=== PATIENT | female | born 1965 | race Two or more races ===

== ENCOUNTER → 2020-01-13 13:31 | Outpatient (BNVA) | payer OTHER, SELFPAY | PROVIDERS: PCP Nurse Practitioner Family; Referring Provider Nurse Practitioner Family; Visit Provider Student in an Organized Health Care Education/Training Program | DX: M79.7 Fibromyalgia (principal); S83.241A Other tear of medial meniscus, current injury, right knee, initial encounter; Z79.899 Other long term (current) drug therapy | CPT/HCPCS: 99212 ==

== ENCOUNTER → 2020-01-22 10:29 | Outpatient (BNVA) | payer OTHER, SELFPAY | PROVIDERS: Visit Provider Orthopaedic Surgery | DX: S83.241D Other tear of medial meniscus, current injury, right knee, subsequent encounter (principal) | CPT/HCPCS: 99212 ==

== ENCOUNTER 2020-03-17 09:16 | Day surgery (SDC) | payer OTHER, SELFPAY ==
[2020-03-01 15:02] VITALS: BMI 39.4
--- NOTE | 2020-03-15 15:18 | HO.ANESPROP2 ---
Documented by User: Melissa Caro 03/15/20 15:21 HPI - Anesthesia Eval Consult details Narrative: 54yo F for Knee Arthroscopy PMFSH Past Medical History Medical History Anemia Anxiety Depression Fibromyalgia GERD (gastroesophageal reflux disease) Glaucoma Hyperlipemia IBS (irritable bowel syndrome) Lumbar spondylitis Obesity Osteoarthritis Overactive bladder Plantar fasciitis Renal stones Family History Family History Mother Diabetes Fibromyalgia Arthritis Osteoporosis Daughter Breast cancer Surgical History Surgical History H/O nasal septoplasty Hx of lithotripsy Hx of tubal ligation Social History Social History Are you a primary animal care attendant to a significant other at home: No Alcohol intake: never Smoking Status: Never smoker Second Hand Smoke Exposure: No Use of substances other than those prescribed or required for medical reasons: No Have you been hit, kicked, punched, or otherwise hurt by someone within the past year? If so, by whom?: No Advance Directives: No Advance Directives Information Provided: No Advance Directives on File: No Recently lost weight without trying: No Current occupational status: disabled Current occupation: Right Handed Meds Allergies Allergy/AdvReac Type Severity Reaction Status Date / Time No Known Allergies Allergy Verified 03/01/20 14:35 [No Known Allergies*] Home Medications Medication Instructions Recorded Confirmed Type baclofen 10 mg tablet 10 mg PO BEDTIME 01/13/20 03/01/20 History cholecalciferol (vitamin D3) 25 25 mcg PO DAILY 01/13/20 03/01/20 History mcg (1,000 unit) capsule duloxetine 30 mg capsule,delayed 30 mg PO BID 01/13/20 03/01/20 History release gabapentin 100 mg capsule 100 mg PO BEDTIME 01/13/20 03/01/20 History lidocaine 5 % topical cream 1 applic TOPICAL BID PRN 01/13/20 03/01/20 History simvastatin 10 mg tablet 10 mg PO DAILY 01/13/20 03/01/20 History buspirone 1 tab PO TID 03/01/20 03/01/20 History clonazepam 1 tab PO DAILY PRN 03/01/20 03/01/20 History omeprazole 1 tab PO QAM 03/01/20 03/01/20 History tramadol 1 tab PO Q4H PRN 03/01/20 03/01/20 History zolpidem 1 tab PO BEDTIME PRN 03/01/20 03/01/20 History Exam Exam Date and Time: March 15, 2020 1518 Height,Weight and Vital Signs: Height 4 ft 11 in Weight 88.451 kg Assessment and Plan Assessment Anesthesia Assessment: Chart Reviewed Documented by User: Smitha Liz 03/17/20 10:29 PMFSH Past Medical History Medical History Anemia Anxiety Depression Fibromyalgia GERD (gastroesophageal reflux disease) Glaucoma Hyperlipemia IBS (irritable bowel syndrome) Lumbar spondylitis Obesity Osteoarthritis Overactive bladder Plantar fasciitis Renal stones Family History Family History Mother Diabetes Fibromyalgia Arthritis Osteoporosis Daughter Breast cancer Surgical History Surgical History H/O nasal septoplasty Hx of lithotripsy Hx of tubal ligation Social History Social History Are you a primary animal care attendant to a significant other at home: No Alcohol intake: never Smoking Status: Never smoker Second Hand Smoke Exposure: No Use of substances other than those prescribed or required for medical reasons: No Have you been hit, kicked, punched, or otherwise hurt by someone within the past year? If so, by whom?: No Advance Directives: No Advance Directives Information Provided: No Advance Directives on File: No Recently lost weight without trying: No Current occupational status: disabled Current occupation: Right Handed Meds Allergies Allergy/AdvReac Type Severity Reaction Status Date / Time No Known Allergies Allergy Verified 03/01/20 14:35 [No Known Allergies*] Home Medications Medication Instructions Recorded Confirmed Type baclofen 10 mg tablet 10 mg PO BEDTIME 01/13/20 03/01/20 History cholecalciferol (vitamin D3) 25 25 mcg PO DAILY 01/13/20 03/01/20 History mcg (1,000 unit) capsule duloxetine 30 mg capsule,delayed 30 mg PO BID 01/13/20 03/01/20 History release gabapentin 100 mg capsule 100 mg PO BEDTIME 01/13/20 03/01/20 History lidocaine 5 % topical cream 1 applic TOPICAL BID PRN 01/13/20 03/01/20 History simvastatin 10 mg tablet 10 mg PO DAILY 01/13/20 03/01/20 History buspirone 1 tab PO TID 03/01/20 03/01/20 History clonazepam 1 tab PO DAILY PRN 03/01/20 03/01/20 History omeprazole 1 tab PO QAM 03/01/20 03/01/20 History tramadol 1 tab PO Q4H PRN 03/01/20 03/01/20 History zolpidem 1 tab PO BEDTIME PRN 03/01/20 03/01/20 History Exam Airway Mallampati Class: II TM Dist: >3cm Neck ROM: Full Assessment and Plan Assessment Anesthesia Assessment: Anesthesia Plan Discussed and Chart Reviewed Final Anesthetic Review NPO: Yes ASA Class: II Final Preanesthetic Review: No Changes in Pt Med Stat, Meds/Allgs Chart Reviewed, Consent Obtained/Reviewed and Anes Risks/Benef Reviewed Patient Risk: Low Procedure Risk: Low Assessment/Block/Sedation in SS: Assess/Block/Sedation-SS Anesthetic Plan Anesthetic Plan: GA
--- NOTE | 2020-03-16 14:57 | MHC.SHP ---
Pre-Procedural Eval Section A The patient is an INPATIENT: No Changes since office visit: No Cold of Flu in the past 2 weeks, No New Medical Problems, No Changes in Medication and No Patient answered all questions The History & Physical has been completed within 30 days and I have reviewed it.: Yes Section B Chief Complaint: Medial Meniscus Tear Allergies: Allergies Allergy/AdvReac Type Severity Reaction Status Date / Time No Known Allergies Allergy Verified 03/01/20 14:35 [No Known Allergies*] Plan I have reviewed the history and physical and performed a pertinent physical examination on my patient. No changes have occurred unless specified.
[2020-03-17] VITALS (9 sets, daily range): BP systolic 114–154; BP diastolic 65–88; PULSE 63–82; RESP 14–18; TEMP 36.1–36.6; O2SAT 95–100
[2020-03-17] MEDS: Acetaminophen 325 MG TABLET 650 MG PO (11:45)
[2020-03-17] MEDS: fentaNYL citrate/PF 100 MCG/2 ML VIAL 50 MCG IVPUSH (11:45)
[2020-03-17] MEDS: oxyCODONE HCl Immed Release 5 MG TABLET PO (11:45)
--- NOTE | 2020-03-17 12:27 | HO.POSTANES ---
Post Anesthesia Evaluation Post Anesthesia Evaluation Vital Signs: Vital Signs Temp Pulse Resp BP Pulse Ox 03/17/20 12:05 97.0 F 67 17 136/88 99 03/17/20 11:50 67 17 154/86 H 99 03/17/20 11:45 17 03/17/20 11:35 65 16 151/82 H 100 03/17/20 11:20 65 18 139/80 100 03/17/20 11:15 64 16 137/81 100 03/17/20 11:10 63 16 137/79 100 03/17/20 11:05 98 F 69 14 139/83 100 03/17/20 09:54 97.0 F 82 16 114/65 96 Anesthesia: Monitored and General LMA Mental Status: Awake Pain Control: Satisfactory Nausea/Vomiting: None Hydration: Adequate Anesthesia-Related Issues: No Anes. Related Issues
--- NOTE | 2020-03-19 12:47 | OP_ITS ---
SURGEON: Christina العلي MD PREOPERATIVE DIAGNOSIS: Medial meniscal tear, right knee. POSTOPERATIVE DIAGNOSIS: Osteoarthritis of medial meniscus, right knee. PROCEDURE PERFORMED: Partial medial meniscectomy, right knee and debridement of medial femoral condyle. ESTIMATED BLOOD LOSS: COMPLICATIONS: ANESTHESIA: ASSISTANTS: SPECIMENS: CLINICAL NOTE: This lady has ongoing problem with pain and discomfort involving her knee. She has failed nonoperative management. Therefore, after explaining the risks, benefits, and alternatives and answering all the questions, it was mutually agreed upon to carry out the following procedure. MOTION: Full range of motion. STABILITY: Cruciate and collateral ligaments intact. DESCRIPTION OF PROCEDURE: PREPARATION: GA, standard technique, tourniquet inflated to 300 mmHg for 8 minutes. SURGICAL TIME-OUT: The patient was identified, procedure confirmed, site confirmed. Medical analogy and history reviewed. Preoperative antibiotics were given. Standard DVT prophylaxis in place. All other items were discussed and agreed upon. INCISION: Superolateral, inferolateral, inferomedial stab incisions. SYNOVIUM: Normal. SYNOVIAL FLUID: Clear. MEDIAL COMPARTMENT: There was a tear of the posterior horn of the medial meniscus was resected using a combination of handheld cutters and power shaver to stable meniscus. There was a larger grade 3 injury of the medial femoral condyle, which was debrided of loose articular cartilage. There were areas of grade 2 to 3 injury of the tibial articular surface, which was debrided as well. INTERCONDYLAR NOTCH: ACL visualized, palpated intact. PCL palpated intact. LATERAL COMPARTMENT: The lateral meniscus, tibial and femoral articular surfaces, popliteus tendon were all stable and intact. ANTERIOR COMPARTMENT: Medial and lateral gutters clear. Suprapatellar pouch clear. There was grade 2 softening of the medial facet of the patella. There was grade 2 softening of the femoral sulcus. CLOSURE: 30 mL of 0.75% Marcaine with epinephrine mixed half and half with normal saline was injected in the knee. Steri-Strips and sterile dressing were then applied. RECOMMENDATIONS: 1. Restore motion and strength. 2. Resume activity as tolerated. 3. Discharge today with prescription for Tylenol No. 3, 20 tablets. Christina العلي MD KKI/TRUDYL / [id number]
== END 2020-03-17 12:36 | disposition home or self-care (01) ==
PROVIDERS: PCP Nurse Practitioner Family; Visit Provider Orthopaedic Surgery
PROC: (CPT 29870; principal; 2020-03-17 10:40)
DX: S83.241A Other tear of medial meniscus, current injury, right knee, initial encounter (principal); M17.11 Unilateral primary osteoarthritis, right knee; Z79.899 Other long term (current) drug therapy; X58.XXXA Exposure to other specified factors, initial encounter; Y93.9 Activity, unspecified; Y92.9 Unspecified place or not applicable; Y99.8 Other external cause status
CPT/HCPCS: 29881; J0171; J1100; J1885; J2250; J2405; J3010

== ENCOUNTER → 2020-03-23 10:13 | Outpatient (BNVA) | payer OTHER, SELFPAY | PROVIDERS: PCP Nurse Practitioner Family; Visit Provider Physician Assistant | DX: Z47.89 Encounter for other orthopedic aftercare (principal); S83.241D Other tear of medial meniscus, current injury, right knee, subsequent encounter | CPT/HCPCS: 29881; 99212 ==

== ENCOUNTER → 2020-03-31 14:12 | Outpatient (BNVA) | payer OTHER, SELFPAY | PROVIDERS: PCP Nurse Practitioner Family; Visit Provider Urology | DX: N20.0 Calculus of kidney (principal); N39.41 Urge incontinence; R35.0 Frequency of micturition | CPT/HCPCS: 51798; 81002; 99202 ==

== ENCOUNTER 2020-04-12 14:57 | Outpatient (REF) | payer OTHER, SELFPAY ==
--- NOTE | 2020-04-12 15:01 | US_ITS ---
EXAMINATION: US RETROPERITONEAL LIMITED (RENAL ONLY) CLINICAL INFORMATION: Calculus of kidney. COMPARISON: None TECHNIQUE: Calculus of kidneys. FINDINGS: RIGHT KIDNEY: 11.3 x 4.0 x 3.7 cm (SAG x AP x TRV). The kidney is normal in size, contour, and echogenicity. Renal cortical thickness is normal. There are punctate foci with twinkle artifact at the midpole. LEFT KIDNEY: 10.7 x 4.3 x 4.2 cm (SAG x AP x TRV). The kidney is normal in size, contour, and echogenicity. Renal cortical thickness is normal. There are calcified vessels in the lower pole with an extrarenal pelvis and mild pelvic fullness. US/US renal BI IMPRESSION: No echogenic stones or solid lesion. Likely mild pelvic fullness with an extrarenal left kidney pelvis. Mild punctate foci with Twinkle artifact in the midpole right kidney and echogenic foci in the lower pole left kidney likely vascular calcifications.
== END 2020-04-12 14:58 | disposition home or self-care (01) ==
LOC: HO.US 14:57
PROVIDERS: Visit Provider Urology
DX: N20.0 Calculus of kidney (principal)
CPT/HCPCS: 76775

== ENCOUNTER → 2020-05-03 13:32 | Outpatient (BNVA) | payer OTHER, SELFPAY | PROVIDERS: PCP Nurse Practitioner Family; Visit Provider Urology | CPT/HCPCS: Q3014 ==

== ENCOUNTER 2020-05-13 12:32 | Outpatient (REF) | payer OTHER, SELFPAY ==
--- NOTE | ~2020-05-13 | MM_ITS ---
EXAMINATION: MM SCREENING DIGITAL BREAST TOMOSYNTHESIS, BILATERAL CLINICAL INFORMATION: Screening. Asymptomatic. The lifetime risk of breast cancer based on the Tyrer-Cuzick Model is 11%. COMPARISON: Mammography: 02/21/2018, 01/16/2017, 12/21/2015 TECHNIQUE: Digital breast tomosynthesis is performed in both the craniocaudal and mediolateral oblique views along with computer-aided detection (CAD). Synthesized 2D images are generated from the tomosynthesis. FINDINGS: There are scattered areas of fibroglandular density (ACR BI-RADS breast composition Category b). The left breast has stable nodular asymmetry anterior upper outer quadrant similar to prior studies. Neither breast shows abnormal calcifications. The bilateral axilla and skin contours are unremarkable. Right CC view has small asymmetric density mid outer quadrant. This could represent shifting fibroglandular tissue, current right CC view is performed without nipple in profile. Patient will be recalled for additional imaging. MM/MM tomosynthesis screening BI IMPRESSION: 1. Right: Asymmetric density mid outer quadrant on CC view, possibly shifting fibroglandular tissue. 2. Left: No mammographic evidence of malignancy. ASSESSMENT: BI-RADS 0: Incomplete - Need Additional Imaging Evaluation RECOMMENDATION: 1. Additional views of the right breast (3-D CC nipple in profile; 3-D rolled CC x2). 2. Targeted ultrasound if warranted after review of the additional views. 3. Radiology department staff will contact the patient for additional imaging. This patient's information was entered into a reminder system with a target due date for their next mammogram.
== END 2020-05-13 12:33 | disposition home or self-care (01) ==
LOC: HO.MAMMO 12:32
PROVIDERS: PCP Nurse Practitioner Family; Visit Provider Nurse Practitioner Family
DX: Z12.31 Encounter for screening mammogram for malignant neoplasm of breast (principal)
CPT/HCPCS: 77063; 77067; Q3014

== ENCOUNTER 2020-06-10 12:25 | Outpatient (REF) | payer OTHER, SELFPAY ==
--- NOTE | ~2020-06-10 | US_ITS ---
EXAMINATION: US DIAGNOSTIC ULTRASOUND BREAST, RIGHT CLINICAL INFORMATION: Right breast asymmetry laterally. COMPARISON: Mammography of same day and studies dating back to January 11, 2012. TECHNIQUE: Ultrasound of the breast is performed with real-time argueta scale imaging and color Doppler. FINDINGS: There is no focal suspicious finding. There is no solid mass, architectural abnormality, duct ectasia, or edema in the soft tissue planes. Results are discussed with the patient at time of visit. US/US breast RT limited IMPRESSION: No ultrasound findings to suggest malignancy of the right breast. ASSESSMENT: BI-RADS 1: Negative RECOMMENDATION: Routine annual mammography screening due in 12 months. This patient's information was entered into a reminder system with a target due date for their next mammogram.
--- NOTE | ~2020-06-10 | MM_ITS ---
EXAMINATION: MM DIAGNOSTIC DIGITAL BREAST TOMOSYNTHESIS, RIGHT CLINICAL INFORMATION: Density laterally. COMPARISON: Mammography: 05/13/2020 and studies dating back to 01/11/2012. TECHNIQUE: Digital breast tomosynthesis is performed. 2D images are generated from the tomosynthesis. The following views are obtained: Repeat craniocaudal view as well as rolled craniocaudal views of the right breast. FINDINGS: There are scattered areas of fibroglandular density (ACR BI-RADS breast composition Category b). Supplementary images appear to show density to have a similar appearance to glandular tissue which is similar to previous studies. Targeted right breast ultrasound laterally did not demonstrate any abnormal cystic or solid masses. No region of abnormal distal sound shadowing. No edematous change within the parenchyma is present. Results are provided to the patient at time of visit by the technologist. MM/MM tomosynthesis added views R IMPRESSION: No specific mammographic or ultrasound findings to suggest malignancy. ASSESSMENT: BI-RADS 1: Negative. RECOMMENDATION: Routine annual mammography screening due in 12 months. This patient's information was entered into a reminder system with a target due date for their next mammogram.
== END 2020-06-10 12:26 | disposition home or self-care (01) ==
LOC: HO.MAMMO 12:25
PROVIDERS: Visit Provider Nurse Practitioner Family
DX: N64.89 Other specified disorders of breast (principal)
CPT/HCPCS: 76642; 77061; 77065

== ENCOUNTER → 2020-08-03 14:47 | Outpatient (BNVA) | payer OTHER, SELFPAY | DX: N32.81 Overactive bladder (principal); N39.41 Urge incontinence; N20.0 Calculus of kidney; M79.7 Fibromyalgia; R35.0 Frequency of micturition | CPT/HCPCS: 51798; 99212 ==

== ENCOUNTER 2020-11-08 13:22 | Outpatient (REF) | payer OTHER, SELFPAY ==
[2020-11-08 15:15] LABS: Alanine Aminotransferase 24 U/L (0-31); Alkaline Phosphatase 108 U/L (39-117); Anion Gap 11 (12-20); Aspartate Amino Transferase 16 U/L (5-31); Bilirubin Total 0.4 mg/dL (0.0-1.0); Blood Urea Nitrogen 16 mg/dL (9-16); Calcium 9.8 mg/dL (8.4-10.2); Carbon Dioxide 28 mmol/L (22-29); Chloride 107 mmol/L (96-108); Estimated Glomerular Filt Rate > 60; Glucose Random 123 mg/dL (60-115); Potassium 4.3 mmol/L (3.3-5.1); Sodium 142 mmol/L (135-145); Total Protein 7.1 g/dL (6.5-8.0)
== END 2020-11-08 13:23 | disposition home or self-care (01) ==
LOC: HO.LAB 13:22
PROVIDERS: PCP Nurse Practitioner Family; Visit Provider Nurse Practitioner Family
DX: M79.7 Fibromyalgia (principal); S83.241D Other tear of medial meniscus, current injury, right knee, subsequent encounter
CPT/HCPCS: 36415; 80053; 99212

== ENCOUNTER 2020-12-16 11:38 | Emergency (ER) | payer OTHER, SELFPAY ==
--- NOTE | ~2020-12-16 | CT_ITS ---
EXAMINATION: CT ABDOMEN AND PELVIS WITHOUT CONTRAST CLINICAL INFORMATION: Flank pain. COMPARISON: CT chest 03/15/2017 . TECHNIQUE: Multidetector volumetric imaging was performed from the superior aspect of the liver through the pubic symphysis. Sagittal and coronal reformatted images were obtained on the technologist's workstation. This CT examination was performed using dose optimization techniques as appropriate, variously including the following: *Automated exposure control *Adjustment of mA and/or kV according to patient size (this includes techniques or standardized protocols for targeted exams where dose is matched to indication/reason for exam; i.e. extremities or head) *Use of iterative reconstruction technique DLP: 851 mGy-cm FINDINGS: LUNG BASES: The visualized lung bases are unremarkable. LIVER, GALLBLADDER, AND BILIARY TREE: The liver is enlarged in size, normal shape, and diffusely attenuated. Liver measures 21 seen in concordant length. No focal hepatic lesion or biliary ductal dilatation is present. The gallbladder is unremarkable with no evidence of radiopaque gallstones, gallbladder wall thickening, or obvious pericholecystic inflammatory changes. PANCREAS: Unremarkable. SPLEEN: Unremarkable. ADRENAL GLANDS: Unremarkable. KIDNEYS AND URETERS: The kidneys are normal in size, shape, and attenuation. There is a 5 mm nonobstructive radiopaque calculi upper pole and a tumor nonobstructive radiopaque calculi mid and lower pole right kidney. There is a 2 mm nonobstructive radiopaque calculi mid lower pole calyx left kidney. There is no hydroureteronephrosis seen. BLADDER: Unremarkable. GASTROINTESTINAL TRACT: There is scattered stool and gas seen throughout the colon without distention. The small bowel loops are normal caliber. ABDOMINAL WALL: A small lumbar canal hernia containing fat is noted. LYMPH NODES: Normal. VASCULAR: Unremarkable. PELVIC VISCERA: The uterus is anteverted and slightly enlarged.. There is an exophytic lesion OSSEOUS STRUCTURES: Unremarkable. CT/CT abdomen pelvis wo con IMPRESSION: Diffuse hepatic steatosis with mild hepatomegaly. No focal lesion seen. Bilateral nonobstructive radiopaque renal calculi without hydroureteronephrosis. Mild constipation. Appendix not seen.
[2020-12-16 11:57] VITALS: BMI 36.8
--- NOTE | 2020-12-16 12:01 | ED.BACK ---
HPI - Back Pain/Injury General Chief Complaint: Back Pain/Injury Stated Complaint: back pain Time Seen by Provider: 12/16/20 11:57 History of Present Illness HPI Narrative: Patient is a 55-year-old female presents today with having back pain. The back pain is diffuse is on both sides. It radiates down the right thigh a little bit. It is not associated with any bowel urinary incontinence. There is no focal weakness. Patient has had similar back pain but not as intense in the past. No history of kidney stone. No history of abdominal surgery. No nausea no vomiting. Patient from home. There is no particular trauma. Patient woke up 1 morning started having the pain. Related Data Home Medications Medication Instructions Recorded Confirmed baclofen 10 mg tablet 10 mg PO BEDTIME 01/13/20 11/08/20 cholecalciferol (vitamin D3) 25 25 mcg PO DAILY 01/13/20 11/08/20 mcg (1,000 unit) capsule lidocaine 5 % topical cream 1 applic TOPICAL BID PRN 01/13/20 11/08/20 simvastatin 10 mg tablet 10 mg PO DAILY 01/13/20 11/08/20 buspirone 7.5 mg tablet 1 tab PO TID 03/01/20 11/08/20 clonazepam 0.5 mg tablet 1 tab PO DAILY PRN 03/01/20 11/08/20 omeprazole 20 mg tablet,delayed 1 tab PO QAM 03/01/20 11/08/20 release tramadol 50 mg tablet 1 tab PO Q4H PRN 03/01/20 11/08/20 zolpidem 10 mg tablet 1 tab PO BEDTIME PRN 03/01/20 11/08/20 acetaminophen 500 mg tablet 500 mg PO Q6H PRN 03/31/20 11/08/20 baclofen 20 mg tablet 20 mg PO TID 03/31/20 11/08/20 lidocaine 5 % topical ointment 1 TOPICAL TID 03/31/20 11/08/20 simvastatin 20 mg tablet 20 mg PO BEDTIME 03/31/20 11/08/20 Previous Rx's Medication Instructions Recorded acetaminophen 300 mg-codeine 30 mg 1 tab PO Q4-6H PRN 7 Days #20 tab 03/17/20 tablet oxybutynin chloride 5 mg 5 mg PO DAILY #30 tab 03/31/20 tablet,extended release 24 hr diclofenac sodium 1 % topical gel 2 g TOPICAL BID #100 g 05/10/20 tolterodine 2 mg capsule,extended 2 mg PO DAILY 30 Days #30 cap 06/09/20 release 24 hr duloxetine 30 mg capsule,delayed 30 mg PO BID #60 cap 08/16/20 release (Cymbalta) gabapentin 100 mg capsule 100 mg PO BEDTIME #90 cap 11/21/20 mirabegron 25 mg tablet,extended 25 mg PO DAILY 30 Days #90 tab 11/25/20 release 24 hr (Myrbetriq) tolterodine 4 mg capsule,extended 4 mg PO DAILY 30 Days #90 cap 11/25/20 release 24 hr cyclobenzaprine 10 mg tablet 10 mg PO TID PRN #14 tab 12/16/20 ibuprofen 400 mg tablet 400 mg PO Q6H PRN #20 tab 12/16/20 oxycodone 5 mg tablet 5 mg PO Q8H PRN #7 tab 12/16/20 Allergies Allergy/AdvReac Type Severity Reaction Status Date / Time No Known Allergies Allergy Verified 11/08/20 13:41 [No Known Allergies*] Review of Systems Review of Systems: No bowel Urinary incontinence No focal weakness No chest pain or shortness of breath no diaphoresis All systems reviewed otherwise negative [facility] Past Medical History Attestation statement: The following information was validated with the patient. Medical History Anemia Anxiety Depression Fibromyalgia Frequency of urination GERD (gastroesophageal reflux disease) Glaucoma Hyperlipemia IBS (irritable bowel syndrome) Lumbar spondylitis Obesity Osteoarthritis Overactive bladder Plantar fasciitis Renal stones Renal stones Urge incontinence Surgical History H/O nasal septoplasty History of arthroscopy of right knee (~03/2020) Hx of lithotripsy Hx of tubal ligation Family History Family History Mother Diabetes Fibromyalgia Arthritis Osteoporosis Daughter Breast cancer Social History Social History Are you a primary direct care provider to a significant other at home: No Alcohol intake: never Second Hand Smoke Exposure: No Advance Directives: No Advance Directives Information Provided: Yes Current occupational status: disabled Current occupation: Right Handed Physical Exam Vital Signs: Vital Signs: Last Vital Signs Temp 97.9 F 12/16/20 13:02 Pulse 71 12/16/20 13:02 Resp 16 12/16/20 13:02 BP 156/74 H 12/16/20 13:02 Pulse Ox 97 12/16/20 13:02 Body Mass Index 36.8 Appearance: Alert. Oriented X3. No acute distress. Eyes: Pupils equal, round and reactive to light. ENT: Pharynx normal. Neck: Normal inspection. Neck supple. No lymph nodes noted. No crepitus CVS: Normal heart rate and rhythm. Pulses normal. Normal S1 and S2 Respiratory: No respiratory distress. Breath sounds normal. No Wheezing. No rales Abdomen: Soft and nontender. No rigidity. No distention. good BS x4 Examination of the back there is no CVA tenderness elicited bilaterally. There is no spinal tenderness elicited. There is positive bilateral para spinal muscle tenderness elicited on palpation. Sensation bilateral lower extremity intact. Positive straight leg raise test on the right side Skin: Skin warm and dry. Normal skin color. Normal skin turgor. Extremities: No lower extremity edema. Neurovascular intact to all extremities. No Lacerations. No Rash Neuro: Oriented X 3. No motor deficit. No sensory deficit. Moving all extermities. No slurred speech MDM - Back Pain/Injury MDM Narrative Medical decision making narrative: CT scan of the abdomen pelvis negative for any acute evidence of ureteral stone. No evidence for abscess/perforation/appendicitis. Patient given pain medication for sciatica/musculoskeletal back pain. Symptom improved. No bowel urinary incontinence. No focal weakness. Will discharge patient home. Close follow-up outpatient basis. Differential Diagnosis Differential diagnosis: Likely lumbar radiculopathy and sciatica Medical Records Attestation: I reviewed the patient's medical records. Lab Data Attestation: I reviewed the patient's lab results. Result diagrams: 12/16/20 12:25 12/16/20 12:25 Labs: Lab Results 12/16/20 12/16/20 Range/Units 12:25 12:25 WBC 7.2 (4.8-10.8) X10*3/uL RBC 4.57 (4.20-5.50) X10*6/uL Hgb 13.2 (12.0-16.0) g/dl Hct 40.2 (37-47) % MCV 88.0 (80-98) fL MCH 28.9 (27.0-33.0) pg MCHC 32.8 (31.0-35.0) g/dl RDW 13.4 (11.0-16.0) % Plt Count 248 (160-400) X10*3/uL MPV 8.3 L (9.4-12.3) fL Immature Gran % (Auto) 1.0 H (0.0-0.4) % Neut % (Auto) 63.7 (45-73) % Lymph % (Auto) 28.4 (20-40) % Hawkins % (Auto) 5.7 (2-11) % Eos % (Auto) 1.1 (0-4) % Baso % (Auto) 0.1 (0-2) % Lymph # (Auto) 2.1 (1.2-4.9) X10*3/uL Hawkins # (Auto) 0.4 (0.1-1.2) X10*3/uL Eos # (Auto) 0.1 (0.0-0.4) X10*3/uL Baso # (Auto) 0.0 (0.0-0.2) X10*3/uL Abs Immat Gran (auto) 0.07 H (0.00-0.03) X10*3/uL Absolute Neuts (auto) 4.6 (2.0-8.3) X10*3/uL Absolute Nucleated RBC 0.000 (0.0-0.012) X10*3/uL Nucleated RBC % (auto) 0.0 (0.0-0.2) /100WBC Sodium 141 (135-145) mmol/L Potassium 4.4 (3.3-5.1) mmol/L Chloride 110 H (96-108) mmol/L Carbon Dioxide 24 (22-29) mmol/L Anion Gap 11 L (12-20) BUN 20 H (9-16) mg/dL Creatinine 0.94 (0.5-1.4) mg/dL Estim Creat Clear Calc 76.5 Estimated GFR > 60 Random Glucose 119 H (60-115) mg/dL Calcium 9.5 (8.4-10.2) mg/dL Total Bilirubin 0.4 (0.0-1.0) mg/dL Direct Bilirubin 0.2 (0.0-0.5) mg/dL AST 17 (5-31) U/L ALT 26 (0-31) U/L Alkaline Phosphatase 104 (39-117) U/L Total Protein 6.7 (6.5-8.0) g/dL Albumin 3.8 (3.5-5.0) g/dL Discharge Plan Discharge Clinical Impression: Strain of lumbar region, Sciatica Patient Disposition: Home, Self-Care Instructions: Low Back Strain (ED), Sciatica (ED) Prescriptions: New cyclobenzaprine 10 mg tablet 10 mg PO TID PRN (Reason: pain) Qty: 14 RF: 0 ibuprofen 400 mg tablet 400 mg PO Q6H PRN (Reason: pain) Qty: 20 RF: 0 oxycodone 5 mg tablet 5 mg PO Q8H PRN (Reason: pain) Qty: 7 RF: 0 No Action acetaminophen-codeine 300-30 mg tablet 1 tab PO Q4-6H PRN (Reason: pain) 7 Days Qty: 20 RF: 0 diclofenac sodium 1 % gel 2 g topical BID Qty: 100 RF: 2 tolterodine 2 mg capsule,extended release 24hr 2 mg PO DAILY 30 Days Qty: 30 RF: 6 duloxetine [Cymbalta] 30 mg capsule,delayed release(DR/EC) 30 mg PO BID Qty: 60 RF: 3 gabapentin 100 mg capsule 100 mg PO BEDTIME Qty: 90 RF: 1 tolterodine 4 mg capsule,extended release 24hr 4 mg PO DAILY 30 Days Qty: 90 RF: 2 Myrbetriq 25 mg tablet extended release 24 hr 25 mg PO DAILY 30 Days Qty: 90 RF: 2 clonazepam 0.5 mg tablet 1 tab PO DAILY PRN (Reason: anxiety) RF: 0 tramadol 50 mg tablet 1 tab PO Q4H PRN (Reason: Pain) RF: 0 buspirone 7.5 mg tablet 1 tab PO TID RF: 0 zolpidem 10 mg tablet 1 tab PO BEDTIME PRN (Reason: Sleep) RF: 0 omeprazole 20 mg tablet,delayed release (DR/EC) 1 tab PO QAM RF: 0 simvastatin 20 mg tablet 20 mg PO BEDTIME RF: 0 acetaminophen 500 mg tablet 500 mg PO Q6H PRNRF: 0 baclofen 20 mg tablet 20 mg PO TID RF: 0 lidocaine 5 % ointment 1 topical TID RF: 0 oxybutynin chloride 5 mg tablet extended release 24hr 5 mg PO DAILY Qty: 30 RF: 6 baclofen 10 mg tablet 10 mg PO BEDTIME RF: 0 cholecalciferol (vitamin D3) 25 mcg (1,000 unit) capsule 25 mcg PO DAILY RF: 0 lidocaine 5 % cream 1 applic topical BID PRN (Reason: Pain) RF: 0 simvastatin 10 mg tablet 10 mg PO DAILY RF: 0 Referrals: Radha Cobb [Primary Care Provider] - 2 days
[2020-12-16 12:28] LABS: MANUAL DIFF FLAG NO
[2020-12-16 12:30] LABS: Basophils Percent Auto 0.1 % (0-2); Eosinophils Absolute Auto 0.1 X10*3/uL (0.0-0.4); Eosinophils Percent Auto 1.1 % (0-4); Hematocrit 40.2 % (37-47); Hemoglobin 13.2 g/dl (12.0-16.0); Imm Gran Abs Auto 0.07 X10*3/uL (0.00-0.03); Lymphocytes Absolute Auto 2.1 X10*3/uL (1.2-4.9); Lymphocytes Percent Auto 28.4 % (20-40); Mean Corpuscular HGB Conc 32.8 g/dl (31.0-35.0); Mean Corpuscular Hemoglobin 28.9 pg (27.0-33.0); Mean Platelet Volume 8.3 fL (9.4-12.3); Monocytes Absolute Auto 0.4 X10*3/uL (0.1-1.2); Monocytes Percent Auto 5.7 % (2-11); Neutrophils Absolute Auto 4.6 X10*3/uL (2.0-8.3); Neutrophils Percent Auto 63.7 % (45-73); Platelet Count 248 X10*3/uL (160-400); Red Blood Count 4.57 X10*6/uL (4.20-5.50); Red Cell Distribution Width 13.4 % (11.0-16.0); White Blood Count 7.2 X10*3/uL (4.8-10.8)
[2020-12-16 12:50] LABS: Alanine Aminotransferase 26 U/L (0-31); Albumin Level 3.8 g/dL (3.5-5.0); Alkaline Phosphatase 104 U/L (39-117); Anion Gap 11 (12-20); Aspartate Amino Transferase 17 U/L (5-31); Bilirubin Direct 0.2 mg/dL (0.0-0.5); Bilirubin Total 0.4 mg/dL (0.0-1.0); Blood Urea Nitrogen 20 mg/dL (9-16); Calcium 9.5 mg/dL (8.4-10.2); Carbon Dioxide 24 mmol/L (22-29); Chloride 110 mmol/L (96-108); Creatinine Clr Calc Pharmacy 76.5; Estimated Glomerular Filt Rate > 60; Glucose Random 119 mg/dL (60-115); Potassium 4.4 mmol/L (3.3-5.1); Sodium 141 mmol/L (135-145); Total Protein 6.7 g/dL (6.5-8.0)
[2020-12-16 13:02] VITALS: BP 156/74; PULSE 71; RESP 16; TEMP 36.6; O2SAT 97
[2020-12-16] MEDS: HYDROmorphone HCl 0.5 MG/0.5 ML SYRINGE IVPUSH (14:09)
[2020-12-16] MEDS: Ketorolac Tromethamine 15 MG/ML VIAL 30 MG IVPUSH (14:10)
[2020-12-16] MEDS: LORazepam 2 MG/ML VIAL 0.5 MG IVPUSH (14:10)
== END 2020-12-16 15:36 | disposition home or self-care (01) ==
PROVIDERS: Emergency Provider Emergency Medicine Emergency Medical Services; PCP Nurse Practitioner
DX: S39.012A Strain of muscle, fascia and tendon of lower back, initial encounter (principal); M54.30 Sciatica, unspecified side; X58.XXXA Exposure to other specified factors, initial encounter; Y93.9 Activity, unspecified; Y92.9 Unspecified place or not applicable; Y99.9 Unspecified external cause status
CPT/HCPCS: 36415; 74176; 80048; 80076; 85025; 96374; 96375; 99283; 99284; J1170; J1885; J2060

== ENCOUNTER 2021-01-17 15:52 | Outpatient (RCR) | payer OTHER, SELFPAY ==
--- NOTE | 2021-01-17 16:52 | MHC.PT.EP ---
[facility] [place] Office [place] Office [place] Office [address] Mindi Thacker [address] [phone] F: [phone] F: [phone] F: [phone] F: [phone] Physical Therapy Plan of Care Date of Evaluation: Date of Surgery: N/A Diagnosis: lower back pain Assessment: pt's signs and symptoms consistent w/ hip weakness, tightness of hip and paraspinal musculature, and poor habitual anterior pelvic tilt. pt presents to physical therapy with pain, decreased range of motion, decreased strength, impaired functional mobility, impaired postural awareness, and gait deviations. pt is a good candidate for skilled PT due to age, potential remediation of impairments, typical disease/condition progression and prognosis, comorbidities, and motivation. pt would benefit from tailored strengthening and stretching exercise program, functional training, gait training, postural re-training, neuromuscular re-education, modalities as needed for pain, equipment safety demonstration. Frequency and Duration: The patient will be seen 2x/wk for 4 wks Short Term Goals: pt will be I w/ HEP to promote self-management of condition. pt will demo proper sitting posture w/ lumbar roll to promote neutral spine w/ seated ADLs. 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 Filament Cutter Goals: pt will report a statistically significant improvement in self-reported outcome measure, Antonieta, to promote return to PLOF. pt will report <3/10 low back pain w/ ambulation on even ground for greater than 30 minutes to improve tolerance for grocery shopping. 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 Treatment Plan: Modalities to reduce pain, spasms and effusion. Manual therapy to restore motion and function. Therapeutic exercise to improve strength and flexibility. Neuromuscular re-education for posture and balance. Therapeutic activities to return to functional activities of daily living. Electronically signed by: Karyn Chapa PT, DPT Please sign and return to therapist. Thank you for your referral.
--- NOTE | 2021-02-09 10:37 | MHC.PT.DC ---
[facility] [place] Office [place] Office [place] Office [address] Mindi Thacker 140 [facility] [phone] F: [phone] F: [phone] F: [phone] F: [phone] Physical Therapy Discharge Report Diagnosis: lower back pain Date of Surgery: N/A Date of Evaluation: 01/17/21 Date of Discharge: 02/09/21 Treatments to Date: 1 Cancellations to Date: 1 No Shows to Date: 3 Discharge Status: Visit Non-compliance Discharge Summary: The patient has not attended any scheduled visits since the initial evaluation. Per [facility] policy she is being discharged for visit non-compliance. Electronically signed by: Karyn Chapa PT, DPT Please sign and return to therapist. Thank you for your referral.
== END 2021-02-09 10:19 | disposition home or self-care (01) ==
LOC: HO.PT 15:52
PROVIDERS: Visit Provider Nurse Practitioner Family
DX: M54.50 Low back pain, unspecified (principal)
CPT/HCPCS: 97110; 97162

== ENCOUNTER 2021-06-12 15:48 | Outpatient (REF) | payer OTHER, SELFPAY ==
--- NOTE | ~2021-06-12 | MM_ITS ---
EXAMINATION: MM SCREENING DIGITAL BREAST TOMOSYNTHESIS, BILATERAL CLINICAL INFORMATION: Screening. Asymptomatic. The lifetime risk of breast cancer based on the Tyrer-Cuzick Model is 12%. COMPARISON: Mammography: 06/10/2020, 05/13/2020, 02/21/2018, 01/16/2017; targeted right breast ultrasound 06/10/2020, 12/22/2015. TECHNIQUE: Digital breast tomosynthesis is performed in both the craniocaudal and mediolateral oblique views along with computer-aided detection (CAD). Synthesized 2D images are generated from the tomosynthesis. Additional left MLO view is provided. FINDINGS: There are scattered areas of fibroglandular density (ACR BI-RADS breast composition Category b). Parenchymal pattern is similar to prior exam. There is scattered stable nodularity. A dominant nodule left anterior upper outer breast is similar to prior exams. Small nodule anterior outer right breast on CC view is similar to prior exam and likely related to the small cyst on ultrasound images. There is no architectural abnormality or developing density. No abnormal calcifications. The axilla and skin contours are unremarkable. MM/MM tomosynthesis screening BI IMPRESSION: No significant changes from prior exams. ASSESSMENT: BI-RADS 2: Benign RECOMMENDATION: Routine annual mammography screening. This patient's information was entered into a reminder system with a target due date for their next mammogram.
== END 2021-06-12 15:49 | disposition home or self-care (01) ==
LOC: HO.MAMMO 15:48
PROVIDERS: PCP Nurse Practitioner; Visit Provider Nurse Practitioner
DX: Z12.31 Encounter for screening mammogram for malignant neoplasm of breast (principal)
CPT/HCPCS: 77063; 77067

== ENCOUNTER → 2021-08-30 13:49 | Outpatient (BNVA) | payer OTHER, SELFPAY | PROVIDERS: PCP Nurse Practitioner; Visit Provider Nurse Practitioner Family | DX: M79.7 Fibromyalgia (principal); S83.241D Other tear of medial meniscus, current injury, right knee, subsequent encounter; M25.562 Pain in left knee | CPT/HCPCS: 99212 ==

== ENCOUNTER 2021-09-01 14:25 | Outpatient (REF) | payer OTHER, SELFPAY | END 2021-09-01 14:26 | disposition home or self-care (01) | LOC: HO.HOSX 14:25 | PROVIDERS: Visit Provider Physician Assistant | DX: M17.12 Unilateral primary osteoarthritis, left knee (principal) | CPT/HCPCS: 99202 ==

== ENCOUNTER 2021-09-01 16:11 | Outpatient (REF) | payer OTHER, SELFPAY ==
--- NOTE | ~2021-09-01 | XR_ITS ---
EXAMINATION: XR BILATERAL KNEE AP STANDING. LATERAL AND SUNRISE VIEWS OF THE BILATERAL KNEEs. CLINICAL INFORMATION: Pain in right knee COMPARISON: 09/02/2019 TECHNIQUE: AP bilateral standing view as well as lateral and sunrise views of both knees were obtained. FINDINGS: Left knee: No fracture, dislocation, or joint effusion. Mild medial compartment joint space narrowing. Mild superior patellar osteophytosis. Right knee: No fracture, dislocation, or joint effusion. Moderate medial compartment joint space narrowing. Mild lateral patellofemoral joint space narrowing. XR/XR knee standing BI IMPRESSION: Medial and patellofemoral compartment osteoarthritis bilaterally, progressed on the right since.
--- NOTE | ~2021-09-01 | XR_ITS ---
EXAMINATION: XR BILATERAL KNEE AP STANDING. LATERAL AND SUNRISE VIEWS OF THE BILATERAL KNEEs. CLINICAL INFORMATION: Pain in right knee COMPARISON: 09/02/2019 TECHNIQUE: AP bilateral standing view as well as lateral and sunrise views of both knees were obtained. FINDINGS: Left knee: No fracture, dislocation, or joint effusion. Mild medial compartment joint space narrowing. Mild superior patellar osteophytosis. Right knee: No fracture, dislocation, or joint effusion. Moderate medial compartment joint space narrowing. Mild lateral patellofemoral joint space narrowing. XR/XR knee RT 2V IMPRESSION: Medial and patellofemoral compartment osteoarthritis bilaterally, progressed on the right since.
--- NOTE | ~2021-09-01 | XR_ITS ---
EXAMINATION: XR BILATERAL KNEE AP STANDING. LATERAL AND SUNRISE VIEWS OF THE BILATERAL KNEEs. CLINICAL INFORMATION: Pain in right knee COMPARISON: 09/02/2019 TECHNIQUE: AP bilateral standing view as well as lateral and sunrise views of both knees were obtained. FINDINGS: Left knee: No fracture, dislocation, or joint effusion. Mild medial compartment joint space narrowing. Mild superior patellar osteophytosis. Right knee: No fracture, dislocation, or joint effusion. Moderate medial compartment joint space narrowing. Mild lateral patellofemoral joint space narrowing. XR/XR knee LT 3V IMPRESSION: Medial and patellofemoral compartment osteoarthritis bilaterally, progressed on the right since.
== END 2021-09-01 16:12 | disposition home or self-care (01) ==
LOC: HO.XRAY 16:11
PROVIDERS: PCP Nurse Practitioner; Visit Provider Nurse Practitioner Family
DX: M25.561 Pain in right knee (principal); M25.562 Pain in left knee
CPT/HCPCS: 73560; 73562; 73565

== ENCOUNTER 2021-12-12 12:35 | Outpatient (REF) | payer OTHER, SELFPAY ==
--- NOTE | ~2021-12-12 | XR_ITS ---
EXAMINATION: XR CHEST 2 VIEWS CLINICAL INFORMATION: Acute cough and shortness of breath of one month's duration. COMPARISON: Prior chest radiographs, most recently 04/06/2019. TECHNIQUE: Frontal and lateral views of the chest were obtained. FINDINGS: The heart, great vessels, pulmonary vasculature and mediastinum are normal. The lungs show no focal infiltrate, effusion or pneumothorax. There is no acute osseous abnormality. There is a mild thoracolumbar levoscoliosis. There is multi-level mild lower thoracic spondylosis. XR/XR chest 2V IMPRESSION: No active cardiopulmonary disease.
== END 2021-12-12 12:36 | disposition home or self-care (01) ==
LOC: HO.XRAY 12:35
PROVIDERS: Absent Provider Registered Nurse; PCP Registered Nurse; Visit Provider Internal Medicine
DX: R05.1 Acute cough (principal)
CPT/HCPCS: 71046

== ENCOUNTER → 2022-02-16 09:35 | Outpatient (BNVA) | payer OTHER, SELFPAY | PROVIDERS: PCP Registered Nurse; Visit Provider Physician Assistant | DX: M17.12 Unilateral primary osteoarthritis, left knee (principal) | CPT/HCPCS: 20610; 99212; J1040 ==

== ENCOUNTER → 2022-02-22 09:45 | Outpatient (REF) | payer OTHER, SELFPAY ==
--- NOTE | ~2022-02-22 | NM_ITS ---
EXERCISE MYOCARDIAL PERFUSION STUDY INDICATION: Shortness of breath, assess for coronary disease and ischemia TECHNIQUE: The patient was brought in for an exercise perfusion study on 02/22/2022. Patient performed exercise as per Ramses protocol and was injected 30 mCi of sestamibi once target heart rate was achieved. Images were obtained using the SPECT gamma camera interlaced with the gating device. Images were obtained in supine position. Resting perfusion study was performed on 02/26/2022. Patient was administered 30 mCi of sestamibi intravenously at rest. Images were then obtained in supine position. Images were processed with the software and compared side to side in short axis, horizontal long axis and vertical long axis views. Total DLP 123mGy-cm. FINDINGS: Raw images were reviewed. The stress perfusion study showed no significant perfusion abnormality. Both uncorrected as well as CT attenuation corrected images were reviewed. The gated study shows normal LV systolic function with calculated LVEF of 67%. LV cavity is normal in size. The gated study shows normal wall thickening and contraction of segments. Resting study shows mildly diminished tracer uptake in the anteroseptal wall; seen in both uncorrected as well as CT attenuation corrected images. Possibly artifactual. Gating at rest reveals normal wall motion with ejection fraction at 52%. The findings are consistent with no clear reversible or fixed perfusion defects. NM/NM cortes perf SPECT rest & str IMPRESSION: 1. Myocardial perfusion imaging study shows normal myocardial perfusion. 2. Gated LVEF is 62% during stress and 52% during rest. 3. Transient ischemic dilatation not present. EKG component of the test reported separately.
--- NOTE | 2022-02-22 09:52 | CA_ITS ---
Acquisition Time: 2022-02-22 10:05:41 Total Exercise Time: 00:06:00 Test Indications: R06.2 SOB on exertion Medications: See H Protocol: SRAVANTHI Max HR: 153 BPM 93% of Pred: 164 BPM Max BP: 160/076 mmHG Max Work Load: 7.0 METS Exercise stress test with exercise 6 min of Sravanthi protocol, acheiving > 85% MPHR, 7 METs, with moderate sob and mild mid chest pressure, without arrythmia, with normotensive response to exercise, without EKG changes meeting criteria for ischemia. In recovery her symptoms resolved. Nuclear images pending. Test reviewed with Dr Landrum Referred By: Dk Rowe Overread By: MITCH SUAZO
== END ==
LOC: HO.CARD 09:45
PROVIDERS: PCP Registered Nurse; Visit Provider Physician Assistant Medical
DX: R06.02 Shortness of breath (principal)
CPT/HCPCS: 78452; 93017; A9500

== ENCOUNTER 2022-07-23 13:25 | Outpatient (REF) | payer OTHER, SELFPAY ==
[2022-07-23 16:01] LABS: Alanine Aminotransferase 31 U/L (0-31); Albumin Level 4.1 g/dL (3.5-5.0); Alkaline Phosphatase 111 U/L (39-117); Anion Gap 16 (12-20); Aspartate Amino Transferase 21 U/L (5-31); Bilirubin Total 0.5 mg/dL (0.0-1.0); Blood Urea Nitrogen 16 mg/dL (9-16); Calcium 9.8 mg/dL (8.4-10.2); Carbon Dioxide 24 mmol/L (22-29); Chloride 108 mmol/L (96-108); Estimated Glomerular Filt Rate 58; Glucose Random 82 mg/dL (60-115); Potassium 4.5 mmol/L (3.3-5.1); Sodium 143 mmol/L (135-145); Total Protein 7.2 g/dL (6.5-8.0)
== END 2022-07-23 13:26 | disposition home or self-care (01) ==
LOC: HO.LAB 13:25
PROVIDERS: Visit Provider Nurse Practitioner Family
DX: M79.7 Fibromyalgia (principal)
CPT/HCPCS: 36415; 80053

== ENCOUNTER → 2022-07-24 13:51 | Outpatient (BNVA) | payer OTHER, SELFPAY | PROVIDERS: PCP Registered Nurse; Visit Provider Nurse Practitioner Family | DX: M79.7 Fibromyalgia (principal); M25.562 Pain in left knee | CPT/HCPCS: 99212 ==

== ENCOUNTER 2022-08-20 16:14 | Outpatient (REF) | payer OTHER, SELFPAY | END 2022-08-20 16:15 | disposition home or self-care (01) | LOC: HO.HOSX 16:14 | PROVIDERS: Visit Provider Physician Assistant | DX: Z13.89 Encounter for screening for other disorder (principal) ==

== ENCOUNTER 2022-08-21 14:49 | Outpatient (REF) | payer OTHER, SELFPAY | END 2022-08-21 14:50 | disposition home or self-care (01) | LOC: HO.XRAY 14:49 | PROVIDERS: PCP Registered Nurse; Visit Provider Physician Assistant | DX: M25.561 Pain in right knee (principal); M25.562 Pain in left knee | CPT/HCPCS: 73560; 73565 ==

== ENCOUNTER → 2022-08-29 14:11 | Outpatient (BNVA) | payer OTHER, SELFPAY | PROVIDERS: PCP Registered Nurse; Visit Provider Physician Assistant | DX: M17.12 Unilateral primary osteoarthritis, left knee (principal) | CPT/HCPCS: 20610; 99212; J1040 ==

== ENCOUNTER 2022-09-10 14:06 | Outpatient (REF) | payer OTHER, SELFPAY ==
--- NOTE | ~2022-09-10 | MM_ITS ---
EXAMINATION: MM SCREENING DIGITAL BREAST TOMOSYNTHESIS, BILATERAL CLINICAL INFORMATION: Screening. Asymptomatic. The lifetime risk of breast cancer based on the Tyrer-Cuzick Model is 11.3%. COMPARISON: Mammography: This study is compared with prior exams dating back to 2018. TECHNIQUE: Digital breast tomosynthesis is performed in both the craniocaudal and mediolateral oblique views along with computer-aided detection (CAD). Synthesized 2D images are generated from the tomosynthesis. FINDINGS: There are scattered areas of fibroglandular density (ACR BI-RADS breast composition Category b). There are no significant masses, abnormal calcifications, or other abnormalities. MM/MM tomosynthesis screening BI IMPRESSION: No mammographic evidence of malignancy. ASSESSMENT: BI-RADS BI-RADS 1 - Negative RECOMMENDATION: Routine annual mammography screening. 1 year F/U This examination should not preclude the clinical evaluation of a suspicious palpable abnormality. This patient's information was entered into a reminder system with a target due date for their next mammogram.
== END 2022-09-10 14:07 | disposition home or self-care (01) ==
LOC: HO.MAMMO 14:06
PROVIDERS: PCP Registered Nurse; Visit Provider Nurse Practitioner
DX: Z12.31 Encounter for screening mammogram for malignant neoplasm of breast (principal)
CPT/HCPCS: 77063; 77067

== ENCOUNTER → 2022-09-10 16:15 | Outpatient (BNV) | payer OTHER, SELFPAY | PROVIDERS: PCP Registered Nurse; Visit Provider Radiology Diagnostic Radiology | DX: Z12.31 Encounter for screening mammogram for malignant neoplasm of breast (principal) | CPT/HCPCS: 77063; 77067 ==

== ENCOUNTER 2022-10-25 19:01 | Outpatient (REF) | payer OTHER, SELFPAY ==
[2022-10-30 12:02] LABS: Alphahydroxymidazolam,GCMS Ur NEGATIVE; Alphahydroxytriazolam, GCMS Ur NEGATIVE; Alprazolam, GCMS Urine NEGATIVE; Flurazepam Metabolite,GCMS Ur NEGATIVE; Lorazepam GCMS Urine NEGATIVE; Nordiazepam, GCMS Urine NEGATIVE; Oxazepam, GCMS Urine NEGATIVE; Temazepam, GCMS Urine NEGATIVE
== END 2022-10-25 19:02 | disposition home or self-care (01) ==
LOC: HO.HHCLNP 19:01
PROVIDERS: Visit Provider Registered Nurse
DX: M54.50 Low back pain, unspecified (principal); G89.29 Other chronic pain; F13.20 Sedative, hypnotic or anxiolytic dependence, uncomplicated
CPT/HCPCS: 80346

== ENCOUNTER 2022-12-31 14:57 | Outpatient (REF) | payer OTHER, SELFPAY ==
--- NOTE | ~2022-12-31 | MR_ITS ---
EXAMINATION: MR KNEE WITHOUT CONTRAST, LEFT CLINICAL INFORMATION: Left knee pain. Osteoarthritis. Pain and swelling. COMPARISON: Left knee radiographs dated 08/21/2022. TECHNIQUE: MRI of the knee without contrast was performed using routine sequences on a high-field scanner. FINDINGS: MENISCI: Medial Meniscus: Near-complete oblique inner margin radial tear of the posterior horn with inner margin blunting/fraying of the posterior root. Adjacent soft tissue edema as well as medial extrusion of the meniscal body. Lateral Meniscus: Intact. LIGAMENTS: Cruciate: Intact. Collateral: Intact. EXTENSOR MECHANISM: Intact. ARTICULAR CARTILAGE/BONE: Patellofemoral Compartment: Patellar median ridge articular cartilage thinning and surface irregularity. Tiny marginal osteophytes. Medial Compartment: Weightbearing articular cartilage thinning and signal heterogeneity with areas of [id number]-[id number]-[id number] loss. Small marginal osteophytes. Lateral Compartment: Intact articular cartilage. JOINT FLUID AND BURSAE: Small joint effusion and small Cobb's cyst. MR/MR knee LT wo con IMPRESSION: 1. Near-complete oblique inner margin radial tear of the medial meniscus posterior horn with inner margin blunting/fraying of the posterior root. Medial extrusion of the meniscal body. Adjacent soft tissue edema. 2. Mild patellofemoral and medial compartment osteoarthritis. Small joint effusion and small Cobb's cyst.
== END 2022-12-31 14:58 | disposition home or self-care (01) ==
LOC: HO.MRI 14:57
PROVIDERS: PCP Registered Nurse; Visit Provider Physician Assistant
DX: M17.12 Unilateral primary osteoarthritis, left knee (principal)
CPT/HCPCS: 73721

== ENCOUNTER 2023-01-17 10:43 | Outpatient (AMB) | payer OTHER, SELFPAY ==
--- NOTE | 2023-01-17 10:45 | MHC.OFFVIS ---
Intake Intake Visit Reasons: OV- MRI review Lt Knee pain Intake Note: Leslie is a 57 year old female who presents today for an MRI review of the left knee. She was last seen with Capo on 08/29/22 where the knee was injected and she was referred to pain mgmt to discuss geniculate injections. Patient did not attend her appt with them. Allergies No Known Allergies [No Known Allergies*] Allergy (Verified 07/24/22 14:17) HPI OV- MRI review Lt Knee pain HPI Details Leslie is a 57 year old woman who presents for an MRI review of her left knee. She was last seen, and injected, by DAVON Bacon on 08/29/22, with minimal relief. She was referred to Pain Management to discuss a possible GNB, but she has not made an appointment yet. She complains of pain with daily activity. She has Fibromyalgia and currently takes Tramdol, Gabapentin, Lidocaine patches & topical Diclofenac for pain relief. [facility] Medical History Anemia Anxiety Depression Fibromyalgia Frequency of urination GERD (gastroesophageal reflux disease) Glaucoma Hyperlipemia IBS (irritable bowel syndrome) Lumbar spondylitis Obesity Osteoarthritis Overactive bladder Plantar fasciitis Renal stones Renal stones Urge incontinence Surgical History H/O nasal septoplasty History of arthroscopy of right knee (~03/2020) Hx of lithotripsy Hx of tubal ligation Family History Mother Diabetes Fibromyalgia Arthritis Osteoporosis Daughter Breast cancer Social History Are you a primary customer care agent to a significant other at home: No Alcohol intake: never Second Hand Smoke Exposure: No Current occupational status: disabled Current occupation: Right Handed Review of Systems Const All systems reviewed & are unremarkable except as noted in HPI and below Physical Exam Const General: no acute distress, alert and awake Orientation/consciousness: patient oriented x3 HEENT Head: Yes normocephalic and Yes atraumatic Eyes EOM: EOMs intact bilaterally Resp Effort & Inspection: normal respiratory effort and able to speak in complete sentences Cardio Jugular venous distension: no JVD Skin General skin exam: turgor normal Rashes: no rashes Neuro General: patient oriented x3 Extrem Other: Left Knee: medial joint line ttp with + medial steinmen's Psych Appearance: grossly normal Affect: normal affect Attitude: cooperative Results Reviewed Results Reviewed: I personally reviewed relevant MR images 1. Near-complete oblique inner margin radial tear of the medial meniscus posterior horn with inner margin blunting/fraying of the posterior root. Medial extrusion of the meniscal body. Adjacent soft tissue edema. 2. Mild patellofemoral and medial compartment osteoarthritis. Small joint effusion and small Cobb's cyst. Assessment & Plan Assessment & Plan (1) Tear of medial meniscus of left knee: Code(s): S83.242A - Other tear of medial meniscus, current injury, left knee, initial encounter Plan: This is a 57 year old woman with a near-complete radial tear of the right medial meniscus. She has pain with daily activity, worse with activity. She found relief from her most recent injection on 08/29/22. I recommend knee with partial medial meniscectomy. I discussed the risks benefits and alternatives including but not limited to the risk of pain, infection, stiffness, need for further surgery as well as potential medical complications. She expressed understanding and we will move forward accordingly. (2) Osteoarthritis of left knee: Code(s): M17.12 - Unilateral primary osteoarthritis, left knee (3) Fibromyalgia: Code(s): M79.7 - Fibromyalgia Coding Level of Care Code Est Pt Level 4 (68176) Diagnoses Tear of medial meniscus of left knee S83.242A Osteoarthritis of left knee M17.12 Fibromyalgia M79.7
== END 2023-01-17 11:57 | disposition home or self-care (01) ==
PROVIDERS: PCP Registered Nurse; Visit Provider Orthopaedic Surgery
DX: S83.242A Other tear of medial meniscus, current injury, left knee, initial encounter (principal); M17.12 Unilateral primary osteoarthritis, left knee; M79.7 Fibromyalgia
CPT/HCPCS: 99214

== ENCOUNTER → 2023-01-17 10:43 | Outpatient (BNVA) | payer OTHER, SELFPAY | PROVIDERS: PCP Registered Nurse; Visit Provider Orthopaedic Surgery | DX: M17.12 Unilateral primary osteoarthritis, left knee (principal); M79.7 Fibromyalgia; S83.242A Other tear of medial meniscus, current injury, left knee, initial encounter; X58.XXXA Exposure to other specified factors, initial encounter; Y93.9 Activity, unspecified; Y92.9 Unspecified place or not applicable; Y99.9 Unspecified external cause status | CPT/HCPCS: 99212 ==

== ENCOUNTER 2023-01-22 13:42 | Outpatient (AMB) | payer OTHER, SELFPAY ==
--- NOTE | 2023-01-22 13:46 | A.OFFVIS_ITS ---
Intake Vital Signs 01/22/23 13:47 Height 5 ft 4 in Weight 185 lb 3.013 oz BMI 31.8 BP 122/80 Blood Pressure Location Lt brachial Position Sitting Pulse 65 Intake Visit Reasons: NPV/Palpitations/F. Una/Pre-op ortho surgery 02/13 Intake Note: New patient pre-op clearance dx palpitations for about a second was seeing [facility] Shoe Polisher Required: No Allergies No Known Allergies [No Known Allergies*] Allergy (Verified 07/24/22 14:17) Medication List - Last Reconciled 01/22/23 by Camden Marin MD acetaminophen 500 mg PO Q6H PRN baclofen 20 mg PO TID buspirone 7.5 mg PO TID PRN cholecalciferol (vitamin D3) 25 mcg PO DAILY clonazepam 0.5 mg PO DAILY PRN diclofenac sodium 1% 2 grams topical BID duloxetine 30 mg PO BID gabapentin 100 mg PO BEDTIME latanoprost 0.005% 0 drps ophthalmic (eye) lidocaine 5% 1 appl topical BID PRN lidocaine 5% 1 topical TID mirabegron ER (Myrbetriq) 25 mg PO DAILY 30 days alxsnakc-oqq-ID-lycopen-lutein 0.4 mg-300 mcg- 250 mcg (Adults 50 Plus) 1 tab PO QAM naloxone 4 mg/actuation 0 sprays intranasal rosuvastatin 10 mg PO BEDTIME tolterodine ER 4 mg PO DAILY tramadol 1 tab PO Q4H PRN zolpidem 1 tab PO BEDTIME PRN HPI HPI Comments History of Present Illness Details Thank you for referring Rahat in cardiology consultation today for preoperative cardiovascular risk stratification prior to knee surgery. Patient to undergo arthroscopic surgeon near February. Last February because of lot of stress in chest discomfort she had undergone a myocardial perfusion imaging which was within normal limits. Since then she has not had significant chest discomfort. However about couple months ago again related to stress she had lot of palpitations. Symptoms described as rapid heart rate followed by slowing of the heart rate. She says more recently the symptoms have been controlled. She denies any significant exertional symptoms of chest pain or shortness of breath currently. [facility] Medical History Frequency of urination Urge incontinence Renal stones Anxiety Overactive bladder Hyperlipemia Depression Obesity Glaucoma Osteoarthritis IBS (irritable bowel syndrome) Lumbar spondylitis Renal stones Anemia GERD (gastroesophageal reflux disease) Plantar fasciitis Fibromyalgia Surgical History History of arthroscopy of right knee (~03/2020) H/O nasal septoplasty Hx of lithotripsy Hx of tubal ligation Family History Mother Diabetes Fibromyalgia Arthritis Osteoporosis Daughter Breast cancer Social History Are you a primary career technical education teacher to a significant other at home: No Alcohol intake: never Second Hand Smoke Exposure: No Current occupational status: disabled Current occupation: Right Handed Review of Systems Const Denies chills, Denies daytime sleepiness, Denies fatigue, Denies fever(s), Denies frequent falls, Denies poor appetite, Denies snoring, Denies stops breathing during sleep, Denies weakness, Denies weight gain and Denies weight loss Eyes Denies loss of vision ENT Denies dizziness and Denies hearing loss Card Denies chest pain, Denies claudication, Denies leg edema, Denies lightheadedness, Denies palpitations, Denies dyspnea, Denies dyspnea on exertion and Denies orthopnea Resp Denies cough, Denies excessive phlegm production, Denies dyspnea, Denies dyspnea on exertion, Denies snoring and Denies wheezing GI Denies abdominal pain, Denies hematochezia, Denies change in bowel habits, Shakir es nausea and Denies vomiting Denies urinary frequency and Denies dysuria Musc Denies arthralgias, Denies muscle weakness, Denies numbness and Denies other (frequent falls) Skin/Breast Denies nail changes and Denies rash Neuro Denies Abnormal speech present, Denies dizziness, Denies frequent falls, Denies loss of vision, Denies memory loss, Denies numbness and Denies weakness Psych Denies depression and Denies memory loss Endo Denies fatigue and Denies palpitations Aroldo/Lymph Reports easy bruising and Reports other (anemia) Aller/Immun Denies wheezing Physical Exam Vital Signs: Last Vital Signs Pulse 65 01/22/23 13:47 BP 122/80 01/22/23 13:47 BMI result Body Mass Index 31.8 Const General: cooperative, comfortable, no acute distress, alert and awake Nutritional Appearance: obese Orientation/consciousness: patient oriented x3 HEENT Head: Yes normocephalic and Yes atraumatic Neck Neck: Yes trachea midline, Yes supple and Yes no JVD Resp Effort & Inspection: normal respiratory effort Auscultation: clear to auscultation bilaterally Cardio Jugular venous distension: no JVD Palpation: normal PMI Rate: regular rate Rhythm: regular rhythm Heart sounds: S1 normal heart sound present, S2 normal heart sound present, no click, no gallops, no murmurs and no rubs GI Auscultation: normal bowel sounds Skin General skin exam: no rashes or lesions noted Neuro General: patient oriented x3 and no focal motor deficits Speech: No Abnormal speech present Extrem General: Yes no clubbing, cyanosis or edema Office Procedures EKG Details: EKG shows normal sinus rhythm with left axis deviation with poor R-wave p rogression most likely due to lead placement. Unchanged from before [id number], Complete Assessment & Plan Assessment & Plan (1) Preoperative cardiovascular examination: Code(s): Z01.810 - Encounter for preprocedural cardiovascular examination Plan: Preoperative cardiovascular exam in this middle-aged woman with no significant risk factors with myocardial perfusion imaging within the last year within normal limits. She has no new concerning symptoms at this point time. She has to undergo arthroscopic surgery in near future under general anesthesia. This is considered intermediate risk surgery. She is currently optimized to undergo this surgery with low risk for perioperative cardiovascular morbidity mortality. No further workup indicated at this point in time. (2) Palpitations: Code(s): R00.2 - Palpitations Plan: Patient with symptoms of palpitation under stressful situation. This is not resolved. I do not think there was significant arrhythmias but probably related to underlying stress and anxiety. However she is concerned with the symptoms. Obtain a 7 day Holter monitor to assess for any significant arrhythmias. If absent have advised her to invest in smart phone based EKG sensors to help with diagnose of the sporadic symptoms of palpitations. Avoidance of stimulants was discussed. Stress mitigation strategies were discussed Will follow up in the clinic if need be. Thank you for allowing me to partake in her care Orders: Orders ECG 7 day holter monitor Today R00.2 - Palpitations Medications: Changed From tolterodine ER 4 mg PO DAILY 30 days 90 caps 2RF To tolterodine ER 4 mg PO DAILY Coding Level of Care Code New Pt Level 3 (52824) Diagnoses Preoperative cardiovascular examination Z01.810 Palpitations R00.2 CPT Codes EKG - CPT: 73524-[id number], Complete ([id number])
[2023-01-22 13:47] VITALS: BP 122/80; PULSE 65; BMI 31.8
== END 2023-01-22 14:18 | disposition home or self-care (01) ==
PROVIDERS: PCP Registered Nurse; Visit Provider Internal Medicine Cardiovascular Disease
DX: Z01.810 Encounter for preprocedural cardiovascular examination (principal); R00.2 Palpitations
CPT/HCPCS: 93010; 99203

== ENCOUNTER → 2023-01-22 13:42 | Outpatient (BNVA) | payer OTHER, SELFPAY | PROVIDERS: PCP Registered Nurse; Visit Provider Internal Medicine Cardiovascular Disease | DX: Z01.810 Encounter for preprocedural cardiovascular examination (principal); R00.2 Palpitations | CPT/HCPCS: 93005; 99202 ==

== ENCOUNTER → 2023-02-12 13:29 | Outpatient (REF) | payer OTHER, SELFPAY | LOC: HO.CARD 13:29 | PROVIDERS: Visit Provider Internal Medicine Cardiovascular Disease | DX: Z13.89 Encounter for screening for other disorder (principal) ==

== ENCOUNTER 2023-02-13 11:18 | Day surgery (SDC) | payer OTHER, SELFPAY ==
[2023-01-29 11:30] VITALS: BMI 37.6
--- NOTE | 2023-02-12 08:54 | HO.ANESPROP2 ---
Documented by User: Melissa Caro NP 02/12/23 08:56 HPI - Anesthesia Eval Consult details Narrative: 57yo F for Left Knee Arthroscopy Cardiac cleared Palps with stress/anxiety PMFSH Active Problems Active Problems: All Active Problems (Updated 01/17/23 @ 10:50 by Shai Gonzalez) Tear of medial meniscus of left knee (Acute) Osteoarthritis of left knee (Acute) Chronic low back pain (Acute) Overactive bladder (Acute) Frequency of urination (Acute) Urge incontinence (Acute) Renal stones (Acute) Fibromyalgia (Acute) Tear of medial meniscus of right knee (Acute) Past Medical History Medical History Frequency of urination Urge incontinence Renal stones Anxiety Overactive bladder Hyperlipemia Depression Obesity Glaucoma Osteoarthritis IBS (irritable bowel syndrome) Lumbar spondylitis Renal stones Anemia GERD (gastroesophageal reflux disease) Plantar fasciitis Fibromyalgia Family History Family History Mother Diabetes Fibromyalgia Arthritis Osteoporosis Daughter Breast cancer Surgical History Surgical History History of arthroscopy of right knee (~03/2020) H/O nasal septoplasty Hx of lithotripsy Hx of tubal ligation Social History Social History (Updated 01/29/23 @ 11:25 by Rashmi Salas RN) Household Members: Family Housing: House Are you a primary career placement specialist to a significant other at home: No Do you presently have visiting nurse or other home services: No Alcohol intake: never Comment: uses a cane sometimes Patient Tobacco Use Status: Never used Tobacco Second Hand Smoke Exposure: No Use of substances other than those prescribed or required for medical reasons: No Have you been hit, kicked, punched, or otherwise hurt by someone within the past year? If so, by whom?: No Are you DNR?: No Advance Directives: No Advance Directives Information Provided: Yes Advance Directives on File: No Recently lost weight without trying: No Nutrition Risks: No Nutritional Risk Current occupational status: disabled Current occupation: Right Handed Meds Allergies Allergy/AdvReac Type Severity Reaction Status Date / Time No Known Allergies Allergy Verified 01/29/23 11:25 [No Known Allergies*] Home Medications Medication Instructions Recorded Confirmed Last Taken Type cholecalciferol (vitamin D3) 25 25 mcg PO DAILY 01/13/20 01/29/23 Unknown History mcg (1,000 unit) capsule lidocaine 5 % topical cream 1 applic topical BID PRN Pain 01/13/20 01/29/23 Unknown History tramadol 50 mg tablet 1 tab PO Q4H PRN Pain 03/01/20 01/29/23 Unknown History zolpidem 10 mg tablet 1 tab PO BEDTIME PRN Sleep 03/01/20 01/29/23 Unknown History acetaminophen 500 mg tablet 500 mg PO Q6H PRN Pain 03/31/20 01/29/23 Unknown History baclofen 20 mg tablet 20 mg PO TID PRN Abdominal 03/31/20 01/29/23 Unknown History Discomfort lidocaine 5 % topical ointment 1 topical TID 03/31/20 01/22/23 Unknown History duloxetine 30 mg capsule,delayed 30 mg PO BID PRN Pain 07/24/22 01/29/23 Unknown History release latanoprost 0.005 % eye drops 0 drp ophthalmic (eye) BEDTIME 07/24/22 01/29/23 Unknown History vwcspclv-ois-mqhwt acid 0.4 1 tab PO QAM 07/24/22 01/29/23 Unknown History mg-lycopene 300 mcg-lutein 250 mcg tablet (Adults 50 Plus) naloxone 4 mg/actuation nasal spray 0 spray intranasal 07/24/22 01/22/23 Unknown History rosuvastatin 10 mg tablet 10 mg PO BEDTIME 07/24/22 01/29/23 Unknown History buspirone 7.5 mg tablet 7.5 mg PO TID PRN Anxiety 01/22/23 01/29/23 Unknown History clonazepam 0.5 mg tablet 0.5 mg PO DAILY PRN anxiety 01/22/23 01/29/23 Unknown History tolterodine 4 mg capsule,extended 4 mg PO DAILY 01/22/23 01/22/23 Unknown History release 24 hr Exam Height,Weight and Vital Signs: Height 4 ft 11 in Weight 84.368 kg Pertinent Lab Results Pertinent Lab Results: Laboratory Tests 07/23/22 Unknown Sodium 143 Potassium 4.5 Chloride 108 Carbon Dioxide 24 BUN 16 Creatinine 0.99 Narrative Narrative: EKG 01/2023 normal sinus rhythm with left axis deviation with poor R-wave progression most likely due to lead placement. Unchanged from before NM cortes perf SPECT rest & str 2021 IMPRESSION: 1. Myocardial perfusion imaging study shows normal myocardial perfusion. 2. Gated LVEF is 62% during stress and 52% during rest. 3. Transient ischemic dilatation not present. EKG component of the test reported separately. Assessment and Plan Assessment Anesthesia Assessment: Chart Reviewed Documented by User: Hamzah Garay MD 02/13/23 11:25 PMF Past Medical History Medical History Frequency of urination Urge incontinence Renal stones Anxiety Overactive bladder Hyperlipemia Depression Obesity Glaucoma Osteoarthritis IBS (irritable bowel syndrome) Lumbar spondylitis Renal stones Anemia GERD (gastroesophageal reflux disease) Plantar fasciitis Fibromyalgia Family History Family History Mother Diabetes Fibromyalgia Arthritis Osteoporosis Daughter Breast cancer Family history of problems with anesthesia: No Surgical History Surgical History History of arthroscopy of right knee (~03/2020) H/O nasal septoplasty Hx of lithotripsy Hx of tubal ligation Social History Social History (Updated 01/29/23 @ 11:25 by Rashmi Salas RN) Household Members: Family Housing: House Are you a primary career placement specialist to a significant other at home: No Do you presently have visiting nurse or other home services: No Alcohol intake: never Comment: uses a cane sometimes Patient Tobacco Use Status: Never used Tobacco Second Hand Smoke Exposure: No Use of substances other than those prescribed or required for medical reasons: No Have you been hit, kicked, punched, or otherwise hurt by someone within the past year? If so, by whom?: No Are you DNR?: No Advance Directives: No Advance Directives Information Provided: Yes Advance Directives on File: No Recently lost weight without trying: No Nutrition Risks: No Nutritional Risk Current occupational status: disabled Current occupation: Right Handed Meds Allergies Allergy/AdvReac Type Severity Reaction Status Date / Time No Known Allergies Allergy Verified 01/29/23 11:25 [No Known Allergies*] Home Medications Medication Instructions Recorded Confirmed Last Taken Type cholecalciferol (vitamin D3) 25 25 mcg PO DAILY 01/13/20 01/29/23 Unknown History mcg (1,000 unit) capsule lidocaine 5 % topical cream 1 applic topical BID PRN Pain 01/13/20 01/29/23 Unknown History tramadol 50 mg tablet 1 tab PO Q4H PRN Pain 03/01/20 01/29/23 Unknown History zolpidem 10 mg tablet 1 tab PO BEDTIME PRN Sleep 03/01/20 01/29/23 Unknown History acetaminophen 500 mg tablet 500 mg PO Q6H PRN Pain 03/31/20 01/29/23 Unknown History baclofen 20 mg tablet 20 mg PO TID PRN Abdominal 03/31/20 01/29/23 Unknown History Discomfort lidocaine 5 % topical ointment 1 topical TID 03/31/20 01/22/23 Unknown History duloxetine 30 mg capsule,delayed 30 mg PO BID PRN Pain 07/24/22 01/29/23 Unknown History release latanoprost 0.005 % eye drops 0 drp ophthalmic (eye) BEDTIME 07/24/22 01/29/23 Unknown History jlbohshe-kzd-ivsdy acid 0.4 1 tab PO QAM 07/24/22 01/29/23 Unknown History mg-lycopene 300 mcg-lutein 250 mcg tablet (Adults 50 Plus) naloxone 4 mg/actuation nasal spray 0 spray intranasal 07/24/22 01/22/23 Unknown History rosuvastatin 10 mg tablet 10 mg PO BEDTIME 07/24/22 01/29/23 Unknown History buspirone 7.5 mg tablet 7.5 mg PO TID PRN Anxiety 01/22/23 01/29/23 Unknown History clonazepam 0.5 mg tablet 0.5 mg PO DAILY PRN anxiety 01/22/23 01/29/23 Unknown History tolterodine 4 mg capsule,extended 4 mg PO DAILY 01/22/23 01/22/23 Unknown History release 24 hr Exam Airway Mallampati Class: II TM Dist: >3cm Neck ROM: Limited Heart: rrr Lungs: cta Assessment and Plan Assessment Anesthesia Assessment: Anesthesia Plan Discussed Final Anesthetic Review Family History of Problems with Anesthesia: No NPO: Yes ASA Class: III Final Preanesthetic Review: No Changes in Pt Med Stat, Meds/Allgs Chart Reviewed, Consent Obtained/Reviewed and Anes Risks/Benef Reviewed Patient Risk: Intermediate Procedure Risk: Intermediate Anesthetic Plan Anesthetic Plan: GA and Agree w/ Assess. and Plan Disposition: Standard PACU
[2023-02-13] VITALS (10 sets, daily range): BP systolic 116–153; BP diastolic 62–100; PULSE 65–89; RESP 16–18; TEMP 36.1–36.4; O2SAT 94–99; BMI 38.0
[2023-02-13] MEDS: Lactated Ringers 1,000 ML 100 ML IVCONT (12:00)
--- NOTE | 2023-02-13 15:43 | P.BOP_ITS ---
Brief Operative Note Date of Service: 02/13/23 Pre-op diagnosis: Left knee MMT Post-op diagnosis: other (1)Left knee MMT 2) Left knee chondromalacia) Procedure: Left knee Implants: none Surgeon: Cb Gardner MD Anesthesia: GETA and local Was an Veterinarian Laboratory Animal Care used for this Procedure?: No Estimated blood loss (mL): 5 Tourniquet time (min): 30 Pathology: none sent Condition: stable Disposition: PACU
[2023-02-13] MEDS: oxyCODONE HCl Immed Release 5 MG TABLET PO ×2 (15:50→17:00)
[2023-02-13] MEDS: fentaNYL citrate/PF 100 MCG/2 ML VIAL 25 MCG IVPUSH ×2 (15:51→15:56)
--- NOTE | 2023-02-14 16:33 | P.OP_ITS ---
Operative Note Operative Note Date of Service: 02/13/23 Narrative: Date of Service: 02/13/23 Pre-op diagnosis: Left knee MMT Post-op diagnosis: other (1)Left knee MMT 2) Left knee chondromalacia) Procedure: Left knee with partial medial meniscectomy and chondroplasty Implants: none Surgeon: Cb Gardner MD Anesthesia: GETA and local Was an Bungy Jump Master used for this Procedure?: No Estimated blood loss (mL): 5 Tourniquet time (min): 30 Pathology: none sent Condition: stable Disposition: PACU Procedure in detail: Patient was brought to the operating room placed supine on the arthroscopic table and prepped and draped in standard sterile fashion. A time-out was called to identify proper site proper procedure proper surgeon and IV antibiotics per weight were administered. I began by exsanguinating the limb and insufflating tourniquet to 300 mm Hg. Then made a standard anterolateral stab incision. The knee was insufflated with water and 30 degree arthroscope was placed. There was grade 1 fibrillations of the patella but overall suprapatellar pouch and the gutters were clean. I descended into the medial compartment where I made my medial portal under direct visualization. There was a radial tear of the posterior horn of the medial meniscus. There was an unstable flap. the root was intact. There were G2 changes of the WB portion of the MFC. I used a combination of biter shaver and cautery to remove unstable portions of the meniscus. Approximately 20% meniscal volume was removed. A chondroplasty was perfromed. Once I was satisfied with this the ACL was examined and found to be intact and the lateral compartment also was without the need for intervention. I then removed all instrumentation and closed the portals with skin glue. 25 mL of 2% Marcaine with epinephrine was injected into the joint and the surrounding soft tissues. Patient was then placed in sterile dressing extubated brought recovery room stable condition. There were no known complications.
== END 2023-02-13 17:28 | disposition home or self-care (01) ==
LOC: HO.SSS 11:19
PROVIDERS: Visit Provider Orthopaedic Surgery
PROC: (CPT 29870; principal; 2023-02-13 13:30)
DX: S83.242A Other tear of medial meniscus, current injury, left knee, initial encounter (principal); X58.XXXA Exposure to other specified factors, initial encounter; M17.12 Unilateral primary osteoarthritis, left knee; D64.9 Anemia, unspecified; M79.7 Fibromyalgia; K21.9 Gastro-esophageal reflux disease without esophagitis; E78.5 Hyperlipidemia, unspecified; Z79.899 Other long term (current) drug therapy; Y93.9 Activity, unspecified; Y92.9 Unspecified place or not applicable; Y99.9 Unspecified external cause status
CPT/HCPCS: 29881; J0131; J0171; J0690; J1100; J1885; J2250; J2405; J2704; J2795; J3010

== ENCOUNTER → 2023-02-13 11:18 | Outpatient (BNV) | payer OTHER, SELFPAY | PROVIDERS: Visit Provider Orthopaedic Surgery | DX: S83.232A Complex tear of medial meniscus, current injury, left knee, initial encounter (principal); M22.42 Chondromalacia patellae, left knee | CPT/HCPCS: 29881 ==

== ENCOUNTER 2023-02-19 13:28 | Outpatient (AMB) | payer OTHER, SELFPAY ==
--- NOTE | 2023-02-19 13:42 | MHC.OFFVIS ---
Intake Intake Visit Reasons: PO-Lt Knee 02/13 NE Intake Note: Leslie is a 57 year old female who presents today for a post op appointment s/p left knee 02/13/23 NE. Allergies No Known Allergies [No Known Allergies*] Allergy (Verified 02/19/23 13:45) HPI PO-Lt Knee 02/13 NE HPI Details Leslie is a 57 year old woman who presents S/P left knee with partial medial meniscectomy and chondroplasty, DOS: 02/13/[address] Gardner. She says she is doing well, with some mild pain, but this is tolerable. She reports some increased pain in her right knee, which began following surgery. She feels she is overusing her knee to compensate for her left knee while she recovers. She complains of some constipation & painful bowel movements following her surgery, which she attributes to her narcotic medication. Her last bowel movement was yesterday (02/18/23) [facility] Medical History Frequency of urination Urge incontinence Renal stones Anxiety Overactive bladder Hyperlipemia Depression Obesity Glaucoma Osteoarthritis IBS (irritable bowel syndrome) Lumbar spondylitis Renal stones Anemia GERD (gastroesophageal reflux disease) Plantar fasciitis Fibromyalgia Surgical History History of arthroscopy of right knee (~03/2020) H/O nasal septoplasty Hx of lithotripsy Hx of tubal ligation Family History Mother Diabetes Fibromyalgia Arthritis Osteoporosis Daughter Breast cancer Social History Household Members: Family Housing: House Are you a primary respiratory care faculty to a significant other at home: No Do you presently have visiting nurse or other home services: No Alcohol intake: never Comment: uses a cane sometimes Patient Tobacco Use Status: Never used Tobacco Second Hand Smoke Exposure: No Current occupational status: disabled Current occupation: Right Handed Review of Systems Const All systems reviewed & are unremarkable except as noted in HPI and below Physical Exam Const General: no acute distress, alert and awake Orientation/consciousness: patient oriented x3 HEENT Head: Yes normocephalic and Yes atraumatic Eyes EOM: EOMs intact bilaterally Resp Effort & Inspection: normal respiratory effort and able to speak in complete sentences Cardio Jugular venous distension: no JVD Skin General skin exam: turgor normal Rashes: no rashes Neuro General: patient oriented x3 Extrem Other: Left Knee: Incision sites are clean, dry, and intact. Sutures intact. No surrounding erythema or drainage. No signs of infection. Knee ROM 0-110 degrees. NVI. Psych Appearance: grossly normal Affect: normal affect Attitude: cooperative Assessment & Plan Assessment & Plan (1) Tear of medial meniscus of left knee: Code(s): S83.242A - Other tear of medial meniscus, current injury, left knee, initial encounter (2) Constipation due to pain medication: Code(s): K59.03 - Drug induced constipation Plan Leslie is a 57 year old woman who presents S/P left knee with partial medial meniscectomy and chondroplasty, DOS: 02/13/[address] Gardner. She says she is doing well, with some mild pain, but this is tolerable. She reports some increased pain in her right knee, which began following surgery. She feels she is overusing her knee to compensate for her left knee while she recovers. She complains of some constipation & painful bowel movements following her surgery, which she attributes to her narcotic medication. Her last bowel movement was yesterday (02/18/23) Sutures were removed and steri-strips applied. She is able to return to normal activities, as tolerated. Colace was prescribed for her constipation, to be taken PO BID. She can follow up prn to discuss her right knee pain, or if she has any other concerns. Medications: New docusate sodium (Colace) 100 mg PO BID 60 caps 0RF 30 days Patient Instructions: Scribed for Karis Armstrong PA-C by Shai Gonzalez, regional medical director, on 02/19/23 at 1:55 PM EST. Coding Level of Care Code Global (32603) Diagnoses Tear of medial meniscus of left knee S83.242A Constipation due to pain medication K59.03
== END 2023-02-19 14:06 | disposition home or self-care (01) ==
PROVIDERS: PCP Registered Nurse; Visit Provider Physician Assistant
DX: S83.242A Other tear of medial meniscus, current injury, left knee, initial encounter (principal); K59.03 Drug induced constipation
CPT/HCPCS: 99024

== ENCOUNTER → 2023-02-19 13:28 | Outpatient (BNVA) | payer OTHER, SELFPAY | PROVIDERS: PCP Registered Nurse; Visit Provider Physician Assistant | DX: S83.242D Other tear of medial meniscus, current injury, left knee, subsequent encounter (principal); K59.03 Drug induced constipation | CPT/HCPCS: 99212 ==

== ENCOUNTER 2023-07-03 12:05 | Emergency (ER) | payer OTHER, SELFPAY ==
--- NOTE | ~2023-07-03 | XR_ITS ---
EXAMINATION: XR SHOULDER, LEFT CLINICAL INFORMATION: Pain COMPARISON: None available. TECHNIQUE: 3 views of the left shoulder. FINDINGS: The bones and soft tissues are normal. No fracture. Glenohumeral and acromioclavicular alignment is anatomic with normal joint space. No abnormal soft tissue calcifications. XR/XR shoulder LT min 2V IMPRESSION: Normal left shoulder.
--- NOTE | 2023-07-03 12:20 | ECG_ITS ---
Test Reason : chest pain Blood Pressure : / mmHG Vent. Rate : 071 BPM Atrial Rate : 071 BPM P-R Int : 146 ms QRS Dur : 074 ms QT Int : 364 ms P-R-T Axes : 010 -33 034 degrees QTc Int : 395 ms Normal sinus rhythm Left axis deviation Abnormal ECG No previous ECGs available Referred By: Gena Matta Electronically Signed By:MILLIE AHMADI MD
--- NOTE | 2023-07-03 12:23 | ED.GENADULT ---
HPI - General Adult General Chief complaint: Chest Pain Stated complaint: Shoulder Arm Hand Numbness Related Data Home Medications ?Medication ?Instructions ?Recorded ?Confirmed cholecalciferol (vitamin D3) 25 25 mcg PO DAILY 01/13/20 07/17/23 mcg (1,000 unit) capsule lidocaine 5 % topical cream 1 applic topical BID PRN Pain 01/13/20 07/17/23 tramadol 50 mg tablet 1 tab PO Q4H PRN Pain 03/01/20 07/17/23 zolpidem 10 mg tablet 1 tab PO BEDTIME PRN Sleep 03/01/20 07/17/23 acetaminophen 500 mg tablet 500 mg PO Q6H PRN Pain 03/31/20 07/17/23 baclofen 20 mg tablet 20 mg PO TID PRN Abdominal 03/31/20 07/17/23 Discomfort lidocaine 5 % topical ointment 1 topical TID 03/31/20 07/17/23 duloxetine 30 mg capsule,delayed 30 mg PO BID PRN Pain 07/24/22 07/17/23 release latanoprost 0.005 % eye drops 0 drp ophthalmic (eye) BEDTIME 07/24/22 07/17/23 ozmfekfb-rqv-iwwxt acid 0.4 1 tab PO QAM 07/24/22 07/17/23 mg-lycopene 300 mcg-lutein 250 mcg tablet (Adults 50 Plus) naloxone 4 mg/actuation nasal spray 0 spray intranasal 07/24/22 07/17/23 rosuvastatin 10 mg tablet 10 mg PO BEDTIME 07/24/22 07/17/23 buspirone 7.5 mg tablet 7.5 mg PO TID PRN Anxiety 01/22/23 07/17/23 clonazepam 0.5 mg tablet 0.5 mg PO DAILY PRN anxiety 01/22/23 07/17/23 tolterodine 4 mg capsule,extended 4 mg PO DAILY 01/22/23 07/17/23 release 24 hr Previous Rx's ?Medication ?Instructions ?Recorded mirabegron 25 mg tablet,extended 25 mg PO DAILY 30 days #90 tabs 11/25/20 release 24 hr (Myrbetriq) diclofenac sodium 1 % topical gel 2 g topical BID #100 grams 08/28/22 docusate sodium 100 mg capsule 100 mg PO BID 30 days #60 caps 02/19/23 (Colace) celecoxib 200 mg capsule (Celebrex) 200 mg PO BID 30 days #60 caps 07/17/23 gabapentin 100 mg capsule 100 mg PO BEDTIME #30 caps 09/10/23 Allergies Allergy/AdvReac Type Severity Reaction Status Date / Time No Known Allergies Allergy Verified 08/20/23 15:42 [No Known Allergies*] [facility] Past Medical History Medical History Frequency of urination Urge incontinence Renal stones Anxiety Overactive bladder Hyperlipemia Depression Obesity Glaucoma Osteoarthritis IBS (irritable bowel syndrome) Lumbar spondylitis Renal stones Anemia GERD (gastroesophageal reflux disease) Plantar fasciitis Fibromyalgia Surgical History History of arthroscopy of right knee (~03/2020) H/O nasal septoplasty Hx of lithotripsy Hx of tubal ligation Family History Family History Mother Diabetes Fibromyalgia Arthritis Osteoporosis Daughter Breast cancer Social History Social History Household Members: Family Housing: House Are you a primary care transitions manager to a significant other at home: No Do you presently have visiting nurse or other home services: No Alcohol intake: never Comment: uses a cane sometimes Patient Tobacco Use Status: Never used Tobacco Second Hand Smoke Exposure: No Current occupational status: disabled Current occupation: Right Handed Physical Exam ED Vital Signs: Vital Signs - 24 hr 07/03/23 12:24 Temperature 96.1 F L Pulse Rate 85 Respiratory Rate 20 Blood Pressure 136/86 Pulse Oximetry 98 Oxygen Delivery Method Room Air BMI result Body Mass Index 35.0 Course Course Course Narrative: This is an RME: Additional HPI, ROS, PE not included below will be deferred to primary provider. 58 yo f with pmhx of fibromyalgia presents with left sided shoulder pain since this morning. Reports chest pain. Denies nausea, vomiting, diarrhea, fevers, chills. Denies trauma to shoulder. Plan- labs and imaging Medical Decision Making Lab Data 07/03/23 12:58 07/03/23 12:58 Labs: Lab Results 07/03/23 07/03/23 Range/Units 12:58 19:19 WBC 7.5 (4.8-10.8) X10*3/uL RBC 5.25 (4.20-5.50) X10*6/uL Hgb 15.2 (12.0-16.0) g/dl Hct 45.5 (37.0-47.0) % MCV 86.7 (80.0-98.0) fL MCH 29.0 (27.0-33.0) pg MCHC 33.4 (31.0-35.0) g/dl RDW 13.4 (11.0-16.0) % Plt Count 298 (160-400) X10*3/uL MPV 8.4 L (9.4-12.3) fL Immature Gran % (Auto) 0.5 H (0.0-0.4) % Neut % (Auto) 60.6 (45-73) % Lymph % (Auto) 31.8 (20-40) % [place] % (Auto) 5.1 (2-11) % Eos % (Auto) 1.7 (0-4) % Baso % (Auto) 0.3 (0-2) % Lymph # (Auto) 2.4 (1.2-4.9) X10*3/uL [place] # (Auto) 0.4 (0.1-1.2) X10*3/uL Eos # (Auto) 0.1 (0.0-0.4) X10*3/uL Baso # (Auto) 0.0 (0.0-0.2) X10*3/uL Abs Immat Gran (auto) 0.04 H (0.00-0.03) X10*3/uL Absolute Neuts (auto) 4.5 (2.0-8.3) x10*3/uL Absolute Nucleated RBC 0.000 (0.0-0.012) X10*3/uL Nucleated RBC % (auto) 0.0 (0.0-0.2) /100WBC Sodium 141 (135-145) mmol/L Potassium 4.1 (3.3-5.1) mmol/L Chloride 107 (96-108) mmol/L Carbon Dioxide 26 (22-29) mmol/L Anion Gap 12 (12-20) BUN 18 H (9-16) mg/dL Creatinine 1.05 (0.5-1.4) mg/dL Estim Creat Clear Calc 52.9 Estimated GFR 54 Random Glucose 109 (60-115) mg/dL Calcium 10.1 (8.4-10.2) mg/dL Magnesium 2.1 (1.6-2.6) mg/dL Total Bilirubin 0.5 (0.0-1.0) mg/dL AST 20 (5-31) U/L ALT 26 (0-31) U/L Alkaline Phosphatase 122 H (39-117) U/L Troponin I High Sens < 2.7 < 2.7 (<3.5-17.0) ng/L Total Protein 7.8 (6.5-8.0) g/dL Albumin 4.2 (3.5-5.0) g/dL Discharge Plan Discharge Clinical Impression: Eloped from emergency department Patient Disposition: Left W/O Completing Treatment Prescriptions: No Action Myrbetriq 25 mg tablet extended release 24 hr 25 mg PO DAILY 30 Days Qty: 90 2RF diclofenac sodium 1 % gel 2 g topical BID Qty: 100 2RF Rx Instructions: apply 2g to affected joint twice daily as needed gabapentin 100 mg capsule 100 mg PO BEDTIME Qty: 30 1RF tramadol 50 mg tablet 1 tab PO Q4H PRN (Reason: Pain) zolpidem 10 mg tablet 1 tab PO BEDTIME PRN (Reason: Sleep) clonazepam 0.5 mg tablet 0.5 mg PO DAILY PRN (Reason: anxiety) buspirone 7.5 mg tablet 7.5 mg PO TID PRN (Reason: Anxiety) acetaminophen 500 mg tablet 500 mg PO Q6H PRN (Reason: Pain) baclofen 20 mg tablet 20 mg PO TID PRN (Reason: Abdominal Discomfort) lidocaine 5 % ointment 1 topical TID cholecalciferol (vitamin D3) 25 mcg (1,000 unit) capsule 25 mcg PO DAILY lidocaine 5 % cream 1 applic topical BID PRN (Reason: Pain) tolterodine 4 mg capsule,extended release 24hr 4 mg PO DAILY docusate sodium [Colace] 100 mg capsule 100 mg PO BID 30 Days Qty: 60 0RF celecoxib [Celebrex] 200 mg capsule 200 mg PO BID 30 Days Qty: 60 3RF duloxetine 30 mg capsule,delayed release(DR/EC) 30 mg PO BID PRN (Reason: Pain) latanoprost 0.005 % drops 0 drp ophthalmic (eye) BEDTIME Adults 50 Plus 0.4 mg-300 mcg- 250 mcg tablet 1 tab PO QAM naloxone 4 mg/actuation spray,non-aerosol 0 spray intranasal rosuvastatin 10 mg tablet 10 mg PO BEDTIME Discharge Date/Time: 07/03/23 23:02
[2023-07-03 12:24] VITALS: BP 136/86; PULSE 85; RESP 20; TEMP 35.6; O2SAT 98; BMI 35.0
[2023-07-03 13:04] LABS: MANUAL DIFF FLAG NO
[2023-07-03 13:13] LABS: Basophils Percent Auto 0.3 % (0-2); Eosinophils Absolute Auto 0.1 X10*3/uL (0.0-0.4); Eosinophils Percent Auto 1.7 % (0-4); Hematocrit 45.5 % (37.0-47.0); Hemoglobin 15.2 g/dl (12.0-16.0); Imm Gran Abs Auto 0.04 X10*3/uL (0.00-0.03); Imm Gran Pct Auto 0.5 % (0.0-0.4); Lymphocytes Absolute Auto 2.4 X10*3/uL (1.2-4.9); Lymphocytes Percent Auto 31.8 % (20-40); Mean Corpuscular HGB Conc 33.4 g/dl (31.0-35.0); Mean Corpuscular Volume 86.7 fL (80.0-98.0); Mean Platelet Volume 8.4 fL (9.4-12.3); Monocytes Absolute Auto 0.4 X10*3/uL (0.1-1.2); Monocytes Percent Auto 5.1 % (2-11); Neutrophils Absolute Auto 4.5 x10*3/uL (2.0-8.3); Neutrophils Percent Auto 60.6 % (45-73); Platelet Count 298 X10*3/uL (160-400); Red Blood Count 5.25 X10*6/uL (4.20-5.50); Red Cell Distribution Width 13.4 % (11.0-16.0); White Blood Count 7.5 X10*3/uL (4.8-10.8)
[2023-07-03 13:24] LABS: Alanine Aminotransferase 26 U/L (0-31); Albumin Level 4.2 g/dL (3.5-5.0); Alkaline Phosphatase 122 U/L (39-117); Anion Gap 12 (12-20); Aspartate Amino Transferase 20 U/L (5-31); Bilirubin Total 0.5 mg/dL (0.0-1.0); Blood Urea Nitrogen 18 mg/dL (9-16); Calcium 10.1 mg/dL (8.4-10.2); Carbon Dioxide 26 mmol/L (22-29); Chloride 107 mmol/L (96-108); Creatinine Clr Calc Pharmacy 52.9; Estimated Glomerular Filt Rate 54; Glucose Random 109 mg/dL (60-115); Magnesium 2.1 mg/dL (1.6-2.6); Potassium 4.1 mmol/L (3.3-5.1); Sodium 141 mmol/L (135-145); Total Protein 7.8 g/dL (6.5-8.0)
[2023-07-03 13:38] LABS: Troponin-I High Sensitivity < 2.7 ng/L (<3.5-17.0)
[2023-07-03 19:11] VITALS: BP 151/79; PULSE 65; RESP 16; TEMP 36.7; O2SAT 97
[2023-07-03 19:55] LABS: Troponin-I High Sensitivity < 2.7 ng/L (<3.5-17.0)
--- NOTE | 2023-07-03 22:24 | PC.NURSE ---
Pt upset states I can not wait any longer, I will call my doctor tomorrow, I am going home .
== END 2023-07-03 23:02 | disposition left against medical advice (07) ==
LOC: HO.ED 22:51
PROVIDERS: Physician Assistant; Emergency Provider Emergency Medicine
DX: R20.0 Anesthesia of skin (principal)
CPT/HCPCS: 36415; 73030; 80053; 83735; 84484; 85025; 93005; 99283

== ENCOUNTER → 2023-07-03 12:20 | Outpatient (BNV) | payer OTHER, SELFPAY | PROVIDERS: Emergency Provider Emergency Medicine; Visit Provider Internal Medicine Cardiovascular Disease | DX: R94.31 Abnormal electrocardiogram [ECG] [EKG] (principal) | CPT/HCPCS: 93010 ==

== ENCOUNTER 2023-07-17 14:38 | Outpatient (AMB) | payer OTHER, SELFPAY ==
--- NOTE | 2023-07-17 14:53 | MHC.OFFVIS ---
Vital Signs 07/17/23 14:58 Height 4 ft 11 in Weight 173 lb BMI 34.9 Handedness Right Intake Visit Reasons: pain from neck to left hand Intake Note: Luciana is a 58 year right hand dominant female who presents today for a evaluation of her left hand pain. Patient reports ongoing pain for a week. She states that she woke up one day with throbbing pain, she expresses that she couldn't rest her hand. Patient reports having numbness in her whole hand for about a week. Currently having mild pain and still having numbness in her whole hand. Allergies No Known Allergies [No Known Allergies*] Allergy (Verified 07/17/23 14:58) Medication List - Last Reconciled 07/17/23 by Capo Bacon PA-C acetaminophen 500 mg PO Q6H PRN baclofen 20 mg PO TID PRN buspirone 7.5 mg PO TID PRN cholecalciferol (vitamin D3) 25 mcg PO DAILY clonazepam 0.5 mg PO DAILY PRN diclofenac sodium 1% 2 grams topical BID docusate sodium (Colace) 100 mg PO BID 30 days duloxetine 30 mg PO BID PRN gabapentin 100 mg PO BEDTIME latanoprost 0.005% 0 drps ophthalmic (eye) BEDTIME lidocaine 5% 1 appl topical BID PRN lidocaine 5% 1 topical TID mirabegron ER (Myrbetriq) 25 mg PO DAILY 30 days cdderydf-fee-OE-lycopen-lutein 0.4 mg-300 mcg- 250 mcg (Adults 50 Plus) 1 tab PO QAM naloxone 4 mg/actuation 0 sprays intranasal oxycodone-acetaminophen 5-325 mg (Percocet) 1 tab PO Q6H PRN 7 days rosuvastatin 10 mg PO BEDTIME tolterodine ER 4 mg PO DAILY tramadol 1 tab PO Q4H PRN zolpidem 1 tab PO BEDTIME PRN HPI HPI pain from neck to left hand: Details: 58-year-old female presents to the office today with complaints of left upper extremity pain. She states she woke up 1 morning and developed swelling and tenderness along the left trapezium which extended into the left shoulder region and into the biceps. She states that has somewhat resolved as far as the swelling but she does have some tenderness along the left side of the trapezium and also complains of numbness in her left hand. She is also experiencing some weakness and limitations with activity. She was seen in the emergency department where a workup was done however she left without being seen due to the wait time. [facility] Medical History Frequency of urination Urge incontinence Renal stones Anxiety Overactive bladder Hyperlipemia Depression Obesity Glaucoma Osteoarthritis IBS (irritable bowel syndrome) Lumbar spondylitis Renal stones Anemia GERD (gastroesophageal reflux disease) Plantar fasciitis Fibromyalgia Surgical History History of arthroscopy of right knee (~03/2020) H/O nasal septoplasty Hx of lithotripsy Hx of tubal ligation Family History Mother Diabetes Fibromyalgia Arthritis Osteoporosis Daughter Breast cancer Social History Household Members: Family Housing: House Are you a primary home care companion to a significant other at home: No Do you presently have visiting nurse or other home services: No Alcohol intake: never Comment: uses a cane sometimes Patient Tobacco Use Status: Never used Tobacco Second Hand Smoke Exposure: No Current occupational status: disabled Current occupation: Right Handed Review of Systems Const All systems reviewed & are unremarkable except as noted in HPI and below Physical Exam Vital Signs: BMI result Body Mass Index 34.9 Extrem Other: Hypersensitivity over the left trapezium muscle which extends into the shoulder and deltoid region of the arm. Deltoid sensation intact. She has negative Tinel's over the cubital tunnel. She has positive Tinel's over the carpal tunnel. She does have some decreased sensation over the distribution of the median nerve at the left hand when compared to the contralateral side. Pulses are present. Assessment & Plan Assessment & Plan (1) Cervical pain (neck): Code(s): M54.2 - Cervicalgia Category: Medical (2) Paresthesia and pain of extremity: Code(s): R20.2 - Paresthesia of skin; M79.609 - Pain in unspecified limb Category: Medical Plan We discussed options today which include physical therapy which she is already attending for her neck. I did order an EMG/nerve conduction study of the left upper extremity to further evaluate the etiology of her numbness. Once this is complete I will contact her to discuss the next step in her treatment. She is content with this plan. Orders: Orders NE nerve conduction velocity Today R20.0 - Anesthesia of skin, R20.2 - Paresthesia of skin NE electromyogram (EMG) Today R20.0 - Anesthesia of skin, R20.2 - Paresthesia of skin PT Evaluation and Treatment Today M54.2 - Cervicalgia, M79.609 - Pain in unspecified limb, R20.2 - Paresthesia of skin Medications: New celecoxib (Celebrex) 200 mg PO BID 60 caps 3RF 30 days Coding Level of Care Code Est Pt Level 3 (64847) Diagnoses Cervical pain (neck) M54.2 Paresthesia and pain of extremity R20.2; M79.609
[2023-07-17 14:58] VITALS: BMI 34.9
== END 2023-07-17 15:53 | disposition home or self-care (01) ==
PROVIDERS: Visit Provider Physician Assistant
DX: M54.2 Cervicalgia (principal); R20.2 Paresthesia of skin; M79.609 Pain in unspecified limb
CPT/HCPCS: 99213

== ENCOUNTER → 2023-07-17 14:38 | Outpatient (BNVA) | payer OTHER, SELFPAY | PROVIDERS: Visit Provider Physician Assistant | DX: M54.2 Cervicalgia (principal); M79.609 Pain in unspecified limb; R20.2 Paresthesia of skin | CPT/HCPCS: 99212 ==

== ENCOUNTER 2023-08-02 14:20 | Outpatient (REF) | payer OTHER, SELFPAY ==
--- NOTE | 2023-08-02 14:23 | EMG_ITS ---
Chief complaint: Sudden onset 3 weeks of left shoulder and arm pain. Numbness down middle fingers. Reason for referral: Evaluate for brachial plexopathy versus cervical radiculopathy Referred by: Capo MAYS Procedure done: Left upper extremity NCS/EMG Precautions and/or limitations: None The limb temperature was monitored continuously and remained between 32-36 degrees C during the performance of the NCS. Nerve Conduction Studies Anti Sensory Summary Table ?Stim Site NR Onset (ms) Norm Onset (ms) Peak (ms) Norm Peak (ms) O-P Amp (?V) Norm O-P Amp Site1 Site2 Delta-0 (ms) Dist (cm) Kingsley (m/s) Norm Kingsley (m/s) Left Lat Ante Brach Cutan Anti Sensory (Lat Forearm) Lat Biceps ? 0.3 0.5 9.6 Lat Biceps Lat Forearm 0.3 0.0 Left Med Ante Brach Cutan Anti Sensory (Med Forearm) Elbow ? 0.3 0.5 6.3 Elbow Med Forearm 0.3 0.0 Left Median Anti Sensory (2nd Digit) Wrist ? 2.3 3.0 <3.6 19.9 >10 Wrist 2nd Digit 2.3 14.0 61 Left Radial Anti Sensory (Thumb) Forearm ? 1.8 2.1 <3.1 23.6 Forearm Thumb 1.8 0.0 Left Ulnar Anti Sensory (5th Digit) Wrist ? 2.3 3.0 <3.7 19.9 >15.0 Wrist 5th Digit 2.3 14.0 61 Motor Summary Table ?Stim Site NR Onset (ms) Norm Onset (ms) O-P Amp (mV) Norm O-P Amp iAmp (mV) Amp (1st) (%) Site1 Site2 Delta-0 (ms) Dist (cm) Kingsley (m/s) Norm Kingsley (m/s) Left Median Motor (Abd Poll Brev) Wrist ? 3.1 <3.9 13.3 >4.5 15.9 100.0 Elbow Wrist 3.1 17.5 56 >45 Elbow ? 6.2 10.9 13.5 82.0 Left Ulnar Motor (Abd Dig Minimi) Wrist ? 2.3 <3.0 9.1 >5 10.2 100.0 B Elbow Wrist 2.6 14.5 56 >45 B Elbow ? 4.9 8.9 10.0 97.8 A Elbow B Elbow 1.5 10.0 67 >45 A Elbow ? 6.4 8.7 9.9 95.6 EMG ?Side Muscle Nerve Root Ins Act Fibs Psw Amp Dur Poly Recrt Int Pat Comment Left 1stDorInt Ulnar C8-T1 Incr 1+ 1+ Nml Nml 0 Nml Complete Left FlexCarRad Median C6-7 Nml Nml Nml Nml Nml 0 Nml Complete Left Biceps Musculocut C5-6 Nml Nml Nml Nml Nml 0 Nml Complete Left Triceps Radial C6-7-8 Incr 1+ 1+ Nml Nml 0 Reduced Complete Left Deltoid Axillary C5-6 Nml Nml Nml Nml Nml 0 Nml Complete Paraspinal EMG ?Side Muscle Nerve Root Ins Act Fibs Psw Comment Left Cervical Upper Rami Nml Nml Nml Left Cervical Mid Rami Nml Nml Nml Left Cervical Lower Rami Incr 1+ 1+ FINDINGS: All motor and sensory nerves tested showed normal latencies, amplitudes and conduction velocities. Concentric needle EMG was performed in selected muscles of the left upper extremity and cervical paraspinals. Study revealed signs of electric abnormalities as shown in the table below. Left triceps showed increased insertional activity, PSWs and fibrillations, and reduced recruitment. Left FDI showed increased insertional activity, PSWs and fibrillations. Left lower cervical paraspinals showed increased insertional activity, PSWs and fibrillations. IMPRESSION: 1. This is an abnormal study. 2. There is electrodiagnostic evidence for acute lowest cervical radiculopathy, possibly involving C7/8 nerve root. 3. There is no electrodiagnostic evidence for median neuropathy, ulnar neuropathy, or brachial plexopathy. CLINICAL COMMENT: Advised to be seen on follow up at the Ortho office for further workup.. Thank you for your kind referral. Aissatou Kingsley MD, ARTURO Board Certified, [place] Board [employer] and Rehabilitation (ABPMR) Board Certified, [place] Board [employer] Electrodiagnostic Medicine (ABEM) [facility] [id number] [facility]
== END 2023-08-02 14:21 | disposition home or self-care (01) ==
LOC: HO.NEURO 14:20
PROVIDERS: PCP Registered Nurse; Visit Provider Physician Assistant
DX: R20.0 Anesthesia of skin (principal); R20.2 Paresthesia of skin
CPT/HCPCS: 95886; 95910

== ENCOUNTER → 2023-08-02 14:23 | Outpatient (BNV) | payer OTHER, SELFPAY | PROVIDERS: PCP Registered Nurse; Visit Provider Physical Medicine & Rehabilitation | DX: R20.2 Paresthesia of skin (principal); R20.0 Anesthesia of skin; M54.12 Radiculopathy, cervical region | CPT/HCPCS: 95886; 95910 ==

== ENCOUNTER 2023-08-20 15:39 | Outpatient (AMB) | payer OTHER, SELFPAY ==
--- NOTE | 2023-08-20 15:41 | A.OFFVIS_ITS ---
Intake Visit Reasons: OV-Left hand EMG review Intake Note: Leslie 58 yr old female presents today for her Left hand EMG review. She states the pain isn't as bad but states she will still get some pain with numbness in her left hand. States she is interested in surgical intervention if needed. Allergies No Known Allergies [No Known Allergies*] Allergy (Verified 08/20/23 15:42) HPI HPI OV-Left hand EMG review: Details: Leslie is a 58 year old right hand dominant woman who presents for a NCS of her left arm numbness. She complains of numbness and pain that radiates from her left neck & shoulder, down into her wrist & all fingers of her left hand. She says this pain began ~2 months ago, and has been affecting her ability to sleep. This was particularly bad a couple of weeks ago but has improved since that time. She is complaining of pain in her right shoulder & arm at this time as well. She recently had an EMG nerve conduction study with Dr. Marie. She has a hx of Fibromyalgia [facility] Medical History Frequency of urination Urge incontinence Renal stones Anxiety Overactive bladder Hyperlipemia Depression Obesity Glaucoma Osteoarthritis IBS (irritable bowel syndrome) Lumbar spondylitis Renal stones Anemia GERD (gastroesophageal reflux disease) Plantar fasciitis Fibromyalgia Surgical History History of arthroscopy of right knee (~03/2020) H/O nasal septoplasty Hx of lithotripsy Hx of tubal ligation Family History Mother Diabetes Fibromyalgia Arthritis Osteoporosis Daughter Breast cancer Social History Household Members: Family Housing: House Are you a primary residential care officer to a significant other at home: No Do you presently have visiting nurse or other home services: No Alcohol intake: never Comment: uses a cane sometimes Patient Tobacco Use Status: Never used Tobacco Second Hand Smoke Exposure: No Current occupational status: disabled Current occupation: Right Handed Review of Systems Const All systems reviewed & are unremarkable except as noted in HPI and below Physical Exam Const General: cooperative, healthy appearing and no acute distress Orientation/consciousness: patient oriented x3 HEENT Head: Yes normocephalic and Yes atraumatic Eyes EOM: EOMs intact bilaterally Resp Effort & Inspection: normal respiratory effort and able to speak in complete sentences Cardio Jugular venous distension: no JVD Skin General skin exam: turgor normal Rashes: no rashes Neuro General: patient oriented x3 Extrem Other: Evaluation of Left Upper Extremity: The patient is alert, oriented, and in no acute distress Neuro: Median, Ulnar, Radial nerves motor and sensory intact and sensation is normal to the tips of all digits today in clinic No thenar or intrinsic wasting Good APB muscle belly firing and good finger cross 5/5 and symmetrical strength for: Wrist extension, wrist flexion, biceps, triceps, shoulder external rotation and shoulder internal rotation. She can also raise both arms above her head. Vascular: Cap refill brisk ROM: She can make a fist and extend all her digits No locking or catching Skin: No lacerations or abrasions. General: No Ecchymosis. No Erythema or evidence of infection. Nerve Conduction Study: Left-side only IMPRESSION: 1. This is an abnormal study. 2. There is electrodiagnostic evidence for acute lowest cervical radiculopathy, possibly involving C7/8 nerve root. 3. There is no electrodiagnostic evidence for median neuropathy, ulnar neuropathy, or brachial plexopathy. Aissatou Kingsley MD, ARTURO 08/02/23 Psych Appearance: grossly normal Affect: normal affect Attitude: cooperative Assessment & Plan Assessment & Plan (1) Cervical radiculopathy: Code(s): M54.12 - Radiculopathy, cervical region Category: Medical (2) Paresthesia and pain of extremity: Code(s): R20.2 - Paresthesia of skin; M79.609 - Pain in unspecified limb Category: Medical (3) Cervical pain (neck): Code(s): M54.2 - Cervicalgia Category: Medical (4) Fibromyalgia: Code(s): M79.7 - Fibromyalgia Category: Medical Plan Assessment & Plan: 1. Left arm pain & numbness Extending from the neck, into shoulder, and down in the wrist & fingers She has had some improvement compared with 2 weeks ago. Her NCS was negative for any peripheral nerve compression, however it did show electrodiagnostic evidence for acute lowest cervical radiculopathy, possibly involving C7/8 nerve root. I referred her to Pain Management/non operative spine for assessment 2. Right shoulder and arm pain & numbness Less bothersome than the left side No NCS done on the right side Follow-up with Hand Clinic not indicated unless she has a new complaint. Scribed for Rukhsana Zaman MD by Shai Gonzalez, medical staff services manager, on 08/20/23 at 4:05 PM, EST. Orders: Referrals Pain Management Referral M54.12 - Radiculopathy, cervical region Coding Level of Care Code Est Pt Level 4 (28097) Diagnoses Cervical radiculopathy M54.12 Paresthesia and pain of extremity R20.2; M79.609 Cervical pain (neck) M54.2 Fibromyalgia M79.7
== END 2023-08-20 16:13 | disposition home or self-care (01) ==
PROVIDERS: PCP Registered Nurse; Visit Provider Orthopaedic Surgery
DX: M54.12 Radiculopathy, cervical region (principal); R20.2 Paresthesia of skin; M79.609 Pain in unspecified limb; M54.2 Cervicalgia; M79.7 Fibromyalgia
CPT/HCPCS: 99214

== ENCOUNTER → 2023-08-20 15:39 | Outpatient (BNVA) | payer OTHER, SELFPAY | PROVIDERS: PCP Registered Nurse; Visit Provider Orthopaedic Surgery | DX: R20.2 Paresthesia of skin (principal); M54.12 Radiculopathy, cervical region; M54.2 Cervicalgia; M79.7 Fibromyalgia | CPT/HCPCS: 99212 ==

== ENCOUNTER 2023-09-25 14:33 | Outpatient (AMB) | payer OTHER, SELFPAY ==
--- NOTE | 2023-09-25 14:36 | A.OFFVIS_ITS ---
Vital Signs 09/25/23 14:38 Height 4 ft 11 in Weight 182 lb BMI 36.8 BP 140/79 H Blood Pressure Location Lt brachial Position Sitting Pulse 81 Pulse Source Pulse Oximeter Pulse Oximetry (%) 97 Oxygen Delivery Method Room Air Intake Visit Reasons: Radiculopathy, cervical region Allergies No Known Allergies [No Known Allergies*] Allergy (Verified 09/25/23 14:39) Medication List - Last Reconciled 09/25/23 by Deya Soliz acetaminophen 500 mg PO Q6H PRN baclofen 20 mg PO TID PRN buspirone 7.5 mg PO TID PRN cholecalciferol (vitamin D3) 25 mcg PO DAILY clonazepam 0.5 mg PO DAILY PRN diclofenac sodium 1% 2 grams topical BID docusate sodium (Colace) 100 mg PO BID 30 days duloxetine 30 mg PO BID PRN gabapentin 100 mg PO BEDTIME latanoprost 0.005% 0 drps ophthalmic (eye) BEDTIME lidocaine 5% 1 appl topical BID PRN lidocaine 5% 1 topical TID mirabegron ER (Myrbetriq) 25 mg PO DAILY 30 days lopilkox-ylj-BT-lycopen-lutein 0.4 mg-300 mcg- 250 mcg (Adults 50 Plus) 1 tab PO QAM rosuvastatin 10 mg PO BEDTIME tramadol 1 tab PO Q4H PRN zolpidem 1 tab PO BEDTIME PRN HPI Comments Details: Leslie is a very pleasant 58-year-old female who presents the office today for evaluation management of her chronic neck and left arm pain Recent EMG reviewed, results as per below Patient reports she has been suffering with this pain for approximately 3 months. Awoke with pain, denies injury, trauma, accident. Left lower cervical pain with radiation down the lateral left arm. Endorses some numbness of the left hand, including all fingers but most notable at distal left middle finger Intermittent shooting, electrical pain down the left arm to the hand States at first the pain was very severe to the point she could not move her arm or neck. She has received 2 Toradol injections at her primary care doctor's office. Currently taking tramadol, duloxetine, Tylenol and gabapentin. Pain is improved from initial onset but persists. Pain today is rated as a 5/10, constant In terms of muscle damage condition is described as cramping, hot, burning, tingling, pins and needles Pain is negatively impacting patient's enjoyment of life, general activity, mood, relationships with people, walking Past medical history of constipation, osteoarthritis, chronic low back pain, overactive bladder, renal stones, fibromyalgia and medial meniscus tear of the left knee with surgical repair Denies current use of anticoagulants Denies nicotine, tobacco, alcohol or illicit substance use Denies implantable devices, pacemaker or defibrillator [facility] Medical History Frequency of urination Urge incontinence Renal stones Anxiety Overactive bladder Hyperlipemia Depression Obesity Glaucoma Osteoarthritis IBS (irritable bowel syndrome) Lumbar spondylitis Renal stones Anemia GERD (gastroesophageal reflux disease) Plantar fasciitis Fibromyalgia Surgical History History of arthroscopy of right knee (~03/2020) H/O nasal septoplasty Hx of lithotripsy Hx of tubal ligation Family History Mother Diabetes Fibromyalgia Arthritis Osteoporosis Daughter Breast cancer Social History Household Members: Family Housing: House Are you a primary healthcare network consultant to a significant other at home: No Do you presently have visiting nurse or other home services: No Alcohol intake: never Comment: uses a cane sometimes Patient Tobacco Use Status: Never used Tobacco Second Hand Smoke Exposure: No Current occupational status: disabled Current occupation: Right Handed Review of Systems Const All systems reviewed & are unremarkable except as noted in HPI and below Physical Exam Vital Signs: Last Vital Signs Pulse 81 09/25/23 14:38 BP 140/79 H 09/25/23 14:38 Pulse Ox 97 09/25/23 14:38 Oxygen Delivery Method Room Air 09/25/23 14:38 BMI result Body Mass Index 36.8 General: awake, alert, oriented. Answers questions appropriately. Fully engaged in examination. Skin: warm, dry, intact HEENT: Normocephalic. Hearing intact. Cardiac: External chest normal in appearance. Respiratory: No cough, audible wheezing or stridor. Abdomen: without gross distension. MS: No obvious swelling or deformities. Cervical Spine: Visible inspection without gross abnormality Minimal tenderness over left trapezius Tender to palpation left cervical paraspinal muscles and midline cervical vertebrae mildly decreased cervical ROM in all planes Spurling compression test negative. Elvey's tension test positive on the left Lhermitte's test negative. BUE strength 5/5 DTR symmetrical and intact bilaterally. 2+ radial pulses. Neurological: Oriented to person, place, time and situation. Thought process intact. No gait abnormalities appreciated. Psychiatric: Appropriate mood and affect. Good judgment and insight. Results Reviewed Results Reviewed: 08/02/23 EMG IMPRESSION: 1. This is an abnormal study. 2. There is electrodiagnostic evidence for acute lowest cervical radiculopathy, possibly involving C7/8 nerve root. 3. There is no electrodiagnostic evidence for median neuropathy, ulnar neuropathy, or brachial plexopathy. Assessment & Plan Assessment & Plan (1) Cervical radiculopathy: Code(s): M54.12 - Radiculopathy, cervical region Category: Medical Plan Patient presented to the office today for evaluation management of her chronic neck pain History, physical exam and provocative testing consistent with left cervical radiculopathy MRI without contrast at ordered for further evaluation Continue with tramadol, duloxetine, gabapentin and Tylenol as prescribed Plan for left cervical epidural steroid injection with local anesthetic under fluoroscopy guidance pending review of MRI. All questions concerns answered, patient agrees with the plan. Follow up after MRI, sooner if needed Orders: Orders MR cervical spine wo con Today M54.12 - Radiculopathy, cervical region Coding Level of Care Code New Pt Level 4 (77520) Diagnoses Cervical radiculopathy M54.12
[2023-09-25 14:38] VITALS: BP 140/79; PULSE 81; O2SAT 97; BMI 36.8
== END 2023-09-25 15:08 | disposition home or self-care (01) ==
PROVIDERS: PCP Registered Nurse; Visit Provider Registered Nurse Emergency
DX: M54.12 Radiculopathy, cervical region (principal)
CPT/HCPCS: 99204

== ENCOUNTER → 2023-09-25 14:33 | Outpatient (BNVA) | payer OTHER, SELFPAY | PROVIDERS: PCP Registered Nurse; Visit Provider Registered Nurse Emergency | DX: M54.12 Radiculopathy, cervical region (principal) | CPT/HCPCS: 99202 ==

== ENCOUNTER 2023-09-30 14:42 | Outpatient (REF) | payer OTHER, SELFPAY ==
[2023-10-03 11:13] LABS: HPV mRNA E6/E7 Not Detected (Not Detected)
[2023-10-04 14:03] LABS: Testosterone, Total 32 ng/dL (2-45)
== END 2023-09-30 14:43 | disposition home or self-care (01) ==
LOC: HO.HHCL 14:42
PROVIDERS: Visit Provider Advanced Practice Midwife
DX: L68.0 Hirsutism (principal); R35.0 Frequency of micturition
CPT/HCPCS: 36415; 84403; 87086; 87624; 88175

== ENCOUNTER 2023-10-04 13:02 | Outpatient (REF) | payer OTHER, SELFPAY ==
--- NOTE | ~2023-10-04 | US_ITS ---
EXAM: Pelvic Ultrasound CLINICAL INDICATION: Pelvic pain COMPARISON: CT abdomen pelvis December 16, 2020 TECHNIQUE: The pelvis was evaluated using transabdominal and transvaginal imaging. FINDINGS: The uterus measures 7.2 x 3.5 x 5.9 cm in longitudinal by AP by transverse dimension. The uterus demonstrates an overall heterogeneous echotexture. The endometrial stripe is not thickened and measures 0.3 cm. A trace amount of fluid is present within the endometrial canal. A few fibroids are noted, the largest measuring approximately 3 cm. The cervix measures approximately 1.7 cm in length. Nabothian cysts are noted within the cervix. Trace amount of fluid is noted within the cervical canal. Neither ovary was definitively visualized. Trace amount of free pelvic fluid, nonspecific. US/US pelvic and transvaginal IMPRESSION: 1. Fibroid uterus. 2. Trace amount of fluid is present within the endometrial cervical canals. 3. Neither ovary definitively visualized. 4. Trace amount of free pelvic fluid, nonspecific.
== END 2023-10-04 13:03 | disposition home or self-care (01) ==
LOC: HO.US 13:02
PROVIDERS: PCP Registered Nurse; Visit Provider Advanced Practice Midwife
DX: R10.2 Pelvic and perineal pain (principal)
CPT/HCPCS: 76830; 76856

== ENCOUNTER 2023-10-16 15:29 | Outpatient (AMB) | payer OTHER, SELFPAY ==
--- NOTE | 2023-10-16 15:32 | MHC.OFFVIS ---
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 Pelvic ultrasound done in 10/01 showed the following The uterus measures 7.2 x 3.5 x 5.9 cm in longitudinal by AP by transverse dimension. The uterus demonstrates an overall heterogeneous echotexture. The endometrial stripe is not thickened and measures 0.3 cm. A trace amount of fluid is present within the endometrial canal. A few fibroids are noted, the largest measuring approximately 3 cm. The cervix measures approximately 1.7 cm in length. Nabothian cysts are noted within the cervix. Trace amount of fluid is noted within the cervical canal. Neither ovary was definitively visualized. Trace amount of free pelvic fluid, nonspecific. Last co testing was in 09/26 was negative PFSH Medical History Frequency of urination Urge incontinence Renal stones Anxiety Overactive bladder Hyperlipemia Depression Obesity Glaucoma Osteoarthritis IBS (irritable bowel syndrome) Lumbar spondylitis Renal stones Anemia GERD (gastroesophageal reflux disease) Plantar fasciitis Fibromyalgia Surgical History History of arthroscopy of right knee (~03/2020) H/O nasal septoplasty Hx of lithotripsy Hx of tubal ligation Family History Mother Diabetes Fibromyalgia Arthritis Osteoporosis Daughter Breast cancer Social History Household Members: Family Housing: House Are you a primary floor care technician to a significant other at home: No Do you presently have visiting nurse or other home services: No Alcohol intake: never Comment: uses a cane sometimes Patient Tobacco Use Status: Never used Tobacco Second Hand Smoke Exposure: No Current occupational status: disabled Current occupation: Right Handed Review of Systems Const All systems reviewed & are unremarkable except as noted in HPI and below Physical Exam Vital Signs: BMI result Body Mass Index 36.5 GI Palpation (GI): Soft to palpation, nontender and no guarding General: Yes no CVA tenderness External Female Exam: normal external appearance and normal appearance of the urethra Speculum Exam - Vagina: normal appearance of the vagina, normal palpation, no lesions and no masses Speculum Exam - Cervix: normal appearance of the cervix, normal palpation, no lesions, no masses and nontender Bimanual exam- vagina & uterus: normal bimanual exam, normal palpation, uterine size normal, normal palpation, uterine shape normal, No Cervical tenderness present and non-tender Bimanual Exam- Adnexa, other: normal adnexae Back/Spine/Pelvis Back: no CVA tenderness Assessment & Plan Assessment & Plan (1) Uterine myoma: Code(s): D25.9 - Leiomyoma of uterus, unspecified Category: Medical Plan: Discussed with the patient the findings on pelvic ultrasound & the risk of myosarcoma; discussed with the patient the options of treatment including expectant management versus hysterectomy; the pros and cons, risks benefits of each approach were discussed with the patient including the fact that in cases of myosarcoma, surgical treatment can lead to early diagnosis and positively affects the prognosis; after further discussion, the patient decided to proceed with expectant management. Will repeat pelvic ultrasound periodically. Instructions given to patient to call in case any of the following occurs: pressure symptoms, abnormal uterine bleeding, pelvic pain; and to schedule a six-months pelvic ultrasound and a follow-up appointment . All questions answered, the patient verbalized understanding and agreed with the plan . (2) Fluid in endometrial cavity: Code(s): N85.9 - Noninflammatory disorder of uterus, unspecified Category: Medical Plan: Discussed with the patient the finding of fluid in the endometrial cavity, in spite of no vaginal bleeding the concern is the endometrial fluid visualized on ultrasound in case of cervical stenosis might be bleeding into the endometrial cavity and the blood and/or tissue was are unable to pass through the cervical os. Endometrial sampling in postmenopausal bleeding with endometrial fluid is indicated in case endometrial thickness is above 4 mm, however in cases with thin endometrial stripe, 4 mm and below, without any focal lesions, is a reassuring finding with a high negative predictive value for endometrial pathology including endometrial hyperplasia and/or malignancy or polyps. Instructions given to patient to call in case of vaginal bleeding will proceed with endometrial sampling to rule out endometrial pathology (3) Abdominal pain: Code(s): R10.9 - Unspecified abdominal pain Category: Medical Plan: Discussed with the patient differential diagnosis of abdominal pain, Instructions given the patient to call her PCP for further management regarding her abdominal (4) Frequency of urination: Code(s): R35.0 - Frequency of micturition Category: Medical Plan: Urine dip done in the office was negative The patient was seen in urology in 2020 for overactive bladder, refer the patient back for further management Orders: Orders US pelvic and transvaginal 6 Months D25.9 - Leiomyoma of uterus, unspecified CT NG by PCR Today R10.2 - Pelvic and perineal pain Referrals Urology Referral R35.0 - Frequency of micturition Coding Level of Care Code New Pt Level 3 (08774) Diagnoses Uterine myoma D25.9 Fluid in endometrial cavity N85.9 Abdominal pain R10.9 Frequency of urination R35.0
[2023-10-16 15:33] VITALS: BP 126/84; BMI 36.5
== END 2023-10-16 16:07 | disposition home or self-care (01) ==
PROVIDERS: PCP Registered Nurse; Visit Provider Obstetrics & Gynecology
DX: D25.9 Leiomyoma of uterus, unspecified (principal); N85.9 Noninflammatory disorder of uterus, unspecified; R10.9 Unspecified abdominal pain; R35.0 Frequency of micturition
CPT/HCPCS: 99203

== ENCOUNTER 2023-10-16 15:29 | Outpatient (REF) | payer OTHER, SELFPAY ==
[2023-10-16 18:12] LABS: CT PCR NOT DETECTED (Not Detect.); NG PCR NOT DETECTED (Not Detect.)
== END 2023-10-16 15:30 | disposition home or self-care (01) ==
LOC: HO.LNP 15:29
PROVIDERS: PCP Registered Nurse; Visit Provider Obstetrics & Gynecology
DX: R10.2 Pelvic and perineal pain (principal); D25.9 Leiomyoma of uterus, unspecified; N85.9 Noninflammatory disorder of uterus, unspecified; R35.0 Frequency of micturition
CPT/HCPCS: 87491; 87591; 99202

== ENCOUNTER 2023-10-17 13:44 | Outpatient (REF) | payer OTHER, SELFPAY ==
--- NOTE | ~2023-10-17 | MM_ITS ---
EXAMINATION: MM SCREENING DIGITAL BREAST TOMOSYNTHESIS, BILATERAL CLINICAL INFORMATION: Screening. Asymptomatic. History of breast cancer in daughter age 28. COMPARISON: Mammography: 09/10/2022, 06/12/2021, 06/10/2020, 05/13/2020, and dating back to 2014. TECHNIQUE: Digital breast tomosynthesis is performed in both the craniocaudal and mediolateral oblique views along with computer-aided detection (CAD). Synthesized 2D images are generated from the tomosynthesis. FINDINGS: The breasts are almost entirely fatty (ACR BI-RADS breast composition Category a). There are no suspicious masses, suspicious grouped calcifications, or areas of architectural distortion in either breast. The overall parenchymal pattern is stable from prior exams. There is no skin or axillary abnormality. MM/MM tomosynthesis screening BI IMPRESSION: No mammographic evidence of malignancy. ASSESSMENT: BI-RADS BI-RADS 1 - Negative RECOMMENDATION: Routine annual mammography screening. 1 year F/U This examination should not preclude the clinical evaluation of a suspicious palpable abnormality. This patient's information was entered into a reminder system with a target due date for their next mammogram. Electronically signed by: Kingston Hathaway MD 11/06/2023 09:37 AM EDT
== END 2023-10-17 13:45 | disposition home or self-care (01) ==
LOC: HO.MAMMO 13:44
PROVIDERS: PCP Registered Nurse; Visit Provider Advanced Practice Midwife
DX: Z12.31 Encounter for screening mammogram for malignant neoplasm of breast (principal)
CPT/HCPCS: 77063; 77067

== ENCOUNTER → 2023-10-17 13:47 | Outpatient (BNV) | payer OTHER, SELFPAY | PROVIDERS: PCP Registered Nurse; Visit Provider Radiology Diagnostic Radiology | DX: Z12.31 Encounter for screening mammogram for malignant neoplasm of breast (principal) | CPT/HCPCS: 77063; 77067 ==

== ENCOUNTER 2023-11-26 12:41 | Outpatient (REF) | payer OTHER, SELFPAY ==
--- NOTE | ~2023-11-26 | MR_ITS ---
EXAMINATION: MR CERVICAL SPINE WITHOUT CONTRAST CLINICAL INFORMATION: Radiculopathy, cervical region COMPARISON: None available. TECHNIQUE: MRI of the cervical spine was obtained using routine sequences without contrast. FINDINGS: The imaged posterior fossa is unremarkable. Straightening of the normal cervical lordosis. Mild retrolisthesis at C5-6 and C6-7. No acute bone marrow abnormality. The vertebral body heights are preserved. Multilevel disc desiccation with severe disc height loss at C5-6 and C6-7. The visualized spinal cord is normal in caliber. No abnormal cord signal. C2-3: Bilateral facet arthrosis. No significant spinal canal or neural foraminal narrowing. C3-4: Bilateral facet arthrosis. No significant spinal canal or neural foraminal narrowing. C4-5: Disc osteophyte complex, right uncovertebral hypertrophy, and bilateral facet arthrosis. Mild right neural foraminal narrowing. No significant spinal canal stenosis. C5-6: Disc osteophyte complex, bilateral uncovertebral hypertrophy, and bilateral facet arthrosis. Mild spinal canal stenosis with mass effect on the cord. Severe right and moderate to severe left neural foraminal narrowing. C6-7: Disc osteophyte complex, bilateral uncovertebral hypertrophy, and bilateral facet arthrosis. No significant spinal canal stenosis. Moderate to severe right and mild left neural foraminal narrowing. C7-T1: Disc osteophyte complex and bilateral uncovertebral hypertrophy. No significant spinal canal or neural foraminal narrowing. The paravertebral soft tissues are unremarkable. The imaged lung apices are clear. MR/MR cervical spine wo con IMPRESSION: Multilevel cervical spondylosis as detailed, worst at C5-C6 where there is mild spinal canal stenosis with mass effect on the cord as well as severe right and moderate to severe left neural foraminal narrowing. There is also moderate to severe right neural foraminal narrowing at C6-C7. Electronically signed by: Marylu Zurita MD 12/27/2023 06:26 PM EDT
== END 2023-11-26 12:42 | disposition home or self-care (01) ==
LOC: HO.MRI 12:41
PROVIDERS: PCP Registered Nurse; Visit Provider Registered Nurse Emergency
DX: M54.12 Radiculopathy, cervical region (principal)
CPT/HCPCS: 72141

== ENCOUNTER 2023-12-03 13:46 | Outpatient (AMB) | payer OTHER, SELFPAY ==
--- NOTE | 2023-12-03 13:54 | MHC.OFFVIS ---
Intake Visit Reasons: urinary frequency/OAB Intake Note: New Patient presents for initial visit for urinary frequency and OAB Urology Medications: myrbetriq Blood Thinner: none PVR:13ml's Puzzle Assembler Required: No Accompanied by: Self / Same As Patient Allergies No Known Allergies [No Known Allergies*] Allergy (Verified 12/03/23 14:29) Medication List - Last Reconciled 12/03/23 by LAZARO Davis-SUNDAY acetaminophen 500 mg PO Q6H PRN baclofen 20 mg PO TID PRN buspirone 7.5 mg PO TID PRN cholecalciferol (vitamin D3) 25 mcg PO DAILY clonazepam 0.5 mg PO DAILY PRN diclofenac sodium 1% 2 grams topical BID docusate sodium (Colace) 100 mg PO BID 30 days duloxetine 30 mg PO BID PRN gabapentin 100 mg PO BEDTIME latanoprost 0.005% 0 drps ophthalmic (eye) BEDTIME lidocaine 5% 1 appl topical BID PRN lidocaine 5% 1 topical TID mirabegron ER (Myrbetriq) 25 mg PO DAILY 30 days uxxwzmsk-gyd-RY-lycopen-lutein 0.4 mg-300 mcg- 250 mcg (Adults 50 Plus) 1 tab PO QAM rosuvastatin 10 mg PO BEDTIME tramadol 1 tab PO Q4H PRN zolpidem 1 tab PO BEDTIME PRN HPI Comments Details: Leslie is a very pleasant 58-year-old female patient of . She has a past medical history of nephrolithiasis, anxiety, overactive bladder, hyperlipidemia, depression, obesity, glaucoma, osteoarthritis, IBS, anemia, GERD, and fibromyalgia. She presents to the office today as a new patient for ongoing lower urinary tract symptoms she has been experiencing. Patient reports having followed up here in 2020 for ongoing urinary urgency, urinary frequency, mixed urinary incontinence, and nocturia she experiences at which time she was trialed on what sounds like oxybutynin however it caused dry mouth and constipation therefore the medication was discontinued and she was to start Myrbetriq however does not recall doing so. She continues to report ongoing lower urinary tract symptoms of mixed urinary incontinence and nocturia. She reports nocturia up to 5 times per night. We discussed at length potential causes for lower urinary tract symptoms patient is experiencing. In office urinalysis results reviewed with the patient today. PVR 13 mL. She denies hematuria, dysuria, foul smelling urine, changes to urinary stream, flank pain, fever, and or chills. She otherwise offers no other issues or concerns at this time. [facility] Medical History Frequency of urination Urge incontinence Renal stones Anxiety Overactive bladder Hyperlipemia Depression Obesity Glaucoma Osteoarthritis IBS (irritable bowel syndrome) Lumbar spondylitis Renal stones Anemia GERD (gastroesophageal reflux disease) Plantar fasciitis Fibromyalgia Surgical History History of arthroscopy of right knee (~03/2020) H/O nasal septoplasty Hx of lithotripsy Hx of tubal ligation Family History Mother Diabetes Fibromyalgia Arthritis Osteoporosis Daughter Breast cancer Social History Household Members: Family Housing: House Are you a primary career consultant to a significant other at home: No Do you presently have visiting nurse or other home services: No Alcohol intake: never Comment: uses a cane sometimes Patient Tobacco Use Status: Never used Tobacco Second Hand Smoke Exposure: No Current occupational status: disabled Current occupation: Right Handed Review of Systems Const Reports no additional complaints Eyes Reports as per HPI ENT Reports no additional complaints Card Reports as per HPI Resp Reports as per HPI GI Reports as per HPI Reports as per [facility] Musc Reports as per [facility] Neuro Reports as per [facility] Psych Reports as per HPI Endo Reports no additional complaints Aroldo/Lymph Reports no additional complaints Aller/Immun Reports no additional complaints Physical Exam Const General: cooperative, healthy appearing, comfortable, no acute distress, well developed, alert and awake Nutritional Appearance: overweight Orientation/consciousness: patient oriented x3 Limitations: no limitations HEENT Head: Yes normal to inspection, Yes normocephalic and Yes atraumatic Ears: hearing grossly normal bilaterally Eyes General: appearance normal, both eyes and all related structures Neck Neck: Yes normal visual inspection and Yes trachea midline Chest Chest palpation & inspection: normal inspection of the chest Resp Effort & Inspection: normal respiratory effort and able to speak in complete sentences Cardio Rate: regular rate GI Inspection: Yes normal to inspection General: Yes no CVA tenderness Back/Spine/Pelvis Back: no CVA tenderness Skin General skin exam: no rashes or lesions noted Neuro General: patient oriented x3 Extrem General: Yes normal to inspection Psych Appearance: grossly normal and well kempt Mental Status: mental status grossly normal Speech and movement: Normal speech and movement present and Clear speech present Affect: normal affect Attitude: cooperative Thought process: Normal thought process present Thought content: Normal thought content present Insight: Fair insight present (Psych) Judgement: Fair judgement present (Psych) Office Procedures Post Void Residual Post Residual Void Post Void Residual (PVR): 13 [id number] Void Residual by ultrasound Results AMB Urinalysis, Automated UA Leukoctes 0 Antonella/uL Last Edit by [email or web address] on 12/03/23 14:15 UA Nitrite Last Edit by [email or web address] on 12/03/23 14:15 UA Urobilinogen 0.2 mg/dL Last Edit by [email or web address] on 12/03/23 14:15 UA Protein 15 mg/dL Last Edit by [email or web address] on 12/03/23 14:15 UA pH 6.0 Last Edit by [email or web address] on 12/03/23 14:15 UA Blood 0 Yomi/uL Last Edit by [email or web address] on 12/03/23 14:15 UA Specific [place] 1.025 Last Edit by [email or web address] on 12/03/23 14:15 UA Ketone Last Edit by [email or web address] on 12/03/23 14:15 UA Bilirubin 0 mg/dL Last Edit by [email or web address] on 12/03/23 14:15 UA Glucose 0 mg/dL Last Edit by [email or web address] on 12/03/23 14:15 Results Reviewed Results Reviewed: Laboratory Last Values Urine pH (Auto) 6.0 12/03/23 13:59 Specific [place] (Auto) 1.025 12/03/23 13:59 Urine Protein (Auto) 15 mg/dL 12/03/23 13:59 Glucose (UA)(Auto) 0 mg/dL 12/03/23 13:59 Urine Blood (Auto) 0 Yomi/uL 12/03/23 13:59 Urine Bilirubin (Auto) 0 mg/dL 12/03/23 13:59 Urine Urobilinogen (Auto) 0.2 mg/dL 12/03/23 13:59 Leukocyte Esterase (Auto) 0 Antonella/uL 12/03/23 13:59 Assessment & Plan Assessment & Plan (1) Frequency of urination: Code(s): R35.0 - Frequency of micturition Category: Medical (2) Overactive bladder: Code(s): N32.81 - Overactive bladder Category: Medical (3) Nocturia: Code(s): R35.1 - Nocturia Category: Medical (4) Mixed stress and urge urinary incontinence: Code(s): N39.46 - Mixed incontinence Category: Medical Plan In office urinalysis results reviewed with the patient today; as noted above. PVR 13 mL. Discussed obtaining retroperitoneal ultrasound for further assessment evaluation. Discussed at length potential causes of lower urinary tract symptoms patient is experiencing. Discussed bladder triggers/irritants. Discussed limiting fluids 2-3 hours prior to bed to decrease episodes of nocturia. Start Myrbetriq as discussed and prescribed. Discussed possible near future in office cystoscopy and or urodynamics for further assessment evaluation. Follow-up in 1-3 months with imaging to be completed prior; or sooner with any issues, concerns, and or questions. Orders: Orders AMB Urinalysis Automated Today Z13.9 - Encounter for screening, unspecified AMB Post Void Residual by ultrasound Today N32.81 - Overactive bladder US retroperitoneal comp Today N32.81 - Overactive bladder, R35.0 - Frequency of micturition Medications: Refilled mirabegron ER (Myrbetriq) 25 mg PO DAILY 30 tabs 3RF 30 days Patient Instructions: The patient had an opportunity to ask questions regarding the treatment plan. All questions were answered. Physical exam, labs, and imaging were discussed and reviewed in detail. As well as risks, benefits, and discussion of treatment choices. No major barriers to understanding were identified. The patient expressed understanding and agreement with the above treatment plan. The patient was made aware they should contact our office by phone for worsening of their current condition, the appearance of new symptoms, or with any questions or concerns. Compliance is encouraged with any medications and follow up testing that is ordered. It is a privilege to be allowed the opportunity to participate in? your urological care.? Again, if you have any questions or concerns If you have any questions or concerns please do not hesitate to contact me. The office is [phone]. This note is constructed using voice recognition software. While every effort has been made to ensure accuracy outpatient dietitian errors may have been included. Yours sincerely, LAZARO Davis-SUNDAY Coding Level of Care Code New Pt Level 4 (47196) Diagnoses Frequency of urination R35.0 Overactive bladder N32.81 Nocturia R35.1 Mixed stress and urge urinary incontinence N39.46 CPT Codes Post Residual Void - PVR CPT Code: 13072-Oszv Void Residual by ultrasound ([id number])
== END 2023-12-03 14:25 | disposition home or self-care (01) ==
PROVIDERS: PCP Registered Nurse; Visit Provider Nurse Practitioner Family
DX: R35.0 Frequency of micturition (principal); N32.81 Overactive bladder; R35.1 Nocturia; N39.46 Mixed incontinence; Z13.9 Encounter for screening, unspecified
CPT/HCPCS: 99204

== ENCOUNTER → 2023-12-03 13:46 | Outpatient (BNVA) | payer OTHER, SELFPAY | PROVIDERS: PCP Registered Nurse; Visit Provider Nurse Practitioner Family | DX: R35.0 Frequency of micturition (principal); R35.1 Nocturia; N32.81 Overactive bladder; N39.46 Mixed incontinence | CPT/HCPCS: 51798; 81003; 99202 ==

== ENCOUNTER 2024-01-02 11:15 | Outpatient (AMB) | payer OTHER, SELFPAY ==
--- NOTE | 2024-01-02 11:15 | MHC.OFFVIS ---
Intake Visit Reasons: Discuss MRI results Allergies No Known Allergies [No Known Allergies*] Allergy (Verified 12/03/23 14:29) HPI Comments Details: Telephone visit completed today for follow-up, review recent MRI MRI reviewed, results as per below Patient continues with neck pain with radiation down the left arm. Today she is also concerned about lower back pain and would like to schedule an appointment to further discuss this Prior: Leslie is a very pleasant 58-year-old female who presents the office today for evaluation management of her chronic neck and left arm pain Recent EMG reviewed, results as per below Patient reports she has been suffering with this pain for approximately 3 months. Awoke with pain, denies injury, trauma, accident. Left lower cervical pain with radiation down the lateral left arm. Endorses some numbness of the left hand, including all fingers but most notable at distal left middle finger Intermittent shooting, electrical pain down the left arm to the hand States at first the pain was very severe to the point she could not move her arm or neck. She has received 2 Toradol injections at her primary care doctor's office. Currently taking tramadol, duloxetine, Tylenol and gabapentin. Pain is improved from initial onset but persists. Pain today is rated as a 5/10, constant In terms of muscle damage condition is described as cramping, hot, burning, tingling, pins and needles Pain is negatively impacting patient's enjoyment of life, general activity, mood, relationships with people, walking Past medical history of constipation, osteoarthritis, chronic low back pain, overactive bladder, renal stones, fibromyalgia and medial meniscus tear of the left knee with surgical repair Denies current use of anticoagulants Denies nicotine, tobacco, alcohol or illicit substance use Denies implantable devices, pacemaker or defibrillator [facility] Medical History Frequency of urination Urge incontinence Renal stones Anxiety Overactive bladder Hyperlipemia Depression Obesity Glaucoma Osteoarthritis IBS (irritable bowel syndrome) Lumbar spondylitis Renal stones Anemia GERD (gastroesophageal reflux disease) Plantar fasciitis Fibromyalgia Surgical History History of arthroscopy of right knee (~03/2020) H/O nasal septoplasty Hx of lithotripsy Hx of tubal ligation Family History Mother Diabetes Fibromyalgia Arthritis Osteoporosis Daughter Breast cancer Social History Household Members: Family Housing: House Are you a primary career services assistant to a significant other at home: No Do you presently have visiting nurse or other home services: No Alcohol intake: never Comment: uses a cane sometimes Patient Tobacco Use Status: Never used Tobacco Second Hand Smoke Exposure: No Current occupational status: disabled Current occupation: Right Handed Review of Systems Const All systems reviewed & are unremarkable except as noted in HPI and below Physical Exam Vital signs and physical exam deferred, telephone visit only Telehealth Telehealth Telehealth Platform: Telephone Location of provider rendering services: practice address Location of patient: address on file Patient Identification confirmed using: Name, : Yes Telehealth method: voice only Patient verbally consented to treatment: Yes Patient verbally consented to billing insurance company: Yes Patient informed of any privacy concerns related to visit: Yes Minutes spent on Phone/Video with Pt.: 12 Results Reviewed Results Reviewed: 11/26/2023 MR/MR cervical spine wo con The imaged posterior fossa is unremarkable. Straightening of the normal cervical lordosis. Mild retrolisthesis at C5-6 and C6-7. No acute bone marrow abnormality. The vertebral body heights are preserved. Multilevel disc desiccation with severe disc height loss at C5-6 and C6-7. The visualized spinal cord is normal in caliber. No abnormal cord signal. C2-3: Bilateral facet arthrosis. No significant spinal canal or neural foraminal narrowing. C3-4: Bilateral facet arthrosis. No significant spinal canal or neural foraminal narrowing. C4-5: Disc osteophyte complex, right uncovertebral hypertrophy, and bilateral facet arthrosis. Mild right neural foraminal narrowing. No significant spinal canal stenosis. C5-6: Disc osteophyte complex, bilateral uncovertebral hypertrophy, and bilateral facet arthrosis. Mild spinal canal stenosis with mass effect on the cord. Severe right and moderate to severe left neural foraminal narrowing. C6-7: Disc osteophyte complex, bilateral uncovertebral hypertrophy, and bilateral facet arthrosis. No significant spinal canal stenosis. Moderate to severe right and mild left neural foraminal narrowing. C7-T1: Disc osteophyte complex and bilateral uncovertebral hypertrophy. No significant spinal canal or neural foraminal narrowing. The paravertebral soft tissues are unremarkable. The imaged lung apices are clear. IMPRESSION: Multilevel cervical spondylosis as detailed, worst at C5-C6 where there is mild spinal canal stenosis with mass effect on the cord as well as severe right and moderate to severe left neural foraminal narrowing. There is also moderate to severe right neural foraminal narrowing at C6-C7. 08/02/23 EMG IMPRESSION: 1. This is an abnormal study. 2. There is electrodiagnostic evidence for acute lowest cervical radiculopathy, possibly involving C7/8 nerve root. 3. There is no electrodiagnostic evidence for median neuropathy, ulnar neuropathy, or brachial plexopathy. Assessment & Plan Assessment & Plan (1) Cervical radiculopathy: Code(s): M54.12 - Radiculopathy, cervical region Category: Medical Plan Telephone visit today for follow up, reviewed recent MRI MRI was reviewed, results as per above Discussed options for treatment including left parasagittal EL, patient is not ready to proceed with injections at this time. Continue with medications as prescribed by PCP All questions and concerns were answered, patient agrees with the plan. Appointment has been scheduled for her to follow-up for evaluation of her lower back pain Coding Level of Care Code Tele Est Pt Level 3 (04998) Complex EM visit Add On G2211 Diagnoses Cervical radiculopathy M54.12
== END 2024-01-02 11:16 | disposition home or self-care (01) ==
LOC: HO.PMC 11:15
PROVIDERS: PCP Registered Nurse; Visit Provider Registered Nurse Emergency
DX: M54.12 Radiculopathy, cervical region (principal)
CPT/HCPCS: 99213; G2211

== ENCOUNTER → 2024-01-02 11:15 | Outpatient (BNVA) | payer OTHER, SELFPAY | PROVIDERS: PCP Registered Nurse; Visit Provider Registered Nurse Emergency ==

== ENCOUNTER 2024-02-18 15:52 | Outpatient (AMB) | payer OTHER, SELFPAY ==
--- NOTE | 2024-02-18 15:55 | A.OFFVIS_ITS ---
Vital Signs 02/18/24 15:59 Height 4 ft 11 in Weight 191 lb 12.835 oz BMI 38.7 BP 130/70 Blood Pressure Location Lt brachial Position Sitting Pulse 79 Pulse Source Pulse Oximeter Pulse Oximetry (%) 97 Oxygen Delivery Method Room Air Intake Visit Reasons: OA/CM Intake Note: Patient presents for OA. Allergies No Known Allergies [No Known Allergies*] Allergy (Verified 02/18/24 15:58) Medication List - Last Reconciled 02/18/24 by Jareth Leos MD acetaminophen 500 mg PO Q6H PRN baclofen 20 mg PO TID PRN buspirone 7.5 mg PO TID PRN cholecalciferol (vitamin D3) 25 mcg PO DAILY diclofenac sodium 1% 2 grams topical BID docusate sodium (Colace) 100 mg PO BID 30 days duloxetine 30 mg PO BID PRN gabapentin 300 mg PO BEDTIME latanoprost 0.005% 0 drps ophthalmic (eye) BEDTIME lidocaine 5% 1 appl topical BID PRN lidocaine 5% 1 topical TID mirabegron ER (Myrbetriq) 25 mg PO DAILY 30 days ahwwxdpb-jhh-RS-lycopen-lutein 0.4 mg-300 mcg- 250 mcg (Adults 50 Plus) 1 tab PO QAM rosuvastatin 10 mg PO BEDTIME zolpidem 1 tab PO BEDTIME PRN HPI Comments Details: This is a 58-year-old female with fibromyalgia and osteoarthritis who presents for follow-up. She was last seen in clinic more than a year ago. She states that 6 months ago she had abrupt onset of bilateral neck pain that radiated to hurts her arm and chest associated with tingling and numbness of her fingers. She had a nerve conduction test that was consistent with cervical radiculopathy, she was eventually evaluated by pain management and had a cervical spine MRI, an epidural injection was recommended and patient did not want to proceed.. She states that she takes gabapentin 100 mg nightly PFSH Medical History Frequency of urination Urge incontinence Renal stones Anxiety Overactive bladder Hyperlipemia Depression Obesity Glaucoma Osteoarthritis IBS (irritable bowel syndrome) Lumbar spondylitis Renal stones Anemia GERD (gastroesophageal reflux disease) Plantar fasciitis Fibromyalgia Surgical History History of arthroscopy of right knee (~03/2020) H/O nasal septoplasty Hx of lithotripsy Hx of tubal ligation Family History Mother Diabetes Fibromyalgia Arthritis Osteoporosis Daughter Breast cancer Social History Household Members: Family Housing: House Are you a primary skin care specialist to a significant other at home: No Do you presently have visiting nurse or other home services: No Alcohol intake: never Comment: uses a cane sometimes Patient Tobacco Use Status: Never used Tobacco Second Hand Smoke Exposure: No Current occupational status: disabled Current occupation: Right Handed Review of Systems ENT Reports neck pain Musc Reports neck pain, Reports numbness, Reports radiating pain into limb and Reports tingling Neuro Reports numbness and Reports tingling Physical Exam Vital Signs: Last Vital Signs Pulse 79 02/18/24 15:59 BP 130/70 02/18/24 15:59 Pulse Ox 97 02/18/24 15:59 Oxygen Delivery Method Room Air 02/18/24 15:59 BMI result Body Mass Index 38.7 Const General: cooperative, healthy appearing and comfortable Nutritional Appearance: obese morbidly obese Orientation/consciousness: patient oriented x3 Limitations: no limitations HEENT Head: Yes normocephalic and Yes atraumatic Resp Effort & Inspection: normal respiratory effort and able to speak in complete sentences Auscultation: clear to auscultation bilaterally Cardio Rate: regular rate Rhythm: regular rhythm Neuro General: patient oriented x3 Extrem Other: Multiple fibromyalgia tender points Assessment & Plan Assessment & Plan (1) Cervical radiculopathy: Code(s): M54.12 - Radiculopathy, cervical region Category: Medical Plan: I think patient should return to pain management and consider an epidural injection, if no relief, consider spine surgeon evaluation (2) Fibromyalgia: Code(s): M79.7 - Fibromyalgia Category: Medical Plan: I provided patient with a booklet on the management of fibromyalgia. I think 100 mg nightly dose is not effective, increase to 300 mg nightly. Discussed with patient that there is no need for routine follow-up with Rheumatology. She can request gabapentin refill from her PCP. If patient is to continue getting gabapentin refills from Rheumatology. Follow- up in 6 months Plan I spent 20 minutes reviewing patient's chart, evaluating patient, counseling patient and documenting in the chart Medications: Changed From gabapentin 100 mg PO BEDTIME 30 caps 1RF To gabapentin 300 mg PO BEDTIME 30 caps 1RF Coding Level of Care Code Est Pt Level 3 (12150) Diagnoses Cervical radiculopathy M54.12 Fibromyalgia M79.7
[2024-02-18 15:59] VITALS: BP 130/70; PULSE 79; O2SAT 97; BMI 38.7
== END 2024-02-18 16:18 | disposition home or self-care (01) ==
PROVIDERS: PCP Registered Nurse; Visit Provider Student in an Organized Health Care Education/Training Program
DX: M54.12 Radiculopathy, cervical region (principal); M79.7 Fibromyalgia
CPT/HCPCS: 99213

== ENCOUNTER → 2024-02-18 15:52 | Outpatient (BNVA) | payer OTHER, SELFPAY | PROVIDERS: PCP Registered Nurse; Visit Provider Student in an Organized Health Care Education/Training Program | DX: M54.12 Radiculopathy, cervical region (principal); M79.7 Fibromyalgia | CPT/HCPCS: 99212 ==

== ENCOUNTER 2024-07-31 13:41 | Outpatient (REF) | payer OTHER, SELFPAY ==
--- OUTSIDE RECORDS SUMMARY | 2024-07-31 13:48 | XMS_ITS | Clinical Summary ---
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 Doctor: SEE NOTE [facility] Comment:CMG, CT(ASCP)CT scre ening location: [place] [id number] Review Donkey Doctor: [facility] Pathologist [facility] PAP Infection [facility] See Note SEE [facility] Comment:EXPLANATORY NOTE:The Pap is a screening test for cervical cancer. It isnot a diagnostic test and is subject to false negativeand false positive results. It is most reliable when asatisfactory sample, regularly obtained, is submittedwith relevant clinical findings and history, and whenthe Pap result is evaluated along with historic andcurrent clinical information. 09/30/2023 2:12 PM EDT 09/30/2023 7:32 PM EDT [facility] - 10/04/2023 12:37 PM EDT SEE SCANNED RESULTS IN EMR [facility] LAB PATHOLOGY ORDERABLES Final Result Performing Organization Address City/[facility]/ZIP Co de Phone Number [facility] [address] [place] [phone] * (ABNORMAL) Hemoglobin A1c (05/30/2022 1:57 PM EDT) Hemoglobin A1c 6.0(H) <5.7 % of total Hgb [employer] [email or web address] Comment: For someone without known diabetes, a hemoglobin A1c value between 5.7% and 6.4% is consistent with prediabetes and should be confirmed with a follow-up test. For someone with known diabetes, a value <7% indicates that their diabetes is well controlled. A1c targets should be individualized based on duration of diabetes, age, comorbid conditions, and other considerations. This assay result is consistent with an increased risk of diabetes. Currently, no consensus exists regarding use of hemoglobin A1c for diagnosis of diabetes for children. Blood Venous blood specimen / Unknown 05/30/2022 1:57 PM EDT 05/30/2022 1:57 PM EDT Deird[facility] - 05/31/2022 6:13 AM EDT FASTING:NO FASTING: NO [facility] LAB BLOOD ORDERABLES Final Re sult [facility] [address] [place] [address] [employer] [email or web address] [address] [place] [address] * (ABNORMAL) Lipid Panel, Standard (05/07/2022 1:40 PM EST) Cholesterol, Total 207(H) <200 mg/dL [employer] [place] [employer] HDL Cholesterol 39(L) > OR = 50 mg/dL [employer] [place] [email or web address] Triglycerides 179(H) <150 mg/dL [employer] [place] [email or web address] LDL Cholesterol 137(H) mg/dL (calc) [employer] [place] [email or web address] Comment: Reference range: <100 Desirable range <100 mg/dL for primary prevention; ?? <70 mg/dL for patients with CHD or diabetic patients with > or = 2 CHD risk factors. LDL-C is now calculated using the Zaheer calculation, which is a validated novel method providing better accuracy than the Friedewald equation in the estimation of LDL-C. Yoseph DAVIS et al. YULIET. 2013;310(19): 4842-2950 (http://education.[employer]/faq/JHI672) Chol/HDLC Ratio 5.3(H) <5.0 (calc) [employer] [place] [email or web address] Non-HDL Cholesterol 168(H) <130 mg/dL (calc) [employer] [place] [email or web address] Comment: For patients with diabetes plus 1 major ASCVD risk factor, treating to a non-HDL-C goal of <100 mg/dL (LDL-C of <70 mg/dL) is considered a therapeutic option. 05/07/2022 1:40 PM EST 05/07/2022 1:40 PM EST Narrative [facility] - 05/09/2022 4:26 AM EST FASTING:NO FASTING: NO [facility] RN ASSESSMENT LAB BLOOD ORDERABLES Final Re sult [facility] [address] [facility], [place] [address] [employer] [place] [email or web address] [address] [facility], ([address]) [place] [address] * HEPATITIS C AB W/REFL TO HCV RNA, QN, PCR (05/02/2021 11:35 AM EST) HEPATITIS C ANTIBODY NON-REACT ARAVIND NON-REACT ARAVIND [facility] INDEX 0.02 <1.00 [facility] Comment: ?? HCV antibody was non-reactive. There is no laboratory ?? evidence of HCV infection. ?? In most cases, no further action is required. However, if recent HCV exposure is suspected, a test for HCV RNA (test code 72302) is suggested. ?? For additional information please refer to http://education.[employer]/faq/CHA43r5 (This link is being provided for informational/ educational purposes only.) ?? 05/02/2021 11:3 5 AM EST us Radha Cobb NP HISTORICAL/NON ORDERABLE LABS F inal Result [facility] [address] [place] [address], from Last 3 Months or Most Recently Relevant to Health Maintenance Insurance [facility] [address] [id number] [facility] Care Teams Competitive Intelligence Analyst Relationship Specialty Start Date End Date Mary Lou Doan FNP [address] [place] [phone] PCP - General Family Medicine 11/03/21
[2024-07-31 13:56] LABS: MANUAL DIFF FLAG NO
[2024-07-31 16:08] LABS: Basophils Percent Auto 0.4 % (0-2); Eosinophils Absolute Auto 0.1 X10*3/uL (0.0-0.4); Eosinophils Percent Auto 1.6 % (0-4); Hematocrit 43.1 % (37.0-47.0); Hemoglobin 14.3 g/dl (12.0-16.0); Imm Gran Abs Auto 0.03 X10*3/uL (0.00-0.03); Imm Gran Pct Auto 0.4 % (0.0-0.4); Lymphocytes Absolute Auto 2.5 X10*3/uL (1.2-4.9); Lymphocytes Percent Auto 32.2 % (20-40); Mean Corpuscular HGB Conc 33.2 g/dl (31.0-35.0); Mean Corpuscular Hemoglobin 29.1 pg (27.0-33.0); Mean Corpuscular Volume 87.8 fL (80.0-98.0); Monocytes Absolute Auto 0.5 X10*3/uL (0.1-1.2); Neutrophils Absolute Auto 4.6 x10*3/uL (2.0-8.3); Neutrophils Percent Auto 59.4 % (45-73); Platelet Count 304 X10*3/uL (160-400); Red Blood Count 4.91 X10*6/uL (4.20-5.50); Red Cell Distribution Width 13.6 % (11.0-16.0); White Blood Count 7.7 X10*3/uL (4.8-10.8)
[2024-07-31 16:26] LABS: Estimated Average Glucose 128 mg/dL; Hemoglobin A1c % 6.1 % (<6.0); Total Hemoglobin (HGBA1C) 3696.2594 umol/L
[2024-07-31 16:46] LABS: Alanine Aminotransferase 40 U/L (0-31); Albumin Level 4.3 g/dL (3.5-5.0); Alkaline Phosphatase 112 U/L (39-117); Anion Gap 13 (12-20); Aspartate Amino Transferase 26 U/L (5-31); Bilirubin Total 0.5 mg/dL (0.0-1.0); Blood Urea Nitrogen 18 mg/dL (9-16); C Reactive Protein 0.92 mg/dL (< or = 0.50); Carbon Dioxide 27 mmol/L (22-29); Chloride 108 mmol/L (96-108); Cholesterol 242 mg/dL (<200); Estimated Glomerular Filt Rate 59; Glucose Random 78 mg/dL (60-115); HDL Cholesterol 40 mg/dL (>40); LDL Cholesterol Calculated 167 mg/dL (<100); Potassium 4.3 mmol/L (3.3-5.1); Sodium 144 mmol/L (135-145); Total Protein 7.8 g/dL (6.5-8.0); Triglycerides 176 mg/dL (<150)
[2024-07-31 16:48] LABS: Erythrocyte Sedimentation Rate 17 MM/HR (0-20)
[2024-08-03 08:16] LABS: HBS Num1 721.45 mIU/mL (0-7.99); HBc Num1 0.04 S/CO (0.00-0.79); HBsAGNum1 0.28 S/CO (0.00-0.99); HIV AB/AG Nonreactive (Nonreactive); HIV Num 1 0.06 S/CO (0.00-0.99); Hepatitis A Antibody IgM 0.26 Index (0-0.79); Hepatitis B Core Antibody Nonreactive (Nonreactive); Hepatitis B Surface Antigen Negative (Negative); ~HepC Num1 0.05 S/CO (0.00-0.79); ~Hepatitis A Antibody IgM Nonreactive (Nonreactive); ~Hepatitis B Surface Antibody REACTIVE (Nonreactive); ~Hepatitis C Antibody Nonreactive (Nonreactive)
== END 2024-07-31 13:42 | disposition home or self-care (01) ==
LOC: HO.LAB 13:41
PROVIDERS: Absent Provider Student in an Organized Health Care Education/Training Program; PCP Registered Nurse; Visit Provider Registered Nurse
DX: Z00.00 Encounter for general adult medical examination without abnormal findings (principal); M79.7 Fibromyalgia; E66.812 Obesity, class 2; E66.01 Morbid (severe) obesity due to excess calories; Z68.38 Body mass index [BMI] 38.0-38.9, adult; Z13.1 Encounter for screening for diabetes mellitus
CPT/HCPCS: 36415; 80053; 80061; 83036; 85025; 85652; 86140; 86704; 86706; 86709; 86803; 87340; 87389

== ENCOUNTER 2024-08-12 13:30 | Outpatient (AMB) | payer OTHER, SELFPAY ==
--- NOTE | 2024-08-12 13:33 | MHC.OFFVIS ---
Vital Signs 08/12/24 13:36 Height 4 ft 11 in Weight 185 lb BMI 37.4 BP 154/75 H Blood Pressure Location Lt brachial Position Sitting Respiration 16 Pulse 74 Pulse Source Pulse Oximeter Pulse Oximetry (%) 97 Oxygen Delivery Method Room Air Intake Visit Reasons: Back Pain Development Intern Required: No Development Intern Services: Development Intern Offered & Declined Accompanied by: Self / Same As Patient Allergies No Known Allergies [No Known Allergies*] Allergy (Verified 08/12/24 13:38) HPI Comments Details: The patient is a 59-year-old female presenting with chronic low back pain that radiates to the right lower extremity. The pain, which has intensified recently, has been a persistent issue. Initially, she experienced neck pain, but the focus is currently on her lower back and leg. The pain travels down the leg, reaching the foot, and has been present for several weeks. It restricts her mobility, making walking, standing, and certain activities challenging. The pain is aggravated by bending and worsens while lying down or sitting for extended periods, while massages provide some temporary relief. The patient has previously employed medication changes to assess their effects on her symptoms without substantial improvement. A history of neck problems due to herniated cervical disc is noted alongside previous consultations for a pinched nerve and spondylosis. - Onset: Chronic, intensified over recent weeks - Quality: Pressure-like and lumped sensation - Location: Primarily the lower back, radiating down the right leg to the foot - Exacerbating factors: Bending, prolonged sitting, and lying down - Relieving factors: Massage and medication to a limited extent - Interference: Limits ability to walk, stand, and perform daily activities - Affect: Pain significantly impacts daily living and mobility - Analgesia: Previous medications include tramadol and current use of baclofen with little relief - Adverse Effects: Previous cessation of cholesterol medication due to concerns about its effect on leg pain - Activities of Daily Living: Difficulty with standing, walking, dressing, and prolonged sitting due to pain intensity - Aberrant Drug Related Behaviors: No indication of aberrant behaviors discussed [facility] Medical History Frequency of urination Urge incontinence Renal stones Anxiety Overactive bladder Hyperlipemia Depression Obesity Glaucoma Osteoarthritis IBS (irritable bowel syndrome) Lumbar spondylitis Renal stones Anemia GERD (gastroesophageal reflux disease) Plantar fasciitis Fibromyalgia Surgical History History of arthroscopy of right knee (~03/2020) H/O nasal septoplasty Hx of lithotripsy Hx of tubal ligation Family History Mother Diabetes Fibromyalgia Arthritis Osteoporosis Daughter Breast cancer Social History Household Members: Family Housing: House Are you a primary nonfarm animal caretaker to a significant other at home: No Do you presently have visiting nurse or other home services: No Alcohol intake: never Comment: uses a cane sometimes Patient Tobacco Use Status: Never used Tobacco Second Hand Smoke Exposure: No Current occupational status: disabled Current occupation: Right Handed Review of Systems Const Details: - Musculoskeletal: Reports low back pain and right leg pain - Neurological: Denies any current new neurological symptoms such as numbness or localized weakness - General: Denies other systemic symptoms impacting general health Physical Exam Vital Signs: Last Vital Signs Pulse 74 08/12/24 13:36 Resp 16 08/12/24 13:36 BP 154/75 H 08/12/24 13:36 Pulse Ox 97 08/12/24 13:36 Oxygen Delivery Method Room Air 08/12/24 13:36 BMI result Body Mass Index 37.4 General: awake, alert, oriented. Answers questions appropriately. Fully engaged in examination. Skin: warm, dry, intact HEENT: Normocephalic. Hearing intact. Cardiac: External chest normal in appearance. Respiratory: No cough, audible wheezing or stridor. Abdomen: without gross distension. MS: No obvious swelling or deformities. Tenderness over midline lumbar vertebrae and lumbar paraspinal muscles SLR negative bilaterally Nontender over bilateral PSIS Facet loading positive BLE strength 5/5 Neurological: Oriented to person, place, time and situation. Thought process intact. No gait abnormalities appreciated. Psychiatric: Appropriate mood and affect. Good judgment and insight. Assessment & Plan Assessment & Plan (1) Lumbar spondylosis: Code(s): M47.816 - Spondylosis without myelopathy or radiculopathy, lumbar region Category: Medical (2) Chronic pain syndrome: Code(s): G89.4 - Chronic pain syndrome Category: Medical Plan Ordering x-rays of the lower back and initiating physical therapy focusing on core strength are primary steps in managing this patient's chronic low back pain. Muscle relaxants may be used to address associated muscle spasms, continue with baclofen as prescribed. A back brace is not recommended due to the potential for muscular weakening. If no improvement with conservative therapy will consider interventional management versus MRI. A release for previous medical records will be initiated to gather more information on prior imaging and interventions. I discussed with the patient the current management plan, emphasizing the importance of core strengthening exercises within physical therapy to help alleviate back pain. The necessity of obtaining x-rays was explained to better understand any structural changes in the lumbar spine. Risks and benefits of using a muscle relaxant such as baclofen were reviewed as was the rationale against the use of long-term back bracing. A commitment was made to acquire any previous outside imaging studies to further guide treatment and reassess if necessary based on physical therapy progress. The importance of follow-up was emphasized to track symptom improvement and adjust treatment plans accordingly. Patient was informed and verbally consented to the use of an ambient scribe for clinic note documentation during this visit. Orders: Orders XR lumbar spine 4V min Today M47.816 - Spondylosis without myelopathy or radiculopathy, lumbar region PT Evaluation and Treatment Today M47.816 - Spondylosis without myelopathy or radiculopathy, lumbar region Patient Instructions: - Attend all scheduled physical therapy sessions to improve core strength. - Use prescribed medications as directed. - Avoid the use of a back brace long-term to prevent muscle weakening. - Return for follow-up after completing therapy or if symptoms worsen. - Report any significant changes in symptoms or adverse effects from medications promptly. - Take care in activities such as bending that exacerbate pain. Coding Level of Care Code Est Pt Level 3 (76141) Complex EM visit Add On G2211 Diagnoses Lumbar spondylosis M47.816 Chronic pain syndrome G89.4
[2024-08-12 13:36] VITALS: BP 154/75; PULSE 74; RESP 16; O2SAT 97; BMI 37.4
--- OUTSIDE RECORDS SUMMARY | 2024-08-12 13:44 | XMS_ITS | Clinical Summary ---
Author Organization [employer] Address [address] [place] [address] Care Team Providers Care Blister Pack Operator Name Role Phone Mary Lou Doan [employer]YWALL MET[employer] STUD WORKER Primary Care Provider [phone] Allergies No known active allergies Medications * This document contains information received from the source organization and may not represent a complete record from that organization. fluticasone (Flonase) 50 MCG/ACT nasal spray 2 sprays. 017 Active loratadine (Claritin) 10 MG tablet [...] of hypertension Use as directed 1 kit 023 Active albuterol 108 (90 Base) MCG/ACT inhalerIndication s:Shortness of breath INHALE 2 PUFFS BY MOUTH EVERY 4 TO 6 HOURS IF NEEDED 8.5 g 023 Active buPROPion XL (Wellbutrin XL) 150 MG 24 hr tabletIndications :Depressive disorder TAKE 1 TABLET(150 MG) BY MOUTH IN THE MORNING. DO NOT CRUSH, CHEW, OR SPLIT 30 tablet 11 Active lidocaine (Xylocaine) 5 % ointment APPLY TOPICALLY EVERY 8 HOURS 50 g 2 Active baclofen (Lioresal) 20 MG tabletIndications :Cervical radiculopathy TAKE 1 TABLET(20 MG) BY MOUTH EVERY 8 HOURS NEEDED FOR MUSCLE SPASMS 90 tablet Active cholecalciferol (Vitamin D-3) 50 MCG (1999) tablet TAKE 1 TABLET BY MOUTH EVERY DAY 90 tablet 1 Active gabapentin (Neurontin) 300 MG capsule Take 300 mg by mouth at bedtime. Active DULoxetine (Cymbalta) [address] capsuleIndication s:Fibromyalgia Take 2 capsules (60 mg) by mouth 2 times daily. Do not crush or chew. 60 capsule Active fluticasone (Flonase) 50 MCG/ACT nasal sprayIndications: Seasonal allergies Administer 1-2 sprays into each nostril Once per day. Shake gently. Before first use, prime pump. After use, clean tip and replace cap. 16 g 2025 Active Ketotifen Fumarate ( Ketotifen Fumarate) 0.035 % solutionIndicatio ns:Seasonal allergies Administer 1 drop into affected eye(s) 2 times daily. 5 mL 1 Active Multiple Vitamin (multivitamin) tabletIndications :Healthcare maintenance Take 1 tablet by mouth Once per day. 90 tablet 025 2025 Active Diclofenac Sodium 1 % gel APPLY 1 INCH TOPICALLY TO THE AFFECTED AREA IN THE MORNING AND AT BEDTIME NEEDED 100 g Active zolpidem (Ambien) 10 MG tabletIndications :Insomnia, unspecified type Take 1 tablet (10 mg) by mouth if needed at bedtime for sleep. TAKE 1 TABLET(10 MG) BY MOUTH AT BEDTIME 30 tablet 3 Active rosuvastatin (Crestor) 10 MG tabletIndications :Hyperlipidemia, unspecified hyperlipidemia type TAKE 1 TABLET BY MOUTH EVERY DAY 30 tablet 11 05/28/2 025 Active acetaminophen (Tylenol) 500 MG tabletIndications :Right leg pain Take 2 tablets (1,000 mg) by mouth every 6 (six) hours if needed for moderate pain. 240 tablet 025 2024 Active polyethylene glycol, PEG, 3350 (Glycolax) 17 GM/SCOOP powder take (17G) by oral route every day mixed with 8 oz. water, juice, soda, coffee or tea 021 2024 Discontinued(M ed list cleanup (will not trigger notification to Pharmacy)) Melatonin 5 MG tablet dispersible Take 1 tablet by mouth. 017 2024 Discontinued(M ed list cleanup (will not trigger notification to Pharmacy)) rosuvastatin (Crestor) 10 MG tabletIndications :Hyperlipidemia, unspecified hyperlipidemia type TAKE 1 TABLET BY MOUTH EVERY DAY 30 tablet 11 024 2024 Discontinued(R eorder (will not trigger notification to Pharmacy)) zolpidem (Ambien) 10 MG tabletIndications :Insomnia, unspecified type TAKE 1 TABLET(10 MG) BY MOUTH AT BEDTIME 30 tablet 3 024 2024 Discontinued(R eorder (will not trigger notification to Pharmacy)) Hospital, Clinic, or Other Facility Administered Medication Ordered Dose Route Frequency Start Date End Date Status ketorolac (Toradol) injection 15 mgIndications:Right leg pain 15 mg IM Once 08/10/2024 08/10/2024 Ended Active Problems Problem Noted Date Diagnosed Date [...] on exertion Followed by Dr. Santa at [facility], negative stress test and echo Glaucoma 06/06/2022 [...] hx of glaucoma. Dr. Navarro follows Dental: [facility] dental HIV: Neg 2016 Hepatitis: Neg 04/2021 [...] Managed with tramadol 50mg PRN, compliant with [employer] program Lung nodule 11/09/2021 Overview (06/06/2022): ?? [...] ?? Buproprion 150mg XR ?? Therapist at [facility] Assessment & Plan (12/06/2022 1:59 [...] pt with additional resources for [facility] at [facility], as well as how to reach out to [facility] BH team. Pt was agreeable to intervention and referral to op and psych services at [facility]. Assessment & Plan (10/24/2022 9:33 AM [...] of SI or self harm. Pt has [facility] crisis contact information Assessment & Plan (10/05/2022 3:19 PM EDT): ?? In office BE during OV with Dr. Mukherjee. Pt referred to [facility] and provided with [facility] contact information for emergency care. ?? STOP buspar ?? START buproprion 150mg XR. Reviewed administration, risks, side effects ?? Continue duloxetine 60mg ?? Contact HC if sx worsen or experiencing thoughts of SI or self harm. 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 Date Type Department Care Team Description 08/12/2024 Telephone [facility] MEDIC[facility] [address] [place] [address] Mary Lou Doan FNP Med Refill 08/11/2024 Refill [facility] [address] [place] [address] Franki, Mary Lou, [employer]YWALL [employer] STUD WORKER Cervical radiculopathy 08/10/2024 5:00 PM EDT Office Visit [facility] [address] [place] [address] Gina Maurer NP Right leg pain (Primary Dx); Chronic right-sided low back pain with right-sided sciatica; Elevated blood pressure reading in office without diagnosis of hypertension 08/10/2024 Telephone [facility] [address] [place] [address] Mary Lou Doan, LAZARO Medication Question 08/10/2024 Telephone [facility] [address] [place] [address] Mary Lou Doan FNP Med Refill 08/10/2024 Orders Only [facility] [address] [place] [address] Mary Lou Doan FNP Hyperlipidemia, unspecified hyperlipidemia type (Primary Dx) 08/08/2024 Refill [facility] [address] [place] [address] Mary Lou Doan FNP Cervical radiculopathy 08/06/2024 Refill [facility] [address] [place] [address] Mary Lou Doan, LAZARO Cervical radiculopathy 08/05/2024 Telephone [facility] [address] [place] [address] Mary Lou Doan FNP Results 08/05/2024 Telephone [facility] [address] [place] [address] Mary Lou Doan FNP Durable Medical Equipment 08/05/2024 Refill [facility] [address] [place] [address] Mary Lou Doan FNP Hyperlipidemia, unspecified hyperlipidemia type 07/31/2024 Orders Only GENERIC EXTERNAL DATA DEPARTMENT Provider, Generic External Data 07/14/2024 Refill [facility] [address] [place] [address] Mary Lou Doan FNP Insomnia, unspecified type 07/14/2024 Refill [facility] [address] [place] [address] Mary Lou Doan FNP 07/10/2024 Refill [facility] [address] [facility] [place] [address] Mary Lou Doan FNP 07/08/2024 Telephone [facility] [address] [facility] [place] [address] Kingsleypeter HannahPEDRO 07/06/2024 1:45 PM EDT Office Visit [facility] [address] Mary Lou Doan FNP Chronic bilateral low back pain without sciatica (Primary Dx); Other chronic pain; Fibromyalgia; Dietary counseling; Exercise counseling; Class 2 severe obesity due to excess calories with serious comorbidity and body mass index (BMI) of 38.0 to 38.9 in adult ([facility]); Healthcare maintenance; Depressive disorder; Screening for colon cancer; Seasonal allergies; Encounter for immunization 07/06/2024 Travel 07/02/2024 Telephone [facility] [place] [address] Mary Lou Doan FNP Chart prep 07/01/2024 Travel 06/30/2024 Refill [facility] [place] [address] Mary Lou Doan FNP 06/25/2024 Telephone [facility] [place] [address] Mary Lou Doan FNP Medication Question 06/24/2024 Patient Outreach [address] [address] Mary Lou Doan FNP Pre-visit Planning ([facility] screening completed on 03/20/24 ) 06/05/2024 Patient Outreach [facility] [place] [address] Mary Lou Doan FNP Pre-visit Planning (Pre visit planning LVM ) 06/02/2024 Refill [facility] [place] [address] Mary Lou Doan FNP Fibromyalgia from Last 3 Months Immunizations [...] Sign Reading Time Taken Comments Blood Pressure 145/90 08/10/2024 6:47 PM EDT Pulse 78 08/10/2024 5:20 PM EDT Temperature 37.1 ??C (98.8 ??F) 08/10/2024 5:20 PM ED T Respiratory Rate 20 08/10/2024 5:20 PM EDT Oxygen Saturation 98% 08/10/2024 5:20 PM EDT Inhaled Oxygen Concentration - - Weight 85.5 kg (188 lb 6.4 oz) 08/10/2024 5:20 P M EDT Height 149.9 cm (4' 11 ) 08/10/2024 5:20 PM EDT Body Mass Index 38.05 08/10/2024 5:20 PM EDT Plan of Treatment Upcoming Encounters Date Type Department Care Team (Late st Contact Info) Description 09/07/2024 1:00 PM EDT Office Visit [address] [address] 10/06/2024 1:00 PM EDT Procedure Visit [address] [address] Carlos Leonard, MIGUEL ANGEL [address] [place] [address] 10/07/2024 11:15 AM EDT Telemedicine [address] [address] Health Maintenance Due Date Last Done Comments CT Colonography 1965 Colonoscopy 1965 Colorectal Cancer Screening 1965 Dental Oral Exam 1965 Dental Prophylaxis 1965 Dental X-Ray: Bitewings 1965 Dental X-Ray: Full Mouth 1965 FIT DNA/Cologuard 1965 FIT 1965 FOBT 1965 Sigmoidoscopy 1965 Alcohol/Substance Use Screening 1977 Hepatitis B Vaccines (1 of 3 - 19+ 3-dose series) 1984 COVID-19 Vaccine ( season) 2023 08/01/2023, 01/11/2022, 08/01/2021, Additional history exists Mammogram 10/16/2024 10/17/2023, 04/0 06/2021, 06/10/2020, Additional history exists Depression Monitoring 01/05/2025 07/06/2024, 025 SDOH Screening 03/20/2025 03/20/2024 Disability Screening 07/01/2025 07/01/2024 Diabetes: Hemoglobin A1C 07/31/2025 025, 05/30/2022, 05/02/2021, Additional history exists Tobacco Screening 08/10/2025 08/10/2024 Cervical Cancer Screening 09/29/2028 HPV/Cotest 09/29/2028 09/30/2023, 09/09, 10/01/2018 Pap Smear 09/29/2028 09/30/2023, 10/01/2018 Lipid Panel 07/31/2029 07/31/2024, 04/12, 05/02/2021, Additional history exists DTaP/Tdap/Td Vaccines (3 - Td or Tdap) 07/06/2034 07/06/2024, 12/20/2011, 08/18/2002 RSV Patients and Patients Aged 60 years or older (1 - 1-dose 75+ series) 2040 Zoster Vaccines Completed 05/06/2021, 01/27/2021 Influenza Vaccine Completed 01/04/2024, , 12/22/2021, Additional history exists Pneumococcal Vaccine: 50+ Years Completed 07/06/2024 HIV Screening Completed 07/31/2024 Hepatitis C Screening Completed 07/31/2024, 022 HIB Vaccines Aged Out No longer eligi [...] Procedure Name Priority Date/Time Associated Diagnosis Comments SED RATE BY MODIFIED JAZZYERGREN Routine 07/31/2024 1:55 PM EDT C-REACTIVE PROTEIN Routine 07/31/2024 1: 55 PM EDT CBC WITH AUTO DIFFERENTIAL Routine 07/31/2024 1:55 PM EDT HEPATITIS PANEL, GENERAL Routine 07/31/2024 1:55 PM EDT Healthcare maintenance LIPID PANEL, STANDARD Routine 07/31/2024 1:55 PM EDT Class 2 severe obesity due to excess calories with serious comorbidity and body mass index (BMI) of 38.0 to 38.9 in adult (CMS/HCC) HIV 1/2 ANTIGEN/ANTIBODY, FOURTH GENERATION W/RFL Routine 07/31/2024 1:55 PM EDT Healthcare maintenance COMPREHENSIVE METABOLIC PANEL Routine 07/31/2024 1:55 PM EDT Class 2 severe obesity due to excess calories with serious comorbidity and body mass index (BMI) of 38.0 to 38.9 in adult (CMS/HCC) HEMOGLOBIN A1C Routine 07/31/2024 1:55 PM EDT Class 2 severe obesity due to excess calories with serious comorbidity and body mass index (BMI) of 38.0 to 38.9 in adult (CMS/HCC) BI MAMMOGRAM SCREENING TOMOSYNTHESIS BILATERAL Urgent 10/17/2023 1:50 PM EDT Breast cancer screening by mammogram THINPREP IMAGING PAP AND HPV MRNA E6/E7 Routine 09/30/2023 2:12 PM EDT from Last 3 Months or Most Recently Relevant to Health Maintenance Results * Hepatitis A,B,C Profile (07/31/2024 1:55 PM EDT) Pathologist [facility] Hepatitis A IgM Nonreactive Nonreactive [facility] Comment:IgM antibodies to NUNEZ V not detected; does not exclude earlyacute or recovered HAV infection. ~Hepatitis B Surface Antibody REACTIVE Nonreactive [facility] Comment:REACTIVE: > 11.99 mI U/mL Hepatitis B Core Antibody Nonreactive Nonreactive [facility] Hepatitis C Antibody Nonreactive Nonreactive [facility] Comment:Antibodies to HCV no t detected; does not exclude early acuteHCV infection. Hepatitis B Surface Ag Negative Negative [facility] Blood Venous blood specimen / Unknown 07/31/2024 1:55 PM EDT 07/31/2024 1:55 PM EDT [facility] LAB BLOOD ORDERABLES Final Re sult [facility] [address] [place] [address] [phone] * (ABNORMAL) CBC auto differential (07/31/2024 1:55 PM EDT) [facility] White Blood Count 7.7 4.8 - 10.8 X10*3/uL [facility] Red Blood Count 4.91 4.20 - 5.50 X10*6/uL [facility] Hemoglobin 14.3 12.0 - 16.0 g/dl [facility] Hematocrit 43.1 37.0 - 47.0 % [facility] Mean Corpuscular Volume 87.8 80.0 - 98.0 fL [facility] Mean Corpuscular Hemoglobin 29.1 27.0 - 33.0 pg [facility] Mean Corpuscular HGB Conc 33.2 31.0 - 35.0 g/dl [facility] Red Cell Distribution Width 13.6 11.0 - 16.0 % [facility] Platelet Count 304 160 - 400 X10*3/uL [facility] Mean Platelet Volume 9.0(L) 9.4 - 12.3 fL [facility] Neutrophils Percent Auto 59.4 45 - 73 % [facility] Imm Gran Pct Auto 0.4 0.0 - 0.4 % [facility] Lymphocytes Percent Auto 32.2 20 - 40 % [facility] Monocytes Percent Auto 6.0 2 - 11 % [facility] Eosinophils Percent Auto 1.6 0 - 4 % [facility] Basophils Percent Auto 0.4 0 - 2 % [facility] NRBC Pct Auto 0.0 0.0 - 0.2 /100WBC [facility] Neutrophils Absolute Auto 4.6 2.0 - 8.3 x10*3/uL [facility] Imm Gran Abs Auto 0.03 0.00 - 0.03 X10*3/uL [facility] Lymphocytes Absolute Auto 2.5 1.2 - 4.9 X10*3/uL [facility] Monocytes Absolute Auto 0.5 0.1 - 1.2 X10*3/uL [facility] Eosinophils Absolute Auto 0.1 0.0 - 0.4 X10*3/uL [facility] Basophils Absolute Auto 0.0 0.0 - 0.2 X10*3/uL [facility] NRBC Abs Auto 0.000 0.0 - 0.012 X10*3/uL [facility] 07/31/2024 1:55 PM EDT 07/31/2024 1:55 PM EDT Generic External Data Provider LAB BLOOD ORDERAB LES Final Result Performing Organization Address City/[facility]/ZIP Co de Phone Number [facility] [address] [place] [phone] * HIV-1/2 Antigen and Antibodies, Fourth Generation, with Reflexes (07/31/2024 1:55 PM EDT) HIV AB/AG Nonreactive Nonreactive [facility] Comment:HIV-1 p24 Ag and/or HIV-1/HIV-2 Ab not detected.A test result that is nonreactive does not exclude thepossibility of exposure to or infection with HIV-1 and/orHIV-2. Nonreactive results in this assay for individualswith prior exposure to HIV-1 and/or HIV-2 may be due toantigen and antibody levels that are below the limit ofdetection of this assay.The [employer] HIV Ag/Ab Combo assay result andsupplemental assay results should be interpreted inconjunction with the patient's clinical presentation,history and other laboratory results. If the results areinconsistent with clinical evidence, additional testing issuggested to confirm the result. Blood Venous blood specimen / Unknown 07/31/2024 1:55 PM EDT 07/31/2024 1:55 PM EDT [facility] [employer] LAB BLOOD ORDERABLES Final Re sult Performing Organization Address City/[facility]/ZIP Co de Phone Number [facility] [address] [place] [address] [phone] * Sed Rate by Modified Xochitl (07/31/2024 1:55 PM EDT) Erythrocyte Sedimentation Rate 17 0 - 20 MM/HR [facility] Comment:Patients with polycy themia and many hemoglobin abnormalitiesmay have depressed sed rates whereas patients with anemiamay have elevated sed rates. 07/31/2024 1:55 PM EDT 07/31/2024 1:55 PM EDT Generic External Data Provider LAB BLOOD ORDERAB LES Final Result Performing Organization Address City/[facility]/ZIP Co de Phone Number [facility] [address] [place] [phone] * (ABNORMAL) C-reactive Protein (07/31/2024 1:55 PM EDT) C Reactive Protein 0.92(H) < or = 0.50 mg/dL [facility] 07/31/2024 1:55 PM EDT 07/31/2024 1:55 PM EDT [employer] External Data Provider LAB BLOOD ORDERAB LES Final Result Performing Organization Address [facility] Co de Phone Number [facility] [address] [place] [phone] * (ABNORMAL) Hemoglobin A1c (07/31/2024 1:55 PM EDT) Hemoglobin A1c 6.1(H) <6.0 % [facility] Comment:Hemoglobin A1C Refer ence Range Adults: 4.8 - 6.0 % Non diabetic: < 6.0 % Goal: < 7.0 %Additional Action Suggested: > 8.0 %Note: Hemoglobin A1c results are invalid for patients with abnormal amounts of HbF. Blood transfusions may impact the HbA1c concentration in the patient sample. Estimated Average Glucose 128 mg/dL [facility] Comment:eAG = Estimated ave rage glucose which is %A1C expressed asaverage glucose, using the formula of the G9N-CmuyqnaBljzogk Glucose study (ADAG), Diabetes Care, Vol.31,#8,Oct. 2007 Blood Venous blood specimen / Unknown 07/31/2024 1:55 PM EDT 07/31/2024 1:55 PM EDT [facility] [employer] LAB BLOOD ORDERABLES Final Re sult Performing Organization Address [facility]/ZIP Co de Phone Number [facility] [address] [place] [phone] * (ABNORMAL) Lipid Panel, Standard (07/31/2024 1:55 PM EDT) Triglycerides 176(H) <150 mg/dL [facility] Comment:Desirable Triglyceri de: less than 150 mg/dLBorderline High Triglyceride 150-199 mg/dLHigh Triglyceride: 200-499 mg/dLVery High Triglyceride: greater than or equal to 5OO mg/dL Cholesterol 242(H) <200 mg/dL [facility] Comment:Desirable Cholestero l: less than 200 mg/dLBorderline High Cholesterol: 200-239 mg/dLHigh Cholesterol: greater than 239 mg/dL LDL Cholesterol Calculated 167(H) <100 mg/dL [facility] Comment:Desirable LDL: less than 100 mg/dLNear Optimal/Above Optimal LDL: 110- 129 mg/dLBorderline High LDL: 130-159 mg/dLHigh LDL: 160-189 mg/dLVery High LDL: greater than or equal to 190 mg/dL HDL Cholesterol 40(L) >40 mg/dL [facility] Comment:Desirable HDL: great er than 40 mg/dL Note: This HDL assay may give artificially low results in patients with liver disease. Blood Venous blood specimen / Unknown 07/31/2024 1:55 PM EDT 07/31/2024 1:55 PM EDT [facility] [employer] LAB BLOOD ORDERABLES Final Re sult [facility] [address] [place] [phone] * (ABNORMAL) Comprehensive Metabolic Panel (07/31/2024 1:55 PM EDT) Sodium 144 135 - 145 mmol/L [facility] Potassium 4.3 3.3 - 5.1 mmol/L [facility] Chloride 108 96 - 108 mmol/L [facility] Carbon Dioxide 27 22 - 29 mmol/L [facility] Anion Gap 13 12 - 20 [facility] Urea Nitrogen (BUN) 18(H) 9 - 16 mg/dL [facility] Creatinine, Serum 0.97 0.5 - 1.4 mg/dL [facility] Estimated Glomerular Filt Rate 59 [facility] Comment:Chronic Kidney Disea se: Estimated GFR < 60 mL/min/1.86c9Hsqwyk Kidney Disease: Estimated GFR < 15 mL/min/1.73m2 Glucose 78 60 - 115 mg/dL [facility] Calcium 10.0 8.4 - 10.2 mg/dL [facility] Bilirubin, Total 0.5 0.0 - 1.0 mg/dL [facility] Aspartate Amino Transferase 26 5 - 31 U/L [facility] Alanine Aminotransferase 40(H) 0 - 31 U/L [facility] Total Protein 7.8 6.5 - 8.0 g/dL [facility] Albumin Level 4.3 3.5 - 5.0 g/dL [facility] Alkaline Phosphatase 112 39 - 117 U/L [facility] Blood Venous blood specimen / Unknown 07/31/2024 1:55 PM EDT 07/31/2024 1:55 PM EDT [facility] [employer] LAB BLOOD ORDERABLES Final Re sult [facility] [address] [place] [phone] [phone] * BI Mammogram Screening Tomosynthesis Bilateral (10/17/2023 1:50 PM EDT) Anatomical Region Laterality Modality Breast Bilateral Mammography 10/17/2023 1:50 PM EDT Narrative 11/06/2023 9:40 AM EDT ? [facility] ? [address] ?[place] [address] ? Mammography Report ? Signed ? Patient: Erazo,Leslie ?MR#: [id number] ?? 89 ? : 1965 ?Acct:[id number] ? Age/Sex: 58 / F ?ADM Date: 10/16/24 ? Loc: HO.MAMMO ? Attending Dr: Carlos Leonard CNM ? Ordering Physician: CARLOS LEONARD CNM ?Results: 1 ?? Negative ? Date of Service: 10/17/23 ?Follow Up: 1 Year From Orig ?? inal Mammogram ? Procedure(s): MM tomosynthesis screening BI ?? Accession Number(s): [id number] ? cc: CARLOS LEONARDM; Mary Lou Doan [employer] WORKER ? EXAMINATION: ?? MM SCREENING DIGITAL BREAST [...] DD/ 1350 ? TD/TT: 10/17/23 1405 ? Director Of Software Development: ? Procedure Note Donmemo, Image - 11/06/2023 [facility] [address] [place] [address] Mammography Report Signed Patient: Preston Erazo#: [id number] 89 : 1965Acct:[id number] Age/Sex: 58 / FADM Date: 10/17/23 Loc: HO.MAMMO Attending Dr: Carlos Leonard CNM Ordering Physician: CARLOS LEONARDesults: 1 Negative Date of Service: 10/17/23Follow Up: 1 Year From Orig inal Mammogram Procedure(s): MM tomosynthesis screening BI Accession Number(s): [id number] cc: CARLOS LEONARD CNM; [facility] DRYWALL [employer] STUD WORKER EXAMINATION: MM SCREENING DIGITAL BREAST TOMOSYNTHESIS, BILATERAL [...] 11/06/23 0937 DD/ 1350 TD/TT: 10/17/23 1405 Director Of Software Development: Carlos CASTRO IM BI PROCEDURES Edited Result - Final * [facility] Pap and HPV mRNA E6/E7 (09/30/2023 2:12 PM EDT) HPV nRNA E6/E7 Not Detected Not Detected [facility] Comment:Methodology: Transcr iption-Mediated AmplificationThis assay detects E6/E7 viral messenger RNA (mRNA) from 14high-risk HPV types (16,18,31,33,35,39,45,51,52,56,58,59,66,68).Cervical sources are required for HPV testing.If a vaginal source from a patient who has had atotal hysterectomy with removal of cervix wassubmitted, please contact the testing laboratoryfor alternative testing options.For additional information, please refer [email or web address](This link if provided for information/educational purposes only.)THIS TEST WAS PERFORMED AT:[facility] [place] [phone] LORA MD SOURCE: SEE NOTE [facility] Comment:None given Report Status: HOLDEN [facility] Clinical Information: SEE NOTE [facility] Comment:None given LMP: SEE NOTE [facility] Comment:NONE GIVEN Prev. PAP: SEE NOTE [facility] Comment:NONE GIVEN Prev. BX: SEE NOTE [facility] Comment:NONE GIVEN Statement Of Adequacy: SEE NOTE [facility] Comment:Satisfactory for terry luation.Endocervical/transformation zone componentpresent. General Categorization: [facility] Interpretation/Result: SEE NOTE [facility] Comment:Cytology Results: Ne gative for intraepitheliallesion or malignancy. Cytology Comment SEE NOTE [facility] Comment:This Pap test has be en evaluated with computerassisted technology. Gearcase Assembler: SEE NOTE [facility] Comment:CMG, CT(ASCP)CT scre ening location: [place] [address] Review Gearcase Assembler: [facility] Pathologist [facility] PAP Infection [facility] See Note SEE NOTE [facility] Comment:EXPLANATORY NOTE:The Pap is a screening test for cervical cancer. It isnot a diagnostic test and is subject to false negativeand false positive results. It is most reliable when asatisfactory sample, regularly obtained, is submittedwith relevant clinical findings and history, and whenthe Pap result is evaluated along with historic andcurrent clinical information. 09/30/2023 2:12 PM EDT 09/30/2023 7:32 PM EDT Narrative [facility] - 10/04/2023 12:37 PM EDT SEE SCANNED RESULTS IN EMR us Carlos Leonard CNM LAB PATHOLOGY ORDERABLES Final Result [facility] [address] [place] [address] [phone] from Last 3 Months or Most Recently Relevant to Health Maintenance Insurance [facility] < [address] [facility] Care Teams Blister Pack Operator Relationship Specialty Start Date End Date Mary Lou Doan FNP [address] [place] [address] PCP - General Family Medicine 11/03/21
== END 2024-08-12 14:07 | disposition home or self-care (01) ==
LOC: HO.PMC 13:33
PROVIDERS: PCP Registered Nurse; Visit Provider Registered Nurse Emergency
DX: M47.816 Spondylosis without myelopathy or radiculopathy, lumbar region (principal); G89.4 Chronic pain syndrome
CPT/HCPCS: 99213; G2211

== ENCOUNTER → 2024-08-12 13:30 | Outpatient (BNVA) | payer OTHER, SELFPAY | PROVIDERS: PCP Registered Nurse; Visit Provider Registered Nurse Emergency | DX: M47.816 Spondylosis without myelopathy or radiculopathy, lumbar region (principal); G89.4 Chronic pain syndrome | CPT/HCPCS: 99212 ==

== ENCOUNTER 2024-08-20 15:22 | Outpatient (REF) | payer OTHER, SELFPAY ==
--- NOTE | ~2024-08-20 | US_ITS ---
EXAMINATION: US PELVIS CLINICAL INFORMATION: Follow-up uterine leiomyoma COMPARISON: 10/04/2023 TECHNIQUE: Ultrasound of the pelvis is performed using both transabdominal and transvaginal transducers along with Doppler. Transvaginal imaging is performed due to inadequate visualization transabdominally. FINDINGS: Uterus: The uterus is anteflexed and measures 6.8 x 4.2 x 5.4 cm. The endometrial stripe thickness is 7 mm. There is trace fluid in the endometrial canal. Uterus has a coarse echotexture. In the right upper anterior body of the myometrium, hypoechoic area measures 1.1 x 0.9 x 1.4 cm previously 0.5 x 0.5 x 0.5 cm. Lobulated heterogeneous mass at the fundal region of the uterus measures 2.1 x 1.7 x 2.2 cm previously not documented. Adnexa: Both ovaries are visualized. There is normal color flow to the adnexa. There is no ovarian torsion. There is no pelvic ascites or fluid collection. Right ovary measures 1.5 x 0.8 x 1.1 cm. Left ovary measures not seen US/US pelvic and transvaginal IMPRESSION: Subserosal fundal uterine leiomyoma not shown previously and small intramural leiomyoma in the anterior right uterus body is increased since previously Electronically signed by: Kenan Mueller MD 08/20/2024 06:28 PM EDT
--- NOTE | ~2024-08-20 | US_ITS ---
EXAMINATION: US KIDNEY BILATERAL HISTORY: R35.0 - Frequency of micturition TECHNIQUE: Real-time grayscale ultrasound imaging of the kidneys was performed and images were reviewed. COMPARISON: Comparison is made with the prior examination dated 04/12/2020. FINDINGS: Right kidney: The right kidney measures 10.1 x 3.8 x 3.7 cm. Renal parenchymal echotexture and thickness are normal. There are no masses. There is a nonobstructing calculus in the interpolar region measuring 4 x 3 x 4 mm. There is no hydronephrosis. Left Kidney: The left kidney measures 10.3 x 3.9 x 4.1 cm. Renal parenchymal echotexture and thickness are normal. There are no masses. No definite stone is seen. There is mild hydronephrosis. US/US renal BI IMPRESSION: 1. 4 mm nonobstructing right renal calculus. 2. Mild left hydronephrosis. No definite left renal calculi are identified. Electronically signed by: Maycol Rosario MD 08/21/2024 07:03 AM EDT
--- OUTSIDE RECORDS SUMMARY | 2024-08-20 17:56 | XMS_ITS | Clinical Summary ---
Author Organization [employer] Address [address] [facility] [address] [place] [address] Care Team Providers Care Java Systems Analyst Name Role Phone Mary Lou Doan FIELD RING ASSEMBLER Primary Care Provider [phone] Allergies No known active allergies Medications * [...] EVERY 8 HOURS 50 g 2 Active cholecalciferol (Vitamin D-3) 50 MCG (2000 [...] mouth Once per day. 90 tablet 3 2025 Active Diclofenac Sodium 1 % gel [...] TABLET BY MOUTH EVERY DAY 30 tablet Active acetaminophen (Tylenol) 500 MG tabletIndications :Right leg pain Take 2 tablets (1,000 mg) by mouth every 6 (six) hours if needed for moderate pain. 240 tablet 025 2024 Active baclofen (Lioresal) 20 MG tabletIndications :Cervical radiculopathy TAKE 1 TABLET(20 MG) BY MOUTH EVERY 8 HOURS NEEDED FOR MUSCLE SPASMS 90 tablet 025 Active polyethylene glycol, PEG, 3350 (Glycolax) 17 [...] eorder (will not trigger notification to Pharmacy)) baclofen (Lioresal) 20 MG tabletIndications :Cervical radiculopathy TAKE 1 TABLET(20 MG) BY MOUTH EVERY 8 HOURS NEEDED FOR MUSCLE SPASMS 90 tablet 025 2024 Discontinued(R eorder (will not trigger [...] hx of glaucoma. Dr. Navarro follows Dental: [facility] dental HIV: Neg 2016 Hepatitis: Neg [...] Managed with tramadol 50mg PRN, compliant with COUNTER TENDER program Lung nodule 11/09/2021 Overview (06/06/2022): ?? [...] ?? Buproprion 150mg XR ?? Therapist at [facility] Assessment & Plan (12/06/2022 1:59 PM EDT): [...] pt with additional resources for [facility] at [facility], as well as how to reach out to [facility] BH team. Pt was agreeable to intervention and referral to op and psych services at [facility]. Assessment & Plan (10/24/2022 9:33 AM [...] of SI or self harm. Pt has [facility] crisis contact information Assessment & Plan (10/05/2022 3:19 PM EDT): ?? In office BE during OV with Dr. Mukherjee. Pt referred to [facility] and provided with [facility] contact information for emergency care. ?? STOP buspar ?? START buproprion 150mg XR. Reviewed administration, risks, side effects ?? Continue duloxetine 60mg ?? Contact HC if sx worsen or experiencing thoughts of SI or self harm. 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 Resolved [...] Type Department Care Team Description 08/12/2024 Telephone [facility] [address] [place] [address] Mary Lou Doan FNP Med Refill 08/11/2024 Refill [facility] [address] [place] [address] [place], Mary Lou, FIELD RING ASSEMBLER Cervical radiculopathy 08/10/2024 5:00 PM EDT Office Visit [facility] [address] [place] [address] Gina Maurer NP Right leg pain (Primary Dx); Chronic right-sided low back pain with right-sided sciatica; Elevated blood pressure reading in office without diagnosis of hypertension 08/10/2024 Telephone [facility] [address] [place] [address] Mary Lou Doan, LAZARO Medication Question 08/10/2024 Telephone [facility] [address] [place] [address] Mary Lou Doan FNP Med Refill 08/10/2024 Orders Only [facility] [address] [place] [address] Mary Lou Doan FNP Hyperlipidemia, unspecified hyperlipidemia type (Primary Dx) 08/08/2024 Refill [facility] [address] [place] [address] Mary Lou Doan FNP Cervical radiculopathy 08/06/2024 Refill [facility] [address] [place] [address] Mary Lou Doan FNP Cervical radiculopathy 08/05/2024 Telephone [facility] [address] [place] [address] Mary Lou Doan FNP Results 08/05/2024 Telephone [facility] [address] [place] [address] Mary Lou Doan FNP Durable Medical Equipment 08/05/2024 Refill [facility] [address] [place] [address] Mary Lou Doan FNP Hyperlipidemia, unspecified hyperlipidemia type 07/31/2024 Orders Only GENERIC EXTERNAL DATA DEPARTMENT Provider, Generic External Data 07/14/2024 Refill [facility] [address] [place] [address] Mary Lou Doan FNP Insomnia, unspecified type 07/14/2024 Refill [facility] [address] [place] [address] Mary Lou Doan FNP 07/10/2024 Refill [facility] [place] [address] Mary Lou Doan FNP 07/08/2024 Telephone [facility] [place] [address] [place] 07/06/2024 1:45 PM EDT Office Visit [facility] [place] [address] Mary Lou Doan FNP Chronic bilateral low back pain without sciatica (Primary Dx); Other chronic pain; Fibromyalgia; Dietary counseling; Exercise counseling; Class 2 severe obesity due to excess calories with serious comorbidity and body mass index (BMI) of 38.0 to 38.9 in adult ([facility]); Healthcare maintenance; Depressive disorder; Screening for colon cancer; Seasonal allergies; Encounter for immunization 07/06/2024 Travel 07/02/2024 Telephone [facility] [place] [address] Mary Lou Doan FNP Chart prep 07/01/2024 Travel 06/30/2024 Refill [facility] [place] [place] [address] Mary Lou Doan FNP 06/25/[address] [address] Mary Lou Doan FNP Medication Question 06/24/2024 Patient Outreach [address] [address] Mary Lou Doan FNP Pre-visit Planning ([facility] screening completed on 03/20/24 ) 06/05/2024 Patient Outreach [address] [place] [address] Mary Lou Doan FNP Pre-visit Planning (Pre visit planning LVM ) 06/02/2024 Refill [facility] [place] [place] [address] Mary Lou Doan FNP Fibromyalgia from Last [...] Description 09/07/2024 1:00 PM EDT Office Visit [facility] [address] [place] [address] [address] 10/06/2024 1:00 PM EDT Procedure Visit [facility] [address] [place] [address] Carlos Leonard CNM [address] [place] [address] 10/07/2024 11:15 AM EDT Telemedicine [address] Health Maintenance Due Date Last Done Comments [...] Associated Diagnosis Comments SED RATE BY MODIFIED WESTERGREN Routine 07/31/2024 1:55 PM EDT C-REACTIVE PROTEIN [...] Hepatitis A,B,C Profile (07/31/2024 1:55 PM EDT) Hepatitis A IgM Nonreactive Nonreactive [facility] Comment:IgM antibodies to NUNEZ V not detected; does not exclude earlyacute or recovered HAV infection. ~Hepatitis B Surface Antibody REACTIVE Nonreactive [facility] Comment:REACTIVE: > 11.99 mI U/mL Hepatitis B Core Antibody Nonreactive Nonreactive [facility] Hepatitis C Antibody Nonreactive Nonreactive [facility] Comment:Antibodies to HCV no t detected; does not exclude early acuteHCV infection. Hepatitis B Surface Ag Negative Negative [facility] Blood Venous blood specimen / Unknown 07/31/2024 1:55 PM EDT 07/31/2024 1:55 PM EDT [facility] Final Re sult [facility] [address] [place] [address] [phone] * (ABNORMAL) CBC auto differential (07/31/2024 1:55 PM EDT) White Blood Count 7.7 4.8 - 10.8 X10*3/uL [facility] Red Blood Count 4.91 4.20 - 5.50 X10*6/uL [facility] Hemoglobin 14.3 12.0 - 16.0 g/dl [facility] Hematocrit 43.1 37.0 - 47.0 % [facility] Mean Corpuscular Volume 87.8 80.0 - 98.0 fL [facility] Mean Corpuscular Hemoglobin 29.1 27.0 - 33.0 pg [facility] Mean Corpuscular HGB Conc 33.2 31.0 - 35.0 g/dl [facility] Red Cell Distribution Width 13.6 11.0 - 16.0 % [facility] Platelet Count 304 160 - 400 X10*3/uL [facility] Mean Platelet Volume 9.0(L) 9.4 - 12.3 fL [facility] Neutrophils Percent Auto 59.4 45 - 73 % [facility] Imm Gran Pct Auto 0.4 0.0 - 0.4 % [facility] Lymphocytes Percent Auto 32.2 20 - 40 % [facility] Monocytes Percent Auto 6.0 2 - 11 % [facility] Eosinophils Percent Auto 1.6 0 - 4 % [facility] Basophils Percent Auto 0.4 0 - 2 % [facility] NRBC Pct Auto 0.0 0.0 - 0.2 /100WBC [facility] Neutrophils Absolute Auto 4.6 2.0 - 8.3 x10*3/uL [facility] Imm Gran Abs Auto 0.03 0.00 - 0.03 X10*3/uL [facility] Lymphocytes Absolute Auto 2.5 1.2 - 4.9 X10*3/uL [facility] Monocytes Absolute Auto 0.5 0.1 - 1.2 X10*3/uL [facility] Eosinophils Absolute Auto 0.1 0.0 - 0.4 X10*3/uL [facility] Basophils Absolute Auto 0.0 0.0 - 0.2 X10*3/uL [facility] NRBC Abs Auto 0.000 0.0 - 0.012 X10*3/uL [facility] 07/31/2024 1:55 PM EDT 07/31/2024 1:55 PM EDT Generic External Data Provider LAB BLOOD ORDERAB LES Final Result Performing Organization Address [facility]/ZIP Co de Phone Number [facility] [address] [place] [phone] * HIV-1/2 Antigen and Antibodies, Fourth Generation, with Reflexes (07/31/2024 1:55 PM EDT) HIV AB/AG Nonreactive Nonreactive [facility] Comment:HIV-1 p24 Ag and/or HIV-1/HIV-2 Ab not detected.A test result that is nonreactive does not exclude thepossibility of exposure to or infection with HIV-1 and/orHIV-2. Nonreactive results in this assay for individualswith prior exposure to HIV-1 and/or HIV-2 may be due toantigen and antibody levels that are below the limit ofdetection of this assay.The [employer]ure HIV Ag/Ab Combo assay result andsupplemental assay results should be interpreted inconjunction with the patient's clinical presentation,history and other laboratory results. If the results areinconsistent with clinical evidence, additional testing issuggested to confirm the result. Blood Venous blood specimen / Unknown 07/31/2024 1:55 PM EDT 07/31/2024 1:55 PM EDT [facility] FIELD RING ASSEMBLER LAB BLOOD ORDERABLES Final Re sult Performing Organization Address [facility]/ZIP Co de Phone Number [facility] [address] [place] [address] [phone] * Sed Rate by Modified Xochitl (07/31/2024 1:55 PM EDT) Erythrocyte Sedimentation Rate 17 0 - 20 MM/HR [facility] Comment:Patients with polycy themia and many hemoglobin abnormalitiesmay have depressed sed rates whereas patients with anemiamay have elevated sed rates. 07/31/2024 1:55 PM EDT 07/31/2024 1:55 PM EDT Generic External Data Provider LAB BLOOD ORDERAB LES Final Result Performing Organization Address City/[facility]/ZIP Co de Phone Number [facility] [address] [place] [phone] * (ABNORMAL) C-reactive Protein (07/31/2024 1:55 PM EDT) C Reactive Protein 0.92(H) < or = 0.50 mg/dL [facility] 07/31/2024 1:55 PM EDT 07/31/2024 1:55 PM EDT Generic External Data Provider LAB BLOOD ORDERAB LES Final Result Performing Organization Address [facility] Co de Phone Number [facility] [address] [place] [phone] * (ABNORMAL) Hemoglobin A1c (07/31/2024 1:55 PM EDT) Hemoglobin A1c 6.1(H) <6.0 % [facility] Comment:Hemoglobin A1C Refer ence Range Adults: 4.8 - 6.0 % Non diabetic: < 6.0 % Goal: < 7.0 %Additional Action Suggested: > 8.0 %Note: Hemoglobin A1c results are invalid for patients with abnormal amounts of HbF. Blood transfusions may impact the HbA1c concentration in the patient sample. Estimated Average Glucose 128 mg/dL [facility] Comment:eAG = Estimated ave rage glucose which is %A1C expressed asaverage glucose, using the formula of the [id number] Glucose study (ADAG), Diabetes Care, Vol.31,#8,2007 Blood Venous blood specimen / Unknown 07/31/2024 1:55 PM EDT 07/31/2024 1:55 PM EDT [facility] FIELD RING ASSEMBLER LAB BLOOD ORDERABLES Final Re sult Performing Organization Address City/[facility]/ZIP Co de Phone Number [facility] [address] [place] [address] [phone] * (ABNORMAL) Lipid Panel, Standard (07/31/2024 1:55 PM EDT) Triglycerides 176(H) <150 mg/dL [facility] Comment:Desirable Triglyceri de: less than 150 mg/dLBorderline High Triglyceride 150-199 mg/dLHigh Triglyceride: 200-499 mg/dLVery High Triglyceride: greater than or equal to 5OO mg/dL Cholesterol 242(H) <200 mg/dL [facility] Comment:Desirable Cholestero l: less than 200 mg/dLBorderline High Cholesterol: 200-239 mg/dLHigh Cholesterol: greater than 239 mg/dL LDL Cholesterol Calculated 167(H) <100 mg/dL [facility] Comment:Desirable LDL: less than 100 mg/dLNear Optimal/Above Optimal LDL: 110- 129 mg/dLBorderline High LDL: 130-159 mg/dLHigh LDL: 160-189 mg/dLVery High LDL: greater than or equal to 190 mg/dL HDL Cholesterol 40(L) >40 mg/dL [facility] Comment:Desirable HDL: great er than 40 mg/dL Note: This HDL assay may give artificially low results in patients with liver disease. Blood Venous blood specimen / Unknown 07/31/2024 1:55 PM EDT 07/31/2024 1:55 PM EDT [facility] FIELD RING ASSEMBLER LAB BLOOD ORDERABLES Final Re sult [facility] [address] [place] [phone] * (ABNORMAL) Comprehensive Metabolic Panel (07/31/2024 1:55 PM EDT) Sodium 144 135 - 145 mmol/L [facility] Potassium 4.3 3.3 - 5.1 mmol/L [facility] Chloride 108 96 - 108 mmol/L [facility] Carbon Dioxide 27 22 - 29 mmol/L [facility] Anion Gap 13 12 - 20 [facility] Urea Nitrogen (BUN) 18(H) 9 - 16 mg/dL [facility] Creatinine, Serum 0.97 0.5 - 1.4 mg/dL [facility] Estimated Glomerular Filt Rate 59 [facility] Comment:Chronic Kidney Disea se: Estimated GFR < 60 mL/min/1.25p2Lunyhv Kidney Disease: Estimated GFR < 15 mL/min/1.73m2 Glucose 78 60 - 115 mg/dL [facility] Calcium 10.0 8.4 - 10.2 mg/dL [facility] Bilirubin, Total 0.5 0.0 - 1.0 mg/dL [facility] Aspartate Amino Transferase 26 5 - 31 U/L [facility] Alanine Aminotransferase 40(H) 0 - 31 U/L [facility] Total Protein 7.8 6.5 - 8.0 g/dL [facility] Albumin Level 4.3 3.5 - 5.0 g/dL [facility] Alkaline Phosphatase 112 39 - 117 U/L [facility] Blood Venous blood specimen / Unknown 07/31/2024 1:55 PM EDT 07/31/2024 1:55 PM EDT [facility] FIELD RING ASSEMBLER LAB BLOOD ORDERABLES Final Re sult Performing Organization Address [facility]/State/[facility] Co de Phone Number [facility] [address] [place] [address] [phone] * BI Mammogram Screening Tomosynthesis Bilateral (10/17/2023 1:50 PM EDT) Anatomical Region Laterality Modality Breast Bilateral Mammography 10/17/2023 1:50 PM EDT Narrative 11/06/2023 9:40 AM EDT ? [facility] ? [address] ?[place] [address] ? Mammography Report ? Signed ? Patient: Erazo,Leslie ?MR#: [id number] ?? 92 ? : 1965 ?Acct:[id number] ? Age/Sex: 58 / F ?ADM Date: 10/16/24 ? Loc: HO.MAMMO ? Attending Dr: Carlos Leonard CNM ? Ordering Physician: CARLOS LEONARD CNM ?Results: 1 ?? Negative ? Date of Service: 10/17/23 ?Follow Up: 1 Year From Orig ?? inal Mammogram ? Procedure(s): MM tomosynthesis screening BI ?? Accession Number(s): [id number] ? cc: CARLOS LEONARD CNLaquita; Mary Lou Doan FIELD RING ASSEMBLER ? EXAMINATION: ?? MM SCREENING DIGITAL BREAST [...] DD/ 1350 ? TD/TT: 10/17/23 1405 ? House Superintendent: ? Procedure Note Donotfortunatointerpreter, Image - 11/06/2023 [facility] [address] [place] [address] Mammography Report Signed Patient: [place] ErazoMR#: [id number] 92 : 1965Acct:[id number] Age/Sex: 58 / FADM Date: 10/17/23 Loc: HO.MAMMO Attending Dr: Carlos Leonard CNM Ordering Physician: CARLOS LEONARDesults: 1 Negative Date of Service: 10/17/23Follow Up: 1 Year From Orig inal Mammogram Procedure(s): MM tomosynthesis screening BI Accession Number(s): [id number] cc: CARLOS LEONARD CNM; [facility] FIELD RING ASSEMBLER EXAMINATION: MM SCREENING DIGITAL BREAST TOMOSYNTHESIS, BILATERAL [...] 11/06/23 0937 DD/ 1350 TD/TT: 10/17/23 1405 House Superintendent: Carlos Leonard CNM IM BI PROCEDURES Edited Result - Final * [facility] Pap and HPV mRNA E6/E7 (09/30/2023 2:12 PM EDT) HPV nRNA E6/E7 Not Detected Not Detected [facility] Comment:Methodology: Transcr iption-Mediated AmplificationThis assay detects E6/E7 viral messenger RNA (mRNA) from 14high-risk HPV types (16,18,31,33,35,39,45,51,52,56,58,59,66,68).Cervical sources are required for HPV testing.If a vaginal source from a patient who has had atotal hysterectomy with removal of cervix wassubmitted, please contact the testing laboratoryfor alternative testing options.For additional information, please refer [email or web address].[employer]/faq/BJF717w2(This link if provided for information/educational purposes only.)THIS TEST WAS PERFORMED AT:[facility] [place] [phone] LORA MD SOURCE: SEE NOTE [facility] Comment:None given Report Status: [facility] Clinical Information: SEE NOTE [facility] Comment:None given LMP: SEE NOTE [facility] Comment:NONE GIVEN Prev. PAP: SEE NOTE [facility] Comment:NONE GIVEN Prev. BX: SEE NOTE [facility] Comment:NONE GIVEN Statement Of Adequacy: SEE NOTE [facility] Comment:Satisfactory for terry luation.Endocervical/transformation zone componentpresent. General Categorization: [facility] Interpretation/Result: SEE NOTE [facility] Comment:Cytology Results: Ne gative for intraepitheliallesion or malignancy. Cytology Comment SEE NOTE [facility] Comment:This Pap test has be en evaluated with computerassisted technology. Glove Parts Inspector: SEE NOTE [facility] Comment:CMG, CT(ASCP)CT scre ening location: [place] [address] Review Glove Parts Inspector: [facility] Pathologist [facility] PAP Infection [facility] See Note SEE NOTE [facility] Comment:EXPLANATORY NOTE:The Pap is a screening test for cervical cancer. It isnot a diagnostic test and is subject to false negativeand false positive results. It is most reliable when asatisfactory sample, regularly obtained, is submittedwith relevant clinical findings and history, and whenthe Pap result is evaluated along with historic andcurrent clinical information. 09/30/2023 2:12 PM EDT 09/30/2023 7:32 PM EDT Narrative [facility] - 10/04/2023 12:37 PM EDT SEE SCANNED RESULTS IN EMR Carlos Leonard CNM LAB PATHOLOGY ORDERABLES Final Result [facility] [address] [place] [address] [phone] from Last 3 Months or Most Recently Relevant to Health Maintenance Insurance [facility] < 65 [facility] Care Teams Java Systems Analyst Relationship Specialty Start Date End Date Mary Lou Doan FNP [address] [place] [phone] PCP - General Family Medicine 11/03/21
== END 2024-08-20 15:23 | disposition home or self-care (01) ==
LOC: HO.US 15:22
PROVIDERS: Absent Provider Obstetrics & Gynecology; PCP Registered Nurse; Visit Provider Nurse Practitioner Family
DX: D25.9 Leiomyoma of uterus, unspecified (principal); R35.0 Frequency of micturition; N32.89 Other specified disorders of bladder
CPT/HCPCS: 76775; 76830; 76856

== ENCOUNTER → 2024-08-20 15:26 | Outpatient (BNV) | payer OTHER, SELFPAY | PROVIDERS: Absent Provider Obstetrics & Gynecology; PCP Registered Nurse; Visit Provider Radiology Diagnostic Radiology | DX: N20.0 Calculus of kidney (principal) | CPT/HCPCS: 76775 ==

== ENCOUNTER 2024-08-25 14:55 | Outpatient (AMB) | payer OTHER, SELFPAY ==
[2024-08-25 14:57] VITALS: BP 132/82; PULSE 74; O2SAT 99; BMI 37.4
--- NOTE | 2024-08-25 14:57 | A.OFFVIS_ITS ---
Vital Signs 08/25/24 14:57 Height 4 ft 11 in Weight 185 lb BMI 37.4 BP 132/82 Blood Pressure Location Lt brachial Position Sitting Pulse 74 Pulse Source Pulse Oximeter Pulse Oximetry (%) 99 Oxygen Delivery Method Room Air Intake Visit Reasons: FMS/OA Intake Note: Patient presents for follow up on fibromyalgia today. Patient complains of right leg pain, feels it in the hip, and travels down, she feels bumps in her leg that are felt in different places of the leg. Accompanied by: Spouse Allergies No Known Allergies [No Known Allergies*] Allergy (Verified 08/25/24 15:03) Medication List - Last Reconciled 08/25/24 by Tania Lamas MD acetaminophen 500 mg PO Q6H PRN baclofen 20 mg PO TID PRN cholecalciferol (vitamin D3) 25 mcg PO DAILY diclofenac sodium 1% 2 grams topical BID duloxetine 30 mg PO BID PRN latanoprost 0.005% 0 drps ophthalmic (eye) BEDTIME yrgxyhjh-trk-PJ-lycopen-lutein 0.4 mg-300 mcg- 250 mcg (Adults 50 Plus) 1 tab PO QAM rosuvastatin 10 mg PO BEDTIME zolpidem 1 tab PO BEDTIME PRN HPI Comments Details: Patient is a 59-year-old female with depression, hyperlipidemia, overactive bladder, polyarticular osteoarthritis and fibromyalgia here today for follow up Interval History: Patient last seen 02/18/[address] Leos at that time she was following up for her fibromyalgia and osteoarthritis. She was complaining of bilateral neck pain that radiated to her arm and chest with numbness and tingling in her fingers. She had a nerve conduction test consistent with cervical radiculopathy and was sent to pain management. Her gabapentin dose was increased from 100 to 300 mg Today, Patient complaining of new pain involving her lower back on the right side radiating down her right leg She followed up with Pain management 08/12/2024. They ordered XR L spine and PT Requesting gabapentin Rheumatologic History: Fibromyalgia OA Current Rheumatology Medication(s): Gabapentin 300mg nightly PFSH Medical History Frequency of urination Urge incontinence Renal stones Anxiety Overactive bladder Hyperlipemia Depression Obesity Glaucoma Osteoarthritis IBS (irritable bowel syndrome) Lumbar spondylitis Renal stones Anemia GERD (gastroesophageal reflux disease) Plantar fasciitis Fibromyalgia Surgical History History of arthroscopy of right knee (~03/2020) H/O nasal septoplasty Hx of lithotripsy Hx of tubal ligation Family History Mother Diabetes Fibromyalgia Arthritis Osteoporosis Daughter Breast cancer Social History Household Members: Family Housing: House Are you a primary child caregiver to a significant other at home: No Do you presently have visiting nurse or other home services: No Alcohol intake: never Comment: uses a cane sometimes Patient Tobacco Use Status: Never used Tobacco Second Hand Smoke Exposure: No Current occupational status: disabled Current occupation: Right Handed Review of Systems Const Details: Review of Systems Constitutional: Denies fever, chills, weight loss ENT: Denies vision changes, eye pain or eye redness, dental caries, dry mouth GI: Denies nausea, vomiting, diarrhea, abdominal pain, change in BM Pulm: Denies SOB, FLOREZ, hemoptysis, wheezing Cards: Denies chest pain, palpitations Skin: Denies Raynaud's, rash, nail changes, photosensitivity, 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 Well appearing and in no apparent painful distress HEENT Conjunctiva and sclera clear. No lymphadenopathy. CHEST/RESPIRATORY SYSTEM Normal respiratory effort and able to speak in complete sentences. Clear to auscultation bilaterally. No crackles, rales, rhonchi, wheezes heard. CARDIAC SYSTEM Regular rate and rhythm. S1 and S2 heard no murmurs. Radial pulses intact bilaterally MSK Hands * Right Hand: Able to make a fist. No swelling or tenderness to palpation of these joints. Herbeden's nodes. * Left Hand: Able to make a fist. No swelling or tenderness to palpation of these joints. Herbeden's nodes. Wrists * Right Wrist: Full ROM. 70 degrees of wrist flexion, 80 degrees of wrist extension. No swelling or TTP * Left Wrist: Full ROM. 70 degrees of wrist flexion, 80 degrees of wrist extension. No swelling or TTP Elbows * Right Elbow: Full ROM. No swelling or TTP. No TTP of the medial and lateral epicondyles * Left Elbow: Full ROM. No swelling or TTP. No TTP of the medial and lateral epicondyles Shoulders * Right shoulder: Full ROM. No swelling noted. No TTP of the AC joint, subacromial bursa or posterior shoulder * Left shoulder: Full ROM. No swelling noted. No TTP of the AC joint, subacromial bursa or posterior shoulder Knees * Right knee: Full ROM. No swelling noted. No TTP of the knee joint line. TTP pes anserine bursa. Crepitations * Left knee: Full ROM. No swelling noted. No TTP of the knee joint line. TTP pes anserine bursa. Crepitations Ankles * Right ankle: Good ankle dorsiflexion and plantar flexion. No swelling. No TTP of the ankle joint * Left ankle: Good ankle dorsiflexion and plantar flexion. No swelling. No TTP of the ankle joint Feet * Right foot: Negative squeeze test * Left foot: Negative squeeze test Tender points? * Tenderness to palpation of the bilateral trapezius, supraspinatus, anterior costochondral junctions, bilateral suboccipital muscle insertions Positive straight leg raise on the right SKIN No rashes Results Reviewed Results Reviewed: Laboratory Tests 07/31/24 13:55 WBC 7.7 RBC 4.91 Hgb 14.3 Hct 43.1 Plt Count 304 ESR 17 Sodium 144 Potassium 4.3 Chloride 108 Carbon Dioxide 27 BUN 18 H Creatinine 0.97 AST 26 ALT 40 H Alkaline Phosphatase 112 C-Reactive Protein 0.92 H Assessment & Plan Assessment & Plan (1) Fibromyalgia: Code(s): M79.7 - Fibromyalgia Category: Medical Plan: #Fibromyalgia Patient is a 59 y.o. female with OA and fibromyalgia here today for follow up Stable from fibromyalgia standpoint Reorder to gabapentin Plan - Gabapentin 300mg nightly - RTC 6 months (2) Polyarticular osteoarthritis: Code(s): M15.9 - Polyosteoarthritis, unspecified Plan: #Polyarticular OA Patient with polyarticular OA Complaining of symptoms consistent with sciatica Recommending follow up with Pain management Plan - Follow up with pain management - Encouraged stretching and exercise as tolerated Plan I spent 25 minutes reviewing the record and labs, taking a history, examining the patient, discussing the treatment plan, ordering diagnostic work up and documenting in the medical record Medications: New gabapentin 300 mg PO BEDTIME 90 caps 1RF M79.7 - Fibromyalgia Coding Level of Care Code Est Pt Level 3 (79045) Diagnoses Fibromyalgia M79.7 Polyarticular osteoarthritis M15.9
--- OUTSIDE RECORDS SUMMARY | 2024-08-25 17:21 | XMS_ITS | Clinical Summary ---
Author Organization [employer] Address [address] [facility] [address] [place] [address] Care Team Providers Care Receptionist Doctor'S Office Name Role Phone Mary Lou Doan TRANSPORTATION ENGINEER Primary Care Provider [phone] Allergies No known active allergies Medications * [...] on exertion Followed by Dr. Santa at [facility], negative stress test and echo Glaucoma 06/06/2022 [...] hx of glaucoma. Dr. Navarro follows Dental: [facility] dental HIV: Neg 2016 Hepatitis: Neg [...] Managed with tramadol 50mg PRN, compliant with REGISTERED MAIL CLERK program Lung nodule 11/09/2021 Overview (06/06/2022): ?? [...] ?? Buproprion 150mg XR ?? Therapist at [facility] Assessment & Plan (12/06/2022 1:59 [...] pt with additional resources for [facility] at [facility], as well as how to reach out to [facility] BH team. Pt was agreeable to intervention and referral to op and psych services at [facility]. Assessment & Plan (10/24/2022 9:33 AM [...] of SI or self harm. Pt has [facility] crisis contact information Assessment & Plan (10/05/2022 [...] of SI or self harm. 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 Date Type Department Care Team Description 08/20/2024 Orders Only [facility] External Provider, [facility] 08/12/2024 Telephone [facility] [address] [place] [address] Mary Lou Doan FNP Med Refill 08/11/2024 Refill [facility] [address] [place] [address] ClevelandMary Lou delarosa, TRANSPORTATION ENGINEER Cervical radiculopathy 08/10/2024 5:00 PM EDT Office Visit [facility] [address] [place] [address] Gina Maurer, MARY Right leg pain (Primary Dx); Chronic right-sided low back pain with right-sided sciatica; Elevated blood pressure reading in office without diagnosis of hypertension 08/10/2024 Telephone [facility] [address] [place] [address] Mary Lou Doan, TRANSPORTATION ENGINEER Medication Question 08/10/2024 Telephone [facility] [address] [place] [address] Mary Lou Doan FNP Med Refill 08/10/2024 Orders Only [facility] [address] [place] [address] Mary Lou Doan, TRANSPORTATION ENGINEER Hyperlipidemia, unspecified hyperlipidemia type (Primary Dx) 08/08/2024 Refill [facility] [address] [place] [address] Mary Lou Doan, TRANSPORTATION ENGINEER Cervical radiculopathy 08/06/2024 Refill [facility] [address] [place] [address] Mary Lou Doan, TRANSPORTATION ENGINEER Cervical radiculopathy 08/05/2024 Telephone [facility] [address] [place] [address] Mary Lou Doan, TRANSPORTATION ENGINEER Results 08/05/2024 Telephone [facility] [address] [place] [address] Mary Lou Doan, TRANSPORTATION ENGINEER Durable Medical Equipment 08/05/2024 Refill [facility] [address] [place] [address] Mary Lou Doan, TRANSPORTATION ENGINEER Hyperlipidemia, unspecified hyperlipidemia type 07/31/2024 Orders Only GENERIC EXTERNAL DATA DEPARTMENT Provider, Generic External Data 07/14/2024 Refill [facility] [address] [place] [address] Mary Lou Doan, TRANSPORTATION ENGINEER Insomnia, unspecified type 07/14/2024 Refill [facility] [address] [place] [address] Mary Lou Doan [facility] 07/10/2024 Refill [facility] [address] [facility] [place] [address] ClevelandMary Lou FNP 07/08/2024 Telephone [facility] [place] [address] [place], [place] 07/06/2024 1:45 PM EDT Office Visit [facility] [address] [facility] [place] [address] Mary Lou Doan [facility] Chronic bilateral low back pain without sciatica (Primary Dx); Other chronic pain; Fibromyalgia; Dietary counseling; Exercise counseling; Class 2 severe obesity due to excess calories with serious comorbidity and body mass index (BMI) of 38.0 to 38.9 in adult ([facility]); Healthcare maintenance; Depressive disorder; Screening for colon cancer; Seasonal allergies; Encounter for immunization 07/06/2024 Travel 07/02/2024 Telephone [facility] [place] [address] Mary Lou Doan FNP Chart prep 07/01/2024 Travel 06/30/2024 Refill [facility] [place] [address] Mary Lou Doan FNP 06/25/2024 Telephone [facility] [place] [address] Mary Lou Doan FNP Medication Question 06/24/2024 Patient Outreach [address] [address] Mary Lou Doan FNP Pre-visit Planning ([facility] screening completed on 03/20/24 ) 06/05/2024 Patient Outreach [facility] [place] [address] Mary Lou Doan FNP Pre-visit Planning (Pre visit planning [facility] ) 06/02/2024 Refill [facility] [place] [address] Mary Lou Doan FNP Fibromyalgia from Last [...] Description 09/07/2024 1:00 PM EDT Office Visit [address] [address] ClevelandMary Lou [facility] [address] [place] [address] 10/06/2024 1:00 PM EDT Procedure Visit [address] [address] Carlos Leonard CNM [address] [place] [address] 10/07/2024 11:15 AM EDT Telemedicine [address] [address] ClevelandMary Lou [facility] [address] [place] [address] Health Maintenance Due Date Last Done Comments [...] 08/01/2021, Additional history exists Mammogram 10/16/2024 10/17/2023, 040 06/2021, 06/10/2020, Additional history exists Depression Monitoring [...] Procedure Name Priority Date/Time Associated Diagnosis Comments US PELVIS TRANSVAGINAL Routine 4:08 PM EDT US RENAL BI Routine 08/20/2024 3:57 PM EDT SED RATE BY MODIFIED WESTERGREN Routine 07/31/2024 [...] Recently Relevant to Health Maintenance Results * US Pelvis Transvaginal (08/20/2024 4:08 PM EDT) Anatomical Region Laterality Modality Pelvis Ultrasound 08/20/2024 4:08 PM EDT Narrative 08/20/2024 6:31 PM EDT ? [facility] ?[address] ?[place] [address] ? Ultrasound Report ? Signed ? Patient: Erazo,Leslie ?MR#: [id number] ?? 92 ? : 1965 ?Acct:[id number] ? Age/Sex: 59 / F ?ADM Date: 08/20/24 ? Loc: HO.US ? Attending Dr: Carie Winters [facility]- ? Ordering Physician: Marc Yusuf MD ?? Date of Service: 08/20/24 ?? Procedure(s): US pelvic and transvaginal ?? Accession Number(s): [id number] ? cc: Mary Lou Doan; Marc Yusuf MD ? EXAMINATION: ?? US PELVIS ? CLINICAL INFORMATION: ?? Follow-up uterine leiomyoma ? COMPARISON: ?? 10/04/2023 ? TECHNIQUE: ?? Ultrasound of the pelvis is performed using both transabdominal and ?? transvaginal transducers along with Doppler. Transvaginal imaging is ?? performed due to inadequate visualization transabdominally. ? FINDINGS: ?? Uterus: ?? The uterus is anteflexed and measures 6.8 x 4.2 x 5.4 cm. ? The endometrial stripe thickness is 7 mm. ? There is trace fluid in the endometrial canal. ? Uterus has a coarse echotexture. ? In the right upper anterior body of the myometrium, hypoechoic area ?? measures 1.1 x 0.9 x 1.4 cm previously 0.5 x 0.5 x 0.5 cm. ?? Lobulated heterogeneous mass at the fundal region of the uterus ?? measures 2.1 x 1.7 x 2.2 cm previously not documented. ? Adnexa: ?? Both ovaries are visualized. There is normal color flow to the adnexa. ?? There is no ovarian torsion. ??There is no pelvic ascites or fluid ?? collection. ? Right ovary measures 1.5 x 0.8 x 1.1 cm. ? Left ovary measures not seen ? US/US pelvic and transvaginal ?? IMPRESSION: ?? Subserosal fundal uterine leiomyoma not shown previously and small ?? intramural leiomyoma in the anterior right uterus body is increased ?? since previously ? Electronically signed by: ??Kenan Mueller MD ??08/20/2024 06:28 PM EDT ?? RP ? Dictated By: ?Kenan Mueller MD ? Signed By: ?<Electronically signed by Kenan Mueller MD in OV> ?08/20/24 1828 ? DD/ 1608 ? TD/TT: 08/20/24 1624 ? Application Consultant: ? Procedure Note Radha Braun - 08/20/[address] [address] Ultrasound Report Signed Patient: Leslie ErazoMR#: [id number] 92 : 1965Acct:[id number] Age/Sex: 59 / FADM Date: 08/20/24 Loc: HO.US Attending Dr: Carie Winters [facility]- Ordering Physician: Marc Yusuf MD Date of Service: 08/20/24 Procedure(s): US pelvic and transvaginal Accession Number(s): [id number] cc: FrankiMary Lou WILLIS; aMrc Yusuf MD EXAMINATION: US PELVIS CLINICAL INFORMATION: Follow-up uterine leiomyoma COMPARISON: 10/04/2023 TECHNIQUE: Ultrasound of the pelvis is performed using both transabdominal and transvaginal transducers along with Doppler. Transvaginal imaging is performed due to inadequate visualization transabdominally. FINDINGS: Uterus: The uterus is anteflexed and measures 6.8 x 4.2 x 5.4 cm. The endometrial stripe thickness is 7 mm. There is trace fluid in the endometrial canal. Uterus has a coarse echotexture. In the right upper anterior body of the myometrium, hypoechoic area measures 1.1 x 0.9 x 1.4 cm previously 0.5 x 0.5 x 0.5 cm. Lobulated heterogeneous mass at the fundal region of the uterus measures 2.1 x 1.7 x 2.2 cm previously not documented. Adnexa: Both ovaries are visualized. There is normal color flow to the adnexa. There is no ovarian torsion. There is no pelvic ascites or fluid collection. Right ovary measures 1.5 x 0.8 x 1.1 cm. Left ovary measures not seen US/US pelvic and transvaginal IMPRESSION: Subserosal fundal uterine leiomyoma not shown previously and small intramural leiomyoma in the anterior right uterus body is increased since previously Electronically signed by: Kenan Mueller MD 08/20/2024 06:28 PM EDT Dictated By: Kenan Mueller MD Signed By: <Electronically signed by Kenan Mueller MD in OV> 08/20/24 1828 DD/ 1608 TD/TT: 08/20/24 1624 Application Consultant: us [facility] External Provider IMG US PROCEDURES Final Result * US RENAL BI (08/20/2024 3:57 PM EDT) Anatomical Region Laterality Modality Abdomen Ultrasound 08/20/2024 3:57 PM EDT Narrative 08/21/2024 7:05 AM EDT ? [facility] ?[address] ?[place] [address] ? Ultrasound Report ? Signed ? Patient: Erazo,Leslie ?MR#: [id number] ?? 92 ? : 1965 ?Acct:[id number] ? Age/Sex: 59 / F ?ADM Date: 08/20/24 ? Loc: HO.US ? Attending Dr: Carie MONTEIRO ? Ordering Physician: Carie Winters ?? Date of Service: 08/20/24 ?? Procedure(s): US renal BI ?? Accession Number(s): [id number] ? cc: Carie Winters; ClevelandMary Lou ? EXAMINATION: ??US KIDNEY BILATERAL ? HISTORY: R35.0 - Frequency of micturition ? TECHNIQUE: Real-time grayscale ultrasound imaging of the kidneys was ?? performed and images were reviewed. ? COMPARISON: Comparison is made with the prior examination dated ?? 04/12/2020. ? FINDINGS: ? Right kidney: ??The right kidney measures 10.1 x 3.8 x 3.7 cm. ??Renal ?? parenchymal echotexture and thickness are normal. ??There are no masses. ?? There is a nonobstructing calculus in the interpolar region measuring ?? 4 x 3 x 4 mm. There is no hydronephrosis. ? Left Kidney: ??The left kidney measures 10.3 x 3.9 x 4.1 cm. ??Renal ?? parenchymal echotexture and thickness are normal. ??There are no masses. ?? No definite stone is seen. There is mild hydronephrosis. ? US/US renal BI ?? IMPRESSION: ? 1. 4 mm nonobstructing right renal calculus. ? 2. Mild left hydronephrosis. No definite left renal calculi are ?? identified. ? Electronically signed by: ??Maycol Rosario MD ??08/21/2024 07:03 AM EDT ?? RP ? Dictated By: ?Maycol Rosario MD ? Signed By: ?<Electronically signed by Maycol Rosario MD in OV> ?08/21/24 0703 ? DD/ 155 ? TD/TT: 08/20/24 1605 ? Application Consultant: ? Procedure Note Donotfortunatointerpreter, Image - 08/21/2024 [place] [address] Ultrasound Report Signed Patient: Leslie ErazoMR#: [id number] 92 : 1965Acct:[id number] Age/Sex: 59 / FADM Date: 08/20/24 Loc: HO.US Attending Dr: Carie MONTEIRO Ordering Physician: Carie Winters Date of Service: 08/20/24 Procedure(s): US renal BI Accession Number(s): [id number] cc: Carie Winters; [facility] EXAMINATION: US KIDNEY BILATERAL HISTORY: R35.0 - Frequency of micturition TECHNIQUE: Real-time grayscale ultrasound imaging of the kidneys was performed and images were reviewed. COMPARISON: Comparison is made with the prior examination dated 04/12/2020. FINDINGS: Right kidney: The right kidney measures 10.1 x 3.8 x 3.7 cm. Renal parenchymal echotexture and thickness are normal. There are no masses. There is a nonobstructing calculus in the interpolar region measuring 4 x 3 x 4 mm. There is no hydronephrosis. Left Kidney: The left kidney measures 10.3 x 3.9 x 4.1 cm. Renal parenchymal echotexture and thickness are normal. There are no masses. No definite stone is seen. There is mild hydronephrosis. US/US renal BI IMPRESSION: 1. 4 mm nonobstructing right renal calculus. 2. Mild left hydronephrosis. No definite left renal calculi are identified. Electronically signed by: Maycol Rosario MD 08/21/2024 07:03 AM EDT Dictated By: Maycol Rosario MD Signed By: <Electronically signed by Maycol Rosario MD in OV> 08/21/24 0703 DD/ 1557 TD/TT: 08/20/24 1605 Application Consultant: [facility] External Provider IMG US PROCEDURES Final Result * Hepatitis A,B,C Profile (07/31/2024 1:55 PM EDT) Pathologist [facility] Hepatitis A IgM Nonreactive Nonreactive [facility] Comment:IgM antibodies to NUNEZ V not detected; does not exclude earlyacute or recovered HAV infection. ~Hepatitis B Surface Antibody REACTIVE Nonreactive [facility] Comment:REACTIVE: > 11.99 mI U/mL Hepatitis B Core Antibody Nonreactive Nonreactive [facility] Hepatitis C Antibody Nonreactive Nonreactive [facility] Comment:Antibodies to HCV no t detected; does not exclude early acuteHCV infection. Hepatitis B Surface Ag Negative Negative [facility] Blood Venous blood specimen / Unknown 07/31/2024 1:55 PM EDT 07/31/2024 1:55 PM EDT [facility] TRANSPORTATION ENGINEER LAB BLOOD ORDERABLES Final Re sult [facility] [address] [place] [phone] * (ABNORMAL) CBC auto differential (07/31/2024 1:55 PM EDT) White Blood Count 7.7 4.8 - 10.8 X10*3/uL [facility] Red Blood Count 4.91 4.20 - 5.50 X10*6/uL [facility] Hemoglobin 14.3 12.0 - 16.0 g/dl [facility] Hematocrit 43.1 37.0 - 47.0 % [facility] Mean Corpuscular Volume 87.8 80.0 - 98.0 fL [facility] Mean Corpuscular Hemoglobin 29.1 27.0 - 33.0 pg [facility] Mean Corpuscular HGB Conc 33.2 31.0 - 35.0 g/dl [facility] Red Cell Distribution Width 13.6 11.0 - 16.0 % [facility] Platelet Count 304 160 - 400 X10*3/uL [facility] Mean Platelet Volume 9.0(L) 9.4 - 12.3 fL [facility] Neutrophils Percent Auto 59.4 45 - 73 % [facility] Imm Gran Pct Auto 0.4 0.0 - 0.4 % [facility] Lymphocytes Percent Auto 32.2 20 - 40 % [facility] Monocytes Percent Auto 6.0 2 - 11 % [facility] Eosinophils Percent Auto 1.6 0 - 4 % [facility] Basophils Percent Auto 0.4 0 - 2 % [facility] NRBC Pct Auto 0.0 0.0 - 0.2 /100WBC [facility] Neutrophils Absolute Auto 4.6 2.0 - 8.3 x10*3/uL [facility] Imm Gran Abs Auto 0.03 0.00 - 0.03 X10*3/uL [facility] Lymphocytes Absolute Auto 2.5 1.2 - 4.9 X10*3/uL [facility] Monocytes Absolute Auto 0.5 0.1 - 1.2 X10*3/uL [facility] Eosinophils Absolute Auto 0.1 0.0 - 0.4 X10*3/uL [facility] Basophils Absolute Auto 0.0 0.0 - 0.2 X10*3/uL [facility] NRBC Abs Auto 0.000 0.0 - 0.012 X10*3/uL [facility] 07/31/2024 1:55 PM EDT 07/31/2024 1:55 PM EDT us Generic External Data Provider LAB BLOOD ORDERAB LES Final Result [facility] [address] [place] [phone] * HIV-1/2 Antigen and Antibodies, Fourth Generation, with Reflexes (07/31/2024 1:55 PM EDT) [facility] HIV AB/AG Nonreactive Nonreactive [facility] Comment:HIV-1 p24 Ag and/or HIV-1/HIV-2 Ab not detected.A test result that is nonreactive does not exclude thepossibility of exposure to or infection with HIV-1 and/orHIV-2. Nonreactive results in this assay for individualswith prior exposure to HIV-1 and/or HIV-2 may be due toantigen and antibody levels that are below the limit ofdetection of this assay.The Bouf HIV Ag/Ab Combo assay result andsupplemental assay results should be interpreted inconjunction with the patient's clinical presentation,history and other laboratory results. If the results areinconsistent with clinical evidence, additional testing issuggested to confirm the result. Blood Venous blood specimen / Unknown 07/31/2024 1:55 PM EDT 07/31/2024 1:55 PM EDT [facility] LAB BLOOD ORDERABLES Final Re sult Performing Organization Address City/[facility]/ZIP Co de Phone Number [facility] [address] [place] [phone] * Sed Rate by Modified Xochitl (07/31/2024 1:55 PM EDT) [facility] Erythrocyte Sedimentation Rate 17 0 - 20 MM/HR [facility] Comment:Patients with polycy themia and many hemoglobin abnormalitiesmay have depressed sed rates whereas patients with anemiamay have elevated sed rates. 07/31/2024 1:55 PM EDT 07/31/2024 1:55 PM EDT [facility] [place] Data Provider LAB BLOOD ORDERAB LES Final Result Performing Organization Address [facility]/ZIP Co de Phone Number [facility] [address] [place] [phone] * (ABNORMAL) C-reactive Protein (07/31/2024 1:55 PM EDT) C Reactive Protein 0.92(H) < or = 0.50 mg/dL [facility] 07/31/2024 1:55 PM EDT 07/31/2024 1:55 PM EDT Generic External Data Provider LAB BLOOD ORDERAB LES Final Result Performing Organization Address [facility]/ZIP Co de Phone Number [facility] [address] [place] [phone] * (ABNORMAL) Hemoglobin A1c (07/31/2024 1:55 PM EDT) Hemoglobin A1c 6.1(H) <6.0 % [facility] Comment:Hemoglobin A1C Refer ence Range Adults: 4.8 - 6.0 % Non diabetic: < 6.0 % Goal: < 7.0 %Additional Action Suggested: > 8.0 %Note: Hemoglobin A1c results are invalid for patients with abnormal amounts of HbF. Blood transfusions may impact the HbA1c concentration in the patient sample. Estimated Average Glucose 128 mg/dL [facility] Comment:eAG = Estimated ave rage glucose which is %A1C expressed asaverage glucose, using the formula of the [id number] Glucose study (ADAG), Diabetes Care, Vol.31,#8,Oct. 2007 Blood Venous blood specimen / Unknown 07/31/2024 1:55 PM EDT 07/31/2024 1:55 PM EDT [facility] TRANSPORTATION ENGINEER LAB BLOOD ORDERABLES Final Re sult Performing Organization Address City/[facility]/ZIP Co de Phone Number [facility] [address] [place] [phone] * (ABNORMAL) Lipid Panel, Standard (07/31/2024 1:55 PM EDT) Triglycerides 176(H) <150 mg/dL [facility] Comment:Desirable Triglyceri de: less than 150 mg/dLBorderline High Triglyceride 150-199 mg/dLHigh Triglyceride: 200-499 mg/dLVery High Triglyceride: greater than or equal to 5OO mg/dL Cholesterol 242(H) <200 mg/dL [facility] Comment:Desirable Cholestero l: less than 200 mg/dLBorderline High Cholesterol: 200-239 mg/dLHigh Cholesterol: greater than 239 mg/dL LDL Cholesterol Calculated 167(H) <100 mg/dL [facility] Comment:Desirable LDL: less than 100 mg/dLNear Optimal/Above Optimal LDL: 110- 129 mg/dLBorderline High LDL: 130-159 mg/dLHigh LDL: 160-189 mg/dLVery High LDL: greater than or equal to 190 mg/dL HDL Cholesterol 40(L) >40 mg/dL [facility] Comment:Desirable HDL: great er than 40 mg/dL Note: This HDL assay may give artificially low results in patients with liver disease. Blood Venous blood specimen / Unknown 07/31/2024 1:55 PM EDT 07/31/2024 1:55 PM EDT [facility] LAB BLOOD ORDERABLES Final Re sult [facility] [address] [place], [place] [phone] * (ABNORMAL) Comprehensive Metabolic Panel (07/31/2024 1:55 PM EDT) Sodium 144 135 - 145 mmol/L [facility] Potassium 4.3 3.3 - 5.1 mmol/L [facility] Chloride 108 96 - 108 mmol/L [facility] Carbon Dioxide 27 22 - 29 mmol/L [facility] Anion Gap 13 12 - 20 [facility] Urea Nitrogen (BUN) 18(H) 9 - 16 mg/dL [facility] Creatinine, Serum 0.97 0.5 - 1.4 mg/dL [facility] Estimated Glomerular Filt Rate 59 [facility] Comment:Chronic Kidney Disea se: Estimated GFR < 60 mL/min/1.29n1Fvjysf Kidney Disease: Estimated GFR < 15 mL/min/1.73m2 Glucose 78 60 - 115 mg/dL [facility] Calcium 10.0 8.4 - 10.2 mg/dL [facility] Bilirubin, Total 0.5 0.0 - 1.0 mg/dL [facility] Aspartate Amino Transferase 26 5 - 31 U/L [facility] Alanine Aminotransferase 40(H) 0 - 31 U/L [facility] Total Protein 7.8 6.5 - 8.0 g/dL [facility] Albumin Level 4.3 3.5 - 5.0 g/dL [facility] Alkaline Phosphatase 112 39 - 117 U/L [facility] Blood Venous blood specimen / Unknown 07/31/2024 1:55 PM EDT 07/31/2024 1:55 PM EDT [facility] TRANSPORTATION ENGINEER LAB BLOOD ORDERABLES Final Re sult [facility] [address] [place] [phone] * BI Mammogram Screening Tomosynthesis Bilateral (10/17/2023 1:50 PM EDT) Anatomical Region Laterality Modality Breast Bilateral Mammography 10/17/2023 1:50 PM EDT Narrative 11/06/2023 9:40 AM EDT ? [facility] ? [address] ?[place] [address] ? Mammography Report ? Signed ? Patient: Erazo,Leslie ?MR#: [id number] ?? 92 ? : 1965 ?Acct:[id number] ? Age/Sex: 58 / F ?ADM Date: //24 ? Loc: HO.MAMMO ? Attending Dr: Carlos Leonard CNM ? Ordering Physician: CARLOS LEONARD CNM ?Results: 1 ?? Negative ? Date of Service: 10/17/23 ?Follow Up: 1 Year From Orig ?? inal Mammogram ? Procedure(s): MM tomosynthesis screening BI ?? Accession Number(s): [id number] ? cc: CARLOS LEONARD CNM; Mary Lou Doan TRANSPORTATION ENGINEER ? EXAMINATION: ?? MM SCREENING DIGITAL BREAST [...] DD/ 1350 ? TD/TT: 10/17/23 1405 ? Application Consultant: ? Procedure Note Donotuseinterpreter, Image - 11/06/2023 [facility] [address] [place] [address] Mammography Report Signed Patient: Leslie ErazoMR#: [id number] 92 : 1965Acct:[id number] Age/Sex: 58 / FADM Date: 10/17/23 Loc: HO.MAMMO Attending Dr: Carlos Leonard CNM Ordering Physician: CARLOS LEONARDesults: 1 Negative Date of Service: 10/17/23Follow Up: 1 Year From Orig inal Mammogram Procedure(s): MM tomosynthesis screening BI Accession Number(s): [id number] cc: CARLOS LEONARD CNM; [facility] TRANSPORTATION ENGINEER EXAMINATION: MM SCREENING DIGITAL BREAST TOMOSYNTHESIS, BILATERAL [...] Kingston Hathaway MD 11/06/2023 09:37 AM EDT RP Dictated By: Kingston Hathaway MD Signed By: <Electronically signed by Kingston Hathaway MD in OV> 11/06/23 0937 DD/ 1350 TD/TT: 10/17/23 1405 Application Consultant: Carlos Leonard CN IMG BI PROCEDURES Edited Result - Final * ThinPrep Imaging Pap and HPV mRNA E6/E7 (09/30/2023 2:12 PM EDT) HPV nRNA E6/E7 Not Detected Not Detected [facility] Comment:Methodology: Transcr iption-Mediated AmplificationThis assay detects E6/E7 viral messenger RNA (mRNA) from 14high-risk HPV types (16,18,31,33,35,39,45,51,52,56,58,59,66,68).Cervical sources are required for HPV testing.If a vaginal source from a patient who has had atotal hysterectomy with removal of cervix wassubmitted, please contact the testing laboratoryfor alternative testing options.For additional information, please refer [email or web address].[employer]/faq/LMV037c5(This link if provided for information/educational purposes only.)THIS TEST WAS PERFORMED AT:[facility] [place] [id number] LORA MD SOURCE: SEE NOTE [facility] Comment:None given Report Status: TNP [facility] Clinical Information: SEE NOTE [facility] Comment:None given LMP: SEE NOTE [facility] Comment:NONE GIVEN Prev. PAP: SEE NOTE [facility] Comment:NONE GIVEN Prev. BX: SEE NOTE [facility] Comment:NONE GIVEN Statement Of Adequacy: SEE NOTE [facility] Comment:Satisfactory for terry luation.Endocervical/transformation zone componentpresent. General Categorization: [facility] Interpretation/Result: SEE NOTE [facility] Comment:Cytology Results: Ne gative for intraepitheliallesion or malignancy. Cytology Comment SEE NOTE [facility] Comment:This Pap test has be en evaluated with computerassisted technology. [employer]: SEE NOTE [facility] Comment:CMG, CT(ASCP)CT scre ening location: [place] [address] Review [employer]: [facility] Pathologist [facility] PAP Infection [facility] See Note SEE NOTE [facility] Comment:EXPLANATORY NOTE:The Pap is a screening test for cervical cancer. It isnot a diagnostic test and is subject to false negativeand false positive results. It is most reliable when asatisfactory sample, regularly obtained, is submittedwith relevant clinical findings and history, and whenthe Pap result is evaluated along with historic andcurrent clinical information. 09/30/2023 2:12 PM EDT 09/30/2023 7:32 PM EDT Narrative [facility] - 10/04/2023 12:37 PM EDT SEE SCANNED RESULTS IN EMR us Carlos [facility] PATHOLOGY ORDERABLES Final Result [facility] [address] [place] [address] [phone] from Last 3 Months or Most Recently Relevant to Health Maintenance Insurance [facility] ONE CARE < 65 DENTAL - [facility] Care Teams Receptionist Doctor'S Office Relationship Specialty Start Date End Date Mary Lou Doan FNP [address] [place] [id number] PCP - General Family Medicine 11/03/21
== END 2024-08-25 15:36 | disposition home or self-care (01) ==
PROVIDERS: PCP Registered Nurse; Visit Provider Student in an Organized Health Care Education/Training Program
DX: M79.7 Fibromyalgia (principal); M15.9 Polyosteoarthritis, unspecified
CPT/HCPCS: 99213

== ENCOUNTER → 2024-08-25 14:55 | Outpatient (BNVA) | payer OTHER, SELFPAY | PROVIDERS: PCP Registered Nurse; Visit Provider Student in an Organized Health Care Education/Training Program | DX: M79.7 Fibromyalgia (principal); M15.9 Polyosteoarthritis, unspecified; M79.661 Pain in right lower leg | CPT/HCPCS: 99212 ==

== ENCOUNTER 2024-08-27 15:28 | Outpatient (REF) | payer OTHER, SELFPAY ==
--- NOTE | ~2024-08-27 | XR_ITS ---
EXAMINATION: XR LUMBOSACRAL SPINE CLINICAL INFORMATION: M47.816 - Spondylosis without myelopathy or radiculopathy, lumbar region COMPARISON: 06/27/2018. TECHNIQUE: 6 views of the lumbar spine, inclusive of bilateral oblique views, were obtained. FINDINGS: There is no significant scoliosis. There is a normal lordosis. There is no subluxation. There are no fractures or compression deformities. No suspicious bone lesions. There is mild multilevel disc degeneration present most significant L5-S1. Normal facet alignment bilaterally. Early facet degeneration L4-S1. Oblique views demonstrate no evidence of pars defects. Mild degenerative changes in the bilateral SI joints. The sacrum is intact. No soft tissue abnormalities. XR/XR lumbar spine 4V min IMPRESSION: No acute lumbar abnormality. Mild degenerative spondylosis. Electronically signed by: Kingston Hathaway MD 08/27/2024 04:11 PM EDT
--- OUTSIDE RECORDS SUMMARY | 2024-08-27 16:41 | XMS_ITS | Clinical Summary ---
Author Organization [employer] Address [address] [facility] [address] [place] [address] Care Team Providers Care Photography Teacher Name Role Phone Mary Lou Doan SUPERVISOR ASSEMBLY DEPARTMENT Primary Care Provider [phone] Allergies No known active allergies Medications * [...] with regular cardiac rhythm 023 Overview (10/05/2022): Hx of palpitations, SOB on exertion Followed by Dr. Santa at [facility], negative stress test and echo Glaucoma 06/06/2022 Overview (06/06/2022): Followed by opthamology, Dr. Navarro No current medications Fibromyalgia 06/06/2022 Overview (06/06/2022): [...] hx of glaucoma. Dr. Navarro follows Dental: [facility] dental HIV: Neg 2016 Hepatitis: Neg 04/2021 Screening Labs: A1c: 6.2 04/2021, Family history of breast cancer 06/06/2022 Overview (06/06/2022): Daughter from breast cancer age 29 Referred for genetic screening 01/2022 Bilateral chronic knee pain 06/06/2022 Overview (06/06/2022): Long hx of chronic bilateral knee pain. 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 Pt was agreeable to intervention and referral to op and psych services at [facility]. Assessment & Plan (10/24/2022 9:33 AM EDT): Patient declines buproprion increase at this time. Will continue at current dose Continue duloxetine 60mg daily Continue clonazepam 0.5mg once daily (started by prior outside provider) Ambien PRN for sleep. Plan to discuss insomnia at follow up. Contact HC if sx worsen or experiencing thoughts of SI or self harm. Pt has [facility] crisis contact information Assessment & Plan (10/05/2022 3:19 PM EDT): In office BE during OV with Dr. Mukherjee. Pt referred to [facility] and provided with [facility] contact information for emergency care. STOP buspar START buproprion 150mg XR. Reviewed administration, risks, side effects Continue duloxetine 60mg Contact HC if sx worsen or experiencing thoughts of SI or self harm. 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 Date Type Department Care Team Description 08/27/2024 Orders Only [facility] External Provider, [facility] 08/20/2024 Orders Only [facility] External Provider, [facility] 08/12/2024 Telephone [facility] [address] [place] [address] Mary Lou Doan FNP Med Refill 08/11/2024 Refill [facility] [address] [place] [address] Mary Lou Doan FNP Cervical radiculopathy 08/10/2024 5:00 PM EDT Office Visit [facility] [address] [place] [address] Gina Maurer NP Right leg pain (Primary Dx); Chronic right-sided low back pain with right-sided sciatica; Elevated blood pressure reading in office without diagnosis of hypertension 08/10/2024 Telephone [facility] [address] [place] [address] Mary Lou Doan, SUPERVISOR [employer]SEM[employer]Y DEPARTMENT Medication Question 08/10/2024 Telephone [facility] [address] [place] [address] Mary Lou Doan FNP Med Refill 08/10/2024 Orders Only [facility] [address] [place] [address] Mary Lou Doan, LAZARO Hyperlipidemia, unspecified hyperlipidemia type (Primary Dx) 08/08/2024 Refill [facility] [address] [place] [address] Mary Lou Doan, SUPERVISOR ASSEMBLY DEPARTMENT Cervical radiculopathy 08/06/2024 Refill [facility] [address] [place] [address] Mary Lou Doan, SUPERVISOR ASSEMBLY DEPARTMENT Cervical radiculopathy 08/05/2024 Telephone [facility] [address] [place] [address] Mary Lou Doan, SUPERVISOR ASSEMBLY DEPARTMENT Results 08/05/2024 Telephone [facility] [address] [place] [address] Mary Lou Doan, LAZARO Durable Medical Equipment 08/05/2024 Refill [facility] [address] [place] [address] Mary Lou Doan, LAZARO Hyperlipidemia, unspecified hyperlipidemia type 07/31/2024 Orders Only GENERIC EXTERNAL DATA DEPARTMENT Provider, Generic External Data 07/14/2024 Refill [facility] [address] [place] [address] Mary Lou Doan, SUPERVISOR ASSEMBLY DEPARTMENT Insomnia, unspecified type 07/14/2024 Refill [facility] [address] [place] [address] Mary Lou Doan, SUPERVISOR [employer]SEMBLY DEPARTMENT 07/10/2024 Refill [facility] [address] [place] [address] Mary Lou Doan FNP 07/08/2024 Telephone [facility] [place] [address] Hannah Haywood PEDRO 07/06/2024 1:45 PM EDT Office Visit [facility] [place] [address] Mary Lou Doan FNP Chronic bilateral low back pain without sciatica (Primary Dx); Other chronic pain; Fibromyalgia; Dietary counseling; Exercise counseling; Class 2 severe obesity due to excess calories with serious comorbidity and body mass index (BMI) of 38.0 to 38.9 in adult ([facility]); Healthcare maintenance; Depressive disorder; Screening for colon cancer; Seasonal allergies; Encounter for immunization 07/06/2024 Travel 07/02/2024 Telephone [facility] [place] [address] Mary Lou Doan FNP Chart prep 07/01/2024 Travel 06/30/2024 Refill [facility] [place] [place] [address] Mary Lou Doan FNP 06/25/2024 Telephone [facility] [place] [address] Mary Lou Doan FNP Medication Question 06/24/2024 Patient Outreach [facility] [place] [address] Mary Lou Doan FNP Pre-visit Planning ([facility] screening completed on 03/20/24 ) 06/05/2024 Patient Outreach [facility] [place] [address] Mary Lou Doan FNP Pre-visit Planning (Pre visit planning LVM ) 06/02/2024 Refill [facility] [place] [address] Mary Luo Doan FNP Fibromyalgia from Last 3 Months [...] 78 08/10/2024 5:20 PM EDT Temperature 37.1 C (98.8 F) 08/10/2024 5:20 PM EDT Respiratory Rate 20 08/10/2024 5:20 PM EDT [...] Description 09/07/2024 1:00 PM EDT Office Visit [address] [address] 10/06/2024 1:00 PM EDT Procedure Visit [address] [address] Carlos Leonard, CNLaquita [address] [place] [address] 10/07/2024 11:15 AM EDT Telemedicine [facility] [address] [place] [address] [address] Health Maintenance Due Date Last Done Comments [...] Procedure Name Priority Date/Time Associated Diagnosis Comments XR LUMBAR SPINE COMPLETE 4+ VIEWS Routine 08/27/2024 3:40 PM EDT US PELVIS TRANSVAGINAL Routine 4:08 PM EDT [...] (BMI) of 38.0 to 38.9 in adult ([facility]) HEMOGLOBIN A1C Routine 07/31/2024 1:55 PM EDT Class 2 severe obesity due to excess calories with serious comorbidity and body mass index (BMI) of 38.0 to 38.9 in adult ([facility]) BI MAMMOGRAM SCREENING TOMOSYNTHESIS BILATERAL Urgent 10/17/2023 1:50 PM EDT Breast cancer screening by mammogram THINPREP IMAGING PAP AND HPV MRNA E6/E7 Routine 09/30/2023 2:12 PM EDT from Last 3 Months or Most Recently Relevant to Health Maintenance Results * XR Lumbar Spine Complete 4+ Views (08/27/2024 3:40 PM EDT) Anatomical Region Laterality Modality Spine, L-spine Radiographic Josseline ging 08/27/2024 3:40 PM EDT Narrative 08/27/2024 4:15 PM EDT [place] [address] XRay Report Signed Patient: Leslie Erazo MR#: [id number] 92 : 1965 Acct:[id number] Age/Sex: 59 / F ADM Date: 08/27/24 Loc: JAYA Attending Dr: Isabel Chun APRN, CNP Ordering Physician: Isabel Chun APRN, CNP Date of Service: 08/27/24 Procedure(s): XR lumbar spine 4V min Accession Number(s): [id number] cc: Isabel Chun APRN, YESSICA; [facility] EXAMINATION: XR LUMBOSACRAL SPINE CLINICAL INFORMATION: M47.816 - Spondylosis without myelopathy or radiculopathy, lumbar region COMPARISON: 06/27/2018. TECHNIQUE: 6 views of the lumbar spine, inclusive of bilateral oblique views, were obtained. FINDINGS: There is no significant scoliosis. There is a normal lordosis. There is no subluxation. There are no fractures or compression deformities. No suspicious bone lesions. There is mild multilevel disc degeneration present most significant L5-S1. Normal facet alignment bilaterally. Early facet degeneration L4-S1. Oblique views demonstrate no evidence of pars defects. Mild degenerative changes in the bilateral SI joints. The sacrum is intact. No soft tissue abnormalities. XR/XR lumbar spine 4V min IMPRESSION: No acute lumbar abnormality. Mild degenerative spondylosis. Electronically signed by: Kingston Hathaway MD 08/27/2024 04:11 PM EDT RP Dictated By: Kingston Hathaway MD Signed By: <Electronically signed by Kingston Hathaway MD in OV> 08/27/24 1611 DD/ 1540 TD/TT: 08/27/24 1557 Director Financial Services: Procedure Note Donotuseinterpreter, Image - 08/27/[address] [address] XRay Report Signed Patient: Leslie ErazoMR#: [id number] 92 : 1965Acct:[id number] Age/Sex: 59 / FADM Date: 08/27/24 Loc: JAYA Attending Dr: Isabel Chun APRN, CNP Ordering Physician: Isabel Chun APRN, CNP Date of Service: 08/27/24 Procedure(s): XR lumbar spine 4V min Accession Number(s): [id number] cc: Isabel Chun APRN, CNP; [facility] EXAMINATION: XR LUMBOSACRAL SPINE CLINICAL INFORMATION: M47.816 - Spondylosis without myelopathy or radiculopathy, lumbar region COMPARISON: 06/27/2018. TECHNIQUE: 6 views of the lumbar spine, inclusive of bilateral oblique views, were obtained. FINDINGS: There is no significant scoliosis. There is a normal lordosis. There is no subluxation. There are no fractures or compression deformities. No suspicious bone lesions. There is mild multilevel disc degeneration present most significant L5-S1. Normal facet alignment bilaterally. Early facet degeneration L4-S1. Oblique views demonstrate no evidence of pars defects. Mild degenerative changes in the bilateral SI joints. The sacrum is intact. No soft tissue abnormalities. XR/XR lumbar spine 4V min IMPRESSION: No acute lumbar abnormality. Mild degenerative spondylosis. Electronically signed by: Kingston Hathaway MD 08/27/2024 04:11 PM EDT RP Dictated By: Kingston Hathaway MD Signed By: <Electronically signed by Kingston Hathaway MD in OV> 08/27/24 1611 DD/ 1540 TD/TT: 08/27/24 1557 Director Financial Services: [facility] External Provider IMG XR PROCEDURES Final Result * US Pelvis Transvaginal (08/20/2024 4:08 PM EDT) Anatomical Region Laterality Modality Pelvis Ultrasound 08/20/2024 4:08 PM EDT Narrative 08/20/2024 6:31 PM EDT [place] [address] Ultrasound Report Signed Patient: Leslie Erazo MR#: [id number] 92 : 1965 Acct:[id number] Age/Sex: 59 / F ADM Date: 08/20/24 Loc: .US Attending Dr: Carie WILLIS- Ordering Physician: Marc Yusuf MD Date of Service: 08/20/24 Procedure(s): US pelvic and transvaginal Accession Number(s): [id number] cc: Mary Lou Doan; Marc Yusuf MD EXAMINATION: US PELVIS CLINICAL INFORMATION: [...] Kenan Mueller MD 08/20/2024 06:28 PM EDT RP Dictated By: Kenan Mueller MD Signed By: <Electronically signed by Kenan Mueller MD in OV> 08/20/24 1828 DD/ 1608 TD/TT: 08/20/24 1624 Director Financial Services: Procedure Note Donotuseinterpreter, Image - 08/20/2024 [place] [address] Ultrasound Report Signed Patient: Leslie ErazoMR#: [id number] 92 : 1965Acct:[id number] Age/Sex: 59 / FADM Date: 08/20/24 Loc: HO.US Attending Dr: Carie WILLIS- Ordering Physician: Marc Yusuf MD Date of Service: 08/20/24 Procedure(s): US pelvic and transvaginal Accession Number(s): [id number] cc: Mary Lou Doan; Marc Yusuf MD EXAMINATION: US PELVIS CLINICAL INFORMATION: [...] 08/20/24 1828 DD/ 1608 TD/TT: 08/20/24 1624 Director Financial Services: us [facility] External Provider IMG US PROCEDURES Final Result * US RENAL BI (08/20/2024 3:57 PM EDT) Anatomical Region Laterality Modality Abdomen Ultrasound 08/20/2024 3:57 PM EDT Narrative 08/21/2024 7:05 AM EDT [address] [address] Ultrasound Report Signed Patient: Leslie Erazo MR#: [id number] 92 : 1965 Acct:[id number] Age/Sex: 59 / F ADM Date: 08/20/24 Loc: HO.US Attending Dr: Carie MONTEIRO Ordering Physician: Carie Winters Date of Service: 08/20/24 Procedure(s): US renal BI Accession Number(s): [id number] cc: Carie Winters [facility]; [facility] EXAMINATION: US KIDNEY BILATERAL HISTORY: R35.0 - [...] 08/21/24 0703 DD/ 1557 TD/TT: 08/20/24 1605 Director Financial Services: Procedure Note Donotuseinterpreter, Image - 08/21/2024 [place] [address] Ultrasound Report Signed Patient: Leslie ErazoMR#: [id number] 92 : 1965Acct:[id number] Age/Sex: 59 / FADM Date: 08/20/24 Loc: .US Attending Dr: Carie Winters [facility] Ordering Physician: Carie Winters Date of Service: 08/20/24 Procedure(s): US renal BI Accession Number(s): [id number] cc: Carie Winters [facility]-; Mary Lou Doan SUPERVISOR ASSEMBLY DEPARTMENT EXAMINATION: US KIDNEY BILATERAL HISTORY: R35.0 - [...] Maycol Rosario MD 08/21/2024 07:03 AM EDT RP Dictated By: Maycol Rosario MD Signed By: <Electronically signed by Maycol Rosario MD in OV> 08/21/24 0703 DD/ 1557 TD/TT: 08/20/24 1605 Director Financial Services: us [facility] External Provider IMG US PROCEDURES Final Result * Hepatitis A,B,C Profile (07/31/2024 1:55 PM EDT) Hepatitis A IgM Nonreactive Nonreactive [facility] Comment:IgM antibodies to NUNEZ V not detected; does not exclude earlyacute or recovered HAV infection. ~Hepatitis B Surface Antibody REACTIVE Nonreactive [facility] Comment:REACTIVE: > 11.99 mI U/mL Hepatitis B Core Antibody Nonreactive Nonreactive [facility] Hepatitis C Antibody Nonreactive Nonreactive [facility] Comment:Antibodies to HCV no t detected; does not exclude early acuteHCV infection. Hepatitis B Surface Ag Negative Negative [facility] Blood Venous blood specimen / Unknown 07/31/2024 1:55 PM EDT 07/31/2024 1:55 PM EDT [facility] LAB BLOOD ORDERABLES Final Re sult [facility] [address] [place] [address] [phone] * (ABNORMAL) CBC auto differential (07/31/2024 1:55 PM EDT) White Blood Count 7.7 4.8 - 10.8 X10*3/uL [facility] Red Blood Count 4.91 4.20 - 5.50 X10*6/uL [facility] Hemoglobin 14.3 12.0 - 16.0 g/dl [facility] Hematocrit 43.1 37.0 - 47.0 % [facility] Mean Corpuscular Volume 87.8 80.0 - 98.0 fL [facility] Mean Corpuscular Hemoglobin 29.1 27.0 - 33.0 pg [facility] Mean Corpuscular HGB Conc 33.2 31.0 - 35.0 g/dl [facility] Red Cell Distribution Width 13.6 11.0 - 16.0 % [facility] Platelet Count 304 160 - 400 X10*3/uL [facility] Mean Platelet Volume 9.0(L) 9.4 - 12.3 fL [facility] Neutrophils Percent Auto 59.4 45 - 73 % [facility] Imm Gran Pct Auto 0.4 0.0 - 0.4 % [facility] Lymphocytes Percent Auto 32.2 20 - 40 % [facility] Monocytes Percent Auto 6.0 2 - 11 % [facility] Eosinophils Percent Auto 1.6 0 - 4 % [facility] Basophils Percent Auto 0.4 0 - 2 % [facility] NRBC Pct Auto 0.0 0.0 - 0.2 /100WBC [facility] Neutrophils Absolute Auto 4.6 2.0 - 8.3 x10*3/uL [facility] Imm Gran Abs Auto 0.03 0.00 - 0.03 X10*3/uL [facility] Lymphocytes Absolute Auto 2.5 1.2 - 4.9 X10*3/uL [facility] Monocytes Absolute Auto 0.5 0.1 - 1.2 X10*3/uL [facility] Eosinophils Absolute Auto 0.1 0.0 - 0.4 X10*3/uL [facility] Basophils Absolute Auto 0.0 0.0 - 0.2 X10*3/uL [facility] NRBC Abs Auto 0.000 0.0 - 0.012 X10*3/uL [facility] 07/31/2024 1:55 PM EDT 07/31/2024 1:55 PM EDT us Generic External Data Provider LAB BLOOD ORDERAB LES Final Result [facility] [address] [place] [address] [phone] * HIV-1/2 Antigen and Antibodies, Fourth Generation, with Reflexes (07/31/2024 1:55 PM EDT) Pathologist [facility] HIV AB/AG Nonreactive Nonreactive [facility] Comment:HIV-1 p24 Ag and/or HIV-1/HIV-2 Ab not detected.A test result that is nonreactive does not exclude thepossibility of exposure to or infection with HIV-1 and/orHIV-2. Nonreactive results in this assay for individualswith prior exposure to HIV-1 and/or HIV-2 may be due toantigen and antibody levels that are below the limit ofdetection of this assay.The Erly HIV Ag/Ab Combo assay result andsupplemental assay results should be interpreted inconjunction with the patient's clinical presentation,history and other laboratory results. If the results areinconsistent with clinical evidence, additional testing issuggested to confirm the result. Blood Venous blood specimen / Unknown 07/31/2024 1:55 PM EDT 07/31/2024 1:55 PM EDT [facility] SUPERVISOR [employer]SEMBL[employer] DEPARTMENT LAB BLOOD ORDERABLES Final Re sult Performing Organization Address [facility] Co de Phone Number [facility] [address] [place] [address] [phone] * Sed Rate by Modified Neelergren (07/31/2024 1:55 PM EDT) Erythrocyte Sedimentation Rate 17 0 - 20 MM/HR [facility] Comment:Patients with polycy themia and many hemoglobin abnormalitiesmay have depressed sed rates whereas patients with anemiamay have elevated sed rates. 07/31/2024 1:55 PM EDT 07/31/2024 1:55 PM EDT Generic External Data Provider LAB BLOOD ORDERAB LES Final Result Performing Organization Address [facility] Co de Phone Number [facility] [address] [place] [address] [phone] * (ABNORMAL) C-reactive Protein (07/31/2024 1:55 PM EDT) Pathologist [facility] C Reactive Protein 0.92(H) < or = 0.50 mg/dL [facility] 07/31/2024 1:55 PM EDT 07/31/2024 1:55 PM EDT Generic External Data Provider LAB BLOOD ORDERAB LES Final Result Performing Organization Address [facility] Co de Phone Number [facility] [address] [place] [address] [phone] * (ABNORMAL) Hemoglobin A1c (07/31/2024 1:55 PM EDT) Hemoglobin A1c 6.1(H) <6.0 % [facility] Comment:Hemoglobin A1C Refer ence Range Adults: 4.8 - 6.0 % Non diabetic: < 6.0 % Goal: < 7.0 %Additional Action Suggested: > 8.0 %Note: Hemoglobin A1c results are invalid for patients with abnormal amounts of HbF. Blood transfusions may impact the HbA1c concentration in the patient sample. Estimated Average Glucose 128 mg/dL [facility] Comment:eAG = Estimated ave rage glucose which is %A1C expressed asaverage glucose, using the formula of the U0H-ZukenhqKyfuczf Glucose study (ADAG), Diabetes Care, Vol.31,#8,2007 Blood Venous blood specimen / Unknown 07/31/2024 1:55 PM EDT 07/31/2024 1:55 PM EDT [facility] LAB BLOOD ORDERABLES Final Re sult [facility] [address] [place] [address] [phone] * (ABNORMAL) Lipid Panel, Standard (07/31/2024 1:55 PM EDT) Triglycerides 176(H) <150 mg/dL [facility] Comment:Desirable Triglyceri de: less than 150 mg/dLBorderline High Triglyceride 150-199 mg/dLHigh Triglyceride: 200-499 mg/dLVery High Triglyceride: greater than or equal to 5OO mg/dL Cholesterol 242(H) <200 mg/dL [facility] Comment:Desirable Cholestero l: less than 200 mg/dLBorderline High Cholesterol: 200-239 mg/dLHigh Cholesterol: greater than 239 mg/dL LDL Cholesterol Calculated 167(H) <100 mg/dL [facility] Comment:Desirable LDL: less than 100 mg/dLNear Optimal/Above Optimal LDL: 110- 129 mg/dLBorderline High LDL: 130-159 mg/dLHigh LDL: 160-189 mg/dLVery High LDL: greater than or equal to 190 mg/dL HDL Cholesterol 40(L) >40 mg/dL [facility] Comment:Desirable HDL: great er than 40 mg/dL Note: This HDL assay may give artificially low results in patients with liver disease. Blood Venous blood specimen / Unknown 07/31/2024 1:55 PM EDT 07/31/2024 1:55 PM EDT [facility] LAB BLOOD ORDERABLES Final Re sult [facility] [address] [place] [address] [phone] * (ABNORMAL) Comprehensive Metabolic Panel (07/31/2024 1:55 PM EDT) Sodium 144 135 - 145 mmol/L [facility] Potassium 4.3 3.3 - 5.1 mmol/L [facility] Chloride 108 96 - 108 mmol/L [facility] Carbon Dioxide 27 22 - 29 mmol/L [facility] Anion Gap 13 12 - 20 [facility] Urea Nitrogen (BUN) 18(H) 9 - 16 mg/dL [facility] Creatinine, Serum 0.97 0.5 - 1.4 mg/dL [facility] Estimated Glomerular Filt Rate 59 [facility] Comment:Chronic Kidney Disea se: Estimated GFR < 60 mL/min/1.05k7Suhifz Kidney Disease: Estimated GFR < 15 mL/min/1.73m2 Glucose 78 60 - 115 mg/dL [facility] Calcium 10.0 8.4 - 10.2 mg/dL [facility] Bilirubin, Total 0.5 0.0 - 1.0 mg/dL [facility] Aspartate Amino Transferase 26 5 - 31 U/L [facility] Alanine Aminotransferase 40(H) 0 - 31 U/L [facility] Total Protein 7.8 6.5 - 8.0 g/dL [facility] Albumin Level 4.3 3.5 - 5.0 g/dL [facility] Alkaline Phosphatase 112 39 - 117 U/L [facility] Blood Venous blood specimen / Unknown 07/31/2024 1:55 PM EDT 07/31/2024 1:55 PM EDT [facility] LAB BLOOD ORDERABLES Final Re sult [facility] [address] [place] [address] [phone] * BI Mammogram Screening Tomosynthesis Bilateral (10/17/2023 1:50 PM EDT) Anatomical Region Laterality Modality Breast Bilateral Mammography 10/17/2023 1:50 PM EDT Narrative 11/06/2023 9:40 AM EDT [facility] [address] [place] [address] Mammography Report Signed Patient: Leslie Erazo MR#: [id number] 92 : 1965 Acct:[id number] Age/Sex: 58 / F ADM Date: 10/17/23 Loc: HO.MAMMO Attending Dr: Carlos Leonard CNM Ordering Physician: CARLOS LEONARD CNM Results: 1 Negative Date of Service: 10/17/23 Follow Up: 1 Year From [facility] Mammogram Procedure(s): MM tomosynthesis screening BI Accession Number(s): [id number] cc: CARLOS LEONARD CNM; [place] [facility] SUPERVISOR ASSEMBLY DEPARTMENT EXAMINATION: MM SCREENING DIGITAL BREAST TOMOSYNTHESIS, BILATERAL [...] 0937 DD/ 1350 TD/TT: 10/17/23 1405 Director Financial Services: Procedure Note Donotuseinterpreter, Image - 11/06/2023 [facility] [address] [place] [address] Mammography Report Signed Patient: Leslie ErazoMR#: [id number] : 1965Acct:[id number] Age/Sex: 58 / FADM Date: 10/17/23 Loc: HO.MAMMO Attending Dr: Carlos Leonard CNM Ordering Physician: CARLOS LEONARDesults: 1 Negative Date of Service: 10/17/23Follow Up: 1 Year From Orig inal Mammogram Procedure(s): MM tomosynthesis screening BI Accession Number(s): [id number] cc: CARLOS LEONARD CNM; [facility] SUPERVISOR ASSEMBLY DEPARTMENT EXAMINATION: MM SCREENING DIGITAL BREAST TOMOSYNTHESIS, BILATERAL [...] 0937 DD/ 1350 TD/TT: 10/17/23 1405 Director Financial Services: Carlos Leonard [facility] IM BI PROCEDURES Edited Result - Final * ThinPrep Imaging Pap and HPV mRNA E6/E7 (09/30/2023 2:12 PM EDT) HPV nRNA E6/E7 Not Detected Not Detected [facility] Comment:Methodology: Transcr iption-Mediated AmplificationThis assay detects E6/E7 viral messenger RNA (mRNA) from 14high-risk HPV types (16,18,31,33,35,39,45,51,52,56,58,59,66,68).Cervical sources are required for HPV testing.If a vaginal source from a patient who has had atotal hysterectomy with removal of cervix wassubmitted, please contact the testing laboratoryfor alternative testing options.For additional information, please refer [email or web address] [email or web address](This link if provided for information/educational purposes only.)THIS TEST WAS PERFORMED AT:[facility] [place] [id number] LORA MD SOURCE: SEE NOTE [facility] Comment:None given Report Status: TNP [facility] Clinical Information: SEE NOTE [facility] Comment:None given LMP: SEE NOTE [facility] Comment:NONE GIVEN Prev. PAP: SEE NOTE [facility] Comment:NONE GIVEN Prev. BX: SEE NOTE [facility] Comment:NONE GIVEN Statement Of Adequacy: SEE NOTE [facility] Comment:Satisfactory for terry luation.Endocervical/transformation zone componentpresent. General Categorization: [facility] Interpretation/Result: SEE NOTE [facility] Comment:Cytology Results: Ne gative for intraepitheliallesion or malignancy. Cytology Comment SEE NOTE [facility] Comment:This Pap test has be en evaluated with computerassisted technology. Catering Barista: SEE NOTE [facility] Comment:CMG, CT(ASCP)CT scre ening location: [place] [address] Review Catering Barista: [facility] Pathologist [facility] PAP Infection [facility] See Note SEE NOTE [facility] Comment:EXPLANATORY NOTE:The Pap is a screening test for cervical cancer. It isnot a diagnostic test and is subject to false negativeand false positive results. It is most reliable when asatisfactory sample, regularly obtained, is submittedwith relevant clinical findings and history, and whenthe Pap result is evaluated along with historic andcurrent clinical information. 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
== END 2024-08-27 15:29 | disposition home or self-care (01) ==
LOC: HO.XRAY 15:28
PROVIDERS: PCP Registered Nurse; Visit Provider Registered Nurse Emergency
DX: M47.816 Spondylosis without myelopathy or radiculopathy, lumbar region (principal)
CPT/HCPCS: 72110

== ENCOUNTER → 2024-08-27 15:37 | Outpatient (BNV) | payer OTHER, SELFPAY | PROVIDERS: PCP Registered Nurse; Visit Provider Radiology Diagnostic Radiology | DX: M47.816 Spondylosis without myelopathy or radiculopathy, lumbar region (principal) | CPT/HCPCS: 72110 ==

== ENCOUNTER 2024-09-23 15:48 | Outpatient (REF) | payer OTHER, SELFPAY ==
--- NOTE | ~2024-09-23 | US_ITS ---
CLINICAL HISTORY: frequency US kidneys and bladder Comparison: 08/20/2024 Findings: The urinary bladder is unremarkable. Prevoid volume 230 mL. Post void volume 0 mL. Bilateral ureteral jets visualized. Impression: No significant abnormalities. This document has been electronically signed by: Quentin Hall MD on 09/23/2024 19:17:28
--- OUTSIDE RECORDS SUMMARY | 2024-09-23 15:50 | XMS_ITS | Clinical Summary ---
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 TOMOSYNTHESIS, BILATERAL [...] 11/06/23 0937 DD/ 1350 TD/TT: 10/17/23 1405 Decating Machine Operator: Procedure Note Donotuseinterpreter, Image - 11/06/2023 [facility] [address] [place] [address] Mammography Report Signed Patient: Leslie ErazoMR#: [id number] 92 : 1965Acct:[id number] Age/Sex: 58 / FADM Date: 10/17/23 Loc: HO.MAMMO Attending Dr: Carlos Leonard CNM Ordering Physician: CARLOS LEONARDesults: 1 Negative Date of Service: 10/17/23Follow Up: 1 Year From Orig inal Mammogram Procedure(s): MM tomosynthesis screening BI Accession Number(s): [id number] cc: CARLOS LEONARD CNM; [facility] ANIMAL WARDEN EXAMINATION: MM SCREENING DIGITAL BREAST TOMOSYNTHESIS, BILATERAL [...] 11/06/23 0937 DD/ 1350 TD/TT: 10/17/23 1405 Decating Machine Operator: Carlos Gaonacarrillo CN IMG BI PROCEDURES Edited Result - Final * [facility]inPrep Imaging Pap and HPV mRNA E6/E7 (09/30/2023 2:12 PM EDT) HPV nRNA E6/E7 Not Detected Not Detected [facility] Comment:Methodology: Transcr iption-Mediated AmplificationThis assay detects E6/E7 viral messenger RNA (mRNA) from 14high-risk HPV types (16,18,31,33,35,39,45,51,52,56,58,59,66,68).Cervical sources are required for HPV testing.If a vaginal source from a patient who has had atotal hysterectomy with removal of cervix wassubmitted, please contact the testing laboratoryfor alternative testing options.For additional information, please refer [email or web address](This link if provided for information/educational purposes only.)THIS TEST WAS PERFORMED AT:[facility] [place] [phone] LORA MD SOURCE: SEE NOTE [facility] Comment:None given Report Status: TXP [facility] Clinical Information: SEE NOTE [facility] Comment:None given LMP: SEE NOTE [facility] Comment:NONE GIVEN Prev. PAP: SEE NOTE [facility] Comment:NONE GIVEN Prev. BX: SEE NOTE [facility] Comment:NONE GIVEN Statement Of Adequacy: SEE NOTE [facility] Comment:Satisfactory for terry luation.Endocervical/transformation zone componentpresent. General Categorization: [facility] Interpretation/Result: SEE NOTE [facility] Comment:Cytology Results: Ne gative for intraepitheliallesion or malignancy. Cytology Comment SEE NOTE [facility] Comment:This Pap test has be en evaluated with computerassisted technology. Wire Tester: SEE NOTE [facility] Comment:CMG, CT(ASCP)CT scre ening location: [place] [address] Review Wire Tester: [facility] Pathologist [facility] PAP Infection [facility] See Note SEE NOTE [facility] Comment:EXPLANATORY NOTE:The Pap is a screening test for cervical cancer. It isnot a diagnostic test and is subject to false negativeand false positive results. It is most reliable when asatisfactory sample, regularly obtained, is submittedwith relevant clinical findings and history, and whenthe Pap result is evaluated along with historic andcurrent clinical information. 09/30/2023 2:12 PM EDT 09/30/2023 7:32 PM EDT Narrative [facility] - 10/04/2023 12:37 PM EDT SEE SCANNED RESULTS IN EMR Carlos Leonard [facility] PATHOLOGY ORDERABLES Final Result 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
== END 2024-09-23 15:49 | disposition home or self-care (01) ==
LOC: HO.US 15:48
PROVIDERS: PCP Registered Nurse; Visit Provider Nurse Practitioner Family
DX: R35.0 Frequency of micturition (principal); N32.81 Overactive bladder
CPT/HCPCS: 76857

== ENCOUNTER → 2024-09-23 15:55 | Outpatient (BNV) | payer OTHER, SELFPAY | PROVIDERS: PCP Registered Nurse; Visit Provider Radiology Diagnostic Radiology | DX: R35.0 Frequency of micturition (principal) | CPT/HCPCS: 76857 ==

== ENCOUNTER 2024-10-15 12:03 | Outpatient (AMB) | payer OTHER, SELFPAY ==
--- NOTE | 2024-10-15 12:02 | A.OFFVIS_ITS ---
Intake Visit Reasons: US f/u(set) Intake Note: Patient is present for US F/U Urology Medication:NONE Antibiotic Allergy:NONE Blood Thinner:NONE Mortgage Funder Required: No Allergies No Known Allergies (No Known Allergies*) Allergy (Verified 10/15/24 12:37) Medication List - Last Reconciled 10/15/24 by CAYETANO Davis acetaminophen 500 mg PO Q6H PRN baclofen 20 mg PO TID PRN cholecalciferol (vitamin D3) 25 mcg PO DAILY diclofenac sodium 1% 2 grams topical BID duloxetine 30 mg PO BID PRN gabapentin 300 mg PO BEDTIME latanoprost 0.005% 0 drps ophthalmic (eye) BEDTIME byuyhiaq-tpw-SR-lycopen-lutein 0.4 mg-300 mcg- 250 mcg (Adults 50 Plus) 1 tab PO QAM rosuvastatin 10 mg PO BEDTIME zolpidem 1 tab PO BEDTIME PRN HPI Comments Details: Leslie is a very pleasant 59-year-old female patient of . She has a past medical history of nephrolithiasis, anxiety, overactive bladder, hyperlipidemia, depression, obesity, glaucoma, osteoarthritis, IBS, anemia, GERD, and fibromyalgia. She is being followed up on today via telehealth for her ongoing lower urinary tract symptoms. Of note, patient was seen approximately 11 months ago as a new patient for ongoing lower urinary tract symptoms she had been experiencing at which time recommendations were made for retroperitoneal ultrasound for further assessment evaluation. These results were reviewed and communicated with the patient today. 09/02 bilateral kidneys are normal in echotexture and thickness. There are no renal masses noted bilaterally. 4 mm nonobstructing right renal calculus. Mild left hydronephrosis with no definite left renal calculi. The urinary bladder is unremarkable. In discussion with the patient today she reports she has not yet initiated Myrbetriq as planned during last office visit in his requesting recent admission of prescription. She does continue to experience episodes of urinary urgency and frequency as well as stress and urge incontinence. She would like to trial medication at this time. We did discussed further treatment options and risks and benefits of these treatment options. She denies hematuria, dysuria, foul smelling urine, changes to urinary stream, flank pain, fever, and or chills. We did discussed surveillance monitoring of nephrolithiasis. She otherwise offers no other issues or concerns at this time. BUN:03/30 18, 10/29 16, 12/29 20, 07/31 16, 07/02 18, 08/02 18 Creatinine:03/30 1.08, 10/29 0.95, 12/29 0.94, 07/31 0.99, 07/02 1.05, 08/02 0.97 PFSH Medical History Frequency of urination Urge incontinence Renal stones Anxiety Overactive bladder Hyperlipemia Depression Obesity Glaucoma Osteoarthritis IBS (irritable bowel syndrome) Lumbar spondylitis Renal stones Anemia GERD (gastroesophageal reflux disease) Plantar fasciitis Fibromyalgia Surgical History History of arthroscopy of right knee (~03/2020) H/O nasal septoplasty Hx of lithotripsy Hx of tubal ligation Family History Mother Diabetes Fibromyalgia Arthritis Osteoporosis Daughter Breast cancer Social History Household Members: Family Housing: House Are you a primary career services coordinator to a significant other at home: No Do you presently have visiting nurse or other home services: No Alcohol intake: never Comment: uses a cane sometimes Patient Tobacco Use Status: Never used Tobacco Second Hand Smoke Exposure: No Current occupational status: disabled Current occupation: Right Handed Review of Systems Const Reports no additional complaints Eyes Reports as per HPI ENT Reports no additional complaints Card Reports as per HPI Resp Reports as per HPI GI Reports as per HPI Reports as per HPI Musc Reports as per HPI Neuro Reports as per HPI Psych Reports as per HPI Endo Reports no additional complaints Aroldo/Lymph Reports no additional complaints Aller/Immun Reports no additional complaints Physical Exam Const General: cooperative Orientation/consciousness: patient oriented x3 Resp Effort & Inspection: able to speak in complete sentences Neuro General: patient oriented x3 Psych Speech and movement: Clear speech present Attitude: cooperative Thought content: Normal thought content present Insight: Fair insight present (Psych) Judgement: Fair judgement present (Psych) Telehealth Telehealth Telehealth Platform: Telephone Location of provider rendering services: practice address Location of patient: address on file Patient Identification confirmed using: Name, : Yes Telehealth method: voice only Patient verbally consented to treatment: Yes Patient verbally consented to billing insurance company: Yes Patient informed of any privacy concerns related to visit: Yes Minutes spent on Phone/Video with Pt.: 20 Results Reviewed Results Reviewed: Date of Service: 09/23/24 Procedure(s): US bladder Findings: The urinary bladder is unremarkable. Prevoid volume 230 mL. Post void volume 0 mL. Bilateral ureteral jets visualized. Impression: No significant abnormalities. Date of Service: 08/20/24 Procedure(s): US renal BI FINDINGS: Right kidney: The right kidney measures 10.1 x 3.8 x 3.7 cm. Renal parenchymal echotexture and thickness are normal. There are no masses. There is a nonobstructing calculus in the interpolar region measuring 4 x 3 x 4 mm. There is no hydronephrosis. Left Kidney: The left kidney measures 10.3 x 3.9 x 4.1 cm. Renal parenchymal echotexture and thickness are normal. There are no masses. No definite stone is seen. There is mild hydronephrosis. IMPRESSION: 1. 4 mm nonobstructing right renal calculus. 2. Mild left hydronephrosis. No definite left renal calculi are identified. Assessment & Plan Assessment & Plan (1) Mixed stress and urge urinary incontinence: Code(s): N39.46 - Mixed incontinence Category: Medical (2) Nocturia: Code(s): R35.1 - Nocturia Category: Medical (3) Frequency of urination: Code(s): R35.0 - Frequency of micturition Category: Medical (4) Overactive bladder: Code(s): N32.81 - Overactive bladder Category: Medical (5) Renal stones: Code(s): N20.0 - Calculus of kidney Category: Medical Plan Recent retroperitoneal ultrasound results reviewed with the patient today; as noted above. Will resend prescription for Myrbetriq. We did discussed potential causes of lower urinary tract symptoms patient is experiencing as well as further treatment options and risks and benefits of these treatment options. Will continue with surveillance monitoring of nephrolithiasis BUN and creatinine results were reviewed We did discussed potential causes of mild hydro noted on recent renal imaging; we did discussed further workup to include nuclear renal scan versus surveillance monitoring given BUN and creatinine are stable at this time. We discussed importance of hydration in relation to nephrolithiasis as well as overall health and well-being. We discussed adding 1 oz of lemon juice to water daily. Will continue with surveillance monitoring. Follow-up in 1-3 months with [facility]; or sooner with any issues, concerns, and or questions. Medications: New mirabegron ER (Myrbetriq) 25 mg PO DAILY 30 tabs 3RF 30 days N32.81 - Overactive bladder, R35.1 - Nocturia, R39.15 - Urgency of urination Patient Instructions: The patient had an opportunity to ask questions regarding the treatment plan. All questions were answered. Physical exam, labs, and imaging were discussed and reviewed in detail. As well as risks, benefits, and discussion of treatment choices. No major barriers to understanding were identified. The patient expressed understanding and agreement with the above treatment plan. The patient was made aware they should contact our office by phone for worsening of their current condition, the appearance of new symptoms, or with any questions or concerns. Compliance is encouraged with any medications and follow up testing that is ordered. It is a privilege to be allowed the opportunity to participate in? your urological care.? Again, if you have any questions or concerns If you have any questions or concerns please do not hesitate to contact me. The office is [phone]. This note is constructed using voice recognition software. While every effort has been made to ensure accuracy ruby rails developer errors may have been included. Yours sincerely, CAYETANO Davis Coding Level of Care Code Tele Est Pt Level 3 (40564) Diagnoses Mixed stress and urge urinary incontinence N39.46 Nocturia R35.1 Frequency of urination R35.0 Overactive bladder N32.81 Renal stones N20.0
--- OUTSIDE RECORDS SUMMARY | 2024-10-15 12:29 | XMS_ITS | Clinical Summary ---
Author Organization [employer] Address [address] [place] [address] Care Team Providers Care Office Machine Technician Name Role Phone [facility] Primary Care Provider [phone] Allergies No known active allergies Medications * This document contains information received from the source organization and may not represent a complete record from that organization. fluticasone (Flonase) 50 MCG/ACT nasal spray 2 sprays. 7 Active loratadine (Claritin) 10 MG tablet Take 1 tablet by mouth at bed time. 8 Active clotrimazole (Lotrimin) 1 % cream Apply topically at bed time. 2 Active zoster vaccine-recombinan t adjuvanted (Shingrix) 50 MCG/0.5ML vaccine Inject 0.5 mL into the shoulder, thigh, or buttocks. 1 Active dexAMETHasone 0.5 MG/5ML elixirIndications: Recurrent aphthous ulcer Swish and spit 5mL three to four times daily. Keep medication in mouth for five minutes prior to spitting out. Do not rinse afterward and avoid eating or drinking for 30 minutes 200 mL 3 Active Blood Pressure kitIndications:Laurie vated blood pressure reading in office without diagnosis of hypertension Use as directed 1 kit 3 Active albuterol 108 (90 Base) MCG/ACT inhalerIndications :Shortness of breath INHALE 2 PUFFS BY MOUTH EVERY 4 TO 6 HOURS IF NEEDED 8.5 g 3 Active buPROPion XL (Wellbutrin XL) 150 MG 24 hr tabletIndications: Depressive disorder TAKE 1 TABLET(150 MG) BY MOUTH IN THE MORNING. DO NOT CRUSH, CHEW, OR SPLIT 30 tablet 11 4 Active lidocaine (Xylocaine) 5 % ointment APPLY TOPICALLY EVERY 8 HOURS 50 g 2 4 Active cholecalciferol (Vitamin D-3) 50 MCG (2000 UT) tablet TAKE 1 TABLET BY MOUTH EVERY DAY 90 tablet 1 5 Active gabapentin (Neurontin) 300 MG capsule Take 300 mg by mouth at bedtime. 5 Active DULoxetine (Cymbalta) [address] capsuleIndications :Fibromyalgia Take 2 capsules (60 mg) by mouth 2 times daily. Do not crush or chew. 60 capsule 11 5 Active fluticasone (Flonase) 50 MCG/ACT nasal sprayIndications:S easonal allergies Administer 1-2 sprays into each nostril Once per day. Shake gently. Before first use, prime pump. After use, clean tip and replace cap. 16 g 2 5 026 Active Ketotifen Fumarate ( Ketotifen Fumarate) 0.035 % solutionIndication s:Seasonal allergies Administer 1 drop into affected eye(s) 2 times daily. 5 mL 1 5 Active Multiple Vitamin (multivitamin) tabletIndications: Healthcare maintenance Take 1 tablet by mouth Once per day. 90 tablet 3 5 026 Active Diclofenac Sodium 1 % gel APPLY 1 INCH TOPICALLY TO THE AFFECTED AREA IN THE MORNING AND AT BEDTIME NEEDED 100 g 5 Active zolpidem (Ambien) 10 MG tabletIndications: Insomnia, unspecified type Take 1 tablet (10 mg) by mouth if needed at bedtime for sleep. TAKE 1 TABLET(10 MG) BY MOUTH AT BEDTIME 30 tablet 3 5 Active rosuvastatin (Crestor) 10 MG tabletIndications: Hyperlipidemia, unspecified hyperlipidemia type TAKE 1 TABLET BY MOUTH EVERY DAY 30 tablet 11 5 Active baclofen (Lioresal) 20 MG tabletIndications: Cervical radiculopathy TAKE 1 TABLET(20 MG) BY MOUTH EVERY 8 HOURS NEEDED FOR MUSCLE SPASMS 90 tablet 5 Active olmesartan (Benicar) 5 MG tabletIndications: Essential hypertension Take 1 tablet (5 mg) by mouth Once per day. 30 tablet 11 5 026 Active Active Problems Problem Noted Date Diagnosed Date [...] on exertion Followed by Dr. Santa at [facility], negative stress test and echo Glaucoma 06/06/2022 [...] hx of glaucoma. Dr. Navarro follows Dental: [facility] dental HIV: Neg 2016 Hepatitis: Neg 04/2021 Screening Labs: A1c: 6.2 04/2021, Family history of breast cancer 06/06/2022 Overview (06/06/2022): Daughter from breast cancer age 29 Referred for genetic screening 01/2022 Bilateral chronic knee pain 06/06/2022 Overview (06/06/2022): Long hx of chronic bilateral knee pain. S/p right knee arthroplasty and meniscal repair 2020 Managed with tramadol 50mg PRN, compliant with [employer]OR [employer] APPLICATION[employer] program Lung nodule 11/09/2021 Overview (06/06/2022): 3mm [...] 60mg daily Buproprion 150mg XR Therapist at [facility] Assessment & Plan (12/06/2022 1:59 [...] pt with additional resources for [facility] at [facility], as well as how to reach out to [facility] BH team. Pt was agreeable to intervention and referral to op and psych services at [facility]. Assessment & Plan (10/24/2022 9:33 AM EDT): Patient declines buproprion increase at this time. Will continue at current dose Continue duloxetine 60mg daily Continue clonazepam 0.5mg once daily (started by prior outside provider) Ambien PRN for sleep. Plan to discuss insomnia at follow up. Contact HC if sx worsen or experiencing thoughts of SI or self harm. Pt has [facility] crisis contact information Assessment & Plan (10/05/2022 3:19 PM EDT): In office BE during OV with Dr. Mukherjee. Pt referred to [facility] and provided with [facility] contact information for emergency care. STOP buspar START buproprion 150mg XR. Reviewed administration, risks, side effects Continue duloxetine 60mg Contact HC if sx worsen or experiencing thoughts of SI or self harm. 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 Date Type Department Care Team Description 10/13/2024 Telephone [facility] [address] [place] [address] Carlos Leonard CNM 10/07/2024 Telephone [facility] [address] [place] [address] Mary Lou Doan FNP No Show; Appointment Request 10/06/2024 Telephone [facility] [address] [place] [address] Mary Lou Doan FNP Chart Prep 10/05/2024 Telephone [facility] [address] [place] [address] Mary Lou Doan FNP Chart Prep 09/24/2024 Travel 09/21/2024 Travel 09/09/2024 Telephone [facility] [place] [address] Mary Lou Doan FNP Referral 09/08/2024 Telephone [facility] [place] [address] Mary Lou Doan FNP Call Back Request 09/07/2024 1:00 PM EDT Office Visit [facility] [place] [address] Mary Lou Doan FNP Essential hypertension (Primary Dx); Class 2 severe obesity due to excess calories with serious comorbidity and body mass index (BMI) of 38.0 to 38.9 in adult (CMS/HCC); Chronic right-sided low back pain with right-sided sciatica 09/07/2024 Travel 09/06/2024 Travel 09/04/2024 Telephone [facility] [place] [address] Mary Lou Doan FNP Chart Prep 08/27/2024 Orders Only [facility] External Provider, [facility] 08/20/2024 Orders Only [facility] External Provider, [facility] 08/12/2024 Telephone [facility] [address] [facility] [place] [address] Mary Lou Doan FNP Med Refill 08/11/2024 Refill [facility] [address] [facility] [place] [address] Mary Lou Doan FNP Cervical radiculopathy 08/10/2024 5:00 PM EDT Office Visit [facility] [address] [facility] [place] [address] Gina Maurer NP Right leg pain (Primary Dx); Chronic right-sided low back pain with right-sided sciatica; Elevated blood pressure reading in office without diagnosis of hypertension 08/10/2024 Telephone [facility] [address] [place] [address] Mary Lou Doan FNP Medication Question 08/10/2024 Telephone [facility] [address] [place] [address] Mary Lou Doan FNP Med Refill 08/10/2024 Orders Only [facility] [address] [place] [address] Mary Lou Doan FNP Hyperlipidemia, unspecified hyperlipidemia type (Primary Dx) 08/08/2024 Refill [facility] [address] [place] [address] Mary Lou Doan FNP Cervical radiculopathy 08/06/2024 Refill [facility] [address] [place] [address] Mary Lou Doan FNP Cervical radiculopathy 08/05/2024 Telephone [facility] [address] [place] [address] Mary Lou Doan FNP Results 08/05/2024 Telephone [facility] [address] [place] [address] Mary Lou Doan FNP Durable Medical Equipment 08/05/2024 Refill [facility] [address] [place] [address] Franki, Mary Lou, REST ROOM ATTENDANT Hyperlipidemia, unspecified hyperlipidemia type 07/31/2024 Orders Only GENERIC EXTERNAL DATA DEPARTMENT Provider, Generic External Data from Last 3 Months Immunizations Immunization Administration Dates Next Due INFLUENZA VACCINE QUADRIVALE NT RECOMBINANT PRESERVATIVE FREE RIV4 12/22/2021 Influenza Injectable Quadriv alant Preservative Free IIV4 MDCK 03/22/2023,12/09/2019 Influenza injectable quadriv alent IIV4 with preservative 11/28/2018,12/09/2014 Influenza injectable quadriv alent preservative free 12/15/2020,03/17/2018,10/16/2016,2016,04/16/2016 Influenza, IIV3, injectable 01/16/2011 Influenza, Recombinant, inje ctable, preservative free 01/04/2024 Influenza, Split (incl. phong fied surface antigen) [...] Care Team (Late st Contact Info) Description 10/26/2024 11:15 AM EDT Telemedicine [facility] [address] [place] [address] [place] Mary Lou [facility] [address] [place] [address] Health Maintenance Due Date Last Done Comments [...] Name Priority Date/Time Associated Diagnosis Comments US BLADDER Routine 09/23/2024 7:17 PM EDT XR LUMBAR SPINE COMPLETE 4+ VIEWS Routine [...] (BMI) of 38.0 to 38.9 in adult ([facility]/HCC) HEMOGLOBIN A1C Routine 07/31/2024 1:55 PM EDT [...] Relevant to Health Maintenance Results * US BLADDER (09/23/2024 7:17 PM EDT) Anatomical Region Laterality Modality Abdomen Ultrasound 09/23/2024 7:17 PM EDT Narrative 09/23/2024 7:18 PM EDT [place] [address] Ultrasound Report Signed Patient: Leslie Erazo MR#: [id number] 92 : 1965 Acct:[id number] Age/Sex: 59 / F ADM Date: 09/23/24 Loc: HO.US Attending Dr: Carie Winters REST ROOM ATTENDANT- Ordering Physician: Javier Winters Date of Service: 09/23/24 Procedure(s): US bladder Accession Number(s): [id number] cc: Javier Winters ; [facility] CLINICAL HISTORY: frequency US kidneys and bladder Comparison: 08/20/2024 Findings: The urinary bladder is unremarkable. Prevoid volume 230 mL. Post void volume 0 mL. Bilateral ureteral jets visualized. Impression: No significant abnormalities. This document has been electronically signed by: Quentin Hall MD on 09/23/2024 19:17:28 Dictated By: Quentin Hall MD Signed By: <Electronically signed by Quentin Hall MD in OV> 09/23/241917 DD/ 16 TD/TT: 09/23/241916 Ice Maker: Procedure Note Donotfortunatointerpreter, Image - 09/23/[address] [address] Ultrasound Report Signed Patient: Leslie ErazoMR#: [id number] 92 : 1965Acct:[id number] Age/Sex: 59 / FADM Date: 09/23/24 Loc: HO.US Attending Dr: Carie Winters [facility]- Ordering Physician: Javier Winters Date of Service: 09/23/24 Procedure(s): US bladder Accession Number(s): [id number] cc: Javier Winters ; [facility] CLINICAL HISTORY: frequency US kidneys and bladder Comparison: 08/20/2024 Findings: The urinary bladder is unremarkable. Prevoid volume 230 mL. Post void volume 0 mL. Bilateral ureteral jets visualized. Impression: No significant abnormalities. This document has been electronically signed by: Quentin Hall MD on 09/23/2024 19:17:28 Dictated By: Quentin Hall MD Signed By: <Electronically signed by Quentin Hall MD in OV> 09/23/241917 DD/ 16 TD/TT: 09/23/241916 Ice Maker: [facility] External Provider IMG US PROCEDURES Edited Result - Final * XR Lumbar Spine Complete 4+ Views (08/27/2024 3:40 PM EDT) Anatomical Region Laterality Modality Spine, L-spine Radiographic Josseline ging 08/27/2024 3:40 PM EDT Narrative 08/27/2024 4:15 PM EDT [address] [address] XRay Report Signed Patient: Leslie Erazo MR#: [id number] 92 : 1965 Acct:[id number] Age/Sex: 59 / F ADM Date: 08/27/24 Loc: JAYA Attending Dr: Isabel Chun APRN, CNP Ordering Physician: Isabel Chun APRN, CNP Date of Service: 08/27/24 Procedure(s): XR lumbar spine 4V min Accession Number(s): [id number] cc: Isabel Chun APRN, YESSICA; [facility] EXAMINATION: XR LUMBOSACRAL SPINE CLINICAL INFORMATION: [...] 08/27/24 1611 DD/ 1540 TD/TT: 08/27/24 1557 Ice Maker: Procedure Note Donotuseinterpreter, Image - 08/27/[address] [address] XRay Report Signed Patient: Leslie ErazoMR#: [id number] 92 : 1965Acct:[id number] Age/Sex: 59 / FADM Date: 08/27/24 Loc: JAYA Attending Dr: Isabel Chun APRN, CNP Ordering Physician: Isabel Chun APRN, CNP Date of Service: 08/27/24 Procedure(s): XR lumbar spine 4V min Accession Number(s): [id number] cc: Isabel Chun APRN, YESSICA; [facility] EXAMINATION: XR LUMBOSACRAL SPINE CLINICAL INFORMATION: [...] 08/27/24 1611 DD/ 1540 TD/TT: 08/27/24 1557 Ice Maker: [facility] External Provider IMG XR PROCEDURES Final Result * US Pelvis Transvaginal (08/20/2024 4:08 PM EDT) Anatomical Region Laterality Modality Pelvis Ultrasound 08/20/2024 4:08 PM EDT Narrative 08/20/2024 6:31 PM EDT [address] [address] Ultrasound Report Signed Patient: Leslie Erazo MR#: [id number] 92 : 1965 Acct:[id number] Age/Sex: 59 / F ADM Date: 08/20/24 Loc: HO.US Attending Dr: Carie Winters REST ROOM ATTENDANT- Ordering Physician: Marc Yusuf MD Date of Service: 08/20/24 Procedure(s): US pelvic and transvaginal Accession Number(s): [id number] cc: Mary Lou Doan; Marc Yusuf MD [...] 08/20/24 1828 DD/ 1608 TD/TT: 08/20/24 1624 Ice Maker: Procedure Note Donotuseinterpreter, Image - 08/20/2024 [place] [address] Ultrasound Report Signed Patient: Leslie ErazoMR#: [id number] 92 : 1965Acct:[id number] Age/Sex: 59 / FADM Date: 08/20/24 Loc: HO.US Attending Dr: Carie RODRIGUEZP- Ordering Physician: Marc Yusuf MD Date of Service: 08/20/24 Procedure(s): US pelvic and transvaginal Accession Number(s): [id number] cc: [facility]; Marc Yusuf MD EXAMINATION: US PELVIS CLINICAL [...] 08/20/24 1828 DD/ 1608 TD/TT: 08/20/24 1624 Ice Maker: [facility] External Provider IMG US PROCEDURES Final Result * US RENAL BI (08/20/2024 3:57 PM EDT) Anatomical Region Laterality Modality Abdomen Ultrasound 08/20/2024 3:57 PM EDT Narrative 08/21/2024 7:05 AM EDT [address] [address] Ultrasound Report Signed Patient: Leslie Erazo MR#: [id number] 92 : 1965 Acct:[id number] Age/Sex: 59 / F ADM Date: 08/20/24 Loc: HO.US Attending Dr: Carie WILLIS- Ordering Physician: Carie Winters Date of Service: 08/20/24 Procedure(s): US renal BI Accession Number(s): [id number] [facility] EXAMINATION: US KIDNEY BILATERAL HISTORY: R35.0 [...] in OV> 08/21/24 0703 DD/ 1557 TD/TT: 08/20/241604 Ice Maker: Procedure Note Donotuseinterpreter, Image - 08/21/[address] [address] Ultrasound Report Signed Patient: Leslie ErazoMR#: [id number] 92 : 1965Acct:[id number] Age/Sex: 59 / FADM Date: 08/20/24 Loc: HO.US Attending Dr: Carie RODRIGUEZP- Ordering Physician: Carie Winters Date of Service: 08/20/24 Procedure(s): US renal BI Accession Number(s): [id number] cc: Carie Winters; Mary Lou Doan [facility] EXAMINATION: US KIDNEY BILATERAL HISTORY: R35.0 - [...] Rosario MD in OV> 08/21/24 0703 DD/ 56 TD/TT: 08/20/241604 Ice Maker: us [facility] External Provider IMG US PROCEDURES Final Result * Hepatitis A,B,C Profile (07/31/2024 1:55 PM EDT) [facility] Hepatitis A IgM Nonreactive Nonreactive [facility] Comment:IgM antibodies to NUNEZ V not detected; does not exclude earlyacute or recovered HAV infection. ~Hepatitis B Surface Antibody REACTIVE Nonreactive [facility] Comment:REACTIVE: > 11.99 mI U/mL Hepatitis B Core Antibody Nonreactive Nonreactive [facility] Hepatitis C Antibody Nonreactive Nonreactive [facility] Comment:Antibodies to HCV no t detected; does not exclude early acuteHCV infection. Hepatitis B Surface Ag Negative Negative [facility] Blood Venous blood specimen / Unknown 07/31/2024 1:55 PM EDT 07/31/2024 1:55 PM EDT [facility] REST ROOM ATTENDANT LAB BLOOD ORDERABLES Final Re sult [facility] [address] [place] [phone] * (ABNORMAL) CBC auto differential (07/31/2024 1:55 PM EDT) [facility] White Blood Count 7.7 4.8 - 10.8 X10*3/uL [facility] Red Blood Count 4.91 4.20 - 5.50 X10*6/uL [facility] Hemoglobin 14.3 12.0 - 16.0 g/dl [facility] Hematocrit 43.1 37.0 - 47.0 % [facility] Mean Corpuscular Volume 87.8 80.0 - 98.0 fL [facility] Mean Corpuscular Hemoglobin 29.1 27.0 - 33.0 pg [facility] Mean Corpuscular HGB Conc 33.2 31.0 - 35.0 g/dl [facility] Red Cell Distribution Width 13.6 11.0 - 16.0 % [facility] Platelet Count 304 160 - 400 X10*3/uL [facility] Mean Platelet Volume 9.0(L) 9.4 - 12.3 fL [facility] Neutrophils Percent Auto 59.4 45 - 73 % [facility] Imm Gran Pct Auto 0.4 0.0 - 0.4 % [facility] Lymphocytes Percent Auto 32.2 20 - 40 % [facility] Monocytes Percent Auto 6.0 2 - 11 % [facility] Eosinophils Percent Auto 1.6 0 - 4 % [facility] Basophils Percent Auto 0.4 0 - 2 % [facility] NRBC Pct Auto 0.0 0.0 - 0.2 /100WBC [facility] Neutrophils Absolute Auto 4.6 2.0 - 8.3 x10*3/uL [facility] Imm Gran Abs Auto 0.03 0.00 - 0.03 X10*3/uL [facility] Lymphocytes Absolute Auto 2.5 1.2 - 4.9 X10*3/uL [facility] Monocytes Absolute Auto 0.5 0.1 - 1.2 X10*3/uL [facility] Eosinophils Absolute Auto 0.1 0.0 - 0.4 X10*3/uL [facility] Basophils Absolute Auto 0.0 0.0 - 0.2 X10*3/uL [facility] NRBC Abs Auto 0.000 0.0 - 0.012 X10*3/uL [facility] 07/31/2024 1:55 PM EDT 07/31/2024 1:55 PM EDT us Generic External Data Provider LAB BLOOD ORDERAB LES Final Result [facility] [address] [place] [address] [phone] * HIV-1/2 Antigen and Antibodies, Fourth Generation, with Reflexes (07/31/2024 1:55 PM EDT) HIV AB/AG Nonreactive Nonreactive [facility] Comment:HIV-1 p24 Ag and/or HIV-1/HIV-2 Ab not detected.A test result that is nonreactive does not exclude thepossibility of exposure to or infection with HIV-1 and/orHIV-2. Nonreactive results in this assay for individualswith prior exposure to HIV-1 and/or HIV-2 may be due toantigen and antibody levels that are below the limit ofdetection of this assay.The [employer] Alinity HIV Ag/Ab Combo assay result andsupplemental assay results should be interpreted inconjunction with the patient's clinical presentation,history and other laboratory results. If the results areinconsistent with clinical evidence, additional testing issuggested to confirm the result. Blood Venous blood specimen / Unknown 07/31/2024 1:55 PM EDT 07/31/2024 1:55 PM EDT [facility] REST ROOM ATTENDANT LAB BLOOD ORDERABLES Final Re sult Performing Organization Address [facility]/ZIP Co de Phone Number [facility] [address] [place] [phone] * Sed Rate by Modified Westergren (07/31/2024 1:55 PM EDT) Erythrocyte Sedimentation Rate 17 0 - 20 MM/HR [facility] Comment:Patients with polycy themia and many hemoglobin abnormalitiesmay have depressed sed rates whereas patients with anemiamay have elevated sed rates. 07/31/2024 1:55 PM EDT 07/31/2024 1:55 PM EDT [facility] External Data Provider LAB BLOOD ORDERAB LES Final Result Performing Organization Address [facility]/ZIP Co de Phone Number [facility] [address] [place] [address] [phone] * (ABNORMAL) C-reactive Protein (07/31/2024 1:55 PM EDT) Pathologist [facility] C Reactive Protein 0.92(H) < or = 0.50 mg/dL [facility] 07/31/2024 1:55 PM EDT 07/31/2024 1:55 PM EDT Generic External Data Provider LAB BLOOD ORDERAB LES Final Result Performing Organization Address [facility]/ZIP Co de Phone Number [facility] [address] [place] [phone] * (ABNORMAL) Hemoglobin A1c (07/31/2024 1:55 [...] patient sample. Estimated Average Glucose 128 mg/dL [facility] Comment:eAG = Estimated ave rage glucose which is %A1C expressed asaverage glucose, using the formula of the B0G-UinlhjzGzuxftm Glucose study (ADAG), Diabetes Care, Vol.31,#8,Oct. 2007 Blood Venous blood specimen / Unknown 07/31/2024 1:55 PM EDT 07/31/2024 1:55 PM EDT [facility] REST ROOM ATTENDANT LAB BLOOD ORDERABLES Final Re sult Performing Organization Address [facility] Co de Phone Number [facility] [address] [place] [phone] * (ABNORMAL) Lipid Panel, Standard (07/31/2024 1:55 PM EDT) Triglycerides 176(H) <150 mg/dL [facility] Comment:Desirable Triglyceri de: less than 150 mg/dLBorderline High Triglyceride 150-199 mg/dLHigh Triglyceride: 200-499 mg/dLVery High Triglyceride: greater than or equal to 5OO mg/dL Cholesterol 242(H) <200 mg/dL [facility] Comment:Desirable Cholestero l: less than 200 mg/dLBorderline High Cholesterol: 200-239 mg/dLHigh Cholesterol: greater than 239 mg/dL LDL Cholesterol Calculated 167(H) <100 mg/dL [facility] Comment:Desirable LDL: less than 100 mg/dLNear Optimal/Above Optimal LDL: 110- 129 mg/dLBorderline High LDL: 130-159 mg/dLHigh LDL: 160-189 mg/dLVery High LDL: greater than or equal to 190 mg/dL HDL Cholesterol 40(L) >40 mg/dL [facility] Comment:Desirable HDL: great er than 40 mg/dL Note: This HDL assay may give artificially low results in patients with liver disease. Blood Venous blood specimen / Unknown 07/31/2024 1:55 PM EDT 07/31/2024 1:55 PM EDT [facility] REST ROOM ATTENDANT LAB BLOOD ORDERABLES Final Re sult [facility] [address] [place] [phone] * (ABNORMAL) Comprehensive Metabolic Panel (07/31/2024 1:55 PM EDT) Sodium 144 135 - 145 mmol/L [facility] Potassium 4.3 3.3 - 5.1 mmol/L [facility] Chloride 108 96 - 108 mmol/L [facility] Carbon Dioxide 27 22 - 29 mmol/L [facility] Anion Gap 13 12 - 20 [facility] Urea Nitrogen (BUN) 18(H) 9 - 16 mg/dL [facility] Creatinine, Serum 0.97 0.5 - 1.4 mg/dL [facility] Estimated Glomerular Filt Rate 59 [facility] Comment:Chronic Kidney Disea se: Estimated GFR < 60 mL/min/1.19p4Ghtluc Kidney Disease: Estimated GFR < 15 mL/min/1.73m2 Glucose 78 60 - 115 mg/dL [facility] Calcium 10.0 8.4 - 10.2 mg/dL [facility] Bilirubin, Total 0.5 0.0 - 1.0 mg/dL [facility] Aspartate Amino Transferase 26 5 - 31 U/L [facility] Alanine Aminotransferase 40(H) 0 - 31 U/L [facility] Total Protein 7.8 6.5 - 8.0 g/dL [facility] Albumin Level 4.3 3.5 - 5.0 g/dL [facility] Alkaline Phosphatase 112 39 - 117 U/L [facility] Blood Venous blood specimen / Unknown 07/31/2024 1:55 PM EDT 07/31/2024 1:55 PM EDT [facility] REST ROOM ATTENDANT LAB BLOOD ORDERABLES Final Re sult [facility] [address] [place] [phone] * BI Mammogram Screening Tomosynthesis Bilateral (10/17/2023 1:50 PM EDT) Anatomical Region Laterality Modality Breast Bilateral Mammography 10/17/2023 1:5 0 PM EDT Narrative 11/06/2023 9:40 AM EDT [facility] [address] [place] [address] Mammography Report Signed Patient: Leslie Erazo MR#: [id number] 92 : 1965 Acct:[id number] Age/Sex: 58 / F ADM Date: 10/17/23 Loc: HO.MAMMO Attending Dr: Carlos Leonard CNM Ordering Physician: CARLOS LEONARD CNM Results: 1 Negative Date of Service: 10/17/23 Follow Up: 1 Year From Orig ina Mammogram Procedure(s): MM tomosynthesis screening BI Accession Number(s): [id number] cc: CARLOS LEONARD CNM; [facility] REST ROOM ATTENDANT EXAMINATION: MM SCREENING DIGITAL BREAST TOMOSYNTHESIS, BILATERAL [...] 11/06/23 0937 DD/ 1350 TD/TT: 10/17/23 1405 Ice Maker: Procedure Note Donotuseinterpreter, Image - 11/06/2023 [facility] [address] [place], [place] [address] Mammography Report Signed Patient: Leslie ErazoMR#: [id number] 92 : 1965Acct:[id number] Age/Sex: 58 / FADM Date: 10/17/23 Loc: HO.MAMMO Attending Dr: Carlos Leonard CNM Ordering Physician: CARLOS LEONARDesults: 1 Negative Date of Service: 10/17/23Follow Up: 1 Year From Orig inal Mammogram Procedure(s): MM tomosynthesis screening BI Accession Number(s): [id number] cc: CARLOS LEONARD CNM; [facility] REST ROOM ATTENDANT EXAMINATION: MM SCREENING DIGITAL BREAST TOMOSYNTHESIS, BILATERAL [...] 11/06/23 0937 DD/ 1350 TD/TT: 10/17/23 1405 Ice Maker: Carlos Leonard [facility] IM BI PROCEDURES Edited Result - Final * ThinPrep Imaging Pap and HPV mRNA E6/E7 (09/30/2023 2:12 PM EDT) HPV nRNA E6/E7 Not Detected Not Detected [facility] Comment:Methodology: Transcr iption-Mediated AmplificationThis assay detects E6/E7 viral messenger RNA (mRNA) from 14high-risk HPV types (16,18,31,33,35,39,45,51,52,56,58,59,66,68).Cervical sources are required for HPV testing.If a vaginal source from a patient who has had atotal hysterectomy with removal of cervix wassubmitted, please contact the testing laboratoryfor alternative testing options.For additional information, please refer [email or web address](This link if provided for information/educational purposes only.)THIS TEST WAS PERFORMED AT:[email or web address] [address] [id number] LORA MD SOURCE: SEE NOTE [facility] Comment:None given Report Status: [facility] Clinical Information: SEE NOTE [facility] Comment:None given LMP: SEE NOTE [facility] Comment:NONE GIVEN Prev. PAP: SEE NOTE [facility] Comment:NONE GIVEN Prev. BX: SEE NOTE [facility] Comment:NONE GIVEN Statement Of Adequacy: SEE NOTE [facility] Comment:Satisfactory for terry luation.Endocervical/transformation zone componentpresent. General Categorization: [facility] Interpretation/Result: SEE [facility] Comment:Cytology Results: Ne gative for intraepitheliallesion or malignancy. Cytology Comment SEE NOTE [facility] Comment:This Pap test has be en evaluated with computerassisted technology. Wilton Weaver: SEE NOTE [facility] Comment:[facility], CT(ASCP)CT scre ening location: [address] [address] Review Wilton Weaver: [facility] Pathologist [facility] PAP Infection [facility] See Note SEE NOTE [facility] Comment:EXPLANATORY NOTE:The Pap is a screening test for cervical cancer. It isnot a diagnostic test and is subject to false negativeand false positive results. It is most reliable when asatisfactory sample, regularly obtained, is submittedwith relevant clinical findings and history, and whenthe Pap result is evaluated along with historic andcurrent clinical information. 09/30/2023 2:12 PM EDT 09/30/2023 7:32 PM EDT Narrative [facility] - 10/04/2023 12:37 PM EDT SEE SCANNED RESULTS IN EMR us Carlos CASTROM LAB PATHOLOGY ORDERABLES Final Result [facility] [address] [place] [address] [phone] from Last 3 Months or Most Recently Relevant to Health Maintenance Insurance [facility] < 65 [facility] Care Teams Office Machine Technician Relationship Specialty Start Date End Date Mary Lou Doan FNP [address] [place] [address] PCP - General Family Medicine 11/03/21
== END 2024-10-15 12:51 | disposition home or self-care (01) ==
LOC: HO.HUSH 12:03
PROVIDERS: PCP Registered Nurse; Visit Provider Nurse Practitioner Family
DX: R35.1 Nocturia (principal); R35.0 Frequency of micturition; N32.81 Overactive bladder; N20.0 Calculus of kidney
CPT/HCPCS: 99213

== ENCOUNTER 2024-11-06 15:47 | Outpatient (REF) | payer OTHER, SELFPAY ==
--- NOTE | ~2024-11-06 | MM_ITS ---
EXAMINATION: MM SCREENING DIGITAL BREAST TOMOSYNTHESIS, BILATERAL CLINICAL INFORMATION: Screening. Asymptomatic. COMPARISON: Mammography: Comparison is made with available priors TECHNIQUE: Digital breast mammography with tomosynthesis is performed in both the craniocaudal and mediolateral oblique views along with computer-aided detection (CAD). FINDINGS: There are scattered areas of fibroglandular density (ACR BI-RADS breast composition Category b). Bilateral circumscribed oval masses which wax and wane consistent with benign fibrocystic changes. There are no significant masses, abnormal calcifications, or other abnormalities. MM/MM tomosynthesis screening BI IMPRESSION: No mammographic evidence of malignancy. ASSESSMENT: BI-RADS BI-RADS 2 - Benign Findings RECOMMENDATION: Routine annual mammography screening. 1 year F/U This examination should not preclude the clinical evaluation of a suspicious palpable abnormality. This patient's information was entered into a reminder system with a target due date for their next mammogram. Electronically signed by: Lizy Laboy DO 11/10/2024 11:48 AM EDT
--- OUTSIDE RECORDS SUMMARY | 2024-11-06 15:50 | XMS_ITS | Encounter Summary ---
Author Organization [employer] Address [address] 7t [place] [address] Care Team Providers Care Electrical Designer Name Role Phone Franki [facility] Primary Care Provider [phone] Encounter Details Date Type Department Care Team (Late st Contact Info) Description 02/12/2022 Abstract [facility] ADULT D[facility]AL [address] [place] [address] Dental, Provider, DDS Social History Tobacco Use Types Packs/Day Years Used Date Smoking Tobacco: Never Passive Smoke Exposure: Never Smokeless Tobacco: Never Alcohol Use Standard Drinks/Week Comments Never 0 (1 standard drink = 0.6 oz pur e alcohol) Comments Unknown Sex and Gender Information Value Date Recorded Sex Assigned at Female 01/08/2022 10:14 AM EDT Legal Sex Female 10:14 AM EDT Gender Identity Female 05/02/2022 8:15 AM EST Sexual Orientation Straight 09/29/2023 5: 16 PM EDT COVID-19 Exposure Response Date Recorded In the last 10 days, have yo u been in contact with someone who was confirmed or suspected to have Coronavirus/COVID-19? No / Unsure 02/12/2022 1:08 PM EST documented as of this encounter Plan of Treatment Not on file documented as of this encounter Procedures Procedure Name Priority Date/Time Associated Diagnosis Comments 19,30 PARTIAL DENTURE - RESIN Routine 02/12/2022 12:00 AM EST 5,7,14 PARTIAL DENTURE - RESIN Routine 02/12/2022 12:00 AM EST 31 O AMALGAM FILLING Routine 02/12/2022 12:00 AM EST 18 O AMALGAM FILLING Routine 02/12/2022 12:00 AM EST 15 O AMALGAM FILLING Routine 02/12/2022 12:00 AM EST 13 O AMALGAM FILLING Routine 02/12/2022 12:00 AM EST 4 MOD AMALGAM FILLING Routine 02/12/2022 12:00 AM EST 3 O AMALGAM FILLING Routine 02/12/2022 1 2:00 AM EST 19 EXTRACTION Routine 02/12/2022 12:00 AM EST 17 EXTRACTION Routine 02/12/2022 12:00 AM EST 16 EXTRACTION Routine 02/12/2022 12:00 AM EST 7 EXTRACTION Routine 02/12/2022 12:00 AM EST 5 EXTRACTION Routine 02/12/2022 12:00 AM EST 14 EXTRACTION Routine 02/12/2022 12:00 AM EST 1 EXTRACTION Routine 02/12/2022 12:00 AM EST 32 EXTRACTION Routine 02/12/2022 12:00 AM EST documented in this encounter Visit Diagnoses Not on filedocumented in this encounter Care Teams Electrical Designer Relationship Specialty Start Date End Date Mary Lou Doan FNP [address] [place] [address] PCP - General Family Medicine 11/03/21 documented as of this encounter
--- OUTSIDE RECORDS SUMMARY | 2024-11-06 15:50 | XMS_ITS | Encounter Summary ---
Author Organization [employer] Address [address] 7[address] [place] [address] Care Team Providers Care Email Production Specialist Name Role Phone Mary Lou Doan [facility] Primary Care Provider [phone] Encounter Details Date Type Department Care Team ([facility] st Contact Info) Description 06/06/2022 Orders Only [facility] MEDICINE [address] [place], [place] [phone] Mary Lou Doan FNP [address] [place], [place] [phone] Social History Tobacco Use Types Packs/Day Years Used Date Smoking Tobacco: Never Passive Smoke Exposure: Never Smokeless Tobacco: Never Alcohol Use Standard Drinks/Week Comments Never 0 (1 standard drink = 0.6 oz pur e alcohol) Comments No Sex and Gender Information Value [...] suspected to have Coronavirus/COVID-19? No / Unsure 05/24/2022 2:15 PM EDT documented as of this encounter Plan of Treatment Not on file documented as of this encounter Visit Diagnoses Not on filedocumented in this encounter Care Teams Email Production Specialist Relationship Specialty Start Date End Date Mary Lou Doan FNP [address] [place] [address] PCP - General Family Medicine 11/03/21 documented as of this encounter
--- OUTSIDE RECORDS SUMMARY | 2024-11-06 15:50 | XMS_ITS | Encounter Summary ---
Author Organization [employer] Address [address] [facility] 7t [place] [address] Care Team Providers Care Processing Technician Name Role Phone Mary Lou Doan WASHER [employer] Primary Care Provider [phone] Reason for Visit * Reason Comments Med Refill Encounter Details Date Type Department Care Team ([facility] st Contact Info) Description 11/14/2022 Refill [facility] MEDICINE [address] [place] [address] Name, MD [place] [address] [place] [address] Social History Tobacco Use Types Packs/Day Years Used Date Smoking Tobacco: Never Passive Smoke Exposure: Never Smokeless Tobacco: Never Alcohol Use Standard Drinks/Week Comments Never 0 (1 standard drink = 0.6 oz pur e alcohol) Depression Answer Date Recorded Patient Health Questionnaire-9 Score 16 10/05/2022 Depression Answer Date Recorded Patient Health Questionnaire-2 Score 4 10/05/2022 Comments No Sex and Gender Information Value Date Recorded Sex Assigned at Female 01/08/2022 10:14 AM EDT Legal Sex Female 10:14 AM EDT Gender Identity Female 05/02/2022 8:15 AM EST Sexual Orientation Straight 09/29/2023 5: 16 PM EDT documented as of this encounter Plan of Treatment Not on file documented as of this encounter Visit Diagnoses Not on filedocumented in this encounter Additional Health Concerns Assessment Noted Time PHQ-9 Depression Total Score: 16 10/05/ 023 2:01 PM EDT documented as of this encounter Care Teams Processing Technician Relationship Specialty Start Date End Date Mary Lou Doan FNP [address] [place] [address] PCP - General Family Medicine 11/03/21 documented as of this encounter
--- OUTSIDE RECORDS SUMMARY | 2024-11-06 15:50 | XMS_ITS | Encounter Summary ---
Author Organization [employer] Address [address] 7[address] [place] [address] Care Team Providers Care Plate Painter Name Role Phone [facility] Primary Care Provider [phone] Reason for Visit * Reason Onset Date Comments Nurse Triage 04/25/2023 Encounter Details Date Type Department Care Team ([facility] st Contact Info) Description 04/25/[address] [facility] MED[facility]INE [address] [place], [place] [phone] [facility] [address] [place] [address] Nurse Triage Social History Tobacco Use Types Packs/Day Years Used Date Smoking Tobacco: Never Passive Smoke Exposure: Never Smokeless Tobacco: Never Alcohol Use Standard Drinks/Week Comments Never 0 (1 standard drink = 0.6 oz pur e alcohol) Depression Answer Date Recorded Patient Health Questionnaire-9 Score 16 10/05/2022 Housing Stability Answer Date Recorded What is your housing situation today? I have scout navarro 12/31/[address] you li ve. Do you have problems with any of the following? None of the above 12/31/2022 Food Insecurity Answer Date Recorded Within the past 12 months, y ou worried that your food would run out before you got money to buy more: Never True 12/31/2022 Within the past 12 months,th e food you bought just didn't last and you didn't have enough money to get more: Never True Transportation Answer Date Recorded In the past 12 months, has l ack of transportation kept you from medical appts, meetings, work or from getting things needed for daily living? No 12/31/2022 Utilities Answer Date Recorded In the past 12 months, has t he electric, gas, oil or water company threatened to shut off services in your home? No 12/31/2022 Depression Answer Date Recorded Patient Health Questionnaire-2 Score 4 10/05/2022 Comments No Sex and Gender Information Value Date Recorded Sex Assigned at Female 01/08/2022 10:14 AM EDT Legal Sex Female 10:14 AM EDT Gender Identity Female 05/02/2022 8:15 AM EST Sexual Orientation Straight 09/29/2023 5: 16 PM EDT documented as of this encounter Miscellaneous Notes * Telephone Encounter - Tsering Perdomo RN - 04/26/2023 9:20 AM EST RN called pt x1, for status check on below,no answer LVM for return call Incoming call from pt, reports having worsening depression, difficulty with sleep. Per pt no changes to appetite. Denies any concerns of safety at home. Denies any SI/HI. Patient is looking for respite care. Call to [facility], spoke with Margie who advised to have pt call [facility] [place] at [phone]. Pt advised to call back if any issues contacting them. Pt agrees to all now. Sent to team for status check PRN. Protocol Used: Depression (Adult) Protocol-Based Disposition: See in Office or Video Visit within 3 Days Video visit offer not recorded Positive Triage Question: * Depression is worsening (e.g.,sleeping poorly, less able to do activities of daily living) * All higher-acuity triage questions were negative Care Advice Discussed: * Reasons To Call Back - Sadness or depression symptoms persist over 2 weeks - You feel like harming yourself - You become worse * Telephone Encounter - Sangeetha Barba RN - 04/25/2023 12:36 PM EST Incoming call from pt, reports having worsening depression, difficulty with sleep. Per pt no changes to appetite. Denies any concerns of safety at home. Denies any SI/HI. Patient is looking for respite care. Call to [facility], spoke with Margie who advised to have pt call [facility] at [phone]. Pt advised to call back if any issues contacting them. Pt agrees to all now. Sent to team for status check PRN. Protocol Used: Depression (Adult) Protocol-Based Disposition: See in Office or Video Visit within 3 Days Video visit offer not recorded Positive Triage Question: * Depression is worsening (e.g.,sleeping poorly, less able to do activities of daily living) * All higher-acuity triage questions were negative Care Advice Discussed: * Reasons To Call Back - Sadness or depression symptoms persist over 2 weeks - You feel like harming yourself - You become worse * Telephone Encounter - Ching Bee - 04/25/2023 12:24 PM EST Symptom: Depression Outcome: Transfer to a nurse or provider NOW! Reason: Acting confused The caller accepted this outcome documented in this encounter Plan of Treatment Not on file documented as of this encounter Visit Diagnoses Not on filedocumented in this encounter Additional Health Concerns Assessment Noted Time PHQ-9 Depression Total Score: 16 10/05/ 023 2:01 PM EDT documented as of this encounter Care Teams Plate Painter Relationship Specialty Start Date End Date Mary Lou Doan FNP [address] [place] [address] PCP - General Family Medicine 11/03/21 documented as of this encounter
--- OUTSIDE RECORDS SUMMARY | 2024-11-06 15:50 | XMS_ITS | Encounter Summary ---
Author Organization [employer] Address [address] 7t [place] [address] Care Team Providers Care Lunchroom Food Service Supervisor Name Role Phone [facility] Primary Care Provider [phone] Reason for Visit * Reason Comments Med Refill Encounter Details Date Type Department Care Team ([facility] st Contact Info) Description 04/04/2023 Refill [facility] CHC MED & PEDS [address] [place], [place] [phone] Jenifer Laboy MD [address] [place] [address] Anxiety Social History Tobacco Use Types Packs/Day Years [...] documented as of this encounter Visit Diagnoses Diagnosis Anxiety Anxiety state, unspecified documented in this encounter Additional Health Concerns Assessment Noted Time PHQ-9 Depression Total Score: 16 023 2:01 PM EDT documented as of this encounter Care Teams Lunchroom Food Service Supervisor Relationship Specialty Start Date End Date Mary Lou Doan FNP [address] [place] [address] PCP - General Family Medicine 11/03/21 documented as of this encounter
--- OUTSIDE RECORDS SUMMARY | 2024-11-06 15:50 | XMS_ITS | Encounter Summary ---
Author Organization [employer] Address [address] 7t [place] [address] Care Team Providers Care Furnace Repair Mechanic Name Role Phone Franki [facility] Primary Care Provider Reason for Visit * Reason Onset Date Comments Appointment 08/28/2022 Encounter Details Date Type Department Care Team ([facility] st Contact Info) Description 08/28/2022 Telephone [facility] ADULT DENTAL [address] [place], [place] [phone] FlaviaCoryRosalie [address] [place], [place] [phone] Appointment Social History Tobacco Use Types Packs/Day Years [...] encounter Miscellaneous Notes * Telephone Encounter - Padmini Park - 08/28/2022 1:43 PM EDT Patient called in stating that her cleaning appt was cancelled due to provider being in a meeting. Appt requested in March and scheduled in Apr but had to be cancelled according to patient due to provider being in a meeting. Is checking in on status of her visit. Would like to be scheduled. No room on PAR side. documented in this encounter Plan of Treatment Not on file documented as of this encounter Visit Diagnoses Not on filedocumented in this encounter Care Teams Furnace Repair Mechanic Relationship Specialty Start Date End Date Mary Lou Doan FNP [address] [place] [address] PCP - General Family Medicine 11/03/21 documented as of this encounter
--- OUTSIDE RECORDS SUMMARY | 2024-11-06 15:50 | XMS_ITS | Encounter Summary ---
Author Organization [employer] Address [address] [facility] 7t [place] [address] Care Team Providers Care Hot Mill Worker Name Role Phone Mary Lou Doan FOUNDRY SUPERVISOR Primary Care Provider [phone] Encounter Details Date Type Department Care Team (Late st Contact Info) Description 03/16/2022 Abstract [facility] ADULT DENTAL [address] [place], [place] [phone] Be Medina DDS [address] [place] [address] Social History Tobacco Use Types Packs/Day Years [...] on filedocumented in this encounter Care Teams Hot Mill Worker Relationship Specialty Start Date End Date Mary Lou Doan FNP [address] [place] [address] PCP - General Family Medicine 11/03/21 documented as of this encounter
--- OUTSIDE RECORDS SUMMARY | 2024-11-06 15:50 | XMS_ITS | Encounter Summary ---
Author Organization [employer] Address [address] 7[address] [place] [address] Care Team Providers Care Surveyor Instrument Assistant Name Role Phone [facility] Primary Care Provider [phone] Reason for Visit * Reason Comments Med Refill Encounter Details Date Type Department Care Team ([facility] st Contact Info) Description 08/08/2024 Refill [facility] MEDICINE [address] [place], [place] [phone] [facility] [address] [place], [place] [phone] Cervical radiculopathy Social History Tobacco Use Types Packs/Day Years [...] as of this encounter Visit Diagnoses Diagnosis Cervical radiculopathy Brachial neuritis or radiculitis nos documented in this encounter Additional Health Concerns Assessment Noted Time PHQ-9 Depression Total Score: 17 025 3:38 PM EDT documented as of this encounter Care Teams Surveyor Instrument Assistant Relationship Specialty Start Date End Date Mary Lou Doan FNP [address] [place] [address] PCP - General Family Medicine 11/03/21 documented as of this encounter
--- OUTSIDE RECORDS SUMMARY | 2024-11-06 15:50 | XMS_ITS | Encounter Summary ---
Author Organization [employer] Address [address] 7t [place] [address] Care Team Providers Care Biscuit Packer Name Role Phone [facility] Primary Care Provider [phone] Reason for Visit * Reason Onset Date Comments Med Refill 01/19/2023 Encounter Details Date Type Department Care Team ([facility] st Contact Info) Description 01/19/2023 Refill [facility] CHC MED & PEDS [address] [place], [place] [phone] [facility] [address] [place] [address] Shortness of breath Social History Tobacco Use Types Packs/Day Years [...] as of this encounter Visit Diagnoses Diagnosis Shortness of breath documented in this encounter Additional Health Concerns Assessment Noted Time PHQ-9 Depression Total Score: 16 023 2:01 PM EDT documented as of this encounter Care Teams Biscuit Packer Relationship Specialty Start Date End Date Mary Lou Doan FNP [address] [place] [address] PCP - General Family Medicine 11/03/21 documented as of this encounter
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
--- OUTSIDE RECORDS SUMMARY | 2024-11-06 15:50 | XMS_ITS | Encounter Summary ---
Author Organization [employer] Address [address] [place] [address] Care Team Providers Care Fuel Truck Driver Name Role Phone [facility] Primary Care Provider [phone] Reason for Visit * Reason Onset Date Comments Med Refill 11/01/2023 Encounter Details Date Type Department Care Team ([facility] st Contact Info) Description 11/01/2023 Refill [facility] MEDICINE [address] [place] [address] Jenifer Laboy MD [address] [place], [place] [phone] Social History Tobacco Use Types Packs/Day Years [...] documented as of this encounter Care Teams Fuel Truck Driver Relationship Specialty Start Date End Date Mary Lou Doan FNP [address] [place] [address] PCP - General Family Medicine 11/03/21 documented as of this encounter
--- OUTSIDE RECORDS SUMMARY | 2024-11-06 15:50 | XMS_ITS | Encounter Summary ---
Author Organization [employer] Address [facility] [address] [place] [address] Care Team Providers Care Rn Oncology Clinical Name Role Phone [facility] Primary Care Provider [phone] Reason for Visit * Reason Onset Date Comments Med Refill Received Percocet from Surgeon 03/18/2023 Encounter Details Date Type Department Care Team (Late st Contact Info) Description 03/18/2023 Refill [facility] [address] [place], [place] [id number] [facility] [address] [facility] [place] [address] Chronic pain of left knee (Primary Dx); Violation of narcotic use agreement Social History Tobacco Use Types Packs/Day Years [...] encounter Miscellaneous Notes * Telephone Encounter - Jenifer Laboy MD - 03/18/2023 4:26 PM EST [facility] nurse note reviewed, patient was apparently taking both tramadol and oxycodone at the same timeafter her knee surgery and she's out of tramadol or any other controlled substance for pain now. AP/I will give rx for tramadol x 1w only until PCP returns. -Please address and stress the importance of compliance with narcotic contract, including avoiding the use of new controlled substances without notifying PCP/[facility] nurse. Contract may or not be terminated if not compliant with it. Please fu with PCP. -Please remind patient to be compliant with [facility] appts, pill count and urine tox, FU with PCP -FU next week for refill if needed, otherwise to fu with PCP, please remind patient that she shouldcall at least 2d prior to refill due or more if it falls on weekend or holiday, to allow enough time for med check. * Telephone Encounter - Pretty Golden - 03/18/2023 4:26 PM EST Tc from pt calling in regards to encounter with [facility] nurse. Pt would like to speak with nurse/PCP. Pt seems upset and stating she is stressed. Please contact pt at [phone] (director of community life needed) * Telephone Encounter - Khadijah Root RN - 03/18/2023 3:30 PM EST 02/13/23 Pt had left knee partial medial menisectomy and chondroplasty by Dr. Gardner. 02/13/23 Pt received Tramaol 50mg #150 for 25 days from PCP. 02/13/23 Pt received Percocet 5mg #42 for 7 days from A [address], [facility]. 03/12/23 Pt Received Percocet 5mg #28 for 7 days from A [address], [facility]. TC to pt, pt inquiring about Tramadol refill request. Pt stated that she did not take her Tramadol while taking her Percocet. Explained to pt that while she was taking her Percocet she should not have been taking her Tramadol and therefore should have some Tramadol left. Further into conversation she stated she was taking her Tramadol at same time as her Percocet. Pt upset about this ticket writer inquiring about her Tramadol refill. Pt and her were both talking stating that it shouldn't be anissue if she takes her Tramadol with her Percocet at the same time. Attempted to review the [facility] Agreement with them. Explained to them that I will forward their request to a covering provider, but itmay be denied. Also explained that I would call her back if Tramadol refill request is denied. Encouraged patient to speak with her PCP regarding the above as well. documented in this encounter Plan of Treatment Not on file documented as of this encounter Visit Diagnoses Diagnosis Chronic pain of left knee- Primary Violation of narcotic use agreement documented in this encounter Additional Health Concerns Assessment Noted Time PHQ-9 Depression Total Score: 16 023 2:01 PM EDT documented as of this encounter Care Teams Rn Oncology Clinical Relationship Specialty Start Date End Date Mary Lou Doan FNP [address] [place] [id number] PCP - General Family Medicine 11/03/21 documented as of this encounter
--- OUTSIDE RECORDS SUMMARY | 2024-11-06 15:50 | XMS_ITS | Encounter Summary ---
Author Organization [employer] Address [address] [facility] [address] [place] [address] Care Team Providers Care Software Engineer Advisor Name Role Phone [facility] Primary Care Provider [phone] Reason for Visit * Reason Onset Date Comments Med Refill 07/14/2024 Encounter Details Date Type Department Care Team ([facility] st Contact Info) Description 07/14/2024 Refill [facility] [address] [place], [place] [phone] [facility] [address] [place] [address] Social History Tobacco Use Types Packs/Day Years [...] documented as of this encounter Care Teams Software Engineer Advisor Relationship Specialty Start Date End Date Mary Lou Doan FNP [address] [place] [id number] PCP - General Family Medicine 11/03/21 documented as of this encounter
--- OUTSIDE RECORDS SUMMARY | 2024-11-06 15:50 | XMS_ITS | Clinical Summary ---
Author Organization [employer] Address [address] [place] [address] Care Team Providers Care Resident Athletic Trainer Name Role Phone Franki [facility] Primary Care Provider [phone] Allergies No known active allergies Medications * This document contains information received from the source organization and may not represent a complete record from that organization. loratadine (Claritin) 10 MG tablet Take 1 tablet by mouth at bed time. 08/22/19 18 Active clotrimazole (Lotrimin) 1 % cream Apply topically at bed time. 10/05/19 22 Active zoster vaccine-recombina nt adjuvanted (Shingrix) 50 MCG/0.5ML vaccine Inject 0.5 mL into the shoulder, thigh, or buttocks. 01/25/20 21 Active dexAMETHasone 0.5 MG/5ML elixirIndications :Recurrent aphthous ulcer Swish and spit 5mL three to four times daily. Keep medication in mouth for five minutes prior to spitting out. Do not rinse afterward and avoid eating or drinking for 30 minutes 200 mL 06/07/19 23 Active Blood Pressure kitIndications:El evated blood pressure reading in office without diagnosis of hypertension Use as directed 1 kit 10/06/19 23 Active albuterol 108 (90 Base) MCG/ACT inhalerIndication [...] 24 Active cholecalciferol (Vitamin D-3) 50 MCG (1999 UT) tablet TAKE 1 TABLET BY MOUTH EVERY DAY 90 tablet 1 07/02/19 25 Active gabapentin (Neurontin) 300 MG capsule Take 300 mg by mouth at bedtime. 06/27/19 25 Active DULoxetine (Cymbalta) [address] capsuleIndication s:Fibromyalgia Take 2 capsules (60 mg) by mouth 2 times daily. Do not crush or chew. 60 capsule 11 07/07/19 25 Active Ketotifen Fumarate ( Ketotifen Fumarate) 0.035 % solutionIndicatio ns:Seasonal allergies Administer 1 drop into affected eye(s) 2 times daily. 5 mL 1 07/07/19 25 Active Multiple Vitamin (multivitamin) tabletIndications :Healthcare maintenance Take 1 tablet by mouth Once per day. 90 tablet 3 07/09/19 25 2025 Active Diclofenac Sodium 1 % gel APPLY 1 INCH TOPICALLY TO THE AFFECTED AREA IN THE MORNING AND AT BEDTIME NEEDED 100 g 07/14/19 25 Active zolpidem (Ambien) 10 MG tabletIndications :Insomnia, unspecified type Take 1 tablet (10 mg) by mouth if needed at bedtime for sleep. TAKE 1 TABLET(10 MG) BY MOUTH AT BEDTIME 30 tablet 3 07/16/19 25 Active rosuvastatin (Crestor) 10 MG tabletIndications :Hyperlipidemia, unspecified hyperlipidemia type TAKE 1 TABLET BY MOUTH EVERY DAY 30 tablet 11 08/06/19 25 Active baclofen (Lioresal) 20 MG tabletIndications :Cervical radiculopathy TAKE 1 TABLET(20 MG) BY MOUTH EVERY 8 HOURS NEEDED FOR MUSCLE SPASMS 90 tablet 08/13/19 25 Active olmesartan (Benicar) 5 MG tabletIndications :Essential hypertension Take 1 tablet (5 mg) by mouth Once per day. 30 tablet 11 09/08/19 25 2025 Active fluticasone (Flonase) 50 MCG/ACT nasal sprayIndications: Seasonal allergies ADMINISTER 1-2 SPRAYS IN EACH NOSTRIL EVERY DAY 48 g 10/31/19 25 Active fluticasone (Flonase) 50 MCG/ACT nasal spray 2 sprays. 06/29/19 17 2024 Discontinued fluticasone (Flonase) 50 MCG/ACT nasal sprayIndications: Seasonal allergies Administer 1-2 sprays into each nostril Once per day. Shake gently. Before first use, prime pump. After use, clean tip and replace cap. 16 g 2 07/07/19 25 2024 Discontinued Active Problems Problem Noted Date Diagnosed Date [...] on exertion Followed by Dr. Santa at [facility], negative stress test and echo [...] hx of glaucoma. Dr. Navarro follows Dental: [facility] dental HIV: Neg 2016 Hepatitis: Neg 04/2021 Screening Labs: A1c: 6.2 04/2021, Family history of breast cancer 06/06/2022 Overview (06/06/2022): Daughter from breast cancer age 29 Referred for genetic screening 01/2022 Bilateral chronic knee pain 06/06/2022 Overview (06/06/2022): Long hx of chronic bilateral knee pain. S/p right knee arthroplasty and meniscal repair 2020 Managed with tramadol 50mg PRN, compliant with [employer] program Lung nodule 11/09/2021 Overview (06/06/2022): 3mm [...] 60mg daily Buproprion 150mg XR Therapist at [facility] Assessment & Plan (12/06/2022 1:59 [...] pt with additional resources for [facility] at [facility]NOTE 3], as well as how to reach out to [facility] BH team. Pt was agreeable to intervention and referral to op and psych services at [facility]. Assessment & Plan (10/24/2022 9:33 AM EDT): Patient declines buproprion increase at this time. Will continue at current dose Continue duloxetine 60mg daily Continue clonazepam 0.5mg once daily (started by prior outside provider) Ambien PRN for sleep. Plan to discuss insomnia at follow up. Contact HC if sx worsen or experiencing thoughts of SI or self harm. Pt has [facility] crisis contact information Assessment & Plan (10/05/2022 3:19 PM EDT): In office BE during OV with Dr. Mukherjee. Pt referred to [facility] and provided with [facility] contact information for emergency care. STOP buspar START buproprion 150mg XR. Reviewed administration, risks, side effects Continue duloxetine 60mg Contact HC if sx worsen or experiencing thoughts of SI or self harm. Pt has [facility] crisis contact information Resolved Problems Problem Noted [...] organization. Date Type Department Care Team Description 10/29/2024 Refill [facility] [place] [address] Mary Lou Doan FNP Seasonal allergies 10/23/2024 Telephone [facility] [place] [address] Mary Lou Doan FNP Chart Prep 10/13/2024 Telephone [facility] [place] [address] Carlos Leonard CNM 10/07/2024 Telephone [facility] [place] [address] Mary Lou Doan FNP No Show; Appointment Request 10/06/2024 Telephone [facility] [address] Mary Lou Doan FNP Chart Prep 10/05/2024 Telephone [facility] [place] [address] Mary Lou Doan FNP Chart Prep 09/24/2024 Travel 09/21/2024 Travel 09/09/2024 Telephone [facility] [place] [address] Mary Lou Doan FNP Referral 09/08/2024 Telephone [facility] [place] [address] Mary Lou Doan FNP Call Back Request 09/07/2024 1:00 PM EDT Office Visit [facility] [place] [address] Mary Lou Doan FNP Essential hypertension (Primary Dx); Class 2 severe obesity due to excess calories with serious comorbidity and body mass index (BMI) of 38.0 to 38.9 in adult ([facility]); Chronic right-sided low back pain with right-sided sciatica 09/07/2024 Travel 09/06/2024 Travel 09/04/2024 Telephone [facility] [address] [facility] [place] [address] Mary Lou Doan FNP Chart Prep 08/27/2024 Orders Only [facility] External Provider, [facility] 08/20/2024 Orders Only [facility] External Provider, [facility] 08/12/2024 Telephone [facility] [address] [facility] [place] [address] Mary Lou Doan FNP Med Refill 08/11/2024 Refill [facility] [address] [facility] [place] [address] Mary Lou Doan FNP Cervical radiculopathy 08/10/2024 5:00 PM EDT Office Visit [facility] [address] [facility] [place] [address] Gina Maurer NP Right leg pain (Primary Dx); Chronic right-sided low back pain with right-sided sciatica; Elevated blood pressure reading in office without diagnosis of hypertension 08/10/2024 Telephone [facility] [address] [facility] [place] [address] Mary Lou Doan FNP Medication Question 08/10/2024 Telephone [facility] [address] [place] [address] Mary Lou Doan FNP Med Refill 08/10/2024 Orders Only [facility] [address] [place] [address] Mary Lou Doan FNP Hyperlipidemia, unspecified hyperlipidemia type (Primary Dx) 08/08/2024 Refill [facility] [address] [facility] [place] [address] Mary Lou Doan FNP Cervical radiculopathy 08/06/2024 Refill [facility] [address] [place] [address] Mary Lou Doan, SHOP TEACHER Cervical radiculopathy from Last 3 Months Immunizations Immunization Administration [...] your housing situation today? I have scout melanie 03/20/[address] you li [...] 09/07/2024 12:59 PM EDT Plan of Treatment Health Maintenance Due Date Last Done Comments [...] RENAL BI Routine 08/20/2024 3:57 PM EDT HEPATITIS PANEL, GENERAL Routine 07/31/2024 1:55 PM EDT Healthcare maintenance HIV 1/2 ANTIGEN/ANTIBODY, FOURTH GENERATION W/RFL Routine 07/31/2024 1:55 PM EDT Healthcare maintenance HEMOGLOBIN A1C Routine 07/31/2024 1:55 PM EDT Class 2 severe obesity due to excess calories with serious comorbidity and body mass index (BMI) of 38.0 to 38.9 in adult (CMS/HCC) LIPID PANEL, STANDARD Routine 07/31/2024 1:55 PM [...] PM EDT Narrative 09/23/2024 7:18 PM EDT [address] [address] Ultrasound Report Signed Patient: Leslie Erazo MR#: [id number] 92 : 1965 Acct:[id number] Age/Sex: 59 / F ADM Date: 09/23/24 Loc: HO.US Attending Dr: Carie WILLIS- Ordering Physician: Javier Winters Date of Service: 09/23/24 Procedure(s): US bladder Accession Number(s): [id number] cc: Javier Winters ; [facility] CLINICAL HISTORY: frequency US kidneys and [...] in OV> 09/23/241917 DD/ 16 TD/TT: 09/23/241916 Medical Clerk: Procedure Note Donotuseinterpreter, Image - 09/23/[address] [address] Ultrasound Report Signed Patient: Leslie ErazoMR#: [id number] 92 : 1965Acct:[id number] Age/Sex: 59 / FADM Date: 09/23/24 Loc: HO.US Attending Dr: Carie WILLIS- Ordering Physician: Javier Winters Date of Service: 09/23/24 Procedure(s): US bladder Accession Number(s): [id number] cc: Javier Winters ; [facility] CLINICAL HISTORY: frequency US kidneys and [...] in OV> 09/23/241917 DD/ 16 TD/TT: 09/23/241916 Medical Clerk: us [facility] External Provider IMG US PROCEDURES Edited Result - Final * XR Lumbar Spine Complete 4+ Views (08/27/2024 3:40 PM EDT) Anatomical Region Laterality Modality Spine, L-spine Radiographic Josseline ging 08/27/2024 3:40 PM EDT Narrative 08/27/2024 4:15 PM EDT [place] [address] XRay Report Signed Patient: Leslie Erazo MR#: [id number] 92 : 1965 Acct:[id number] Age/Sex: 59 / F ADM Date: 08/27/24 Loc: JAYA Attending Dr: Isabel Chun APRN, CNP Ordering Physician: Isabel Chun APRN, CNP Date of Service: 08/27/24 Procedure(s): XR lumbar spine 4V min Accession Number(s): [id number] cc: Isabel Chun APRN, CNP; [facility] SHOP TEACHER EXAMINATION: XR LUMBOSACRAL SPINE CLINICAL INFORMATION: M47.816 [...] 08/27/24 1611 DD/ 1540 TD/TT: 08/27/24 1557 Medical Clerk: Procedure Note Donotuseinterpreter, Image - 08/27/2024 [place] [address] XRay Report Signed Patient: Leslie ErazoMR#: [id number] 92 : 1965Acct:[id number] Age/Sex: 59 / FADM Date: 08/27/24 Loc: JAYA Attending Dr: Isabel Chun APRN, CNP Ordering Physician: Isabel Chun APRN, CNP Date of Service: 08/27/24 Procedure(s): XR lumbar spine 4V min Accession Number(s): [id number] cc: Isabel Chun APRN, CNP; [facility] EXAMINATION: XR LUMBOSACRAL SPINE CLINICAL INFORMATION: [...] 08/27/24 1611 DD/ 1540 TD/TT: 08/27/24 1557 Medical Clerk: us [facility] External Provider IMG XR PROCEDURES Final Result * US Pelvis Transvaginal (08/20/2024 4:08 PM EDT) Anatomical Region Laterality Modality Pelvis Ultrasound 08/20/2024 4:08 PM EDT Narrative 08/20/2024 6:31 PM EDT [address] [address] Ultrasound Report Signed Patient: Leslie Erazo MR#: [id number] 92 : 1965 Acct:[id number] Age/Sex: 59 / F ADM Date: 08/20/24 Loc: HO.US Attending Dr: Carie WILLIS- Ordering Physician: Marc Yusuf MD Date of Service: 08/20/24 Procedure(s): US pelvic and transvaginal Accession Number(s): [id number] cc: Mary Lou Doan; Marc Yusuf MD [...] 08/20/24 1828 DD/ 1608 TD/TT: 08/20/24 1624 Medical Clerk: Procedure Note Donotuseinterpreter, Image - 08/20/2024 [place] [address] Ultrasound Report Signed Patient: Leslie ErazoMR#: [id number] 92 : 1965Acct:[id number] Age/Sex: 59 / FADM Date: 08/20/24 Loc: .US Attending Dr: Carie WILLIS- Ordering Physician: Marc Yusuf MD Date of Service: 08/20/24 Procedure(s): US pelvic and transvaginal Accession Number(s): [id number] cc: Mary Lou Doan; Marc Yusuf MD [...] 08/20/24 1828 DD/ 1608 TD/TT: 08/20/24 1624 Medical Clerk: us [facility] External Provider IMG US PROCEDURES Final Result * US RENAL BI (08/20/2024 3:57 PM EDT) Anatomical Region Laterality Modality Abdomen Ultrasound 08/20/2024 3:57 PM EDT Narrative 08/21/2024 7:05 AM EDT [place] [address] Ultrasound Report Signed Patient: Leslie Erazo MR#: [id number] 92 : 1965 Acct:[id number] Age/Sex: 59 / F ADM Date: 08/20/24 Loc: HO.US Attending Dr: Carie MONTEIRO Ordering Physician: Carie Winters Date of Service: 08/20/24 Procedure(s): US renal BI Accession Number(s): [id number] cc: Carie Winters; [facility] EXAMINATION: US KIDNEY BILATERAL HISTORY: R35.0 [...] 08/21/24 0703 DD/ 1557 TD/TT: 08/20/24 1605 Medical Clerk: Procedure Note Donotuseinterpreter, Image - 08/21/2024 [place] [address] Ultrasound Report Signed Patient: Leslie ErazoMR#: [id number] 92 : 1965Acct:[id number] Age/Sex: 59 / FADM Date: 08/20/24 Loc: HO.US Attending Dr: Carie MONTEIRO Ordering Physician: Carie Winters Date of Service: 08/20/24 Procedure(s): US renal BI Accession Number(s): [id number] cc: Carie Winters; [facility] EXAMINATION: US KIDNEY BILATERAL HISTORY: R35.0 - [...] 08/21/24 0703 DD/ 1557 TD/TT: 08/20/24 1605 Medical Clerk: [facility] External Provider IMG US PROCEDURES Final Result * Hepatitis A,B,C Profile (07/31/2024 1:55 PM EDT) Hepatitis A IgM Nonreactive Nonreactive [facility] Comment:IgM antibodies to NUNEZ V not detected; does not exclude earlyacute or recovered HAV infection. ~Hepatitis B Surface Antibody REACTIVE Nonreactive [facility] Comment:REACTIVE: > 11.99 mI U/mL Hepatitis B Core Antibody Nonreactive Nonreactive [facility] Hepatitis C Antibody Nonreactive Nonreactive [facility] Comment:Antibodies to HCV no t detected; does not exclude early acuteHCV infection. Hepatitis B Surface Ag Negative Negative [facility] Blood Venous blood specimen / Unknown 07/31/2024 1:55 PM EDT 07/31/2024 1:55 PM EDT [facility] [employer] LAB BLOOD ORDERABLES Final Re sult [facility] [address] [place] [address] [phone] * HIV-1/2 Antigen and Antibodies, Fourth Generation, with Reflexes (07/31/2024 1:55 PM EDT) HIV AB/AG Nonreactive Nonreactive [facility] Comment:HIV-1 p24 Ag and/or HIV-1/HIV-2 Ab not detected.A test result that is nonreactive does not exclude thepossibility of exposure to or infection with HIV-1 and/orHIV-2. Nonreactive results in this assay for individualswith prior exposure to HIV-1 and/or HIV-2 may be due toantigen and antibody levels that are below the limit ofdetection of this assay.The i2O Water HIV Ag/Ab Combo assay result andsupplemental assay results should be interpreted inconjunction with the patient's clinical presentation,history and other laboratory results. If the results areinconsistent with clinical evidence, additional testing issuggested to confirm the result. Blood Venous blood specimen / Unknown 07/31/2024 1:55 PM EDT 07/31/2024 1:55 PM EDT [facility] LAB BLOOD ORDERABLES Final Re sult [facility] [address] [place] [address] [phone] * (ABNORMAL) Hemoglobin A1c (07/31/2024 1:55 PM EDT) Hemoglobin A1c 6.1(H) <6.0 % [facility] Comment:Hemoglobin A1C Refer ence Range Adults: 4.8 - 6.0 % Non diabetic: < 6.0 % Goal: < 7.0 %Additional Action Suggested: > 8.0 %Note: Hemoglobin A1c results are invalid for patients with abnormal amounts of HbF. Blood transfusions may impact the HbA1c concentration in the patient sample. Estimated Average Glucose 128 mg/dL [facility] Comment:eAG = Estimated ave rage glucose which is %A1C expressed asaverage glucose, using the formula of the Y9K-TzpwonhHzadlgb Glucose study (ADAG), Diabetes Care, Vol.31,#8,Oct. 2007 Blood Venous blood specimen / Unknown 07/31/2024 1:55 PM EDT 07/31/2024 1:55 PM EDT [facility] LAB BLOOD ORDERABLES Final Re sult Performing Organization Address [facility] Co de Phone Number [facility] [address] [place] [address] [phone] * (ABNORMAL) Lipid Panel, Standard (07/31/2024 1:55 PM EDT) Triglycerides 176(H) <150 mg/dL [facility] Comment:Desirable Triglyceri de: less than 150 mg/dLBorderline High Triglyceride 150-199 mg/dLHigh Triglyceride: 200-499 mg/dLVery High Triglyceride: greater than or equal to 5OO mg/dL Cholesterol 242(H) <200 mg/dL [facility] Comment:Desirable Cholestero l: less than 200 mg/dLBorderline High Cholesterol: 200-239 mg/dLHigh Cholesterol: greater than 239 mg/dL LDL Cholesterol Calculated 167(H) <100 mg/dL [facility] Comment:Desirable LDL: less than 100 mg/dLNear Optimal/Above Optimal LDL: 110- 129 mg/dLBorderline High LDL: 130-159 mg/dLHigh LDL: 160-189 mg/dLVery High LDL: greater than or equal to 190 mg/dL HDL Cholesterol 40(L) >40 mg/dL [facility] Comment:Desirable HDL: great er than 40 mg/dL Note: This HDL assay may give artificially low results in patients with liver disease. Blood Venous blood specimen / Unknown 07/31/2024 1:55 PM EDT 07/31/2024 1:55 PM EDT [facility] LAB BLOOD ORDERABLES Final Re sult Performing Organization Address [facility]/ZIP Co de Phone Number [facility] [address] [place] [address] [phone] * BI Mammogram Screening Tomosynthesis Bilateral (10/17/2023 1:50 PM EDT) Anatomical Region Laterality Modality Breast Bilateral Mammography 10/17/2023 1:50 PM EDT Narrative 11/06/2023 9:40 AM EDT [address] [place] [address] Mammography Report Signed Patient: Leslie Erazo MR#: [id number] 92 : 1965 Acct:[id number] Age/Sex: 58 / F ADM Date: 10/17/23 Loc: HO.MAMMO Attending Dr: Carlos Leonard CNM Ordering Physician: CARLOS LEONARD CNM Results: 1 Negative Date of Service: 10/17/23 Follow Up: 1 Year From [facility] Mammogram Procedure(s): MM tomosynthesis screening BI Accession Number(s): [id number] cc: CARLOS LEONARD CNM; [facility] SHOP TE[employer]ER EXAMINATION: MM SCREENING DIGITAL BREAST TOMOSYNTHESIS, BILATERAL [...] 11/06/23 0937 DD/ 1350 TD/TT: 10/17/23 1405 Medical Clerk: Procedure Note Donotuseinterpreter, Image - 11/06/2023 [facility] [address] [place] [address] Mammography Report Signed Patient: Leslie ErazoMR#: [id number] 92 : 1965Acct:[id number] Age/Sex: 58 / FADM Date: 10/17/23 Loc: HO.MAMMO Attending Dr: Carlos Leonard CNM Ordering Physician: CARLOS LEONARDesults: 1 Negative Date of Service: 10/17/23Follow Up: 1 Year From Orig inal Mammogram Procedure(s): MM tomosynthesis screening BI Accession Number(s): [id number] cc: CARLOS LEONARD CNM; [facility] SHOP TE[employer]ER EXAMINATION: MM SCREENING DIGITAL BREAST TOMOSYNTHESIS, BILATERAL [...] 11/06/23 0937 DD/ 1350 TD/TT: 10/17/23 1405 Medical Clerk: Carlos Gaonacrarillo CN IMG BI PROCEDURES Edited Result - Final * [facility] Pap and HPV mRNA E6/E7 (09/30/2023 2:12 PM EDT) HPV nRNA E6/E7 Not Detected Not Detected [facility] Comment:Methodology: Transcr iption-Mediated AmplificationThis assay detects E6/E7 viral messenger RNA (mRNA) from 14high-risk HPV types (16,18,31,33,35,39,45,51,52,56,58,59,66,68).Cervical sources are required for HPV testing.If a vaginal source from a patient who has had atotal hysterectomy with removal of cervix wassubmitted, please contact the testing laboratoryfor alternative testing options.For additional information, please refer tohttp://education.Appscio/faq/AGL993c8(This link if provided for information/educational purposes only.)THIS TEST WAS PERFORMED AT:[facility] [place] [phone] LORA MD SOURCE: SEE NOTE [facility] Comment:None given Report Status: TNP [facility] Clinical Information: SEE NOTE [facility] Comment:None given LMP: SEE NOTE [facility] Comment:NONE GIVEN Prev. PAP: SEE NOTE [facility] Comment:NONE GIVEN Prev. BX: SEE NOTE [facility] Comment:NONE GIVEN Statement Of Adequacy: SEE NOTE [facility] Comment:Satisfactory for terry luation.Endocervical/transformation zone componentpresent. General Categorization: TNP [facility] Interpretation/Result: SEE NOTE [facility] Comment:Cytology Results: Ne gative for intraepitheliallesion or malignancy. Cytology Comment SEE NOTE [facility] Comment:This Pap test has be en evaluated with computerassisted technology. Traffic Incident Management Manager: SEE NOTE [facility] Comment:CMG, CT(ASCP)CT scre ening location: [place] [address] Review Traffic Incident Management Manager: [facility] Pathologist [facility] PAP Infection [facility] See Note SEE NOTE [facility] Comment:EXPLANATORY NOTE:The Pap is a screening test for cervical cancer. It isnot a diagnostic test and is subject to false negativeand false positive results. It is most reliable when asatisfactory sample, regularly obtained, is submittedwith relevant clinical findings and history, and whenthe Pap result is evaluated along with historic andcurrent clinical information. 09/30/2023 2:12 PM EDT 09/30/2023 7:32 PM EDT Narrative [facility] - 10/04/2023 12:37 PM EDT SEE SCANNED RESULTS IN EMR Carlos CASTRO LAB PATHOLOGY ORDERABLES Final Result [facility] [address] [place] [address] [phone] from Last 3 Months or Most Recently Relevant to Health Maintenance Insurance [facility] ONE CARE < 65 DENTAL [facility] Care Teams Resident Athletic Trainer Relationship Specialty Start Date End Date Mary Lou Doan FNP [address] [place] [id number] PCP - General Family Medicine 11/03/21
--- OUTSIDE RECORDS SUMMARY | 2024-11-06 15:50 | XMS_ITS | Encounter Summary ---
Author Organization [employer] Address [address] [facility] 7t [place] [address] Care Team Providers Care Conference Director Name Role Phone [facility] Primary Care Provider Reason for Visit * Reason Onset Date Comments Nurse Triage 10/09/2022 Encounter Details Date Type Department Care Team ([facility] st Contact Info) Description 10/09/2022 Telephone [facility] MED[facility]INE 230 [place], [place] [phone] [facility] 230 [place], [place] [phone] Nurse Triage Social History Tobacco Use Types [...] encounter Miscellaneous Notes * Telephone Encounter - Sangeetha Barba RN - 10/09/2022 3:54 PM EDT Call to Leslie Erazo, reports having upper back pain x 1 week. Pt has used tramadol and muscle relaxer. Per pt pain is constant. Pt denies any urinary sx. Is also having lower back pain. Denies N/Vor fever. Pt advised of disposition, upon seeing chart review pt seen at [facility] yesterday. Per pt mentioned to provider. Pt advised don't see anything on note regarding pain. Pt will need to come in to be assessed before any diagnostics images are ordered. Pt states will try to come in before upcomingtele visit with PCP. Pt also requesting Rx for heating pad. Pt advised will send to PCP for review regarding request. Reviewed home care advise and reasons to call back. Protocol Used: Back Pain (Adult) Protocol-Based Disposition: See in Office or Video Visit Today Video visit offer not recorded Positive Triage Question: * Severe back pain (e.g., excruciating, unable to do any normal activities) and not improved after pain medicine and Care Advice * All higher-acuity triage questions were negative Care Advice Discussed: * Reassurance and Education - Back Pain * Cold or Heat * Sleep * Activity * Pain Medicines * Reasons To Call Back - Fever occurs - Numbness or weakness occurs, or bowel/bladder problems - Pain becomes worse - You become worse * Telephone Encounter - Pretty Golden - 10/09/2022 3:49 PM EDT Symptom: Back Pain - Not From Injury Outcome: Schedule an appointment to be seen within 3 days Reason: requesting heating pad for back pain The caller accepted this outcome Please contact pt at [phone] documented in this encounter Plan of Treatment Not on file documented as of this encounter Visit Diagnoses Not on filedocumented in this encounter Additional Health Concerns Assessment Noted Time PHQ-9 Depression Total Score: 16 10/05/ 023 2:01 PM EDT documented as of this encounter Care Teams Conference Director Relationship Specialty Start Date End Date Mary Lou Doan FNP [address] [place] [address] PCP - General Family Medicine 11/03/21 documented as of this encounter
--- OUTSIDE RECORDS SUMMARY | 2024-11-06 15:50 | XMS_ITS | Encounter Summary ---
Author Organization [employer] Address [address] [address] [facility] [address] 7t [place] [address] Care Team Providers Care Fur Finisher Seamstress Name Role Phone [facility] Primary Care Provider [phone] Reason for Visit * Reason Onset Date Comments Med Refill 08/06/2024 Encounter Details Date Type Department Care Team ([facility] st Contact Info) Description 08/06/2024 Refill [facility] MEDICINE 230 [place], [place] [phone] [facility] 230 [place], [place] [phone] Cervical radiculopathy Social History Tobacco Use Types [...] documented as of this encounter Care Teams Fur Finisher Seamstress Relationship Specialty Start Date End Date Mary Lou Doan FNP [address] [place] [id number] PCP - General Family Medicine 11/03/21 documented as of this encounter
--- OUTSIDE RECORDS SUMMARY | 2024-11-06 15:50 | XMS_ITS | Encounter Summary ---
Author Organization [employer] Address [address] 7[address] [place] [address] Care Team Providers Care Order Tracer Name Role Phone [facility] Primary Care Provider [phone] Reason for Visit * Reason Onset Date Comments Call Back Request 05/14/2023 Encounter Details Date Type Department Care Team ([facility] st Contact Info) Description 05/14/2023 Telephone [facility] MEDICINE 230 [place], [place] [phone] [facility] 230 [place], [place] [phone] Call Back Request Social History Tobacco Use Types Packs/Day Years [...] encounter Miscellaneous Notes * Telephone Encounter - Ching Moreira Mu - 05/14/2023 3:18 PM EST Tc from pt requesting to speak with Web Site Project Manager in regards to [employer]ents Management. Pt states that that she feels that her privacy is being invade by the level of questions. Please contact pt @ [phone] documented in this encounter Plan of Treatment Not on file documented as of this encounter Visit Diagnoses Not on filedocumented in this encounter Additional Health Concerns Assessment Noted Time PHQ-9 Depression Total Score: 16 023 2:01 PM EDT documented as of this encounter Care Teams Order Tracer Relationship Specialty Start Date End Date Mary Lou Doan FNP [address] [place] [id number] PCP - General Family Medicine 11/03/21 documented as of this encounter
--- OUTSIDE RECORDS SUMMARY | 2024-11-06 15:50 | XMS_ITS | Encounter Summary ---
Author Organization [employer] Address [address] [facility] [address] 7[address] [place] [address] Care Team Providers Care Plastics And Composites Inspector Name Role Phone [facility] Primary Care Provider [phone] Reason for Visit * Reason Onset Date Comments Results 08/05/2024 Encounter Details Date Type Department Care Team ([facility] Contact Info) Description 08/05/[address] [facility] MEDICINE 230 [place], [place] [phone] [place] [facility] 230 [place] [address] Results Social History Tobacco Use Types Packs/Day Years [...] encounter Miscellaneous Notes * Telephone Encounter - Kristin Gibson RN - 08/06/2024 10:21 AM EDT TC placed to patient [phone] regarding below message. RN informed patient of her lab results from 07/31/24. RN informed patient that her Cholesterol is elevated. RN inquired about if the patient is taking her statin. Patient informed staff she will start taking it. RN educated patient the medication should be taken at night. RN also informed patient that she has prediabetes and her PCP will discuss medication options at her next PCP visit. RN educated patient the importance of a healthy diet ans RN offered if the patient is interested in a referral to a Management Assistant. Pt agreed. Patient also informed RN that she has been having moderate to severe RLE pain with swelling and lower back pain. Denies any recent injury to the sites. RN advised patient to go to the Walk In Center at [facility] or the ED for further evaluation. Pt agreed. RN informed patient a message will be sent to her PCP for review. Pt verbalized understanding to to F/U PRN. * Telephone Encounter - Kristin Gibson RN - 08/05/2024 3:41 PM EDT Tc placed to patient [phone] regarding below message. Patient informed RN that she is looking for her Lab results from 07/31/24. RN informed patient that a message will be sent to her PCP to review her labs and the office will CB with any abnormal results. Patient also reported she needs medications because she lost them. Diclofenac Sodium and Baclofen. RN informed patient the medications will be pended to her PCP for approval. Patient also reported she received pads and wipes x 1 and haven't received any after that. RN informed patient RN will review her chart and send to the appropriatepeople who handle DME's. Pt verbalized understanding. PT to F/U PRN. * Telephone Encounter - Isaiah Falcon - 08/05/2024 11:38 AM EDT TC from pt requesting call back regarding Results. Type of results: Labs Date when done: 07/31/24 Facility: [facility] Pt also wanted to verify if she can receive another script for muscle relaxer because she lost the previous one. Please contact pt at [phone]. documented in this encounter Plan of Treatment Not on file documented as of this encounter Visit Diagnoses Diagnosis Cervical radiculopathy Brachial neuritis or radiculitis nos documented in this encounter Additional Health Concerns Assessment Noted Time PHQ-9 Depression Total Score: 17 025 3:38 PM EDT documented as of this encounter Care Teams Plastics And Composites Inspector Relationship Specialty Start Date End Date Mary Lou Doan FNP [address] [place] [phone] PCP - General Family Medicine 11/03/21 documented as of this encounter
--- OUTSIDE RECORDS SUMMARY | 2024-11-06 15:50 | XMS_ITS | Encounter Summary ---
Author Organization [employer] Address [address] [facility] 7t [place] [address] Care Team Providers Care Hat Forming Machine Operator Name Role Phone [facility] Primary Care Provider [phone] Reason for Visit * Reason Onset Date Comments Med Refill 10/28/2023 Encounter Details Date Type Department Care Team ([facility] st Contact Info) Description 10/28/2023 Refill [facility] MEDICINE 230 [place], [place] [phone] [facility] 230 [place] [address] Hyperlipidemia, unspecified hyperlipidemia type Social History Tobacco Use Types Packs/Day Years [...] as of this encounter Visit Diagnoses Diagnosis Hyperlipidemia, unspecified hyperlipidemia type documented in this encounter Additional Health Concerns Assessment Noted Time PHQ-9 Depression Total Score: 16 023 2:01 PM EDT documented as of this encounter Care Teams Hat Forming Machine Operator Relationship Specialty Start Date End Date Mary Lou Doan FNP [address] [place] [id number] PCP - General Family Medicine 11/03/21 documented as of this encounter
--- OUTSIDE RECORDS SUMMARY | 2024-11-06 15:50 | XMS_ITS | Encounter Summary ---
Author Organization [employer] Address [address] [facility] [address] 7t [place] [address] Care Team Providers Care Regional Psychiatric Director Name Role Phone [facility] Primary Care Provider [phone] Reason for Visit * Reason Comments Med Refill Encounter Details Date Type Department Care Team ([facility] Contact Info) Description 01/11/2024 Telephone [facility] MEDICINE 230 [place], [place] [phone] [place] [facility] 230 [place], [place] [phone] Med Refill Social History Tobacco Use Types Packs/Day Years [...] documented as of this encounter Care Teams Regional Psychiatric Director Relationship Specialty Start Date End Date Mary Lou Doan FNP [address] [place] [address] PCP - General Family Medicine 11/03/21 documented as of this encounter
--- OUTSIDE RECORDS SUMMARY | 2024-11-06 15:50 | XMS_ITS | Encounter Summary ---
Author Organization [employer] Address [address] [address] [facility] [address] 7t [place] [address] Care Team Providers Care Set Up Operator Name Role Phone [facility] Primary Care Provider [phone] Reason for Visit * Reason Onset Date Comments Med Refill 08/10/2024 Encounter Details Date Type Department Care Team ([facility] st Contact Info) Description 08/10/2024 Telephone [facility] MEDICINE 230 [place], [place] [phone] [facility] 230 [place], [place] [phone] Med Refill Social History Tobacco Use Types [...] encounter Miscellaneous Notes * Telephone Encounter - Veena Winn RN - 08/10/2024 11:28 AM EDT Triage call Pt reports right leg pain calf area. Pt reports some swelling and inability to ambulate. Pt is ambulating with a limp. Pt reports this pain is new and low back pain is present as well. Ptis requesting several medication refills , reports lost flexeril prescription and needs a new one. Pt is advised to come to [facility] today open till 8pm . Pt agrees with disposition. Insurance is verifiedas active prior to booking. Protocol Used: Leg Pain (Adult) Protocol-Based Disposition: See in Office or Video Visit Today or Tomorrow Video visit not offered Positive Triage Question: * Patient wants to be seen * All higher-acuity triage questions were negative Care Advice Discussed: * Reassurance and Education - Leg Pain * Pain Medicines * Pain Medicines - Extra Notes and Warnings * Reasons To Call Back - Moderate pain (such as limping) lasts more than 3 days - Mild pain lasts more than 7 days - Signs of infection occur (such as spreading redness, warmth, fever) - You become worse * Telephone Encounter - Leyla Humphrey - 08/10/2024 11:01 AM EDT Symptom: Leg Pain - Not From Injury Outcome: Schedule an urgent appointment (within 1 hour) or talk to a nurse or provider soon Reason: Severe pain now The caller accepted this outcome. documented in this encounter Plan of Treatment Not on file documented as of this encounter Visit Diagnoses Not on filedocumented in this encounter Additional Health Concerns Assessment Noted Time PHQ-9 Depression Total Score: 17 025 3:38 PM EDT documented as of this encounter Care Teams Set Up Operator Relationship Specialty Start Date End Date Mary Lou Doan FNP [address] [place] [address] PCP - General Family Medicine 11/03/21 documented as of this encounter
== END 2024-11-06 15:48 | disposition home or self-care (01) ==
LOC: HO.MAMMO 15:47
PROVIDERS: Visit Provider Registered Nurse
DX: Z12.31 Encounter for screening mammogram for malignant neoplasm of breast (principal)
CPT/HCPCS: 77063; 77067

== ENCOUNTER → 2024-11-06 16:00 | Outpatient (BNV) | payer OTHER, SELFPAY | PROVIDERS: Visit Provider Internal Medicine | DX: Z12.31 Encounter for screening mammogram for malignant neoplasm of breast (principal) | CPT/HCPCS: 77063; 77067 ==

== ENCOUNTER 2025-01-08 11:34 | Outpatient (AMB) | payer OTHER, SELFPAY ==
--- NOTE | 2025-01-08 11:36 | MHC.OFFVIS ---
Vital Signs 01/08/25 11:42 Height 4 ft 11 in Weight 186 lb BMI 37.6 BP 132/78 Intake Visit Reasons: ultrasound results Counter Intelligence Technician Required: Yes Counter Intelligence Technician Language: Topstitcher Zigzag Services: Counter Intelligence Technician Present (in person) Counter Intelligence Technician Name: Liz ESPINOZA Information Interpreted: non-clinical & clinical Supervisor Forming Department: Supervisor Forming Department Present (Liz ESPINOZA) Accompanied by: Self / Same As Patient Allergies No Known Allergies (No Known Allergies*) Allergy (Verified 01/08/25 11:51) Post menopausal: Yes HPI Comments Details: Presenting for ultrasound follow-up with no complaints. No pelvic pressure or bleeding or any other concerns. 09/02 pelvic ultrasound done showed the following: Uterus: The uterus is anteflexed and measures 6.8 x 4.2 x 5.4 cm. The endometrial stripe thickness is 7 mm. There is trace fluid in the endometrial canal. Uterus has a coarse echotexture. In the right upper anterior body of the myometrium, hypoechoic area measures 1.1 x 0.9 x 1.4 cm previously 0.5 x 0.5 x 0.5 cm. Lobulated heterogeneous mass at the fundal region of the uterus measures 2.1 x 1.7 x 2.2 cm previously not documented. Adnexa: Both ovaries are visualized. There is normal color flow to the adnexa. There is no ovarian torsion. There is no pelvic ascites or fluid collection. Right ovary measures 1.5 x 0.8 x 1.1 cm. Left ovary measures not seen PFSH Medical History Frequency of urination Urge incontinence Renal stones Anxiety Overactive bladder Hyperlipemia Depression Obesity Glaucoma Osteoarthritis IBS (irritable bowel syndrome) Lumbar spondylitis Renal stones Anemia GERD (gastroesophageal reflux disease) Plantar fasciitis Fibromyalgia Surgical History History of arthroscopy of right knee (~03/2020) H/O nasal septoplasty Hx of lithotripsy Hx of tubal ligation Family History Mother Diabetes Fibromyalgia Arthritis Osteoporosis Daughter Breast cancer Social History Household Members: Family Housing: House Are you a primary healthcare translator to a significant other at home: No Do you presently have visiting nurse or other home services: No Alcohol intake: never Comment: uses a cane sometimes Patient Tobacco Use Status: Never used Tobacco Second Hand Smoke Exposure: No Current occupational status: disabled Current occupation: Right Handed Physical Exam Vital Signs: Last Vital Signs BP 132/78 01/08/25 11:42 BMI result Body Mass Index 37.6 Office Procedures Endometrial Biopsy Details: The patient was counseled regarding the indication and benefits of endometrial sampling to rule out endometrial pathology including not limited to endometrial hyperplasia or endometrial cancer and others; The alternatives (Either do nothing vs. hysteroscopy D&C) & the risks were discussed with the patient including but not limited: pain, uterine perforation, bleeding, infection, possible injury to bladder, bowel, ureter, possible need for blood transfusion with all its possible risks. The patient verbalized understanding all questions answered and signed consent. The patient was placed into the dorsal lithotomy position; a speculum was inserted in the vagina. Using aseptic technique for the procedure, the cervix was cleansed with Betadine. The anterior lip of the cervix was grasped with a single tooth tenaculum. The uterus was sounded to 7 cm with a 4 mm Pipelle was used. Tissues samples were obtained and placed in formalin, in a patient labeled container and sent to the pathology department. At the end of the procedure, there was minimal bleeding noted The patient tolerated the procedure well and was discharged in good condition with the following instructions: Nothing in the vagina until the bleeding stops. No sex until the bleeding stops, to call if any of the following occurs: fever (>100.4), flu-like symptoms, abdominal pain, heavy bleeding, four smelling vaginal discharge. The patient was instructed to schedule a Follow up appointment in 2 weeks to discuss pathology results of the biopsy and treatment options. This note was generated with a voice recognition program. Some errors may have been overlooked during the review of this note. Sometimes these errors may affect the content or meaning of a given sentence. 90424-[id number] Biopsy Assessment & Plan Assessment & Plan (1) Thickened endometrium: Code(s): R93.89 - Abnormal findings on diagnostic imaging of other specified body structures Category: Medical Plan: Discussed with the patient endometrial thickness above 4 mm in menopause , the differential diagnosis of a thickened endometrium includes but not limited to endometrial polyp, hyperplasia or carcinoma. Explained to the patient that endometrial each thickness is less predictive of endometrial neoplasia in asymptomatic patients, i.e. those without postmenopausal uterine bleeding. The sensitivity and specificity for detecting endometrial carcinoma at an endometrial thickness of >= 5mm was 83 and 72 percent, respectively; this is lower than in patients with bleeding. Studies have shown that postmenopausal patients without uterine bleeding who had an endometrial thickness >11 mm had an endometrial carcinoma risk of 6.7 percent; this risk is similar to postmenopausal patients with bleeding and an endometrial thickness >5 mm. Recommended endometrial sampling to rule endometrial pathology via either office endometrial biopsy or diagnostic hysteroscopy/D&C with possible polypectomy/myomectomy. All pros and cons, risks and benefits of each approach were discussed with the patient, the patient decided to proceed with endometrial biopsy. EMB done, see procedure note, instructions given the patient to schedule an EMB appointment within 2 weeks. All questions answered, the patient verbalized (2) Uterine myoma: Code(s): D25.9 - Leiomyoma of uterus, unspecified Category: Medical Plan: Discussed with the patient the findings on pelvic ultrasound & the risk of myosarcoma; in addition reviewed with the patient that malignancy and pre malignancy cannot be ruled out without hysterectomy for pathological evaluation ; furthermore, explained to the patient the limitation of pelvic ultrasound and endometrial biopsy in the setting. Discussed with the patient the options of treatment including expectant management versus hysterectomy; the pros and cons, risks benefits of each approach were discussed with the patient including the fact that in cases of myosarcoma, surgical treatment can lead to early diagnosis and positively affects the prognosis; after further discussion, the patient decided to proceed with expectant management. Since pelvic ultrasound was done in 09/02, Will repeat pelvic ultrasound within 2 weeks. Instructions given to patient to schedule a pelvic ultrasound (order placed) and a follow-up appointment within 2 weeks . All questions answered, the patient verbalized understanding and agreed with the plan . Orders: Orders US pelvic and transvaginal 2 Weeks D25.9 - Leiomyoma of uterus, unspecified AMB Endometrial Biopsy Today R93.89 - Abnormal findings on diagnostic imaging of other specified body structures Coding Level of Care Code Est Pt Level 3 (00570) Procedure Only Diagnoses Thickened endometrium R93.89 Uterine myoma D25.9 CPT Codes Endometrial Biopsy - CPT: 67577-[id number] Biopsy ([id number])
[2025-01-08 11:42] VITALS: BP 132/78; BMI 37.6
--- OUTSIDE RECORDS SUMMARY | 2025-01-08 13:11 | XMS_ITS | Encounter Summary ---
Author Organization [employer] Address [address] [facility] [address] [facility] [address] 7[address] [place] [address] Care Team Providers Care Medical Customer Service Representative Name Role Phone [facility] Primary Care Provider [phone] Reason for Visit * Reason Onset Date Comments Appointment 08/28/2022 Encounter Details Date Type Department Care Team ([facility] st Contact Info) Description 08/28/2022 Telephone [facility] 230 [place], [place] [phone] [facility] 230 [place], [place] [phone] Appointment Social History Tobacco Use Types Packs/Day [...] on filedocumented in this encounter Care Teams Medical Customer Service Representative Relationship Specialty Start Date End Date Mary Lou Doan FNP [address] [place] [address] PCP - General Family Medicine 11/03/21 documented as of this encounter
--- OUTSIDE RECORDS SUMMARY | 2025-01-08 13:11 | XMS_ITS | Clinical Summary ---
Author Organization [employer] Address [address] [place] [address] Care Team Providers Care Upper Lining Cementer Name Role Phone Franki [facility] Primary Care Provider [phone] Allergies No known active allergies Medications * [...] 8 HOURS 50 g 2 024 Active gabapentin (Neurontin) 300 MG capsule Take 300 mg by mouth at bedtime. Active DULoxetine (Cymbalta) [address] capsuleIndication s:Fibromyalgia Take 2 capsules (60 mg) by mouth 2 times daily. Do not crush or chew. 60 capsule 11 Active Multiple Vitamin (multivitamin) tabletIndications :Healthcare maintenance Take 1 tablet by mouth Once per day. 90 tablet 3 025 2025 Active zolpidem (Ambien) 10 MG tabletIndications :Insomnia, unspecified type Take 1 tablet (10 mg) by mouth if needed at bedtime for sleep. TAKE 1 TABLET(10 MG) BY MOUTH AT BEDTIME 30 tablet 3 Active rosuvastatin (Crestor) 10 MG tabletIndications :Hyperlipidemia, unspecified hyperlipidemia type TAKE 1 TABLET BY MOUTH EVERY DAY 30 tablet 11 Active baclofen (Lioresal) 20 MG tabletIndications :Cervical radiculopathy TAKE 1 TABLET(20 MG) BY MOUTH EVERY 8 HOURS NEEDED FOR MUSCLE SPASMS 90 tablet 025 Active olmesartan (Benicar) 5 MG tabletIndications :Essential hypertension Take 1 tablet (5 mg) by mouth Once per day. 30 tablet 11 025 2025 Active fluticasone (Flonase) 50 MCG/ACT nasal sprayIndications: Seasonal allergies ADMINISTER 1-2 SPRAYS IN EACH NOSTRIL EVERY DAY 48 g 025 Active Ketotifen Fumarate 0.035 % solutionIndicatio ns:Seasonal allergies INSTILL 1 DROP IN AFFECTED EYE(S) TWICE DAILY 5 mL 1 025 Active cholecalciferol (Vitamin D-3) 50 MCG (1999) tablet TAKE 1 TABLET BY MOUTH EVERY DAY 90 tablet 1 025 Active Diclofenac Sodium 1 % gel APPLY 1 INCH TOPICALLY TO THE AFFECTED AREA IN THE MORNING AND AT BEDTIME NEEDED 100 g 025 Active cholecalciferol (Vitamin D-3) 50 MCG (1999) tablet TAKE 1 TABLET BY MOUTH EVERY DAY 90 tablet 1 025 2024 Discontinued Ketotifen Fumarate ( Ketotifen Fumarate) 0.035 % solutionIndicatio ns:Seasonal allergies Administer 1 drop into affected eye(s) 2 times daily. 5 mL 1 025 2024 Discontinued Diclofenac Sodium 1 % gel APPLY 1 INCH TOPICALLY TO THE AFFECTED AREA IN THE MORNING AND AT BEDTIME NEEDED 100 g 025 2024 Discontinued(R eorder (will not trigger [...] Followed by Dr. Santa at [facility], negative stress test and echo [...] hx of glaucoma. Dr. Navarro follows Dental: [facility] dental HIV: Neg 2016 Hepatitis: Neg 04/2021 Screening Labs: A1c: 6.2 04/2021, Family history of breast cancer 06/06/2022 Overview (06/06/2022): Daughter from breast cancer age 29 Referred for genetic screening 01/2022 Bilateral chronic knee pain 06/06/2022 Overview (06/06/2022): Long hx of chronic bilateral knee pain. S/p right knee arthroplasty and meniscal repair 2020 Managed with tramadol 50mg PRN, compliant with [employer] program Lung nodule 11/09/2021 Overview (06/06/2022): 3mm [...] 60mg daily Buproprion 150mg XR Therapist at [facility] Assessment & Plan (12/06/2022 1:59 [...] pt with additional resources for [facility] at [facility], as well as how to reach out to [facility] team. Pt was agreeable to intervention and referral to op and psych services at [facility]. Assessment & Plan (10/24/2022 9:33 AM EDT): Patient declines buproprion increase at this time. Will continue at current dose Continue duloxetine 60mg daily Continue clonazepam 0.5mg once daily (started by prior outside provider) Ambien PRN for sleep. Plan to discuss insomnia at follow up. Contact HC if sx worsen or experiencing thoughts of SI or self harm. Pt has [facility] crisis contact information Assessment & Plan (10/05/2022 3:19 PM EDT): In office BE during OV with Dr. Mukherjee. Pt referred to [facility] and provided with [facility] contact information for emergency care. STOP buspar START buproprion 150mg XR. Reviewed administration, risks, side effects Continue duloxetine 60mg Contact HC if sx worsen or experiencing thoughts of SI or self harm. Pt has [facility] crisis contact information Resolved Problems [...] organization. Date Type Department Care Team Description 01/06/2025 Refill [facility] [address] [place] [address] [facility] 12/31/2024 Refill [facility] [address] [place] [address] [facility] 12/15/2024 Refill [facility] [address] [place] [address] [facility] Seasonal allergies 11/06/2024 Orders Only [facility] [address] [place] [address] [facility] 10/29/2024 Refill [facility] [address] [place] [address] [facility] Seasonal allergies 10/23/2024 Telephone [facility] [address] [place] [address] [facility] Chart Prep 10/13/2024 Telephone [facility] [address] [place] [address] Edith Berger CNM from Last 3 Months Immunizations Immunization Administration [...] 3-dose series) 1984 COVID-19 Vaccine ( season) 2024 08/01/2023, 01/11/2022, 08/01/2021, Additional history exists Influenza Vaccine (#1) 2024 4, 03/22/2023, 12/22/2021, Additional history exists Depression Monitoring 03/09/2025 09/07/2024, 025 SDOH Screening 03/20/2025 03/20/2024 Disability Screening 07/01/2025 07/01/2024 Diabetes: Hemoglobin A1C 07/31/2025 025, 05/30/2022, 05/02/2021, Additional history exists Tobacco Screening 09/13/2025 09/13/2024 Mammogram 11/06/2025 11/06/2024, 08/0 10/2023, 06/12/2021, Additional history exists Cervical Cancer Screening 09/29/2028 HPV/Cotest 09/29/2028 09/30/2023, [...] Diagnosis Comments BI MAMMOGRAM SCREENING TOMOSYNTHESIS BILATERAL Routine 11/06/2024 3:50 PM EDT HEPATITIS PANEL, GENERAL Routine 07/31/2024 [...] of 38.0 to 38.9 in adult (CMS/HCC) THINPREP IMAGING PAP AND HPV MRNA E6/E7 Routine 09/30/2023 2:12 PM EDT from Last 3 Months or Most Recently Relevant to Health Maintenance Results * BI Mammogram Screening Tomosynthesis Bilateral (11/06/2024 3:50 PM EDT) Anatomical Region Laterality Modality Breast Bilateral Mammography 11/06/2024 3:50 PM EDT Narrative 11/10/2024 11:51 AM EDT [facility] [address] [place] [address] [place] [address] Mammography Report Signed Patient: Leslie Erazo MR#: [id number] 92 : 1965 Acct:[id number] Age/Sex: 59 / F ADM Date: 11/06/24 Loc: MAMMO Attending Dr: Mary Lou Doan SANDER HAND Ordering Physician: Mary Lou Doan SANDER HAND Results: 2Beni gn Findings Date of Service: 11/06/24 Follow Up: 1 Year From Orig inal Mammogram Procedure(s): MM tomosynthesis screening BI Accession Number(s): [id number] cc: Mary Lou Doan SANDER HAND EXAMINATION: MM SCREENING DIGITAL BREAST TOMOSYNTHESIS, BILATERAL CLINICAL INFORMATION: Screening. Asymptomatic. COMPARISON: Mammography: Comparison is made with available priors TECHNIQUE: Digital breast mammography with tomosynthesis is performed in both the craniocaudal and mediolateral oblique views along with computer-aided detection (CAD). FINDINGS: There are scattered areas of fibroglandular density (ACR BI-RADS breast composition Category b). Bilateral circumscribed oval masses which wax and wane consistent with benign fibrocystic changes. There are no significant masses, abnormal calcifications, or other abnormalities. MM/MM tomosynthesis screening BI IMPRESSION: No mammographic evidence of malignancy. ASSESSMENT: BI-RADS BI-RADS 2 - Benign Findings RECOMMENDATION: Routine annual mammography screening. 1 year F/U This examination should not preclude the clinical evaluation of a suspicious palpable abnormality. This patient's information was entered into a reminder system with a target due date for their next mammogram. Electronically signed by: Lizy Laboy DO 11/10/2024 11:48 AM EDT Dictated By: Lizy Laboy DO Signed By: <Electronically signed by Lizy Laboy DO in OV> 11/10/24 1148 DD/ 1550 TD/TT: 11/06/24 1604 Sound Installation Worker: Procedure Note Donotuseinterpreter, Image - 11/10/2024 [facility] [address] [place], [place] [address] Mammography Report Signed Patient: Leslie ErazoMR#: [id number] 92 : 1965Acct:[id number] Age/Sex: 59 / FADM Date: 11/06/24 Loc: [facility] Attending Dr: Mary Lou Doan SANDER HAND Ordering Physician: Mary Lou Doan FNPResults: 2Beni gn Findings Date of Service: 11/06/24Follow Up: 1 Year From Orig inal Mammogram Procedure(s): MM tomosynthesis screening BI Accession Number(s): [id number] cc: [facility] SANDER HAND EXAMINATION: MM SCREENING DIGITAL BREAST TOMOSYNTHESIS, BILATERAL CLINICAL INFORMATION: Screening. Asymptomatic. COMPARISON: Mammography: Comparison is made with available priors TECHNIQUE: Digital breast mammography with tomosynthesis is performed in both the craniocaudal and mediolateral oblique views along with computer-aided detection (CAD). FINDINGS: There are scattered areas of fibroglandular density (ACR BI-RADS breast composition Category b). Bilateral circumscribed oval masses which wax and wane consistent with benign fibrocystic changes. There are no significant masses, abnormal calcifications, or other abnormalities. MM/MM tomosynthesis screening BI IMPRESSION: No mammographic evidence of malignancy. ASSESSMENT: BI-RADS BI-RADS 2 - Benign Findings RECOMMENDATION: Routine annual mammography screening. 1 year F/U This examination should not preclude the clinical evaluation of a suspicious palpable abnormality. This patient's information was entered into a reminder system with a target due date for their next mammogram. Electronically signed by: Lizy Laboy DO 11/10/2024 11:48 AM EDT Dictated By: Lizy Laboy DO Signed By: <Electronically signed by Lizy Laboy DO in OV> 11/10/24 1148 DD/ 1550 TD/TT: 11/06/24 1604 Sound Installation Worker: [facility] SANDER HAND IMG BI PROCEDURES Final Resul t * Hepatitis A,B,C Profile (07/31/2024 1:55 PM EDT) Hepatitis A IgM Nonreactive Nonreactive [facility] Comment:IgM antibodies to NUNEZ V not detected; does not exclude earlyacute or recovered HAV infection. ~Hepatitis B Surface Antibody REACTIVE Nonreactive [facility] Comment:REACTIVE: > 11.99 mI U/mL Hepatitis B Core Antibody Nonreactive Nonreactive [facility] Hepatitis C Antibody Nonreactive Nonreactive [facility] Comment:Antibodies to HCV no t detected; does not exclude early acuteHCV infection. Hepatitis B Surface Ag Negative Negative [facility] Blood Venous blood specimen / Unknown 07/31/2024 1:55 PM EDT 07/31/2024 1:55 PM EDT [facility] LAB BLOOD ORDERABLES Final Re sult Performing Organization Address [facility] Co de Phone Number [facility] [address] [place] [address] [phone] * HIV-1/2 Antigen and Antibodies, Fourth Generation, with Reflexes (07/31/2024 1:55 PM EDT) HIV AB/AG Nonreactive Nonreactive [facility] Comment:HIV-1 p24 Ag and/or HIV-1/HIV-2 Ab not detected.A test result that is nonreactive does not exclude thepossibility of exposure to or infection with HIV-1 and/orHIV-2. Nonreactive results in this assay for individualswith prior exposure to HIV-1 and/or HIV-2 may be due toantigen and antibody levels that are below the limit ofdetection of this assay.The [employer] HIV Ag/Ab Combo assay result andsupplemental assay results should be interpreted inconjunction with the patient's clinical presentation,history and other laboratory results. If the results areinconsistent with clinical evidence, additional testing issuggested to confirm the result. Blood Venous blood specimen / Unknown 07/31/2024 1:55 PM EDT 07/31/2024 1:55 PM EDT [facility] LAB BLOOD ORDERABLES Final Re sult Performing Organization Address [facility] Co de Phone Number [facility] [address] [place] [address] [phone] * (ABNORMAL) Hemoglobin A1c (07/31/2024 1:55 PM EDT) Hemoglobin A1c 6.1(H) <6.0 % [facility] Comment:Hemoglobin A1C Refer ence Range Adults: 4.8 - 6.0 % Non diabetic: < 6.0 % Goal: < 7.0 %Additional Action Suggested: > 8.0 %Note: Hemoglobin A1c results are invalid for patients with abnormal amounts of HbF. Blood transfusions may impact the HbA1c concentration in the patient sample. Estimated Average Glucose 128 mg/dL [facility] Comment:eAG = Estimated ave rage glucose which is %A1C expressed asaverage glucose, using the formula of the V6G-[id number] Glucose study (ADAG), Diabetes Care, Vol.31,#8,Oct. 2007 Blood Venous blood specimen / Unknown 07/31/2024 1:55 PM EDT 07/31/2024 1:55 PM EDT [facility] SANDER HAND LAB BLOOD ORDERABLES Final Re sult [facility] [address] [place] [phone] * (ABNORMAL) Lipid Panel, Standard (07/31/2024 1:55 PM EDT) Triglycerides 176(H) <150 mg/dL [facility] Comment:Desirable Triglyceri de: less than 150 mg/dLBorderline High Triglyceride 150-199 mg/dLHigh Triglyceride: 200-499 mg/dLVery High Triglyceride: greater than or equal to 5OO mg/dL Cholesterol 242(H) <200 mg/dL [facility] Comment:Desirable Cholestero l: less than 200 mg/dLBorderline High Cholesterol: 200-239 mg/dLHigh Cholesterol: greater than 239 mg/dL LDL Cholesterol Calculated 167(H) <100 mg/dL [facility] Comment:Desirable LDL: less than 100 [...] 1:55 PM EDT 07/31/2024 1:55 PM EDT [facility] S[facility] HAND LAB BLOOD ORDERABLES Final Re sult [facility] [address] [place] [address] [phone] * ThinPrep Imaging Pap and HPV mRNA [...] alternative testing options.For additional information, please refer tohttp://education.e-contratos/faq/OIU099m0(This link if provided for information/educational purposes only.)THIS TEST WAS PERFORMED AT:[facility] [place] [phone] LORA MD SOURCE: SEE NOTE [facility] Comment:None given Report Status: TNP [facility] Clinical Information: SEE NOTE [facility] Comment:None given LMP: SEE NOTE [facility] Comment:NONE GIVEN Prev. PAP: SEE NOTE [facility] Comment:NONE GIVEN Prev. BX: SEE NOTE [facility] Comment:NONE GIVEN Statement Of Adequacy: SEE NOTE [facility] Comment:Satisfactory for terry luation.Endocervical/transformation zone componentpresent. General Categorization: [facility] Interpretation/Result: SEE NOTE [facility] Comment:Cytology Results: Ne gative for intraepitheliallesion or malignancy. Cytology Comment SEE NOTE [facility] Comment:This Pap test has be en evaluated with computerassisted technology. Bobtailer: SEE NOTE [facility] Comment:CMG, CT(ASCP)CT scre ening location: [place] [address] Review Bobtailer: [facility] Pathologist [facility] PAP Infection [facility] See Note SEE NOTE [facility] Comment:EXPLANATORY NOTE:The Pap is a screening test for cervical cancer. It isnot a diagnostic test and is subject to false negativeand false positive results. It is most reliable when asatisfactory sample, regularly obtained, is submittedwith relevant clinical findings and history, and whenthe Pap result is evaluated along with historic andcurrent clinical information. 09/30/2023 2:12 PM EDT 09/30/2023 7:32 PM EDT Narrative [facility] - 10/04/2023 12:37 PM EDT SEE SCANNED RESULTS IN EMR Edith CASTRO LAB PATHOLOGY ORDERABLES Final Result [facility] [address] [place] [address] [phone] from Last 3 Months or Most Recently Relevant to Health Maintenance Insurance [facility] < 65 DAVON FERRELL [id number] D[facility] - [facility] Care Teams Upper Lining Cementer Relationship Specialty Start Date End Date Mary Lou Doan FNP [address] [place] [phone] PCP - General Family Medicine 11/03/21
--- OUTSIDE RECORDS SUMMARY | 2025-01-08 13:11 | XMS_ITS | Encounter Summary ---
Author Organization [employer] Address [address] [place] [address] Care Team Providers Care Feather Cutting Machine Feeder Name Role Phone [facility] Primary Care Provider [phone] Reason for Visit * Reason Comments Med Refill Encounter Details Date Type Department Care Team ([facility] Contact Info) Description 01/11/[address] [facility] [address] [place], [place] [phone] [facility] [address] [place], [place] [phone] Med Refill Social History Tobacco Use Types [...] documented as of this encounter Care Teams Feather Cutting Machine Feeder Relationship Specialty Start Date End Date Mary Lou Doan FNP [address] [place] [address] PCP - General Family Medicine 11/03/21 documented as of this encounter
--- OUTSIDE RECORDS SUMMARY | 2025-01-08 13:12 | XMS_ITS | Encounter Summary ---
Author Organization [email or web address] Address [address] [facility] [address] [place] [address] Care Team Providers Care Career Development Facilitator Name Role Phone [facility] Primary Care Provider [phone] Reason for Visit * Reason Onset Date Comments Med Refill 01/06/2025 Encounter Details Date Type Department Care Team ([facility] st Contact Info) Description 01/06/2025 Refill [facility] [address] [place], [place] [phone] [facility] [address] [place] [address] Social History Tobacco Use Types Packs/Day Years [...] Assessment Noted Time PHQ-9 Depression Total Score: 13 025 1:44 PM EDT documented as of this encounter Care Teams Career Development Facilitator Relationship Specialty Start Date End Date Mary Lou Doan FNP [address] [place] [phone] PCP - General Family Medicine 11/03/21 documented as of this encounter
--- OUTSIDE RECORDS SUMMARY | 2025-01-08 13:12 | XMS_ITS | Encounter Summary ---
Author Organization [employer] Address [address] [facility] [address] [facility] [address] [place] [address] Care Team Providers Care City Carrier Name Role Phone [facility] Primary Care Provider [phone] Reason for Visit * Reason Onset Date Comments Results 08/05/2024 Encounter Details Date Type Department Care Team ([facility] Contact Info) Description 08/05/2024 Telephone [facility] [address] [place], [place] [phone] [facility] [address] [place] [address] Results Social History Tobacco Use Types Packs/Day [...] Miscellaneous Notes * Telephone Encounter - Kristin Gbison RN - 08/06/2024 10:21 AM EDT TC placed to patient [phone] regarding below message. RN informed patient of [...] is interested in a referral to a Remote Sensing Surveyor. Pt agreed. Patient also informed RN that she has been having moderate to severe RLE pain with swelling and lower back pain. Denies any recent injury to the sites. RN advised patient to go to the Walk In Center at [facility] or the ED for further evaluation. Pt agreed. RN informed patient a message will be sent to her PCP for review. Pt verbalized understanding to to F/U PRN. * Telephone Encounter - Kristin Gibson RN - 08/05/2024 3:41 PM EDT Tc placed to patient [phone] regarding below message. Patient informed RN that [...] results: Labs Date when done: 07/31/24 [address]: [facility] Pt also wanted to verify if she can receive another script for muscle relaxer because she lost the previous one. Please contact pt at [phone]. documented in this encounter Plan of Treatment Not on file documented as of this encounter Visit Diagnoses Diagnosis Cervical radiculopathy Brachial neuritis or radiculitis nos documented in this encounter Additional Health Concerns Assessment Noted Time PHQ-9 Depression Total Score: 17 025 3:38 PM EDT documented as of this encounter Care Teams City Carrier Relationship Specialty Start Date End Date Mary Lou Doan FNP [address] [place] [phone] PCP - General Family Medicine 11/03/21 documented as of this encounter
--- OUTSIDE RECORDS SUMMARY | 2025-01-08 13:12 | XMS_ITS | Encounter Summary ---
Author Organization [employer] Address [address] [facility] [address] [facility] [address] [place] [address] Care Team Providers Care Plumber'S Assistant Name Role Phone [facility] Primary Care Provider [phone] Reason for Visit * Reason Comments Med Refill Encounter Details Date Type Department Care Team ([facility] st Contact Info) Description 04/04/2023 Refill [facility] [address] [place], [place] [phone] Jenifer Laboy MD [address] [place] [address] Anxiety Social History Tobacco Use Types Packs/Day [...] documented as of this encounter Care Teams Plumber'S Assistant Relationship Specialty Start Date End Date Mary Lou Doan FNP [address] [place] [phone] PCP - General Family Medicine 11/03/21 documented as of this encounter
--- OUTSIDE RECORDS SUMMARY | 2025-01-08 13:12 | XMS_ITS | Encounter Summary ---
Author Organization [employer] Address [address] [facility] [address] [place] [address] Care Team Providers Care Bull Ladle Tender Name Role Phone [facility] Primary Care Provider [phone] Reason for Visit * Reason Onset Date Comments Med Refill 07/14/2024 Encounter Details Date Type Department Care Team ([facility] st Contact Info) Description 07/14/2024 Refill [facility] [address] [place], [place] [phone] [facility] [address] [place] [address] Social History Tobacco Use Types Packs/Day Years [...] documented as of this encounter Care Teams Bull Ladle Tender Relationship Specialty Start Date End Date Mary Lou Doan FNP [address] [place] [phone] PCP - General Family Medicine 11/03/21 documented as of this encounter
--- OUTSIDE RECORDS SUMMARY | 2025-01-08 13:12 | XMS_ITS | Encounter Summary ---
Author Organization [employer] Address [address] [facility] [address] [place] [address] Care Team Providers Care Vocational Examiner Name Role Phone [facility] Primary Care Provider [phone] Reason for Visit * Reason Onset Date Comments Med Refill 10/28/2023 Encounter Details Date Type Department Care Team ([facility] st Contact Info) Description 10/28/2023 Refill [facility] MED[facility]INE [address] [place], [place] [phone] [facility] [address] [place] [address] Hyperlipidemia, unspecified hyperlipidemia type Social History Tobacco [...] documented as of this encounter Care Teams Vocational Examiner Relationship Specialty Start Date End Date Mary Lou Doan FNP [address] [place] [phone] PCP - General Family Medicine 11/03/21 documented as of this encounter
--- OUTSIDE RECORDS SUMMARY | 2025-01-08 13:12 | XMS_ITS | Encounter Summary ---
Author Organization [employer] Address [address] [facility] [address] 7t [place] [address] Care Team Providers Care Health Evaluator Name Role Phone [facility] Primary Care Provider [phone] Reason for Visit * Reason Onset Date Comments Med Refill 01/19/2023 Encounter Details Date Type Department Care Team ([facility] st Contact Info) Description 01/19/2023 Refill [facility] CH[facility] MED & PEDS [address] [place], [place] [phone] [facility] [address] [place] [address] Shortness of breath Social History Tobacco Use [...] 8:15 AM EST Sexual Orientation Straight 09/29/2023 5 :16 PM EDT documented as of this encounter Plan of Treatment Not on file documented as of this encounter Visit Diagnoses Diagnosis Shortness of breath documented in this encounter Additional Health Concerns Assessment Noted Time PHQ-9 Depression Total Score: 16 023 2:01 PM EDT documented as of this encounter Care Teams Health Evaluator Relationship Specialty Start Date End Date Mary Lou Doan FNP [address] [place] [address] PCP - General Family Medicine 11/03/21 documented as of this encounter
--- OUTSIDE RECORDS SUMMARY | 2025-01-08 13:12 | XMS_ITS | Encounter Summary ---
Author Organization [employer] Address [address] [facility] [address] [facility] [address] 7t [place] [address] Care Team Providers Care Property Valuer Name Role Phone [facility] Primary Care Provider [phone] Reason for Visit * Reason Onset Date Comments Call Back Request 05/14/2023 Encounter Details Date Type Department Care Team ([facility] st Contact Info) Description 05/14/2023 Telephone [facility] MEDICINE 230 [place], [place] [phone] [facility] 230 [place], [place] [phone] Call Back Request Social History Tobacco Use [...] Tc from pt requesting to speak with [employer] in regards to COLLECTION ADVISOR Complaiments Management. Pt states that that she feels that her privacy is being invade by the level of questions. Please contact pt @ [phone] documented in this encounter Plan of Treatment Not on file documented as of this encounter Visit Diagnoses Not on filedocumented in this encounter Additional Health Concerns Assessment Noted Time PHQ-9 Depression Total Score: 16 023 2:01 PM EDT documented as of this encounter Care Teams Property Valuer Relationship Specialty Start Date End Date Mary Lou Doan FNP [address] [place] [id number] PCP - General Family Medicine 11/03/21 documented as of this encounter
--- OUTSIDE RECORDS SUMMARY | 2025-01-08 13:12 | XMS_ITS | Encounter Summary ---
Author Organization [employer] Address [address] 7t [place] [address] Care Team Providers Care Mud Car Worker Name Role Phone [facility] Primary Care Provider Reason for Visit * Reason Onset Date Comments Med Refill 08/06/2024 Encounter Details Date Type Department Care Team ([facility] st Contact Info) Description 08/06/2024 Refill [facility] MEDICINE 230 [place], [place] [phone] [facility] 230 [place], [place] [phone] Cervical radiculopathy Social History Tobacco Use Types [...] documented as of this encounter Care Teams Mud Car Worker Relationship Specialty Start Date End Date Mary Lou Doan FNP [address] [place] [address] PCP - General Family Medicine 11/03/21 documented as of this encounter
--- OUTSIDE RECORDS SUMMARY | 2025-01-08 13:12 | XMS_ITS | Encounter Summary ---
Author Organization [employer] Address [address] [facility] 7t [place] [address] Care Team Providers Care Dental Prosthetist Name Role Phone [place] [facility] Primary Care Provider [phone] Reason for Visit * Reason Onset Date Comments Nurse Triage 10/09/2022 Encounter Details Date Type Department Care Team ([facility] st Contact Info) Description 10/09/2022 Telephone [facility] MEDICINE 230 [place], [place] [phone] [facility] 230 [place], [place] [phone] Nurse Triage Social History Tobacco Use Types [...] upon seeing chart review pt seen at [facility] yesterday. Per pt mentioned to provider. Pt [...] accepted this outcome Please contact pt at [phone] documented in this encounter Plan of Treatment Not on file documented as of this encounter Visit Diagnoses Not on filedocumented in this encounter Additional Health Concerns Assessment Noted Time PHQ-9 Depression Total Score: 16 10/05/ 023 2:01 PM EDT documented as of this encounter Care Teams Dental Prosthetist Relationship Specialty Start Date End Date Mary Lou Doan FNP [address] [place] [address] PCP - General Family Medicine 11/03/21 documented as of this encounter
--- OUTSIDE RECORDS SUMMARY | 2025-01-08 13:12 | XMS_ITS | Encounter Summary ---
Author Organization [employer] Address [address] 7t [place] [address] Care Team Providers Care Aircraft Avionics Technician Name Role Phone [place] [facility] Primary Care Provider [phone] Reason for Visit * Reason Onset Date Comments Med Refill 11/01/2023 Encounter Details Date Type Department Care Team ([facility] st Contact Info) Description 11/01/2023 Refill [facility] MEDICINE 230 [place] [address] Jenifer Laboy MD 230 [place], [place] [phone] Social History Tobacco Use Types Packs/Day Years [...] documented as of this encounter Care Teams Aircraft Avionics Technician Relationship Specialty Start Date End Date Mary Lou Doan FNP [address] [place] [address] PCP - General Family Medicine 11/03/21 documented as of this encounter
--- OUTSIDE RECORDS SUMMARY | 2025-01-08 13:12 | XMS_ITS | Encounter Summary ---
Author Organization [employer] Address [address] [facility] 7t [place] [address] Care Team Providers Care Packer Insulation Name Role Phone Mary Lou Doan BRIQUETTE MACHINE OPERATOR Primary Care Provider [phone] Reason for Visit * Reason Comments Med Refill Encounter Details Date Type Department Care Team ([facility] st Contact Info) Description 11/14/2022 Refill [facility] MEDICINE 230 [place] [address] Name, MD [place] 230 [place] [address] Social History Tobacco Use Types Packs/Day Years [...] documented as of this encounter Care Teams Packer Insulation Relationship Specialty Start Date End Date Mary Lou Doan FNP 230 [place] [address] PCP - General Family Medicine 11/03/21 documented as of this encounter
--- OUTSIDE RECORDS SUMMARY | 2025-01-08 13:12 | XMS_ITS | Encounter Summary ---
Author Organization [employer] Address [address] [facility] [address] 7t [place] [address] Care Team Providers Care Double Cutter Name Role Phone [facility] Primary Care Provider [phone] Reason for Visit * Reason Comments Med Refill Encounter Details Date Type Department Care Team ([facility] st Contact Info) Description 08/08/2024 Refill [facility] MEDICINE 230 [place], [place] [phone] [place] [facility] 230 [place], [place] [phone] Cervical radiculopathy Social History Tobacco Use Types [...] documented as of this encounter Care Teams Double Cutter Relationship Specialty Start Date End Date Mary Lou Doan FNP [address] [place] [address] PCP - General Family Medicine 11/03/21 documented as of this encounter
--- OUTSIDE RECORDS SUMMARY | 2025-01-08 13:12 | XMS_ITS | Encounter Summary ---
Author Organization [employer] Address [address] [facility] [facility] [address] 7t [place] [address] Care Team Providers Care Retail Sales Professional Name Role Phone [facility] Primary Care Provider [phone] Reason for Visit * Reason Onset Date Comments Med Refill 08/10/2024 Encounter Details Date Type Department Care Team ([facility] st Contact Info) Description 08/10/2024 Telephone [facility] MEDICINE 230 [place], [place] [phone] [facility] 230 [place], [place] [phone] Med Refill Social History Tobacco Use Types [...] one. Pt is advised to come to [facility] today open till 8pm . Pt [...] documented as of this encounter Care Teams Retail Sales Professional Relationship Specialty Start Date End Date Mary Lou Doan FNP [address] [place] [address] PCP - General Family Medicine 11/03/21 documented as of this encounter
--- OUTSIDE RECORDS SUMMARY | 2025-01-08 13:12 | XMS_ITS | Encounter Summary ---
Author Organization [employer] Address [address] [facility] 7t [place] [address] Care Team Providers Care Junior Architect Name Role Phone [facility] Primary Care Provider [phone] Reason for Visit * Reason Onset Date Comments Cancled appts 05/13/2023 Encounter Details Date Type Department Care Team ([facility] st Contact Info) Description 05/13/2023 Telephone [facility] MEDICINE 230 [place], [place] [phone] [facility] 230 [place] [address] Cancled appts Social History Tobacco Use Types [...] documented as of this encounter Care Teams Junior Architect Relationship Specialty Start Date End Date Mary Lou Doan FNP [address] [place] [address] PCP - General Family Medicine 11/03/21 documented as of this encounter
--- OUTSIDE RECORDS SUMMARY | 2025-01-08 13:12 | XMS_ITS | Encounter Summary ---
Author Organization [employer] Address [address] [facility] [address] 7t [place] [address] Care Team Providers Care Monitor Worker Name Role Phone [facility] Primary Care Provider [phone] Encounter Details Date Type Department Care Team (Late st Contact Info) Description 02/12/2022 Abstract [facility] ADULT DENTAL 230 [place] [address] Dental, Provider, DDS Social History Tobacco Use [...] on filedocumented in this encounter Care Teams Monitor Worker Relationship Specialty Start Date End Date Mary Lou Doan FNP [address] [place] [address] PCP - General Family Medicine 11/03/21 documented as of this encounter
--- OUTSIDE RECORDS SUMMARY | 2025-01-08 13:12 | XMS_ITS | Encounter Summary ---
Author Organization [employer] Address [address] [facility] 7t [place] [address] Care Team Providers Care Plane Tender Name Role Phone Mary Lou Doan FRONT TENDER Primary Care Provider [phone] Encounter Details Date Type Department Care Team (Late st Contact Info) Description 03/16/2022 Abstract [facility] ADULT DENTAL 230 [place], [place] [phone] Be Medina DDS 230 [place], [place] [phone] Social History Tobacco Use Types Packs/Day Years [...] on filedocumented in this encounter Care Teams Plane Tender Relationship Specialty Start Date End Date Mary Lou Doan FNP 230 [place] [address] PCP - General Family Medicine 11/03/21 documented as of this encounter
--- OUTSIDE RECORDS SUMMARY | 2025-01-08 13:12 | XMS_ITS | Encounter Summary ---
Author Organization [employer] Address [address] [facility] [address] 7t [place] [address] Care Team Providers Care Clothing Examiner Name Role Phone Mary Lou Doan [facility] Primary Care Provider [phone] Encounter Details Date Type Department Care Team ([facility] st Contact Info) Description 06/06/2022 Orders Only [facility] MEDICINE 230 [place], [place] [phone] Mary Lou Doan FNP 230 [place], [place] [phone] Social History Tobacco Use Types Packs/Day Years [...] on filedocumented in this encounter Care Teams Clothing Examiner Relationship Specialty Start Date End Date Mary Lou Doan FNP 230 [place] [address] PCP - General Family Medicine 11/03/21 documented as of this encounter
--- OUTSIDE RECORDS SUMMARY | 2025-01-08 13:12 | XMS_ITS | Encounter Summary ---
Author Organization [employer] Address [address] 7t [place] [address] Care Team Providers Care Welding Teacher Name Role Phone [facility] Primary Care Provider [phone] Reason for Visit * Reason Onset Date Comments Med Refill Received Percocet from Surgeon 03/18/2023 Encounter Details Date Type Department Care Team (Late st Contact Info) Description 03/18/2023 Refill [facility] CHC MED & PEDS [address] [place], [place] [phone] [facility] [place] [address] Chronic pain of left knee (Primary Dx); [...] Laboy MD - 03/18/2023 4:26 PM EST FORESTRY PROFESSOR nurse note reviewed, patient was apparently taking [...] use of new controlled substances without notifying PCP/FORESTRY PROFESSOR nurse. Contract may or not be terminated if not compliant with it. Please fu with PCP. -Please remind patient to be compliant with FORESTRY PROFESSOR appts, pill count and urine tox, FU [...] pt calling in regards to encounter with FORESTRY PROFESSOR nurse. Pt would like to speak with nurse/PCP. Pt seems upset and stating she is stressed. Please contact pt at [phone] (analytical scientist needed) * Telephone Encounter - Khadijah Root RN - 03/18/2023 3:30 PM EST 02/13/23 Pt had left knee partial medial menisectomy and chondroplasty by Dr. Gardner. 02/13/23 Pt received Tramaol 50mg #150 for 25 days from PCP. 02/13/23 Pt received Percocet 5mg #42 for 7 days from A [address], [facility]. 03/12/23 Pt Received Percocet 5mg #28 for 7 days from A [address], [facility]. TC to pt, pt inquiring about [...] as her Percocet. Pt upset about this fiction and nonfiction writer prose inquiring about her Tramadol refill. Pt and her were both talking stating that it shouldn't be anissue if she takes her Tramadol with her Percocet at the same time. Attempted to review the FORESTRY PROFESSOR Agreement with them. Explained to them that [...] documented as of this encounter Care Teams Welding Teacher Relationship Specialty Start Date End Date Mary Lou Doan FNP [address] [place] [address] PCP - General Family Medicine 11/03/21 documented as of this encounter
--- OUTSIDE RECORDS SUMMARY | 2025-01-08 13:12 | XMS_ITS | Encounter Summary ---
Author Organization [employer] Address [address] [facility] [address] 7t [place] [address] Care Team Providers Care Nuclear Medicine Technologist Name Role Phone [facility] Primary Care Provider [phone] Reason for Visit * Reason Onset Date Comments Nurse Triage 04/25/2023 Encounter Details Date Type Department Care Team ([facility] st Contact Info) Description 04/25/[address] [facility] MEDICINE 230 [place], [place] [phone] [facility] 230 [place] [address] Nurse Triage Social History Tobacco Use Types [...] is looking for respite care. Call to [facility], spoke with Margie who advised to have pt call [facility] [place] at [phone]. Pt advised to call back if any [...] is looking for respite care. Call to [facility], spoke with Margie who advised to have pt call [facility] at [phone]. Pt advised to call back if any [...] documented as of this encounter Care Teams Nuclear Medicine Technologist Relationship Specialty Start Date End Date Mary Lou Doan FNP [address] [place] [address] PCP - General Family Medicine 11/03/21 documented as of this encounter
== END 2025-01-08 12:27 | disposition home or self-care (01) ==
LOC: HO.HWS 11:35
PROVIDERS: Visit Provider Obstetrics & Gynecology
DX: R93.89 Abnormal findings on diagnostic imaging of other specified body structures (principal); D25.9 Leiomyoma of uterus, unspecified
CPT/HCPCS: 58100; 99213

== ENCOUNTER 2025-01-08 11:34 | Outpatient (REF) | payer OTHER, SELFPAY | END 2025-01-08 11:35 | disposition home or self-care (01) | LOC: HO.LNP 11:34 | PROVIDERS: Visit Provider Obstetrics & Gynecology | DX: D25.9 Leiomyoma of uterus, unspecified (principal); R93.89 Abnormal findings on diagnostic imaging of other specified body structures | CPT/HCPCS: 58100; 88305; 99212 ==

== ENCOUNTER 2025-01-14 11:52 | Outpatient (AMB) | payer OTHER, SELFPAY ==
--- NOTE | 2025-01-14 11:56 | A.OFFVIS_ITS ---
Vital Signs 01/14/25 11:58 Height 4 ft 11 in Weight 186 lb BMI 37.6 BP 122/84 Intake Visit Reasons: EMB results/pre op hyst Allergies No Known Allergies (No Known Allergies*) Allergy (Verified 01/08/25 11:51) Post menopausal: No Patient : No Do you need a note to return to daycare/school/sports/work: Yes (for surgery on saturday) HPI Comments Details: The patient is presenting after endometrial biopsy. The patient has no complaints, no vaginal bleeding, no feverishness chills or abdominal pain. The endometrial biopsy pathology report showed the following: Endometrium, biopsy: - Fragments of endometrial polyp. - Background superficial strips of inactive endometrium. - No atypia identified [facility] Medical History Frequency of urination Urge incontinence Renal stones Anxiety Overactive bladder Hyperlipemia Depression Obesity Glaucoma Osteoarthritis IBS (irritable bowel syndrome) Lumbar spondylitis Renal stones Anemia GERD (gastroesophageal reflux disease) Plantar fasciitis Fibromyalgia Surgical History History of arthroscopy of right knee (~03/2020) H/O nasal septoplasty Hx of lithotripsy Hx of tubal ligation Family History Mother Diabetes Fibromyalgia Arthritis Osteoporosis Daughter Breast cancer Social History Household Members: Family Housing: House Are you a primary plant health care technician to a significant other at home: No Do you presently have visiting nurse or other home services: No Alcohol intake: never Comment: uses a cane sometimes Patient Tobacco Use Status: Never used Tobacco Second Hand Smoke Exposure: No Patient : No Current occupational status: disabled Current occupation: Right Handed Female Reproductive History Menstrual Date of last menstrual period: 01/07/20 Total pregnancies: 2 Full term: 2 Review of Systems Card Reports as per HPI and Reports no additional complaints Resp Reports as per HPI and Reports no additional complaints GI Reports as per HPI and Reports no additional complaints Reports as per HPI Physical Exam Vital Signs: Last Vital Signs BP 122/84 01/14/25 11:58 BMI result Body Mass Index 37.6 Const General: cooperative, healthy appearing and comfortable Resp Effort & Inspection: normal respiratory effort Auscultation: clear to auscultation bilaterally Percussion: percussion normal Cardio Palpation: normal PMI Rate: regular rate Rhythm: regular rhythm Heart sounds: no murmurs and no rubs Peripheral pulses: Peripheral pulses 2+ throughout GI Inspection: Yes normal to inspection Palpation (GI): Soft to palpation, nontender, no guarding, not rigid and No hepatosplenomegaly present Percussion: Yes normal to percussion Auscultation: normal bowel sounds Rectal Exam - Female: deferred Assessment & Plan Assessment & Plan (1) Endometrial polyp: Comment: By EMB pathology Code(s): N84.0 - Polyp of corpus uteri Category: Medical Plan: Discussed with the patient the results of the EMB pathology show endometrial polyp, recommended hysteroscopy D&C possible polypectomy/myomectomy. Discussed with the patient the procedure , all benefits and risks including but not limited to inability to complete the procedure , insufficient endometrial tissue for a complete evaluation of the endometrial cavity , bleeding, infection, possible need for blood transfusion with all its risk ( HIV,syphilis, Hepatitis, anaphylaxis shock, others..), injury to bladder, rectum, possible need for laparoscopy/laparotomy or hysterectomy. The patient verbalized understanding and signed the consent. Instructions given the patient to stay NPO after midnight the day prior to the procedure and to take only the specific medication (s) discussed the morning of the surgical procedure and to schedule a 2 week postoperative appointment Coding Level of Care Code Est Pt Level 3 (22409) Diagnoses Endometrial polyp N84.0
[2025-01-14 11:58] VITALS: BP 122/84; BMI 37.6
--- OUTSIDE RECORDS SUMMARY | 2025-01-14 14:50 | XMS_ITS | Encounter Summary ---
Author Organization [employer] [facility] Address [address] [facility] 7t [place] [address] Care Team Providers Care Market Research Assistant Name Role Phone Mary Lou Doan [facility] Primary Care Provider [phone] Encounter Details Date Type Department Care Team (Late st Contact Info) Description 06/06/2022 Orders Only [facility] MEDICINE 230 [place], [place] [phone] [facility] 230 [place], [place] [phone] Social History Tobacco Use Types Packs/Day Years [...] on filedocumented in this encounter Care Teams Market Research Assistant Relationship Specialty Start Date End Date Franki Mary Lou [facility] 230 [place] [address] PCP - General Family Medicine 11/03/21 documented as of this encounter
--- OUTSIDE RECORDS SUMMARY | 2025-01-14 14:50 | XMS_ITS | Clinical Summary ---
Author Organization [employer] Address [address] [place] [address] Care Team Providers Care Tea Tree Farm Worker Name Role Phone Franki [facility] Primary Care Provider [phone] Allergies No known active allergies Medications * [...] BY MOUTH AT BEDTIME 30 tablet 3 025 Active rosuvastatin (Crestor) 10 MG tabletIndications :Hyperlipidemia, [...] AFFECTED EYE(S) TWICE DAILY 5 mL 1 Active cholecalciferol (Vitamin D-3) 50 MCG (1999 UT) tablet TAKE 1 TABLET BY MOUTH EVERY DAY 90 tablet 1 Active Diclofenac Sodium 1 % gel APPLY 1 INCH TOPICALLY TO THE AFFECTED AREA IN THE MORNING AND AT BEDTIME NEEDED 100 g 025 Active cholecalciferol (Vitamin D-3) 50 MCG (1999 [...] on exertion Followed by Dr. Santa at [facility], negative stress test and echo [...] hx of glaucoma. Dr. Navarro follows Dental: [facility] dental HIV: Neg 2016 Hepatitis: Neg 04/2021 Screening Labs: A1c: 6.2 04/2021, Family history of breast cancer 06/06/2022 Overview (06/06/2022): Daughter from breast cancer age 29 Referred for genetic screening 01/2022 Bilateral chronic knee pain 06/06/2022 Overview (06/06/2022): Long hx of chronic bilateral knee pain. S/p right knee arthroplasty and meniscal repair 2020 Managed with tramadol 50mg PRN, compliant with [employer] program Lung nodule 11/09/2021 Overview (06/06/2022): 3mm [...] 60mg daily Buproprion 150mg XR Therapist at [facility] Assessment & Plan (12/06/2022 1:59 [...] with additional resources for [facility] at [facility], as well as how to reach out to [facility] BH team. Pt was agreeable to intervention and referral to op and psych services at [facility]. Assessment & Plan (10/24/2022 9:33 AM EDT): Patient declines buproprion increase at this time. Will continue at current dose Continue duloxetine 60mg daily Continue clonazepam 0.5mg once daily (started by prior outside provider) Ambien PRN for sleep. Plan to discuss insomnia at follow up. Contact HC if sx worsen or experiencing thoughts of SI or self harm. Pt has [facility] crisis contact information Assessment & Plan (10/05/2022 [...] SI or self harm. Pt has [facility] crisis contact information Resolved Problems Problem Noted [...] organization. Date Type Department Care Team Description 01/14/2025 Orders Only [facility] External Provider, [facility] 01/06/2025 Refill [facility] MEDICINE [address] [place] [address] [facility] 12/31/2024 Refill [facility] [address] [place] [address] [facility] 12/15/2024 Refill [facility] MED[facility]INE [address] [place] [address] [facility] Seasonal allergies 11/06/2024 Orders Only [facility] MED[facility] [address] [place] [address] [facility] 10/29/2024 Refill [facility] MEDICINE [address] [place] [address] [facility] Seasonal allergies 10/23/2024 Telephone [facility] MEDICINE [address] [place] [address] [facility] Chart Prep from Last 3 Months Immunizations Immunization Administration [...] - 19+ 3-dose series) 1984 COVID-19 Vaccine (2024- season) 2024 08/01/2023, 01/11/2022, 08/01/2021, Additional history [...] Associated Diagnosis Comments US PELVIS TRANSVAGINAL Routine 5 1:27 PM EST BI MAMMOGRAM SCREENING TOMOSYNTHESIS BILATERAL Routine 11/06/2024 [...] Health Maintenance Results * US Pelvis Transvaginal (01/14/2025 1:27 PM EST) Anatomical Region Laterality Modality Pelvis Ultrasound 01/14/2025 1:27 PM EST Narrative 01/14/2025 1:53 PM EST [facility] Adult Primary Care [facility] [place] [address] Ultrasound Report Signed Patient: Leslie Reed MR#: [id number] : 1965 Acct:[id number] Age/Sex: 59 / F ADM Date: 01/14/25 Loc: HO.HMGCX Attending Dr: Marc Yusuf MD Ordering Physician: Marc Yusuf MD Date of Service: 01/14/25 Procedure(s): US pelvic and transvaginal Accession Number(s): [id number] cc: [facility]; Marc Yusuf MD Reason for Exam: D25.9 - Leiomyoma of uterus, unspecified EXAMINATION: US PELVIS CLINICAL INFORMATION: D25.9. Leiomyoma of uterus. COMPARISON: August 20, 2024. TECHNIQUE: Ultrasound of the pelvis is performed using both transabdominal and transvaginal transducers along with Doppler. Transvaginal imaging is performed due to inadequate visualization transabdominally. FINDINGS: Uterus: The uterus is in anteversion flexion and measures 6 x 3 x 6 cm. No gross abnormality in the cervix. The double wall endometrial thickness is 4 mm. There is a 1.2 cm probable subserosal isoechoic mass, fundus of the uterus. There is a 2.8 cm intramural isoechoic lesion in the posterior fundus of the uterus. There is a 2.1 cm intramural isoechoic lesion in the posterior body of the uterus Adnexa: The left ovary is not identified.. The right ovary is identified with flow on color Doppler interrogation. No gross solid or cystic lesion. Right ovary measures 1 x 1 x 1 cm. Volume: 1 cc. No free fluid in cul-de-sac. US/US pelvic and transvaginal IMPRESSION: Leiomyomata uterine. Right ovary is normal. Left ovary is not identified. Electronically signed by: Denzel Villareal MD 01/14/2025 01:51 PM [facility] Dictated By: Denzel Gutierrez MD Signed By: <Electronically signed by Denzel Ochoa MD in OV> 01/14/25 1351 DD/ 1327 TD/TT: 01/14/25 1345 Cyber Defense Analyst: Procedure Note Donotuseinterpreter, Image - 01/14/2025 [facility] Adult Primary Care [facility] [place] [address] Ultrasound Report Signed Patient: Leslie ReedMR#: [id number] : 1965Acct:[id number] Age/Sex: 59 / FADM Date: 01/14/25 Loc: HO.HMGCX Attending Dr: Marc Yusuf MD Ordering Physician: Marc Yusuf MD Date of Service: 01/14/25 Procedure(s): US pelvic and transvaginal Accession Number(s): [id number] cc: FrankiMary Lou delarosa AFLOAT CRYPTOLOGIC MANAGER; Marc Yusuf MD Reason for Exam: D25.9 - Leiomyoma of uterus, unspecified EXAMINATION: US PELVIS CLINICAL INFORMATION: D25.9. Leiomyoma of uterus. COMPARISON: August 20, 2024. TECHNIQUE: Ultrasound of the pelvis is performed using both transabdominal and transvaginal transducers along with Doppler. Transvaginal imaging is performed due to inadequate visualization transabdominally. FINDINGS: Uterus: The uterus is in anteversion flexion and measures 6 x 3 x 6 cm. No gross abnormality in the cervix. The double wall endometrial thickness is 4 mm. There is a 1.2 cm probable subserosal isoechoic mass, fundus of the uterus. There is a 2.8 cm intramural isoechoic lesion in the posterior fundus of the uterus. There is a 2.1 cm intramural isoechoic lesion in the posterior body of the uterus Adnexa: The left ovary is not identified.. The right ovary is identified with flow on color Doppler interrogation. No gross solid or cystic lesion. Right ovary measures 1 x 1 x 1 cm. Volume: 1 cc. No free fluid in cul-de-sac. US/US pelvic and transvaginal IMPRESSION: Leiomyomata uterine. Right ovary is normal. Left ovary is not identified. Electronically signed by: Denzel Villareal MD 01/14/2025 01:51 PM [facility] Dictated By: Denzel Gutierrez MD Signed By: <Electronically signed by Denzel Ochoa MDin OV> 01/14/25 1351 DD/ 1327 TD/TT: 01/14/25 1345 Cyber Defense Analyst: [facility] External Provider IMG US PROCEDURES Final Result * BI Mammogram Screening Tomosynthesis Bilateral (11/06/2024 3:50 PM EDT) Anatomical Region Laterality Modality Breast Bilateral Mammography 11/06/2024 3:50 PM EDT Narrative 11/10/2024 11:51 AM EDT [facility] [address] [place] [address] Mammography Report Signed Patient: Leslie Erazo MR#: [id number] : 1965 Acct:[id number] Age/Sex: 59 / F ADM Date: 11/06/24 Loc: HO.MAMMO Attending Dr: Mary Lou Doan AFLOAT CRYPTOLOGIC MANAGER Ordering Physician: Mary Lou Doan AFLOAT CRYPTOLOGIC MANAGER Results: 2Beni gn Findings Date of Service: 11/06/24 Follow Up: 1 Year From Orig inal Mammogram Procedure(s): MM tomosynthesis screening BI Accession Number(s): [id number] cc: Mary Lou Doan AFLOAT CRYPTOLOGIC MANAGER EXAMINATION: MM SCREENING DIGITAL BREAST TOMOSYNTHESIS, BILATERAL [...] 11/10/24 1148 DD/ 1550 TD/TT: 11/06/24 1604 Cyber Defense Analyst: Procedure Note Donotuseinterpreter, Image - 11/10/2024 [facility] [address] [place] [address] Mammography Report Signed Patient: Leslie ErazoMR#: [id number] : 1965Acct:[id number] Age/Sex: 59 / FADM Date: 11/06/24 Loc: HO.MAMMO Attending Dr: Mary Lou Doan AFLOAT CRYPTOLOGIC MANAGER Ordering Physician: Mary Lou Doan FNPResults: 2Beni gn Findings Date of Service: 11/06/24Follow Up: 1 Year From Orig inal Mammogram Procedure(s): MM tomosynthesis screening BI Accession Number(s): [id number] cc: Excel,Mary Lou AFLOAT CRYPTOLOGIC MANAGER EXAMINATION: MM SCREENING DIGITAL BREAST TOMOSYNTHESIS, BILATERAL [...] 11/10/24 1148 DD/ 1550 TD/TT: 11/06/24 1604 Cyber Defense Analyst: [facility] AFLOAT CRYPTOLOGIC MANAGER IMG BI PROCEDURES Final Resul t * Hepatitis A,B,C Profile (07/31/2024 1:55 PM EDT) Hepatitis A IgM Nonreactive Nonreactive [facility] Comment:IgM antibodies to NUNEZ V not detected; does not exclude earlyacute or recovered HAV infection. ~Hepatitis B Surface Antibody REACTIVE Nonreactive [facility] Comment:REACTIVE: > 11.99 mI U/mL Hepatitis B Core Antibody Nonreactive Nonreactive [facility] Hepatitis C Antibody Nonreactive Nonreactive [facility] Comment:Antibodies to HCV no t detected; does not exclude early acuteHCV infection. Hepatitis B Surface Ag Negative Negative [facility] Blood Venous blood specimen / Unknown 07/31/2024 1:55 PM EDT 07/31/2024 1:55 PM EDT [facility] LAB BLOOD ORDERABLES Final Re sult Performing Organization Address [facility] Co de Phone Number [facility] [address] [place] [phone] * HIV-1/2 Antigen and Antibodies, Fourth Generation, with Reflexes (07/31/2024 1:55 PM EDT) HIV AB/AG Nonreactive Nonreactive [facility] Comment:HIV-1 p24 Ag and/or HIV-1/HIV-2 Ab not detected.A test result that is nonreactive does not exclude thepossibility of exposure to or infection with HIV-1 and/orHIV-2. Nonreactive results in this assay for individualswith prior exposure to HIV-1 and/or HIV-2 may be due toantigen and antibody levels that are below the limit ofdetection of this assay.The [employer] HIV Ag/Ab Combo assay result andsupplemental assay results should be interpreted inconjunction with the patient's clinical presentation,history and other laboratory results. If the results areinconsistent with clinical evidence, additional testing issuggested to confirm the result. Blood Venous blood specimen / Unknown 07/31/2024 1:55 PM EDT 07/31/2024 1:55 PM EDT [facility] LAB BLOOD ORDERABLES Final Re sult Performing Organization Address City/[facility]/ZIP Co de Phone Number [facility] [address] [place] [phone] * (ABNORMAL) Hemoglobin A1c (07/31/2024 1:55 PM EDT) Hemoglobin A1c 6.1(H) <6.0 % [facility] Comment:Hemoglobin A1C Refer ence Range Adults: 4.8 - 6.0 % Non diabetic: < 6.0 % Goal: < 7.0 %Additional Action Suggested: > 8.0 %Note: Hemoglobin A1c results are invalid for patients with abnormal amounts of HbF. Blood transfusions may impact the HbA1c concentration in the patient sample. Estimated Average Glucose 128 mg/dL [facility] Comment:eAG = Estimated ave rage glucose which is %A1C expressed asaverage glucose, using the formula of the G7Q-SssvogaYqntyvb Glucose study (ADAG), Diabetes Care, Vol.31,#8,Oct. 2007 Blood Venous blood specimen / Unknown 07/31/2024 1:55 PM EDT 07/31/2024 1:55 PM EDT [facility] LAB BLOOD ORDERABLES Final Re sult [facility] [address] [place] [phone] [phone] * (ABNORMAL) Lipid Panel, Standard (07/31/2024 1:55 PM EDT) Triglycerides 176(H) <150 mg/dL [facility] Comment:Desirable Triglyceri de: less than 150 mg/dLBorderline High Triglyceride 150-199 mg/dLHigh Triglyceride: 200-499 mg/dLVery High Triglyceride: greater than or equal to 5OO mg/dL Cholesterol 242(H) <200 mg/dL [facility] Comment:Desirable Cholestero l: less than 200 mg/dLBorderline High Cholesterol: 200-239 mg/dLHigh Cholesterol: greater than 239 mg/dL LDL Cholesterol Calculated 167(H) <100 mg/dL [facility] Comment:Desirable LDL: less than 100 mg/dLNear Optimal/Above Optimal LDL: 110- 129 mg/dLBorderline High LDL: 130-159 mg/dLHigh LDL: 160-189 mg/dLVery High LDL: greater than or equal to 190 mg/dL HDL Cholesterol 40(L) >40 mg/dL [facility] Comment:Desirable HDL: great er than 40 mg/dL Note: This HDL assay may give artificially low results in patients with liver disease. Blood Venous blood specimen / Unknown 07/31/2024 1:55 PM EDT 07/31/2024 1:55 PM EDT [facility] BLOOD ORDERABLES Final Re sult [facility] [address] [place] [phone] [phone] * ThinPrep Imaging Pap and HPV mRNA E6/E7 (09/30/2023 2:12 PM EDT) HPV nRNA E6/E7 Not Detected Not Detected [facility] Comment:Methodology: Transcr iption-Mediated AmplificationThis assay detects E6/E7 viral messenger RNA (mRNA) from 14high-risk HPV types (16,18,31,33,35,39,45,51,52,56,58,59,66,68).Cervical sources are required for HPV testing.If a vaginal source from a patient who has had atotal hysterectomy with removal of cervix wassubmitted, please contact the testing laboratoryfor alternative testing options.For additional information, please refer tohttp://education.[employer]/faq/CKE155s2(This link if provided for information/educational purposes only.)THIS TEST WAS PERFORMED AT:[facility] [place] [phone] LORA MD SOURCE: SEE NOTE [facility] Comment:None given Report Status: TNP [facility] Clinical Information: SEE NOTE [facility] Comment:None given LMP: SEE NOTE [facility] Comment:NONE GIVEN Prev. PAP: SEE NOTE [facility] Comment:NONE GIVEN Prev. BX: SEE NOTE [facility] Comment:NONE GIVEN Statement Of Adequacy: SEE NOTE [facility] Comment:Satisfactory for terry luation.Endocervical/transformation zone componentpresent. General Categorization: [facility] Interpretation/Result: SEE NOTE [facility] Comment:Cytology Results: Ne gative for intraepitheliallesion or malignancy. Cytology Comment SEE NOTE [facility] Comment:This Pap test has be en evaluated with computerassisted technology. Orange Grower: SEE NOTE [facility] Comment:CMG, CT(ASCP)CT scre ening location: [place] [address] Review Orange Grower: [facility] Pathologist [facility] PAP Infection [facility] See Note SEE NOTE [facility] Comment:EXPLANATORY NOTE:The Pap is a screening test for cervical cancer. It isnot a diagnostic test and is subject to false negativeand false positive results. It is most reliable when asatisfactory sample, regularly obtained, is submittedwith relevant clinical findings and history, and whenthe Pap result is evaluated along with historic andcurrent clinical information. 09/30/2023 2:12 PM EDT 09/30/2023 7:32 PM EDT Narrative [facility] - 10/04/2023 12:37 PM EDT SEE SCANNED RESULTS IN EMR us Edith CASTRO LAB PATHOLOGY ORDERABLES Final Result [facility] [address] [place] [phone] [phone] from Last 3 Months or Most Recently Relevant to Health Maintenance Insurance [facility] CARE < 65 DENTAL - [facility] Care Teams Tea Tree Farm Worker Relationship Specialty Start Date End Date Mary Lou Doan FNP [address] [place] [phone] PCP - General Family Medicine 11/03/21
--- OUTSIDE RECORDS SUMMARY | 2025-01-14 14:50 | XMS_ITS | Encounter Summary ---
Author Organization [employer] Address [address] [place] [address] Care Team Providers Care Chief Power Dispatcher Name Role Phone [place] [facility] Primary Care Provider Reason for Visit * Reason Onset Date Comments Appointment 08/28/2022 Encounter Details Date Type Department Care Team ([facility] st Contact Info) Description 08/28/2022 Telephone [facility] ADULT DENTAL [address] [place], [place] [phone] FlaviaCoryRosalie [address] [place] [address] Appointment Social History Tobacco Use Types Packs/Day [...] on filedocumented in this encounter Care Teams Chief Power Dispatcher Relationship Specialty Start Date End Date Mary Lou Doan FNP [address] [place] [phone] PCP - General Family Medicine 11/03/21 documented as of this encounter
--- OUTSIDE RECORDS SUMMARY | 2025-01-14 14:50 | XMS_ITS | Encounter Summary ---
Author Organization [employer] Address [address] [place] [address] Care Team Providers Care Sheet Metal Engineer Name Role Phone [place] [facility] Primary Care Provider [phone] Reason for Visit * Reason Comments Med Refill Encounter Details Date Type Department Care Team ([facility] st Contact Info) Description 01/11/2024 Telephone [facility] MEDICINE [address] [place], [place] [phone] [place] [facility] [address] [place] [address] Med Refill Social History Tobacco Use Types Packs/Day Years Used Date Smoking Tobacco: Never Passive Smoke Exposure: Never Smokeless Tobacco: Never Alcohol Use Standard Drinks/Week Comments Never 0 (1 standard drink = 0.6 oz pur e alcohol) Depression Answer Date Recorded Patient Health Questionnaire-9 Score 16 10/05/2022 Housing Stability Answer Date Recorded What is your housing situation today? I have scoutrebecca navarro 12/31/[address] you [...] documented as of this encounter Care Teams Sheet Metal Engineer Relationship Specialty Start Date End Date Mary Lou Doan FNP [address] [place] [phone] PCP - General Family Medicine 11/03/21 documented as of this encounter
--- OUTSIDE RECORDS SUMMARY | 2025-01-14 14:51 | XMS_ITS | Encounter Summary ---
Author Organization [employer] Address [address] [place] [address] Care Team Providers Care Starbucks Barista Name Role Phone Mary Lou Doan [facility] Primary Care Provider [phone] Reason for Visit * Reason Onset Date Comments Nurse Triage 10/09/2022 Encounter Details Date Type Department Care Team ([facility] st Contact Info) Description 10/09/[address] [facility] MEDICINE [address] [place] [address] [facility] [address] [place] [address] Nurse Triage Social History Tobacco Use Types [...] upon seeing chart review pt seen at [facility] yesterday. Per pt mentioned to provider. Pt [...] accepted this outcome Please contact pt at [phone] documented in this encounter Plan of Treatment Not on file documented as of this encounter Visit Diagnoses Not on filedocumented in this encounter Additional Health Concerns Assessment Noted Time PHQ-9 Depression Total Score: 16 023 2:01 PM EDT documented as of this encounter Care Teams Starbucks Barista Relationship Specialty Start Date End Date Mary Lou Doan FNP [address] [place] [phone] PCP - General Family Medicine 11/03/21 documented as of this encounter
--- OUTSIDE RECORDS SUMMARY | 2025-01-14 14:51 | XMS_ITS | Encounter Summary ---
Author Organization [employer] Address [address] [place] [address] Care Team Providers Care Meat Sales And Storage Manager Name Role Phone Franki [facility] Primary Care Provider [phone] Encounter Details Date Type Department Care Team (Late st Contact Info) Description 02/12/2022 Abstract [facility] ADULT DENTAL [address] [place] [address] Dental, Provider, DDS Social History Tobacco Use [...] on filedocumented in this encounter Care Teams Meat Sales And Storage Manager Relationship Specialty Start Date End Date Mary Lou Doan FNP [address] [place] [phone] PCP - General Family Medicine 11/03/21 documented as of this encounter
--- OUTSIDE RECORDS SUMMARY | 2025-01-14 14:51 | XMS_ITS | Encounter Summary ---
Author Organization [email or web address] Address [address] [place] [address] Care Team Providers Care Sous Chef Kitchen Manager Name Role Phone [place] [facility] Primary Care Provider [phone] Reason for Visit * Reason Onset Date Comments Med Refill 10/28/2023 Encounter Details Date Type Department Care Team ([facility] st Contact Info) Description 10/28/2023 Refill [facility] MEDICINE [address] [place] [address] [facility] [address] [place] [address] Hyperlipidemia, unspecified hyperlipidemia type Social History Tobacco [...] documented as of this encounter Care Teams Sous Chef Kitchen Manager Relationship Specialty Start Date End Date Mary Lou Doan FNP [address] [place] [phone] PCP - General Family Medicine 11/03/21 documented as of this encounter
--- OUTSIDE RECORDS SUMMARY | 2025-01-14 14:51 | XMS_ITS | Encounter Summary ---
Author Organization [employer] Address [address] [place] [address] Care Team Providers Care International Marketing Intern Name Role Phone [facility] Primary Care Provider [phone] Reason for Visit * Reason Comments Med Refill Encounter Details Date Type Department Care Team ([facility] st Contact Info) Description 08/08/2024 Refill [facility] MEDICINE [address] [place], [place] [phone] [place] [facility] [address] [place], [place] [phone] Cervical radiculopathy Social History Tobacco Use Types [...] documented as of this encounter Care Teams International Marketing Intern Relationship Specialty Start Date End Date Mary Lou Doan FNP [address] [place] [address] PCP - General Family Medicine 11/03/21 documented as of this encounter
--- OUTSIDE RECORDS SUMMARY | 2025-01-14 14:51 | XMS_ITS | Encounter Summary ---
Author Organization [facility] Address [address] [facility] [address] [place] [address] Care Team Providers Care Cna Gna Name Role Phone Mary Lou Doan [facility] Primary Care Provider [phone] Encounter Details Date Type Department Care Team (Late st Contact Info) Description 03/16/2022 Abstract [facility] ADULT DENTAL [address] [place], [place] [phone] Be Medina DDS [address] [place], [place] [phone] Social History Tobacco Use Types Packs/Day Years [...] on filedocumented in this encounter Care Teams Cna Gna Relationship Specialty Start Date End Date Mary Lou Doan [facility] [address] [place], [place] [phone] PCP - General Family Medicine 11/03/21 documented as of this encounter
--- OUTSIDE RECORDS SUMMARY | 2025-01-14 14:51 | XMS_ITS | Encounter Summary ---
Author Organization [employer] Address [address] 7t [place] [address] Care Team Providers Care National Van Truck Driver Name Role Phone [place] [facility] Primary Care Provider [phone] Reason for Visit * Reason Onset Date Comments Med Refill 07/14/2024 Encounter Details Date Type Department Care Team ([facility] st Contact Info) Description 07/14/2024 Refill [facility] MED[facility]INE 230 [place] [address] [facility] 230 [place] [address] Social History Tobacco Use Types Packs/Day Years [...] documented as of this encounter Care Teams National Van Truck Driver Relationship Specialty Start Date End Date Mary Lou Doan FNP [address] [place] [address] PCP - General Family Medicine 11/03/21 documented as of this encounter
--- OUTSIDE RECORDS SUMMARY | 2025-01-14 14:51 | XMS_ITS | Encounter Summary ---
Author Organization [employer] Address [address] [facility] [address] [facility] 7t [place] [address] Care Team Providers Care Privacy Officer Name Role Phone [place] Primary Care Provider [phone] Reason for Visit * Reason Onset Date Comments Med Refill 08/10/2024 Encounter Details Date Type Department Care Team ([facility] st Contact Info) Description 08/10/2024 Telephone [facility] MED[facility]INE 230 [place], [place] [phone] [place] [facility] 230 [place] [address] Med Refill Social History Tobacco Use Types [...] one. Pt is advised to come to [facility] today open till 8pm . Pt [...] Noted Time PHQ-9 Depression Total Score: 17 07/06/ 025 3:38 PM EDT documented as of this encounter Care Teams Privacy Officer Relationship Specialty Start Date End Date Mary Lou Doan FNP [address] [place] [address] PCP - General Family Medicine 11/03/21 documented as of this encounter
--- OUTSIDE RECORDS SUMMARY | 2025-01-14 14:51 | XMS_ITS | Encounter Summary ---
Author Organization [employer] Address [address] 7t [place] [address] Care Team Providers Care Silvering Department Supervisor Name Role Phone [place] [facility] Primary Care Provider [phone] Reason for Visit * Reason Onset Date Comments Med Refill 11/01/2023 Encounter Details Date Type Department Care Team ([facility] st Contact Info) Description 11/01/2023 Refill [facility] MED[facility] 230 [place] [address] Jenifer Laboy MD 230 [place] [address] Social History Tobacco Use Types Packs/Day Years [...] documented as of this encounter Care Teams Silvering Department Supervisor Relationship Specialty Start Date End Date Mary Lou Doan FNP [address] [place] [address] PCP - General Family Medicine 11/03/21 documented as of this encounter
--- OUTSIDE RECORDS SUMMARY | 2025-01-14 14:51 | XMS_ITS | Encounter Summary ---
Author Organization [employer] Address [address] 7t [place] [address] Care Team Providers Care Window Shade Cutter And Mounter Name Role Phone [place] [facility] Primary Care Provider [phone] Reason for Visit * Reason Onset Date Comments Med Refill Received Percocet from Surgeon 03/18/2023 Encounter Details Date Type Department Care Team (Late st Contact Info) Description 03/18/2023 Refill [facility] [address] [place], [place] [phone] [facility] [address] [place] [address] Chronic pain of left knee (Primary Dx); [...] Laboy MD - 03/18/2023 4:26 PM EST [facility] nurse note reviewed, patient was apparently taking [...] use of new controlled substances without notifying PCP/[facility] nurse. Contract may or not be terminated if not compliant with it. Please fu with PCP. -Please remind patient to be compliant with [facility] appts, pill count and urine tox, FU [...] pt calling in regards to encounter with [facility] nurse. Pt would like to speak with nurse/PCP. Pt seems upset and stating she is stressed. Please contact pt at [phone] (mail rider needed) * Telephone Encounter - Khadijah Root RN - 03/18/2023 3:30 PM EST 02/13/23 Pt had left knee partial medial menisectomy and chondroplasty by Dr. Gardner. 02/13/23 Pt received Tramaol 50mg #150 for 25 days from PCP. 02/13/23 Pt received Percocet 5mg #42 for 7 days from A [address]. 03/12/23 Pt Received Percocet 5mg #28 for 7 days from A [address], [facility]. TC to pt, [...] as her Percocet. Pt upset about this leader writer inquiring about her Tramadol refill. Pt and her were both talking stating that it shouldn't be anissue if she takes her Tramadol with her Percocet at the same time. Attempted to review the [facility] Agreement with them. Explained to them that [...] documented as of this encounter Care Teams Window Shade Cutter And Mounter Relationship Specialty Start Date End Date Mary Lou Doan FNP [address] [place] [address] PCP - General Family Medicine 11/03/21 documented as of this encounter
--- OUTSIDE RECORDS SUMMARY | 2025-01-14 14:51 | XMS_ITS | Encounter Summary ---
Author Organization [employer] Address [address] [facility] [address] 7t [place] [address] Care Team Providers Care Line Service Supervisor Name Role Phone [place] [facility] Primary Care Provider [phone] Reason for Visit * Reason Onset Date Comments Med Refill 08/06/2024 Encounter Details Date Type Department Care Team ([facility] st Contact Info) Description 08/06/2024 Refill [facility] 230 [place] [address] [facility] 230 [place] [address] Cervical radiculopathy Social History Tobacco Use Types [...] documented as of this encounter Care Teams Line Service Supervisor Relationship Specialty Start Date End Date Mary Lou Doan FNP [address] [place] [address] PCP - General Family Medicine 11/03/21 documented as of this encounter
--- OUTSIDE RECORDS SUMMARY | 2025-01-14 14:51 | XMS_ITS | Encounter Summary ---
Author Organization [employer] Address [address] 7t [place] [address] Care Team Providers Care Farmworker Animal Name Role Phone [place] [facility] Primary Care Provider [phone] Encounter Details Date Type Department Care Team (Late st Contact Info) Description 01/14/2025 Orders Only [facility] External Provider, [facility] Social History Tobacco Use Types Packs/Day Years [...] Associated Diagnosis Comments US PELVIS TRANSVAGINAL Routine 01/14/2025 1:27 PM EST documented in this encounter Results * US Pelvis Transvaginal (01/14/2025 1:27 PM EST) Anatomical Region Laterality Modality Pelvis Ultrasound 01/14/2025 1:27 PM EST Narrative 01/14/2025 1:53 PM EST [facility] Primary Care [facility] [place] [address] Ultrasound Report Signed Patient: Leslie Reed MR#: [id number] : 1965 Acct:[id number] Age/Sex: 59 / F ADM Date: 01/14/25 Loc: HO.HMGCX Attending Dr: Marc Yusuf MD Ordering Physician: Marc Yusuf MD Date of Service: 01/14/25 Procedure(s): US pelvic and transvaginal Accession Number(s): [id number] cc: [facility]; Marc Yusuf MD Reason for Exam: D25.9 [...] by: Denzel Villareal MD 01/14/2025 01:51 PM EST Dictated By: Denzel Gutierrez MD Signed By: <Electronically signed by Denzel Ochoa MD in OV> 01/14/25 1351 DD/ 1327 TD/TT: 01/14/25 1345 Home Decorator: Procedure Note Donotuseinterpreter, Image - 01/14/2025 [facility] [place] [place] [address] Ultrasound Report Signed Patient: Leslie ReedMR#: [id number] : 1965Acct:[id number] Age/Sex: 59 / FADM Date: 01/14/25 Loc: HO.HMGCX Attending Dr: Marc Yusuf MD Ordering Physician: Marc Yusuf MD Date of Service: 01/14/25 Procedure(s): US pelvic and transvaginal Accession Number(s): [id number] cc: Mary Lou Doan [facility]; Marc Yusuf MD Reason for Exam: D25.9 [...] by: Denzel Villareal MD 01/14/2025 01:51 PM EST Dictated By: Denzel Gutierrez MD Signed By: <Electronically signed by Denzel Ochoa MDin OV> 01/14/25 1351 DD/ 1327 TD/TT: 01/14/25 1345 Home Decorator: [facility] External Provider IMG US PROCEDURES Final Result documented in this encounter Visit Diagnoses Not on filedocumented in this encounter Additional Health Concerns Assessment Noted Time PHQ-9 Depression Total Score: 13 025 1:44 PM EDT documented as of this encounter Care Teams Farmworker Animal Relationship Specialty Start Date End Date Mary Lou Doan FNP [address] [place] [address] PCP - General Family Medicine 11/03/21 documented as of this encounter
--- OUTSIDE RECORDS SUMMARY | 2025-01-14 14:51 | XMS_ITS | Encounter Summary ---
Author Organization [employer] Address [address] 7t [place] [address] Care Team Providers Care Motor Tester Name Role Phone [place], [facility] Primary Care Provider [phone] Reason for Visit * Reason Onset Date Comments Results 08/05/2024 Encounter Details Date Type Department Care Team ([facility] Contact Info) Description 08/05/2024 Telephone [facility] MEDICINE 230 [place] [address] [facility] 230 [place] [address] Results Social History Tobacco Use Types Packs/Day [...] 10:21 AM EDT TC placed to patient [phone] regarding below message. RN informed patient of [...] is interested in a referral to a Head End Desizing Machine Operator. Pt agreed. Patient also informed RN that she has been having moderate to severe RLE pain with swelling and lower back pain. Denies any recent injury to the sites. RN advised patient to go to the Walk In Center at [facility] or the ED for further evaluation. Pt agreed. RN informed patient a message will be sent to her PCP for review. Pt verbalized understanding to to F/U PRN. * Telephone Encounter - Kristin Gibson RN - 08/05/2024 3:41 PM EDT Tc placed to patient [phone] regarding below message. Patient informed RN that [...] results: Labs Date when done: 07/31/24 Facility: [facility] Pt also wanted to verify if she can receive another script for muscle relaxer because she lost the previous one. Please contact pt at [phone]. documented in this encounter Plan of Treatment Not on file documented as of this encounter Visit Diagnoses Diagnosis Cervical radiculopathy Brachial neuritis or radiculitis nos documented in this encounter Additional Health Concerns Assessment Noted Time PHQ-9 Depression Total Score: 17 07/06/ 025 3:38 PM EDT documented as of this encounter Care Teams Motor Tester Relationship Specialty Start Date End Date Mary Lou Doan FNP [address] [place] [address] PCP - General Family Medicine 11/03/21 documented as of this encounter
--- OUTSIDE RECORDS SUMMARY | 2025-01-14 14:51 | XMS_ITS | Encounter Summary ---
Author Organization [employer] Address [address] 7t [place] [address] Care Team Providers Care Beef Cattle Specialist Name Role Phone [place] [facility] Primary Care Provider [phone] Reason for Visit * Reason Onset Date Comments Call Back Request 05/14/2023 Encounter Details Date Type Department Care Team ([facility] st Contact Info) Description 05/14/2023 Telephone [facility] MED[facility]INE 230 [place], [place] [phone] [place] [facility] 230 [place] [address] Call Back Request Social History Tobacco Use [...] Miscellaneous Notes * Telephone Encounter - Ching Dobbins - 05/14/2023 3:18 PM EST Tc from pt requesting to speak with Health Aid in regards to CORPORATE [employer] Complaiments Management. Pt states that that she feels that her privacy is being invade by the level of questions. Please contact pt @ [phone] documented in this encounter Plan of Treatment Not on file documented as of this encounter Visit Diagnoses Not on filedocumented in this encounter Additional Health Concerns Assessment Noted Time PHQ-9 Depression Total Score: 16 023 2:01 PM EDT documented as of this encounter Care Teams Beef Cattle Specialist Relationship Specialty Start Date End Date Mary Lou Dona FNP [address] [place] [address] PCP - General Family Medicine 11/03/21 documented as of this encounter
--- OUTSIDE RECORDS SUMMARY | 2025-01-14 14:51 | XMS_ITS | Encounter Summary ---
Author Organization [employer] Address [address] [facility] 7t [place] [address] Care Team Providers Care Employee Benefits Attorney Name Role Phone [place], Mary Lou [facility] Primary Care Provider [phone] Reason for Visit * Reason Comments Med Refill Encounter Details Date Type Department Care Team (Late st Contact Info) Description 11/14/2022 Refill [facility] MEDICINE 230 [place], [place] [phone] Name, MD [place] 230 [place] [address] Social History Tobacco Use Types Packs/Day Years [...] documented as of this encounter Care Teams Employee Benefits Attorney Relationship Specialty Start Date End Date Mary Lou Doan BLUEPRINT READER 230 [place] [address] PCP - General Family Medicine 11/03/21 documented as of this encounter
--- OUTSIDE RECORDS SUMMARY | 2025-01-14 14:51 | XMS_ITS | Encounter Summary ---
Author Organization [employer] Address [address] 7t [place] [address] Care Team Providers Care Loan Originator Name Role Phone [place] [facility] Primary Care Provider [phone] Reason for Visit * Reason Comments Med Refill Encounter Details Date Type Department Care Team ([facility] st Contact Info) Description 04/04/2023 Refill [facility]EDS [address] [place], [place] [phone] Jenifer Laboy MD 230 [place] [address] Anxiety Social History Tobacco Use Types Packs/Day [...] documented as of this encounter Care Teams Loan Originator Relationship Specialty Start Date End Date Mary Lou Doan FNP [address] [place] [address] PCP - General Family Medicine 11/03/21 documented as of this encounter
--- OUTSIDE RECORDS SUMMARY | 2025-01-14 14:51 | XMS_ITS | Encounter Summary ---
Author Organization [employer] Address [address] [place] [address] Care Team Providers Care Container Packer Operator Name Role Phone [place] [facility] Primary Care Provider [phone] Reason for Visit * Reason Onset Date Comments Cancled appts 05/13/2023 Encounter Details Date Type Department Care Team ([facility] st Contact Info) Description 05/13/2023 Telephone [facility] MEDICINE 230 [place] [address] [facility] 230 [place] [address] Cancled appts Social History Tobacco Use Types [...] documented as of this encounter Care Teams Container Packer Operator Relationship Specialty Start Date End Date Mary Lou Doan FNP [address] [place] [address] PCP - General Family Medicine 11/03/21 documented as of this encounter
--- OUTSIDE RECORDS SUMMARY | 2025-01-14 14:51 | XMS_ITS | Encounter Summary ---
Author Organization [employer] Address [address] 7t [place] [address] Care Team Providers Care First Grade Teacher Name Role Phone [place], [facility] Primary Care Provider [phone] Reason for Visit * Reason Onset Date Comments Med Refill 01/19/2023 Encounter Details Date Type Department Care Team (Late st Contact Info) Description 01/19/2023 Refill [facility] MED & PEDS [address] [place], [place] [phone] [facility] [address] [place] [address] Shortness of breath Social History Tobacco Use [...] documented as of this encounter Care Teams First Grade Teacher Relationship Specialty Start Date End Date Mary Lou Doan FNP [address] [place] [address] PCP - General Family Medicine 11/03/21 documented as of this encounter
--- OUTSIDE RECORDS SUMMARY | 2025-01-14 14:51 | XMS_ITS | Encounter Summary ---
Author Organization [employer] [facility] Address [address] [facility] [address] 7t [place] [address] Care Team Providers Care Tassel Making Machine Operator Name Role Phone [place], [facility] Primary Care Provider [phone] Reason for Visit * Reason Onset Date Comments Nurse Triage 04/25/2023 Encounter Details Date Type Department Care Team ([facility] st Contact Info) Description 04/25/2023 Telephone [facility] MEDICINE 230 [place] [address] [place] [facility] 230 [place] [address] Nurse Triage Social History Tobacco Use Types [...] t he electric, gas, oil or water [employer] threatened to shut off services in your [...] is looking for respite care. Call to [facility], spoke with Margie who advised to have pt call [facility] at [phone]. Pt advised to call back if any [...] is looking for respite care. Call to [facility], spoke with Margie who advised to have pt call [facility] at [phone]. Pt advised to call back if any [...] documented as of this encounter Care Teams Tassel Making Machine Operator Relationship Specialty Start Date End Date Mary Lou Doan FNP [address] [place] [address] PCP - General Family Medicine 11/03/21 documented as of this encounter
== END 2025-01-14 13:13 | disposition home or self-care (01) ==
LOC: HO.HWS 11:52
PROVIDERS: PCP Registered Nurse; Visit Provider Obstetrics & Gynecology
DX: N84.0 Polyp of corpus uteri (principal)
CPT/HCPCS: 99213

== ENCOUNTER 2025-01-14 13:14 | Outpatient (REF) | payer OTHER, SELFPAY ==
--- NOTE | ~2025-01-14 | US_ITS ---
EXAMINATION: US PELVIS CLINICAL INFORMATION: D25.9. Leiomyoma of uterus. COMPARISON: August 20, 2024. TECHNIQUE: Ultrasound of the pelvis is performed using both transabdominal and transvaginal transducers along with Doppler. Transvaginal imaging is performed due to inadequate visualization transabdominally. FINDINGS: Uterus: The uterus is in anteversion flexion and measures 6 x 3 x 6 cm. No gross abnormality in the cervix. The double wall endometrial thickness is 4 mm. There is a 1.2 cm probable subserosal isoechoic mass, fundus of the uterus. There is a 2.8 cm intramural isoechoic lesion in the posterior fundus of the uterus. There is a 2.1 cm intramural isoechoic lesion in the posterior body of the uterus Adnexa: The left ovary is not identified.. The right ovary is identified with flow on color Doppler interrogation. No gross solid or cystic lesion. Right ovary measures 1 x 1 x 1 cm. Volume: 1 cc. No free fluid in cul-de-sac. US/US pelvic and transvaginal IMPRESSION: Leiomyomata uterine. Right ovary is normal. Left ovary is not identified. Electronically signed by: Denzel Villareal MD 01/14/2025 01:51 PM EST
== END 2025-01-14 13:15 | disposition home or self-care (01) ==
LOC: HO.HMGCX 13:14
PROVIDERS: PCP Registered Nurse; Visit Provider Obstetrics & Gynecology
DX: N84.0 Polyp of corpus uteri (principal); Z98.51 Tubal ligation status
CPT/HCPCS: 76830; 76856; 99212

== ENCOUNTER → 2025-01-14 13:24 | Outpatient (BNV) | payer OTHER, SELFPAY | PROVIDERS: PCP Registered Nurse; Visit Provider Radiology Diagnostic Radiology | DX: D25.9 Leiomyoma of uterus, unspecified (principal) | CPT/HCPCS: 76830; 76856 ==

== ENCOUNTER 2025-01-29 11:33 | Day surgery (SDC) | payer OTHER, SELFPAY ==
--- OUTSIDE RECORDS SUMMARY | 2025-01-15 14:24 | XMS_ITS | Encounter Summary ---
Author Organization [employer] Address [address] 7t [place] [address] Care Team Providers Care Dobie Man Name Role Phone [place] [facility] Primary Care Provider [phone] Encounter Details Date Type Department Care Team (Late st Contact Info) Description 01/14/2025 Orders Only [facility] External Provider, [facility] Social History Tobacco Use Types Packs/Day Years [...] PM EST Narrative 01/14/2025 1:53 PM EST [facility] Primary Care [facility] [place] [address] Ultrasound Report Signed Patient: Leslie Reed MR#: [id number] : 1965 Acct:[id number] Age/Sex: 59 / F ADM Date: 01/14/25 Loc: HO.HMGCX Attending Dr: Marc Yusuf MD Ordering Physician: aMrc Yusuf MD Date of Service: 01/14/25 Procedure(s): US pelvic and transvaginal Accession Number(s): [id number] cc: [facility]; Marc Yusuf MD Reason for Exam: D25.9 [...] 01/14/25 1351 DD/ 1327 TD/TT: 01/14/25 1345 Liquefied Natural Gas Plant Operator: Procedure Note Donotuseinterpreter, Image - 01/14/2025 [facility] Adult Primary Care [facility] [place] [address] Ultrasound Report Signed Patient: Leslie ReedMR#: [id number] : 1965Acct:[id number] Age/Sex: 59 / FADM Date: 01/14/25 Loc: HO.HMGCX Attending Dr: Marc Yusuf MD Ordering Physician: Marc Yusuf MD Date of Service: 01/14/25 Procedure(s): US pelvic and transvaginal Accession Number(s): [id number] cc: Mary Lou Doan [facility]; Marc Yusuf MD Reason for Exam: D25.9 [...] 01/14/25 1351 DD/ 1327 TD/TT: 01/14/25 1345 Liquefied Natural Gas Plant Operator: [facility] External Provider IMG US PROCEDURES Final Result documented in this encounter Visit Diagnoses Not on filedocumented in this encounter Additional Health Concerns Assessment Noted Time PHQ-9 Depression Total Score: 13 025 1:44 PM EDT documented as of this encounter Care Teams Dobie Man Relationship Specialty Start Date End Date Mary Lou Doan FNP [address] [place] [address] PCP - General Family Medicine 11/03/21 documented as of this encounter
--- OUTSIDE RECORDS SUMMARY | 2025-01-15 14:24 | XMS_ITS | Encounter Summary ---
Author Organization [employer] Address [address] 7t [place] [address] Care Team Providers Care Assembler Semiconductor Name Role Phone [facility] Primary Care Provider [phone] Reason for Visit * Reason Onset Date Comments Med Refill 11/01/2023 Encounter Details Date Type Department Care Team ([facility] st Contact Info) Description 11/01/2023 Refill [facility] MEDICINE 230 [place] [address] Jenifer Laboy MD 230 [place] [address] Social History Tobacco Use Types Packs/Day Years [...] documented as of this encounter Care Teams Assembler Semiconductor Relationship Specialty Start Date End Date Mary Lou Doan FNP [address] [place] [address] PCP - General Family Medicine 11/03/21 documented as of this encounter
--- OUTSIDE RECORDS SUMMARY | 2025-01-15 14:24 | XMS_ITS | Encounter Summary ---
Author Organization [employer] Address [address] [place] [address] Care Team Providers Care Vest Baster Name Role Phone [place] [facility] Primary Care Provider [phone] Reason for Visit * Reason Onset Date Comments Med Refill 08/06/2024 Encounter Details Date Type Department Care Team ([facility] st Contact Info) Description 08/06/2024 Refill [facility] MEDICINE 230 [place] [address] [facility] 230 [place] [address] Cervical radiculopathy Social History Tobacco Use Types [...] documented as of this encounter Care Teams Vest Baster Relationship Specialty Start Date End Date Mary Lou Doan FNP [address] [place] [address] PCP - General Family Medicine 11/03/21 documented as of this encounter
--- OUTSIDE RECORDS SUMMARY | 2025-01-15 14:24 | XMS_ITS | Encounter Summary ---
Author Organization [employer] Address [address] [facility] [address] 7t [place] [address] Care Team Providers Care Traveling Storekeeper Name Role Phone [place] [facility] Primary Care Provider [phone] Reason for Visit * Reason Comments Med Refill Encounter Details Date Type Department Care Team ([facility] st Contact Info) Description 01/11/2024 Telephone [facility] MEDICINE 230 [place], [place] [phone] TigertonMary Lou [facility] 230 [place] [address] Med Refill Social History Tobacco Use Types [...] documented as of this encounter Care Teams Traveling Storekeeper Relationship Specialty Start Date End Date Mary Lou Doan FNP [address] [place] [address] PCP - General Family Medicine 11/03/21 documented as of this encounter
--- OUTSIDE RECORDS SUMMARY | 2025-01-15 14:24 | XMS_ITS | Encounter Summary ---
Author Organization [employer] Address [address] [address] 7t [place] [address] Care Team Providers Care Regulatory Affairs Analyst Name Role Phone [facility] Primary Care Provider [phone] Reason for Visit * Reason Onset Date Comments Appointment 08/28/2022 Encounter Details Date Type Department Care Team ([facility] st Contact Info) Description 08/28/2022 Telephone [facility] ADULT DENTAL 230 [place], [place] [phone] FlaviaCoryRosalie 230 [place] [address] Appointment Social History Tobacco Use Types Packs/Day [...] on filedocumented in this encounter Care Teams Regulatory Affairs Analyst Relationship Specialty Start Date End Date Mary Lou Doan FNP [address] [place] [address] PCP - General Family Medicine 11/03/21 documented as of this encounter
--- OUTSIDE RECORDS SUMMARY | 2025-01-15 14:24 | XMS_ITS | Encounter Summary ---
Author Organization [employer] Address [address] [facility] 7t [place] [address] Care Team Providers Care Thread Reeler Name Role Phone [place], Mary Lou [facility] Primary Care Provider [phone] Reason for Visit * Reason Comments Med Refill Encounter Details Date Type Department Care Team (Late st Contact Info) Description 11/14/2022 Refill [facility] MEDICINE 230 [place], [place] [phone] Name, MD [place] 230 [place] [address] Social History Tobacco Use Types Packs/Day Years [...] documented as of this encounter Care Teams Thread Reeler Relationship Specialty Start Date End Date FrankiMary Lou FNP 230 [place] [address] PCP - General Family Medicine 11/03/21 documented as of this encounter
--- OUTSIDE RECORDS SUMMARY | 2025-01-15 14:24 | XMS_ITS | Encounter Summary ---
Author Organization [employer] [facility] Address [address] [facility] 7t [place] [address] Care Team Providers Care Senior Economist Name Role Phone Mary Lou Doan [facility] Primary Care Provider [phone] Encounter Details Date Type Department Care Team (Late st Contact Info) Description 03/16/2022 Abstract [facility] ADULT DENTAL 230 [place], [place] [phone] Be Medina DDS 230 [place], [place] [phone] Social History Tobacco Use Types Packs/Day Years [...] on filedocumented in this encounter Care Teams Senior Economist Relationship Specialty Start Date End Date Mary Lou Doan [facility] 230 [place], [place] [phone] PCP - General Family Medicine 11/03/21 documented as of this encounter
--- OUTSIDE RECORDS SUMMARY | 2025-01-15 14:24 | XMS_ITS | Encounter Summary ---
Author Organization [employer] Address [address] 7t [place] [address] Care Team Providers Care Stitcher Hand Name Role Phone [place], [facility] Primary Care Provider [phone] Reason for Visit * Reason Onset Date Comments Med Refill 08/10/2024 Encounter Details Date Type Department Care Team ([facility] st Contact Info) Description 08/10/2024 Telephone [facility] MEDICINE 230 [place], [place] [phone] Tye [facility] 230 [place] [address] Med Refill Social History Tobacco Use Types [...] one. Pt is advised to come to [facility] today open till 8pm . Pt agrees [...] documented as of this encounter Care Teams Stitcher Hand Relationship Specialty Start Date End Date Mary Lou Doan FNP [address] [place] [address] PCP - General Family Medicine 11/03/21 documented as of this encounter
--- OUTSIDE RECORDS SUMMARY | 2025-01-15 14:24 | XMS_ITS | Encounter Summary ---
Author Organization [employer] Address [address] [facility] [address] 7t [place] [address] Care Team Providers Care Tape Controlled Machine Stitcher Name Role Phone [facility] Primary Care Provider [phone] Reason for Visit * Reason Comments Med Refill Encounter Details Date Type Department Care Team ([facility] st Contact Info) Description 08/08/2024 Refill [facility] MEDICINE 230 [place], [place] [phone] [place] [facility] 230 [place], [place] [phone] Cervical radiculopathy Social History Tobacco Use Types [...] documented as of this encounter Care Teams Tape Controlled Machine Stitcher Relationship Specialty Start Date End Date Mary Lou Doan FNP 230 [place] [address] PCP - General Family Medicine 11/03/21 documented as of this encounter
--- OUTSIDE RECORDS SUMMARY | 2025-01-15 14:24 | XMS_ITS | Encounter Summary ---
Author Organization [employer] Address [address] [facility] [facility] [address] 7t [place] [address] Care Team Providers Care Accounting Coordinator Name Role Phone Mary Lou Doan [facility] Primary Care Provider [phone] Reason for Visit * Reason Onset Date Comments Nurse Triage 10/09/2022 Encounter Details Date Type Department Care Team ([facility] st Contact Info) Description 10/09/2022 Telephone [facility] MEDICINE 230 [place] [address] [facility] 230 [place] [address] Nurse Triage Social History Tobacco Use Types [...] upon seeing chart review pt seen at [facility] yesterday. Per pt mentioned to provider. Pt [...] accepted this outcome Please contact pt at [phone] documented in this encounter Plan of Treatment Not on file documented as of this encounter Visit Diagnoses Not on filedocumented in this encounter Additional Health Concerns Assessment Noted Time PHQ-9 Depression Total Score: 16 023 2:01 PM EDT documented as of this encounter Care Teams Accounting Coordinator Relationship Specialty Start Date End Date Mary Lou Doan FNP [address] [place] [address] PCP - General Family Medicine 11/03/21 documented as of this encounter
--- OUTSIDE RECORDS SUMMARY | 2025-01-15 14:24 | XMS_ITS | Encounter Summary ---
Author Organization [employer] Address [address] [facility] [address] 7t [place] [address] Care Team Providers Care Creative Writing Teacher Name Role Phone [place], [facility] Primary Care Provider [phone] Reason for Visit * Reason Onset Date Comments Med Refill 01/19/2023 Encounter Details Date Type Department Care Team (Late st Contact Info) Description 01/19/2023 Refill [facility] [address] [place], [place] [phone] [facility] [address] [place] [address] Shortness of breath Social History Tobacco Use [...] documented as of this encounter Care Teams Creative Writing Teacher Relationship Specialty Start Date End Date Mary Lou Doan FNP [address] [place] [address] PCP - General Family Medicine 11/03/21 documented as of this encounter
--- OUTSIDE RECORDS SUMMARY | 2025-01-15 14:24 | XMS_ITS | Encounter Summary ---
Author Organization [employer] [facility] Address [address] [facility] [address] 7t [place] [address] Care Team Providers Care Extruding Machine Operator Name Role Phone [place], [facility] Primary Care Provider [phone] Reason for Visit * Reason Onset Date Comments Nurse Triage 04/25/2023 Encounter Details Date Type Department Care Team ([facility] st Contact Info) Description 04/25/2023 Telephone [facility] MEDICINE 230 [place] [address] [place] [facility] 230 [place] [address] Nurse Triage Social History Tobacco Use Types [...] t he electric, gas, oil or water [employer] threatened to shut off services in your [...] is looking for respite care. Call to [facility], spoke with Magrie who advised to have pt call [facility] at [phone]. Pt advised to call back if any [...] is looking for respite care. Call to [facility], spoke with Margie who advised to have pt call [facility] at [phone]. Pt advised to call back if any [...] documented as of this encounter Care Teams Extruding Machine Operator Relationship Specialty Start Date End Date Mary Lou Doan FNP [address] [place] [address] PCP - General Family Medicine 11/03/21 documented as of this encounter
--- OUTSIDE RECORDS SUMMARY | 2025-01-15 14:24 | XMS_ITS | Clinical Summary ---
Author Organization [employer] Address [address] [facility] [facility] [address] 7t [place] [address] Care Team Providers Care Rn Women Services Name Role Phone Franki [facility] Primary Care Provider [phone] Allergies No known active allergies Medications * [...] DAY 90 tablet 1 025 2024 Discontinued Diclofenac Sodium 1 [...] on exertion Followed by Dr. Santa at [facility], negative stress test and echo [...] hx of glaucoma. Dr. Navarro follows Dental: [facility] dental HIV: Neg 2017 Hepatitis: Neg 04/2021 Screening Labs: A1c: 6.2 04/2021, Family history of breast cancer 06/06/2022 Overview (06/06/2022): Daughter from breast cancer age 29 Referred for genetic screening 01/2022 Bilateral chronic knee pain 06/06/2022 Overview (06/06/2022): Long hx of chronic bilateral knee pain. S/p right knee arthroplasty and meniscal repair 2020 Managed with tramadol 50mg PRN, compliant with [employer] program Lung nodule 11/09/2021 Overview (06/06/2022): 3mm [...] 60mg daily Buproprion 150mg XR Therapist at [facility] Assessment & Plan (12/06/2022 [...] pt with additional resources for [facility] at [facility], as well as how to reach out to [facility] BH team. Pt was agreeable to intervention and referral to op and psych services at [facility]. Assessment & Plan (10/24/2022 9:33 AM EDT): Patient declines buproprion increase at this time. Will continue at current dose Continue duloxetine 60mg daily Continue clonazepam 0.5mg once daily (started by prior outside provider) Ambien PRN for sleep. Plan to discuss insomnia at follow up. Contact HC if sx worsen or experiencing thoughts of SI or self harm. Pt has [employer] [facility] crisis contact information Assessment & Plan (10/05/2022 3:19 PM EDT): In office BE during OV with Dr. Mukherjee. Pt referred to [facility] and provided with [facility] contact information for emergency care. STOP buspar START buproprion 150mg XR. Reviewed administration, risks, side effects Continue duloxetine 60mg Contact HC if sx worsen or experiencing thoughts of SI or self harm. Pt has [employer] [facility] [employer] crisis contact information Resolved Problems Problem Noted [...] Department Care Team Description 01/14/2025 Orders Only [facility] External Provider, [facility] 01/06/2025 Refill [facility] MEDICINE 230 [place] [address] [facility] 12/31/2024 Refill [facility] MEDICINE [address] [place] [address] [facility] 12/15/2024 Refill [facility] MEDICINE [address] [place] [address] [facility] Seasonal allergies 11/06/2024 Orders Only [facility] MEDICINE [address] [place] [address] [facility] 10/29/2024 Refill [facility] MEDICINE [address] [place] [address] [facility] Seasonal allergies 10/23/2024 Telephone [facility] MEDICINE 230 [place] [address] [facility] Chart Prep from Last 3 Months Immunizations [...] Associated Diagnosis Comments US PELVIS TRANSVAGINAL Routine 1:27 PM EST BI MAMMOGRAM SCREENING TOMOSYNTHESIS [...] PM EST Narrative 01/14/2025 1:53 PM EST [facility] Adult Primary Care [address] [place] [address] [place] [address] Ultrasound Report Signed Patient: Leslie Reed MR#: [id number] : 1965 Acct:[id number] Age/Sex: 59 / F ADM Date: 01/14/25 Loc: HO.HMGCX Attending Dr: Marc Yusuf MD Ordering Physician: Marc Yusuf MD Date of Service: 01/14/25 Procedure(s): US pelvic and transvaginal Accession Number(s): [id number] cc: Mary Lou Doan [facility]; Marc Yusuf MD Reason for Exam: D25.9 [...] by: Denzel Villareal MD 01/14/2025 01:51 PM [facility] Dictated By: Denzel Gutierrez MD Signed By: <Electronically signed by Denzel Ochoa MD in OV> 01/14/25 1351 DD/ 1327 TD/TT: 01/14/25 1345 Webbing Seamer Pound Net: Procedure Note Donotuseinterpreter, Image - 01/14/2025 [facility] Adult Primary Care [facility] [place] [address] Ultrasound Report Signed Patient: Leslie Reed#: [id number] : 1965Acct:[id number] Age/Sex: 59 / FADM Date: 01/14/25 Loc: HO.HMGCX Attending Dr: Marc Yusuf MD Ordering Physician: Marc Yusuf MD Date of Service: 01/14/25 Procedure(s): US pelvic and transvaginal Accession Number(s): [id number] cc: [facility]; Marc Yusuf MD Reason for Exam: D25.9 [...] 01/14/25 1351 DD/ 1327 TD/TT: 01/14/25 1345 Webbing Seamer Pound Net: [facility] External Provider IMG US PROCEDURES Final Result * BI Mammogram Screening Tomosynthesis Bilateral (11/06/2024 3:50 PM EDT) Anatomical Region Laterality Modality Breast Bilateral Mammography 11/06/2024 3:50 PM EDT Narrative 11/10/2024 11:51 AM EDT [facility] [address] [place] [address] Mammography Report Signed Patient: Leslie Erazo MR#: [id number] : 1965 Acct:[id number] Age/Sex: 59 / F ADM Date: 11/06/24 Loc: MAMMO Attending Dr: Mary Lou Doan RUG MEASURER Ordering Physician: Mary Lou Doan RUG MEASURER Results: 2Beni gn Findings Date of Service: 11/06/24 Follow Up: 1 Year From Orig ina Mammogram Procedure(s): MM tomosynthesis screening BI Accession Number(s): [id number] cc: Mary Lou Doan RUG MEASURER EXAMINATION: MM SCREENING DIGITAL BREAST TOMOSYNTHESIS, BILATERAL [...] 11/10/24 1148 DD/ 1550 TD/TT: 11/06/24 1604 Webbing Seamer Pound Net: Procedure Note Donotuseinterpreter, Image - 11/10/2024 [facility] [address] [place], [place] [address] Mammography Report Signed Patient: Leslie ErazoMR#: [id number] : 1965Acct:[id number] Age/Sex: 59 / FADM Date: 11/06/24 Loc: MAMMO Attending Dr: Mary Lou Doan RUG MEASURER Ordering Physician: Mary Lou Doan FNPResults: 2Beni gn Findings Date of Service: 11/06/24Follow Up: 1 Year From [facility] ina Mammogram Procedure(s): MM tomosynthesis screening BI Accession Number(s): [id number] cc: Mary Lou Doan RUG MEASURER EXAMINATION: MM SCREENING DIGITAL BREAST TOMOSYNTHESIS, BILATERAL [...] 11/10/24 1148 DD/ 1550 TD/TT: 11/06/24 1604 Webbing Seamer Pound Net: [facility] RUG MEASURER IMG BI PROCEDURES Final Resul t * Hepatitis A,B,C Profile (07/31/2024 1:55 PM EDT) Hepatitis A IgM Nonreactive Nonreactive [facility] Comment:IgM antibodies to NUNEZ V not detected; does not exclude earlyacute or recovered HAV infection. ~Hepatitis B Surface Antibody REACTIVE Nonreactive [facility] Comment:REACTIVE: > 11.99 mI U/mL Hepatitis B Core Antibody Nonreactive Nonreactive [facility] Hepatitis C Antibody Nonreactive Nonreactive [facility] Comment:Antibodies to HCV no t detected; does not exclude early acuteHCV infection. Hepatitis B Surface Ag Negative Negative [facility] Blood Venous blood specimen / Unknown 07/31/2024 1:55 PM EDT 07/31/2024 1:55 PM EDT [facility] LAB BLOOD ORDERABLES Final Re sult Performing Organization Address City/[facility]/ZIP Co de Phone Number [facility] [address] [place] [address] [phone] * HIV-1/2 Antigen and Antibodies, Fourth Generation, with Reflexes (07/31/2024 1:55 PM EDT) HIV AB/AG Nonreactive Nonreactive [facility] Comment:HIV-1 p24 Ag and/or HIV-1/HIV-2 Ab not detected.A test result that is nonreactive does not exclude thepossibility of exposure to or infection with HIV-1 and/orHIV-2. Nonreactive results in this assay for individualswith prior exposure to HIV-1 and/or HIV-2 may be due toantigen and antibody levels that are below the limit ofdetection of this assay.The Palingenni[employer]ffio HIV Ag/Ab Combo assay result andsupplemental assay results should be interpreted inconjunction with the patient's clinical presentation,history and other laboratory results. If the results areinconsistent with clinical evidence, additional testing issuggested to confirm the result. Blood Venous blood specimen / Unknown 07/31/2024 1:55 PM EDT 07/31/2024 1:55 PM EDT [facility] LAB BLOOD ORDERABLES Final Re sult Performing Organization Address City/[facility]/ZIP Co de Phone Number [facility] [address] [place] [address] [phone] * (ABNORMAL) Hemoglobin A1c (07/31/2024 1:55 PM EDT) Pathologist [facility] Hemoglobin A1c 6.1(H) <6.0 % [facility] Comment:Hemoglobin A1C Refer ence Range Adults: 4.8 - 6.0 % Non diabetic: < 6.0 % Goal: < 7.0 %Additional Action Suggested: > 8.0 %Note: Hemoglobin A1c results are invalid for patients with abnormal amounts of HbF. Blood transfusions may impact the HbA1c concentration in the patient sample. Estimated Average Glucose 128 mg/dL [facility] Comment:eAG = Estimated ave rage glucose which is %A1C expressed asaverage glucose, using the formula of the E5H-BqdonlrWdsxobx Glucose study (ADAG), Diabetes Care, Vol.31,#8,Oct. 2007 Blood Venous blood specimen / Unknown 07/31/2024 1:55 PM EDT 07/31/2024 1:55 PM EDT [facility] RUG MEASURER LAB BLOOD ORDERABLES Final Re sult [facility] [address] [place] [phone] * (ABNORMAL) Lipid Panel, Standard (07/31/2024 1:55 PM EDT) Triglycerides 176(H) <150 mg/dL [facility] Comment:Desirable Triglyceri de: less than 150 mg/dLBorderline High Triglyceride 150-199 mg/dLHigh Triglyceride: 200-499 mg/dLVery High Triglyceride: greater than or equal to 5OO mg/dL Cholesterol 242(H) <200 mg/dL [facility] Comment:Desirable Cholestero l: less than 200 mg/dLBorderline High Cholesterol: 200-239 mg/dLHigh Cholesterol: greater than 239 mg/dL LDL Cholesterol Calculated 167(H) <100 mg/dL [facility] Comment:Desirable LDL: less than 100 mg/dLNear Optimal/Above Optimal LDL: 110- 129 mg/dLBorderline High LDL: 130-159 mg/dLHigh LDL: 160-189 mg/dLVery High LDL: greater than or equal to 190 mg/dL HDL Cholesterol 40(L) >40 mg/dL [facility] Comment:Desirable HDL: great er than 40 mg/dL Note: This HDL assay may give artificially low results in patients with liver disease. Blood Venous blood specimen / Unknown 07/31/2024 1:55 PM EDT 07/31/2024 1:55 PM EDT [facility] LAB BLOOD ORDERABLES Final Re sult [facility] [address] [place] [address] [phone] * ThinPrep Imaging Pap and HPV mRNA E6/E7 (09/30/2023 2:12 PM EDT) HPV nRNA E6/E7 Not Detected Not Detected [facility] Comment:Methodology: Transcr iption-Mediated AmplificationThis assay detects E6/E7 viral messenger RNA (mRNA) from 14high-risk HPV types (16,18,31,33,35,39,45,51,52,56,58,59,66,68).Cervical sources are required for HPV testing.If a vaginal source from a patient who has had atotal hysterectomy with removal of cervix wassubmitted, please contact the testing laboratoryfor alternative testing options.For additional information, please refer [email or web address].Up My Game/faq/PBC251s5(This link if provided for information/educational purposes only.)THIS TEST WAS PERFORMED AT:[facility] [place] [phone] LORA MD SOURCE: SEE NOTE [facility] Comment:None given Report Status: [facility] Clinical Information: SEE NOTE [facility] Comment:None given LMP: SEE NOTE [facility] Comment:NONE GIVEN Prev. PAP: SEE NOTE [facility] Comment:NONE GIVEN Prev. BX: SEE NOTE [facility] Comment:NONE GIVEN Statement Of Adequacy: SEE NOTE [facility] Comment:Satisfactory for terry luation.Endocervical/transformation zone componentpresent. General Categorization: [facility] Interpretation/Result: SEE NOTE [facility] Comment:Cytology Results: Ne gative for intraepitheliallesion or malignancy. Cytology Comment SEE NOTE [facility] Comment:This Pap test has be en evaluated with computerassisted technology. Drapery Installer: SEE NOTE [facility] Comment:CMG, CT(ASCP)CT scre ening location: [place] [address] Review Drapery Installer: [facility] Pathologist [facility] PAP Infection [facility] See Note SEE NOTE [facility] Comment:EXPLANATORY NOTE:The Pap [...] PM EDT 09/30/2023 7:32 PM EDT Narrative [facility] - 10/04/2023 12:37 PM EDT SEE SCANNED RESULTS IN EMR Edith Berger CNM LAB PATHOLOGY ORDERABLES Final Result [facility] [address] [place] [address] [phone] from Last 3 Months or Most Recently Relevant to Health Maintenance Insurance [facility] ONE CARE < 65 DENTAL - [facility] Care Teams Rn Women Services Relationship Specialty Start Date End Date Mary Lou Doan FNP [address] [place] [phone] PCP - General Family Medicine 11/03/21
--- OUTSIDE RECORDS SUMMARY | 2025-01-15 14:24 | XMS_ITS | Encounter Summary ---
Author Organization [employer] Address [address] [facility] [address] 7[address] [place] [address] Care Team Providers Care Painter Sign Maintenance Name Role Phone [place] [facility] Primary Care Provider [phone] Reason for Visit * Reason Onset Date Comments Call Back Request 05/14/2023 Encounter Details Date Type Department Care Team ([facility] st Contact Info) Description 05/14/2023 Telephone [facility] MEDICINE 230 [place], [place] [phone] [place] [facility] 230 [place] [address] Call Back Request Social History Tobacco Use [...] Tc from pt requesting to speak with Mangle Press Catcher in regards to [employer] Complaiments Management. Pt states that that she feels that her privacy is being invade by the level of questions. Please contact pt @ [phone] documented in this encounter Plan of Treatment Not on file documented as of this encounter Visit Diagnoses Not on filedocumented in this encounter Additional Health Concerns Assessment Noted Time PHQ-9 Depression Total Score: 16 023 2:01 PM EDT documented as of this encounter Care Teams Painter Sign Maintenance Relationship Specialty Start Date End Date Mary Lou Doan FNP [address] [place] [phone] PCP - General Family Medicine 11/03/21 documented as of this encounter
--- OUTSIDE RECORDS SUMMARY | 2025-01-15 14:24 | XMS_ITS | Encounter Summary ---
Author Organization [employer] Address [address] [facility] [facility] [address] 7[address] [place] [address] Care Team Providers Care Wind Farm Engineer Name Role Phone [facility] Primary Care Provider [phone] Reason for Visit * Reason Onset Date Comments Med Refill 07/14/2024 Encounter Details Date Type Department Care Team ([facility] st Contact Info) Description 07/14/[address] [facility] MEDICINE 230 [place] [address] [facility] 230 [place] [address] Social History Tobacco Use Types Packs/Day Years [...] documented as of this encounter Care Teams Wind Farm Engineer Relationship Specialty Start Date End Date Mary Lou Doan FNP [address] [place] [address] PCP - General Family Medicine 11/03/21 documented as of this encounter
--- OUTSIDE RECORDS SUMMARY | 2025-01-15 14:24 | XMS_ITS | Encounter Summary ---
Author Organization [employer] Address [address] [facility] [facility] [address] [place] [address] Care Team Providers Care Deliverer Outside Name Role Phone [place] [facility] Primary Care Provider [phone] Reason for Visit * Reason Onset Date Comments Cancled appts 05/13/2023 Encounter Details Date Type Department Care Team ([facility] st Contact Info) Description 05/13/2023 Telephone [facility] MEDICINE 230 [place] [address] [facility] 230 [place] [address] Cancled appts Social History Tobacco Use Types [...] documented as of this encounter Care Teams Deliverer Outside Relationship Specialty Start Date End Date Mary Lou Doan FNP [address] [place] [address] PCP - General Family Medicine 11/03/21 documented as of this encounter
--- OUTSIDE RECORDS SUMMARY | 2025-01-15 14:24 | XMS_ITS | Encounter Summary ---
Author Organization [employer] Address [address] [facility] [address] 7[address] [place] [address] Care Team Providers Care Container Packer Operator Name Role Phone [place] Primary Care Provider [phone] Reason for Visit * Reason Onset Date Comments Results 08/05/2024 Encounter Details Date Type Department Care Team ([facility] Contact Info) Description 08/05/2024 Telephone [facility] MEDICINE 230 [place] [address] [facility] 230 [place] [address] Results Social History Tobacco Use Types Packs/Day [...] 10:21 AM EDT TC placed to patient [phone] regarding below message. RN informed patient of [...] is interested in a referral to a Chef French. Pt agreed. Patient also informed RN that she has been having moderate to severe RLE pain with swelling and lower back pain. Denies any recent injury to the sites. RN advised patient to go to the Walk In Center at [facility] or the ED for further evaluation. Pt agreed. RN informed patient a message will be sent to her PCP for review. Pt verbalized understanding to to F/U PRN. * Telephone Encounter - Kristin Gibson RN - 08/05/2024 3:41 PM EDT Tc placed to patient [phone] regarding below message. Patient informed RN that [...] results: Labs Date when done: 07/31/24 Facility: [facility] [facility] [place] Pt also wanted to verify if she can receive another script for muscle relaxer because she lost the previous one. Please contact pt at [phone]. documented in this encounter Plan of Treatment [...] End Date Mary Lou Doan FNP [address] [place] [phone] PCP - General Family Medicine 11/03/21 documented as of this encounter
--- OUTSIDE RECORDS SUMMARY | 2025-01-15 14:24 | XMS_ITS | Encounter Summary ---
Author Organization [employer] Address [address] [facility] [address] [address] 7t [place] [address] Care Team Providers Care Blending Coordinator Name Role Phone [facility] Primary Care Provider [phone] Reason for Visit * Reason Onset Date Comments Med Refill Received Percocet from Surgeon 03/18/2023 Encounter Details Date Type Department Care Team (Late st Contact Info) Description 03/18/2023 Refill [facility] MED & PEDS [address] [place], [place] [phone] [facility] [address] [place] [address] Chronic pain of left knee (Primary Dx); [...] Laboy MD - 03/18/2023 4:26 PM EST [employer] nurse note reviewed, patient was apparently taking [...] use of new controlled substances without notifying PCP/[employer] nurse. Contract may or not be terminated if not compliant with it. Please fu with PCP. -Please remind patient to be compliant with [employer] appts, pill count and urine tox, FU [...] pt calling in regards to encounter with [employer] nurse. Pt would like to speak with nurse/PCP. Pt seems upset and stating she is stressed. Please contact pt at [phone] (spanish interpreter/translator needed) * Telephone Encounter - Khadijah Root RN - 03/18/2023 3:30 PM EST 02/13/23 Pt had left knee partial medial menisectomy and chondroplasty by Dr. Gardner. 02/13/23 Pt received Tramaol 50mg #150 for 25 days from PCP. 02/13/23 Pt received Percocet 5mg #42 for 7 days from A [address], [facility]. 03/12/23 Pt Received Percocet 5mg #28 for 7 days from A [address], [facility]. TC to pt, pt inquiring about Tramadol [...] as her Percocet. Pt upset about this conventional mortgage underwriter inquiring about her Tramadol refill. Pt and her were both talking stating that it shouldn't be anissue if she takes her Tramadol with her Percocet at the same time. Attempted to review the [employer] Agreement with them. Explained to them that [...] documented as of this encounter Care Teams Blending Coordinator Relationship Specialty Start Date End Date Mary Lou Doan FNP [address] [place] [address] PCP - General Family Medicine 11/03/21 documented as of this encounter
--- OUTSIDE RECORDS SUMMARY | 2025-01-15 14:24 | XMS_ITS | Encounter Summary ---
Author Organization [employer] Address [address] [facility] [address] 7[address] [place] [address] Care Team Providers Care Cell Liner Name Role Phone [place] [facility] Primary Care Provider [phone] Reason for Visit * Reason Onset Date Comments Med Refill 10/28/2023 Encounter Details Date Type Department Care Team ([facility] st Contact Info) Description 10/28/2023 Refill [facility] MEDICINE 230 [place] [address] [facility] 230 [place] [address] Hyperlipidemia, unspecified hyperlipidemia type Social History Tobacco [...] documented as of this encounter Care Teams Cell Liner Relationship Specialty Start Date End Date Mary Lou Doan FNP [address] [place] [address] PCP - General Family Medicine 11/03/21 documented as of this encounter
--- OUTSIDE RECORDS SUMMARY | 2025-01-15 14:24 | XMS_ITS | Encounter Summary ---
Author Organization [employer] Address [address] [facility] 7t [place] [address] Care Team Providers Care X Ray Technologist Name Role Phone Mary Lou Doan [facility] Primary Care Provider [phone] Encounter Details Date Type Department Care Team (Late st Contact Info) Description 06/06/2022 Orders Only [facility] MEDICINE 230 [place], [place] [phone] [facility] [place] 230 [place], [place] [phone] Social History Tobacco Use Types Packs/Day Years [...] on filedocumented in this encounter Care Teams X Ray Technologist Relationship Specialty Start Date End Date Franki Mary Lou [facility] 230 [place] [address] PCP - General Family Medicine 11/03/21 documented as of this encounter
--- OUTSIDE RECORDS SUMMARY | 2025-01-15 14:24 | XMS_ITS | Encounter Summary ---
Author Organization [employer] Address [address] [facility] [address] [place] [address] Care Team Providers Care Director Of [employer]ance [employer] Name Role Phone [place] [facility] Primary Care Provider Encounter Details Date Type Department Care Team (Late st Contact Info) Description 02/12/2022 Abstract [facility] 230 [place] [address] Dental, Provider, DDS Social History Tobacco Use [...] on filedocumented in this encounter Care Teams Director Of [employer] Relationship Specialty Start Date End Date Mary Lou Doan FNP [address] [place] [phone] PCP - General Family Medicine 11/03/21 documented as of this encounter
--- OUTSIDE RECORDS SUMMARY | 2025-01-15 14:24 | XMS_ITS | Encounter Summary ---
Author Organization [employer] Address [address] [facility] [address] [place] [address] Care Team Providers Care Cruise Coordinator Name Role Phone [place] [facility] Primary Care Provider [phone] Reason for Visit * Reason Comments Med Refill Encounter Details Date Type Department Care Team ([facility] st Contact Info) Description 04/04/2023 Refill [facility] MED & PEDS [address] [place], [place] [phone] Jenifer Laboy MD 230 [place] [address] Anxiety Social History Tobacco Use Types Packs/Day [...] documented as of this encounter Care Teams Cruise Coordinator Relationship Specialty Start Date End Date Mary Lou Doan FNP [address] [place] [address] PCP - General Family Medicine 11/03/21 documented as of this encounter
--- NOTE | 2025-01-26 10:59 | HO.ANESPROP2 ---
Documented by User: Melissa Caro NP 01/26/25 10:59 HPI - Anesthesia Eval Consult details Narrative: 59yo F for D&C Hysteroscopy,possible myomectomy,possible polypectomy PMFSH Active Problems Active Problems: All Active Problems Endometrial polyp (Acute) Thickened endometrium (Acute) Chronic pain syndrome (Acute) Lumbar spondylosis (Acute) Mixed stress and urge urinary incontinence (Acute) Nocturia (Acute) Abdominal pain (Acute) Fluid in endometrial cavity (Acute) Uterine myoma (Acute) Pelvic pain (Acute) Cervical radiculopathy (Acute) Paresthesia and pain of extremity (Acute) Cervical pain (neck) (Acute) Constipation due to pain medication (Acute) Tear of medial meniscus of left knee (Acute) Osteoarthritis of left knee (Acute) Chronic low back pain (Acute) Overactive bladder (Acute) Frequency of urination (Acute) Urge incontinence (Acute) Renal stones (Acute) Fibromyalgia (Acute) Tear of medial meniscus of right knee (Acute) Past Medical History Medical History Frequency of urination Urge incontinence Renal stones Anxiety Overactive bladder Hyperlipemia Depression Obesity Glaucoma Osteoarthritis IBS (irritable bowel syndrome) Lumbar spondylitis Renal stones Anemia GERD (gastroesophageal reflux disease) Plantar fasciitis Fibromyalgia Family History Family History Mother Diabetes Fibromyalgia Arthritis Osteoporosis Daughter Breast cancer Family history of problems with anesthesia: No Surgical History Surgical History History of arthroscopy of left knee History of arthroscopy of right knee (~03/2020) H/O nasal septoplasty Hx of lithotripsy Hx of tubal ligation Social History Social History Household Members: Family Housing: House Are you a primary customer care consultant to a significant other at home: No Do you presently have visiting nurse or other home services: No Alcohol intake: never Comment: uses a cane sometimes Patient Tobacco Use Status: Never used Tobacco Second Hand Smoke Exposure: No Have you been hit, kicked, punched, or otherwise hurt by someone within the past year? If so, by whom?: No Are you DNR?: No Advance Directives: No Advance Directives Information Provided: Yes Patient : No Current occupational status: disabled Current occupation: Right Handed Meds Allergies Allergy/AdvReac Type Severity Reaction Status Date / Time No Known Allergies (No Known Allergy Verified 01/08/25 11:51 Allergies*) Home Medications ?Medication ?Instructions ?Recorded ?Confirmed ?Last Taken ?Type cholecalciferol (vitamin D3) 25 25 mcg PO DAILY 01/13/20 01/27/25 Unknown History mcg (1,000 unit) capsule zolpidem 10 mg tablet 1 tab PO BEDTIME PRN Sleep 03/01/20 01/27/25 Unknown History acetaminophen 500 mg tablet 500 mg PO Q6H PRN Pain 03/31/20 01/27/25 Unknown History baclofen 20 mg tablet 20 mg PO TID PRN Abdominal 03/31/20 01/27/25 Unknown History Discomfort duloxetine 30 mg capsule,delayed 30 mg PO BID PRN Pain 07/24/22 01/27/25 Unknown History release latanoprost 0.005 % eye drops 0 drp ophthalmic (eye) BEDTIME 07/24/22 01/27/25 Unknown History pqzmsgja-gev-ljuzp acid 0.4 1 tab PO QAM 07/24/22 01/27/25 Unknown History mg-lycopene 300 mcg-lutein 250 mcg tablet (Adults 50 Plus) rosuvastatin 10 mg tablet 10 mg PO BEDTIME 07/24/22 01/27/25 Unknown History Assessment and Plan Assessment Anesthesia Assessment: Chart Reviewed Final Anesthetic Review Family History of Problems with Anesthesia: No Documented by User: Ranulfo Strickland MD 01/29/25 13:10 [facility] Past Medical History Medical History Frequency of urination Urge incontinence Renal stones Anxiety Overactive bladder Hyperlipemia Depression Obesity Glaucoma Osteoarthritis IBS (irritable bowel syndrome) Lumbar spondylitis Renal stones Anemia GERD (gastroesophageal reflux disease) Plantar fasciitis Fibromyalgia Family History Family History Mother Diabetes Fibromyalgia Arthritis Osteoporosis Daughter Breast cancer Surgical History Surgical History History of arthroscopy of left knee History of arthroscopy of right knee (~03/2020) H/O nasal septoplasty Hx of lithotripsy Hx of tubal ligation History of Problems with Anesthesia: No Social History Social History Household Members: Family Housing: House Are you a primary customer care consultant to a significant other at home: No Do you presently have visiting nurse or other home services: No Alcohol intake: never Comment: uses a cane sometimes Patient Tobacco Use Status: Never used Tobacco Second Hand Smoke Exposure: No Have you been hit, kicked, punched, or otherwise hurt by someone within the past year? If so, by whom?: No Are you DNR?: No Advance Directives: No Advance Directives Information Provided: Yes Patient : No Current occupational status: disabled Current occupation: Right Handed Meds Allergies Allergy/AdvReac Type Severity Reaction Status Date / Time No Known Allergies (No Known Allergy Verified 01/08/25 11:51 Allergies*) Home Medications ?Medication ?Instructions ?Recorded ?Confirmed ?Last Taken ?Type cholecalciferol (vitamin D3) 25 25 mcg PO DAILY 01/13/20 01/27/25 Unknown History mcg (1,000 unit) capsule zolpidem 10 mg tablet 1 tab PO BEDTIME PRN Sleep 03/01/20 01/27/25 Unknown History acetaminophen 500 mg tablet 500 mg PO Q6H PRN Pain 03/31/20 01/27/25 Unknown History baclofen 20 mg tablet 20 mg PO TID PRN Abdominal 03/31/20 01/27/25 Unknown History Discomfort duloxetine 30 mg capsule,delayed 30 mg PO BID PRN Pain 07/24/22 01/27/25 Unknown History release latanoprost 0.005 % eye drops 0 drp ophthalmic (eye) BEDTIME 07/24/22 01/27/25 Unknown History tryhmsed-kbn-mplbj acid 0.4 1 tab PO QAM 07/24/22 01/27/25 Unknown History mg-lycopene 300 mcg-lutein 250 mcg tablet (Adults 50 Plus) rosuvastatin 10 mg tablet 10 mg PO BEDTIME 07/24/22 01/27/25 Unknown History Exam Exam Date and Time: 01/29/25 Airway Mallampati Class: II TM Dist: >3cm Neck ROM: Full Heart: rrr Lungs: ctab vesicular Assessment and Plan Assessment Anesthesia Assessment: Anesthesia Plan Discussed Final Anesthetic Review History of Problems with Anesthesia: No NPO: Yes ASA Class: II Final Preanesthetic Review: No Changes in Pt Med Stat, Meds/Allgs Chart Reviewed, Consent Obtained/Reviewed and Anes Risks/Benef Reviewed Patient Risk: Low Procedure Risk: Low Anesthetic Plan Anesthetic Plan: GA Disposition: Standard PACU
[2025-01-27 12:57] VITALS: BMI 37.6
[2025-01-29] VITALS (7 sets, daily range): BP systolic 129–154; BP diastolic 67–94; PULSE 56–78; RESP 11–20; TEMP 36.1–36.4; O2SAT 95–97; BMI 37.9
[2025-01-29] MEDS: Lactated Ringers 1,000 ML 100 ML IVCONT (11:53)
--- NOTE | 2025-01-29 13:09 | MHC.SHP ---
Pre-Procedural Eval Section A - 24 Hr Update-Section A only Date of Service: 01/29/25 The patient is an INPATIENT: No Changes since office visit: No Cold of Flu in the past 2 weeks, No New Medical Problems, No Changes in Medication and No Patient answered all questions The patient has been examined within 24 hours of the surgical procedure. The History & Physical has been completed within 30 days and I have reviewed it.: Yes Section B - Complete if H&P > 30 days Chief Complaint: Polyp of corpus uteri Allergies: Allergies Allergy/AdvReac Type Severity Reaction Status Date / Time No Known Allergies (No Known Allergy Verified 01/08/25 11:51 Allergies*) Plan Diagnosis/Plan: Unchanged I have reviewed the history and physical and performed a pertinent physical examination on my patient. No changes have occurred unless specified. Time Spent With Patient Time: Total time managing care of this patient today ____ minutes.
--- NOTE | 2025-01-29 13:35 | PM.OP ---
Brief Operative Note Date of Service: 01/29/25 Pre-op diagnosis: Thick endometrium by ultrasound and endometrial polyp by EMB pathology Post-op diagnosis: same (Endometrial polyp) Procedure: Hysteroscopy D&C, Polypectomy Surgeon: Marc Yusuf MD Anesthesia: GLMA Was an Welfare Specialist used for this Procedure?: No Estimated blood loss (mL): 0 Pathology: other (Endometrial Scrapping. Polyp) Condition: stable Disposition: PACU
--- NOTE | 2025-01-29 13:36 | W.PM.OPN ---
Operative Note Operative Note Date of Service: 01/29/25 Narrative: Preop Diagnosis: Thick endometrium by ultrasound and Endometrial polyp by EMB pathology Operation: Diagnostic Hysteroscopy, Dilataion & Curettage and polypectomy Post Op Diagnosis: Endometrial Polyp QBL: Minimal Anesthesia: GLMA Surgeon: Marc Yusuf MD Collections Analyst: None Complication: None Pathology: Endometrial Scrapings, Endometrial polyp Procedure: The patient was put in the dorsal lithotomy position, scrubbed, and draped in the usual manner. A sterile speculum was inserted in the patient's vagina. The anterior lip of the cervix was grasped with a single tooth tenaculum. The cervix was dilated up to 5 mm, then the scope was inserted in the patient's uterus. Inspection revealed endometrial polyp. The Myosure Reach device was used; it was introduced through the operative channel and polypectomy done with no complications. The scope was then taken out from the uterine cavity, sharp curettings was carried on with minimal to moderate amount of tissues retrieved. At the end of the procedure, all instruments were taken out of the patient uterine and vaginal cavity. The single tooth tenaculum was removed and homeostasis was assured using pressure,. The patient tolerated the procedure well and was transferred to the PACU in a stable condition.
== END 2025-01-29 14:37 | disposition home or self-care (01) ==
PROVIDERS: PCP Registered Nurse; Visit Provider Obstetrics & Gynecology
PROC: 0UDB8ZZ Extraction of Endometrium, Via Natural or Artificial Opening Endoscopic (ICD-10-PCS; CPT 58558; principal; 2025-01-29 14:00)
DX: N84.0 Polyp of corpus uteri (principal); M79.7 Fibromyalgia; E78.5 Hyperlipidemia, unspecified; E66.9 Obesity, unspecified; Z68.37 Body mass index [BMI] 37.0-37.9, adult; N39.41 Urge incontinence; R35.0 Frequency of micturition; N32.81 Overactive bladder; Z98.890 Other specified postprocedural states; F32.A Depression, unspecified; F41.9 Anxiety disorder, unspecified; H40.9 Unspecified glaucoma; Z87.442 Personal history of urinary calculi; Z79.899 Other long term (current) drug therapy; D64.9 Anemia, unspecified
CPT/HCPCS: 58558; 88305; J0131; J1100; J2003; J2405; J2704; J3010

== ENCOUNTER → 2025-01-29 11:33 | Outpatient (BNV) | payer OTHER, SELFPAY | PROVIDERS: PCP Registered Nurse; Visit Provider Obstetrics & Gynecology | DX: N84.0 Polyp of corpus uteri (principal) | CPT/HCPCS: 58558 ==

== ENCOUNTER 2025-02-02 13:25 | Outpatient (AMB) | payer OTHER, SELFPAY ==
--- NOTE | 2025-02-02 13:26 | MHC.OFFVIS ---
Intake Visit Reasons: U/S follow up Horticultural Specialty Grower Required: Yes Horticultural Specialty Grower Language: Records Section Supervisor Services: Horticultural Specialty Grower Present (in person) Horticultural Specialty Grower Name: Liz ESPINOZA Information Interpreted: non-clinical & clinical Allergies No Known Allergies (No Known Allergies*) Allergy (Verified 02/02/25 13:27) Post menopausal: Yes HPI Comments Details: The patient scheduled a telehealth visit for ultrasound follow-up which showed the following: Uterus: The uterus is in anteversion flexion and measures 6 x 3 x 6 cm. No gross abnormality in the cervix. The double wall endometrial thickness is 4 mm. There is a 1.2 cm probable subserosal isoechoic mass, fundus of the uterus. There is a 2.8 cm intramural isoechoic lesion in the posterior fundus of the uterus. There is a 2.1 cm intramural isoechoic lesion in the posterior body of the uterus Adnexa: The left ovary is not identified.. The right ovary is identified with flow on color Doppler interrogation. No gross solid or cystic lesion. Right ovary measures 1 x 1 x 1 cm. Volume: 1 cc. No free fluid in cul-de-sac. In addition the patient is post hysteroscopy D&C , has no complaints, minimal vaginal bleeding no feverishness chills or abdominal pain. The pathology showed the following: A. Endometrial polyp, resection: Fragments of benign endometrial polyp; no atypia or carcinoma. B. Endometrium, curettage: Fragments of benign inactive endometrium, abundant mucus, and benign endocervical glandular epithelium; no atypia or carcinoma PFSH Medical History Frequency of urination Urge incontinence Renal stones Anxiety Overactive bladder Hyperlipemia Depression Obesity Glaucoma Osteoarthritis IBS (irritable bowel syndrome) Lumbar spondylitis Renal stones Anemia GERD (gastroesophageal reflux disease) Plantar fasciitis Fibromyalgia Surgical History History of arthroscopy of left knee History of arthroscopy of right knee (~03/2020) H/O nasal septoplasty Hx of lithotripsy Hx of tubal ligation Family History Mother Diabetes Fibromyalgia Arthritis Osteoporosis Daughter Breast cancer Social History Household Members: Family Housing: House Are you a primary acute care assistant to a significant other at home: No Do you presently have visiting nurse or other home services: No Alcohol intake: never Comment: uses a cane sometimes Patient Tobacco Use Status: Never used Tobacco Second Hand Smoke Exposure: No Current occupational status: disabled Current occupation: Right Handed Review of Systems Const All systems reviewed & are unremarkable except as noted in HPI and below Reports as per HPI and Reports no additional complaints GI Reports no additional complaints Reports no additional complaints Telehealth Telehealth Telehealth Platform: [facility] Location of provider rendering services: practice address Location of patient: address on file Patient Identification confirmed using: Name, : Yes Telehealth method: video Patient verbally consented to treatment: Yes Patient verbally consented to billing insurance company: Yes Patient informed of any privacy concerns related to visit: Yes Minutes spent on Phone/Video with Pt.: 8 Assessment & Plan Assessment & Plan (1) Endometrial polyp: Comment: Status post polypectomy Code(s): N84.0 - Polyp of corpus uteri Category: Medical Plan: Discussed with the patient the intraoperative finding and the pathology results. In addition discussed with the patient the pathology sensitivity, specificity, false-positive false-negative rate indicating endometrial pathology. Instructions given the patient to call if vaginal bleeding occurs we will proceed with further management. All questions answered the patient verbalized understanding (2) Uterine myoma: Code(s): D25.9 - Leiomyoma of uterus, unspecified Category: Medical Plan: Discussed with the patient the findings on pelvic ultrasound & the risk of myosarcoma; in addition reviewed with the patient that malignancy and pre malignancy cannot be ruled out without hysterectomy for pathological evaluation ; furthermore, explained to the patient the limitation of pelvic ultrasound and endometrial biopsy in the setting. Discussed with the patient the options of treatment including expectant management versus hysterectomy; the pros and cons, risks benefits of each approach were discussed with the patient including the fact that in cases of myosarcoma, surgical treatment can lead to early diagnosis and positively affects the prognosis; after further discussion, the patient decided to proceed with expectant management. Will repeat pelvic ultrasound periodically. Instructions given to patient to call in case any of the following occurs: pressure symptoms, abnormal uterine bleeding, pelvic pain; and to schedule a six-months pelvic ultrasound (order placed) and a follow-up appointment . All questions answered, the patient verbalized understanding and agreed with the plan . I spent a total of 20 minutes reviewing the chart, talking to the patient via video and documenting in the medical record. Orders: Orders US pelvic and transvaginal 6 Months D25.9 - Leiomyoma of uterus, unspecified Coding Level of Care Code Tele Est Pt Level 3 (97576) Diagnoses Endometrial polyp N84.0 Uterine myoma D25.9
--- OUTSIDE RECORDS SUMMARY | 2025-02-02 17:18 | XMS_ITS | Encounter Summary ---
Author Organization [employer] Address [address] [place] [address] Care Team Providers Care Director Automotive Name Role Phone [facility] Primary Care Provider [phone] Reason for Visit * Reason Onset Date Comments Med Refill 07/14/2024 Encounter Details Date Type Department Care Team ([facility] st Contact Info) Description 07/14/2024 Refill [facility] [address] [place] [address] [facility] [address] [place] [address] Social History Tobacco Use Types Packs/Day Years [...] documented as of this encounter Care Teams Director Automotive Relationship Specialty Start Date End Date Mary Lou Doan FNP [address] [place] [address] PCP - General Family Medicine 11/03/21 documented as of this encounter
--- OUTSIDE RECORDS SUMMARY | 2025-02-02 17:18 | XMS_ITS | Encounter Summary ---
Author Organization [employer] Address [address] 7[address] [place] [address] Care Team Providers Care Dining Car Server Name Role Phone [facility] Primary Care Provider [phone] Reason for Visit * Reason Onset Date Comments Med Refill 10/28/2023 Encounter Details Date Type Department Care Team ([facility] st Contact Info) Description 10/28/2023 Refill [facility] [address] [place] [address] [facility] [address] [place] [address] Hyperlipidemia, unspecified hyperlipidemia type Social History Tobacco [...] documented as of this encounter Care Teams Dining Car Server Relationship Specialty Start Date End Date Mary Lou Doan FNP [address] [place] [address] PCP - General Family Medicine 11/03/21 documented as of this encounter
--- OUTSIDE RECORDS SUMMARY | 2025-02-02 17:18 | XMS_ITS | Encounter Summary ---
Author Organization [employer] Address [address] [place] [address] Care Team Providers Care Lawn Care Worker Name Role Phone Mary Lou Doan [facility] Primary Care Provider [phone] Reason for Visit * Reason Onset Date Comments Nurse Triage 10/09/2022 Encounter Details Date Type Department Care Team ([facility] st Contact Info) Description 10/09/2022 Telephone [facility] [address] [place] [address] [facility] [address] [place] [address] Nurse Triage Social History Tobacco Use Types [...] upon seeing chart review pt seen at [facility] yesterday. Per pt mentioned to provider. [...] accepted this outcome Please contact pt at [phone] documented in this encounter Plan of Treatment Not on file documented as of this encounter Visit Diagnoses Not on filedocumented in this encounter Additional Health Concerns Assessment Noted Time PHQ-9 Depression Total Score: 16 023 2:01 PM EDT documented as of this encounter Care Teams Lawn Care Worker Relationship Specialty Start Date End Date Mary Lou Doan FNP [address] [place] [address] PCP - General Family Medicine 11/03/21 documented as of this encounter
--- OUTSIDE RECORDS SUMMARY | 2025-02-02 17:18 | XMS_ITS | Encounter Summary ---
Author Organization [employer] Address [address] [place] [address] Care Team Providers Care Marketing Operations Assistant Name Role Phone [facility] Primary Care Provider [phone] Encounter Details Date Type Department Care Team (Late st Contact Info) Description 02/12/2022 Abstract [facility] [address] [place] [address] Dental, Provider, DDS Social History Tobacco Use [...] on filedocumented in this encounter Care Teams Marketing Operations Assistant Relationship Specialty Start Date End Date Mary Lou Doan FNP [address] [place] [address] PCP - General Family Medicine 11/03/21 documented as of this encounter
--- OUTSIDE RECORDS SUMMARY | 2025-02-02 17:18 | XMS_ITS | Encounter Summary ---
Author Organization [employer] Address [address] [place] [address] Care Team Providers Care Multi Share Program Coordinator Name Role Phone [place], [facility] Primary Care Provider [phone] Reason for Visit * Reason Onset Date Comments Results 08/05/2024 Encounter Details Date Type Department Care Team ([facility] Contact Info) Description 08/05/[address] [facility] MEDICINE [address] [place] [address] [facility] [address] [place] [address] Results Social History Tobacco Use Types Packs/Day [...] encounter Miscellaneous Notes * Telephone Encounter - Kirstin Gibson RN - 08/06/2024 10:21 AM EDT TC placed to patient [phone] regarding below message. RN informed patient of [...] is interested in a referral to a Will Call Order Clerk. Pt agreed. Patient also informed RN that she has been having moderate to severe RLE pain with swelling and lower back pain. Denies any recent injury to the sites. RN advised patient to go to the Walk In Center at [facility] or the ED for further evaluation. Pt agreed. RN informed patient a message will be sent to her PCP for review. Pt verbalized understanding to to F/U PRN. * Telephone Encounter - Kristin Gibson RN - 08/05/2024 3:41 PM EDT Tc placed to patient [phone] regarding below message. Patient informed RN that [...] results: Labs Date when done: 07/31/24 Facility: [facility] Pt also wanted to verify if she can receive another script for muscle relaxer because she lost the previous one. Please contact pt at [phone]. documented in this encounter Plan of Treatment Not on file documented as of this encounter Visit Diagnoses Diagnosis Cervical radiculopathy Brachial neuritis or radiculitis nos documented in this encounter Additional Health Concerns Assessment Noted Time PHQ-9 Depression Total Score: 17 07/06/ 025 3:38 PM EDT documented as of this encounter Care Teams Multi Share Program Coordinator Relationship Specialty Start Date End Date Mary Lou Doan FNP [address] [place] [address] PCP - General Family Medicine 11/03/21 documented as of this encounter
--- OUTSIDE RECORDS SUMMARY | 2025-02-02 17:18 | XMS_ITS | Encounter Summary ---
Author Organization [employer] Address [address] [facility] 7t [place] [address] Care Team Providers Care Commercial Center Manager Name Role Phone [place], Mary Lou [facility] Primary Care Provider [phone] Reason for Visit * Reason Comments Med Refill Encounter Details Date Type Department Care Team (Late st Contact Info) Description 11/14/2022 Refill [facility] [address] [place], [place] [phone] Name, MD [place] [address] [place] [address] Social History Tobacco Use Types Packs/Day Years [...] documented as of this encounter Care Teams Commercial Center Manager Relationship Specialty Start Date End Date Mary Lou Doan MANGA ARTIST [address] [place] [address] PCP - General Family Medicine 11/03/21 documented as of this encounter
--- OUTSIDE RECORDS SUMMARY | 2025-02-02 17:18 | XMS_ITS | Encounter Summary ---
Author Organization [employer] Address [address] [facility] [address] [place] [address] Care Team Providers Care Power Lineman Technician Name Role Phone Mary Lou Doan [facility] Primary Care Provider [phone] Encounter Details Date Type Department Care Team (Late st Contact Info) Description 06/06/2022 Orders Only [facility] [address] [place], [place] [phone] [facility] 230 [place], [place] [phone] Social History Tobacco Use Types Packs/Day Years [...] on filedocumented in this encounter Care Teams Power Lineman Technician Relationship Specialty Start Date End Date Franki Mary Lou [facility] [address] [place] [address] PCP - General Family Medicine 11/03/21 documented as of this encounter
--- OUTSIDE RECORDS SUMMARY | 2025-02-02 17:18 | XMS_ITS | Encounter Summary ---
Author Organization [employer] Address [address] [place] [address] Care Team Providers Care Painter Touch Up Name Role Phone [place], [facility] Primary Care Provider [phone] Reason for Visit * Reason Onset Date Comments Med Refill 01/19/2023 Encounter Details Date Type Department Care Team (Late st Contact Info) Description 01/19/2023 Refill [facility] [address] [place], [place] [phone] [facility] [address] [place] [address] Shortness of breath Social History Tobacco Use [...] as of this encounter Care Teams Painter Touch Up Relationship Specialty Start Date End Date Mary Lou Doan FNP [address] [place] [address] PCP - General Family Medicine 11/03/21 documented as of this encounter
--- OUTSIDE RECORDS SUMMARY | 2025-02-02 17:18 | XMS_ITS | Encounter Summary ---
Author Organization [employer] Address [address] [place] [address] Care Team Providers Care Portal Administrator Name Role Phone Franki [facility] Primary Care Provider [phone] Encounter Details Date Type Department Care Team (Late st Contact Info) Description 01/29/2025 Orders Only GENERIC EXTERNAL DATA DEPARTMENT Provider, Generic External Data Social History Tobacco Use Types Packs/Day Years [...] Procedure Name Priority Date/Time Associated Diagnosis Comments HEMATOXYLIN AND EOSIN STAIN Routine 01/29/2025 1:29 PM EST documented in this encounter Results * Hematoxylin and Eosin Stain (01/29/2025 1:29 PM EST) 01/29/2025 1:29 PM EST 02/01/2025 8:26 AM EST [facility] - 02/02/2025 11:13 AM EST ----- ------- Name: Kacey SheridanLeslie Age/Sex: 59/F : 1965 Unit#: [id number] Attend Dr: Marc Yusuf MD Re01/29/25 Status: [facility] Location: [facility] Disch: ----- ------- SPEC : [id number] RECD: 02/01/25 STATUS: KLAUS COTO NUM: [id number] RACHAEL: 01/29/259 [facility] DR: Marc Yusuf MD ENTERED: 02/01/25 SP TYPE: Surgical OTHR DR: Mary Lou Doan [facility] ORDERED: HE Stain/4, Gross Micro L4/2 Diagnosis A. Endometrial polyp, resection: Fragments of benign endometrial polyp; no atypia or carcinoma. B. Endometrium, curettage: Fragments of benign inactive endometrium, abundant mucus, and benign endocervical glandular epithelium; no atypia or carcinoma. Clinical History Pre-Op Dx: Polyp of corpus uteri Post-Op Dx: Endometrial polyp Microscopic Description Microscopic sections reviewed. Material Received A. Endometrial polyp B. [facility] Gross Description A. Received in formalin within a white gauze bag is a 1.5 cc aggregate of ramirez-white soft tissue fragments, filtered through a mesh bag, totally submitted in cassette A1. B. Received in formalin with rolled Telfa pad is a 4.0 cc aggregate of brown spongy soft tissue and associated mucoid material, filtered through a mesh bags, totally submitted in cassettes B1-2. (DTL) IHC S/NG Disclaimer NOTE: Unless otherwise stated, all tissue is formalin-fixed and paraffin-embedded. Some or all of the immunohistochemical tests reported herein may have been developed and their performance characteristics determined by [facility]. They have not been cleared or approved by the U.S. Food and Drug Administration (FDA). However, the FDA has determined that such clearance or approval is not necessary. This laboratory is certified under the Clinical Laboratory Improvement Amendments of 1988 (CLIA) as qualified to perform high complexity clinical laboratory testing. CONTINUED ON NEXT PAGE ----- ------- Name: Ingrid Reedida Age/Sex: 59/F : 1965 Unit#: [id number] Attend Dr: Marc Yusuf MD Re01/29/25 Status: [facility] Location: [facility] Disch: ----- ------- SPEC : [id number] RECD: 02/01/25 STATUS: KLAUS COTO NUM: [id number] RACHAEL: 01/29/25 [facility] DR: Marc Yusuf MD ENTERED: 02/01/25 SP TYPE: Surgical [facility]R [facility] ORDERED: NITA Stain/4, Gross Micro L4/2 Copies To: Franki,[address] [address] Marc Yusuf MD [facility] [address] [place] [address] Drive [address] [place] [phone] ----- ------- Signed (signature on file) Rashmi Garza MD 02/02/25 1113 ----- ------- END OF REPORT us Generic External Data Provider LAB BLOOD ORDERAB LES Final Result [facility] [address] [place] [address] [phone] documented in this encounter Visit Diagnoses Not on filedocumented in this encounter Additional Health Concerns Assessment Noted Time PHQ-9 Depression Total Score: 13 025 1:44 PM EDT documented as of this encounter Care Teams Portal Administrator Relationship Specialty Start Date End Date Mary Lou Doan FNP [address] [place] [address] PCP - General Family Medicine 11/03/21 documented as of this encounter
--- OUTSIDE RECORDS SUMMARY | 2025-02-02 17:18 | XMS_ITS | Clinical Summary ---
Author Organization [employer] Address [address] 7[address] [place] [address] Care Team Providers Care Top Dyeing Machine Loader Name Role Phone Franki [facility] Primary Care Provider [phone] Allergies No known active allergies Medications * [...] AT BEDTIME NEEDED 100 g 025 Active Diclofenac Sodium 1 % gel [...] hx of glaucoma. Dr. Navarro follows Dental: [facility] HIV: Neg 2016 Hepatitis: Neg 04/2021 Screening Labs: A1c: 6.2 04/2021, Family history of breast cancer 06/06/2022 Overview (06/06/2022): Daughter from breast cancer age 29 Referred for genetic screening 01/2022 Bilateral chronic knee pain 06/06/2022 Overview (06/06/2022): Long hx of chronic bilateral knee pain. S/p right knee arthroplasty and meniscal repair 2020 Managed with tramadol 50mg PRN, compliant with [employer] program Lung nodule 11/09/2021 Overview (06/06/2022): 3mm [...] 60mg daily Buproprion 150mg XR Therapist at [facility] Assessment & Plan (12/06/2022 1:59 PM [...] pt with additional resources for [facility] at [facility], as well as how to reach out to [facility] team. Pt was agreeable to intervention and referral to op and psych services at [facility]. Assessment & Plan (10/24/2022 9:33 AM EDT): Patient declines buproprion increase at this time. Will continue at current dose Continue duloxetine 60mg daily Continue clonazepam 0.5mg once daily (started by prior outside provider) Ambien PRN for sleep. Plan to discuss insomnia at follow up. Contact HC if sx worsen or experiencing thoughts of SI or self harm. Pt has [facility] crisis contact information Assessment & Plan (10/05/2022 3:19 PM EDT): In office BE during OV with Dr. Mukherjee. [facility] and provided with HC contact information for emergency care. STOP buspar START buproprion 150mg XR. Reviewed administration, risks, side effects Continue duloxetine 60mg Contact HC if sx worsen or experiencing thoughts of SI or self harm. 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 Encounters Date Type Department Care Team Description 01/29/2025 Orders Only GENERIC EXTERNAL DATA DEPARTMENT Provider, Generic External Data 01/14/2025 Orders Only [facility] External Provider, [facility] 01/06/2025 Refill [facility] [address] [place] [address] [facility] 12/31/2024 Refill [facility] [address] [place] [address] [facility] 12/15/2024 Refill [facility] [address] [place] [address] [facility] Seasonal allergies 11/06/2024 Orders Only [facility] [address] [place] [address] [facility] from Last 3 Months Immunizations Immunization Administration [...] EOSIN STAIN Routine 01/29/2025 1:29 PM EST US PELVIS TRANSVAGINAL Routine 1:27 PM EST [...] adult ([facility]/HCC) LIPID PANEL, STANDARD Routine 07/31/2024 1:55 PM EDT Class 2 severe obesity due to excess calories with serious comorbidity and body mass index (BMI) of 38.0 to 38.9 in adult (CMS/HCC) THINPREP IMAGING PAP AND HPV MRNA E6/E7 Routine 09/30/2023 2:12 PM EDT from Last 3 Months or Most Recently Relevant to Health Maintenance Results * Hematoxylin and Eosin Stain (01/29/2025 1:29 PM EST) 01/29/2025 1:29 PM EST 02/01/2025 8:26 AM EST [facility] - 02/02/2025 11:13 AM EST ----- ------- Name: Leslie Reed Age/Sex: 59/F : 1965 Unit#: [id number] Attend Dr: Marc Yusuf MD Re01/29/25 Status: [facility] Location: [facility] Disch: ----- ------- SPEC : [id number] RECD: 02/01/25 STATUS: KLAUS PARKS: [id number] RACHAEL: 01/29/25-[address] [facility] [address]: Marc Yusuf MD ENTERED: 02/01/25 SP TYPE: Surgical OTHR DR: Mary Lou Doan [facility] ORDERED: HE Stain/4, Gross Micro L4/2 Diagnosis A. Endometrial polyp, resection: Fragments of benign endometrial polyp; no atypia or carcinoma. B. Endometrium, curettage: Fragments of benign inactive endometrium, abundant mucus, and benign endocervical glandular epithelium; no atypia or carcinoma. Clinical History Pre-Op Dx: Polyp of corpus uteri Post-Op Dx: Endometrial polyp Microscopic Description Microscopic sections reviewed. Material Received A. Endometrial polyp B. [facility] Gross Description A. Received in formalin within [...] developed and their performance characteristics determined by [facility]. They have not been cleared or approved by the U.S. Food and Drug Administration (FDA). However, the FDA has determined that such clearance or approval is not necessary. This laboratory is certified under the Clinical Laboratory Improvement Amendments of 1988 (CLIA) as qualified to perform high complexity clinical laboratory testing. CONTINUED ON NEXT PAGE ----- ------- Name: Leslie Reed Age/Sex: 59/F : 1965 Unit#: [id number] Attend Dr: Marc Yusuf MD Re01/29/25 Status: [facility] Location: [facility] Disch: ----- ------- SPEC : [id number] RECD: 02/01/25 STATUS: KLAUS COTO NUM: [id number] RACHAEL: 01/29/[address] [facility] [address]: Marc Yusuf MD ENTERED: 02/01/25 SP TYPE: Surgical OTHR DR: Mary Lou DoanP ORDERED: HE Stain/4, Gross Micro L4/2 Copies To: Mary Lou Doan [address] [address] Marc Yusuf MD [facility] [address] [place] [address] ----- ------- Signed (signature on file) Rashmi Garza MD 02/02/25 1113 ----- ------- END OF REPORT us Generic External Data Provider LAB BLOOD ORDERAB LES Final Result [facility] [address] [place] [address] [phone] * US Pelvis Transvaginal (01/14/2025 1:27 PM EST) Anatomical Region Laterality Modality Pelvis Ultrasound 01/14/2025 1:27 PM EST Narrative 01/14/2025 1:53 PM EST [facility] Adult Primary Care [facility] [address] Ultrasound Report Signed Patient: Leslie Reed MR#: [id number] : 1965 Acct:[id number] Age/Sex: 59 / F ADM Date: 01/14/25 Loc: HO.HMGCX Attending Dr: Marc Yusuf MD Ordering Physician: Marc Yusuf MD Date of Service: 01/14/25 Procedure(s): US pelvic and transvaginal Accession Number(s): [id number] cc: [facility]; Marc Yusuf MD Reason for Exam: D25.9 [...] 01/14/25 1351 DD/ 1327 TD/TT: 01/14/25 1345 Supervisor Type Bar And Segment: Procedure Note Donotuseinterpreter, Image - 01/14/2025 [facility] Adult Primary Care [facility] [place] [address] Ultrasound Report Signed Patient: Leslie Reed#: [id number] : 1965Acct:[id number] Age/Sex: 59 / FADM Date: 01/14/25 [facility] Dr: Marc Yusuf MD Ordering Physician: Marc Yusuf MD Date of Service: 01/14/25 Procedure(s): US pelvic and transvaginal Accession Number(s): [id number] cc: Mary Lou Doan [facility]; Marc Yusuf MD Reason for [...] Denzel Villareal MD 01/14/2025 01:51 PM EST RP Dictated By: Denzel Gutierrez MD Signed By: <Electronically signed by Denzel Ochoa MDin OV> 01/14/25 1351 DD/ 1327 TD/TT: 01/14/25 1345 Supervisor Type Bar And Segment: [facility] External Provider IMG US PROCEDURES Final Result * BI Mammogram Screening Tomosynthesis Bilateral (11/06/2024 3:50 PM EDT) Anatomical Region Laterality Modality Breast Bilateral Mammography 11/06/2024 3:50 PM EDT Narrative 11/10/2024 11:51 AM EDT [facility] [address] [place] [address] Mammography Report Signed Patient: Leslie Erazo MR#: [id number] : 1965 Acct:[id number] Age/Sex: 59 / F ADM Date: 11/06/24 Loc: HO.MAMMO Attending Dr: Mary Lou Doan CLINICAL NURSE MANAGER Ordering Physician: Mary Lou Doan CLINICAL NURSE MANAGER Results: 2Beni gn Findings Date of Service: 11/06/24 Follow Up: 1 Year From [facility] Mammogram Procedure(s): MM tomosynthesis screening BI Accession Number(s): [id number] cc: Mary Lou Doan CLINICAL NURSE MANAGER EXAMINATION: MM SCREENING DIGITAL BREAST TOMOSYNTHESIS, [...] Lizy Laboy DO 11/10/2024 11:48 AM EDT RP Dictated By: Lizy Laboy DO Signed By: <Electronically signed by Lizy Laboy DO in OV> 11/10/24 1148 DD/ 1550 TD/TT: 11/06/24 1604 Supervisor Type Bar And Segment: Procedure Note Donotuseinterpreter, Image - 11/10/2024 [facility] [address] [place] [address] Mammography Report Signed Patient: Leslie ErazoMR#: [id number] : 1965Acct:[id number] Age/Sex: 59 / FADM Date: 11/06/24 Loc: HO.MAMMO Attending Dr: Mary Lou Doan CLINICAL NURSE MANAGER Ordering Physician: Mary Lou Doan FNPResults: 2Beni gn Findings Date of Service: 11/06/24Follow Up: 1 Year From [facility] Mammogram Procedure(s): MM tomosynthesis screening BI Accession Number(s): [id number] cc: Mary Lou Doan CLINICAL NURSE MANAGER EXAMINATION: MM SCREENING DIGITAL BREAST TOMOSYNTHESIS, [...] Lizy Laboy DO 11/10/2024 11:48 AM EDT RP Dictated By: Lizy Laboy DO Signed By: <Electronically signed by Lizy Laboy DO in OV> 11/10/24 1148 DD/ 1550 TD/TT: 11/06/24 1604 Supervisor Type Bar And Segment: [facility] IMG BI PROCEDURES Final Resul t * Hepatitis A,B,C Profile (07/31/2024 1:55 PM EDT) Pathologist [facility] Hepatitis A IgM Nonreactive Nonreactive [facility] Comment:IgM antibodies to NUNEZ V not detected; does not exclude earlyacute or recovered HAV infection. ~Hepatitis B Surface Antibody REACTIVE Nonreactive [facility] Comment:REACTIVE: > 11.99 mI U/mL Hepatitis B Core Antibody Nonreactive Nonreactive [facility] Hepatitis C Antibody Nonreactive Nonreactive [facility] Comment:Antibodies to HCV no t detected; does not exclude early acuteHCV infection. Hepatitis B Surface Ag Negative Negative [facility] Blood Venous blood specimen / Unknown 07/31/2024 1:55 PM EDT 07/31/2024 1:55 PM EDT [facility] LAB BLOOD ORDERABLES Final Re sult [facility] [address] [place] [address] [phone] * HIV-1/2 Antigen and Antibodies, Fourth Generation, with Reflexes (07/31/2024 1:55 PM EDT) HIV AB/AG Nonreactive Nonreactive [facility] Comment:HIV-1 p24 Ag and/or HIV-1/HIV-2 Ab not detected.A test result that is nonreactive does not exclude thepossibility of exposure to or infection with HIV-1 and/orHIV-2. Nonreactive results in this assay for individualswith prior exposure to HIV-1 and/or HIV-2 may be due toantigen and antibody levels that are below the limit ofdetection of this assay.The [employer] HIV Ag/Ab Combo assay result andsupplemental assay results should be interpreted inconjunction with the patient's clinical presentation,history and other laboratory results. If the results areinconsistent with clinical evidence, additional testing issuggested to confirm the result. Blood Venous blood specimen / Unknown 07/31/2024 1:55 PM EDT 07/31/2024 1:55 PM EDT [facility] LAB BLOOD ORDERABLES Final Re sult [facility] [address] [place] [phone] * (ABNORMAL) Hemoglobin A1c (07/31/2024 1:55 PM EDT) Hemoglobin A1c 6.1(H) <6.0 % [facility] Comment:Hemoglobin A1C Refer ence Range Adults: 4.8 - 6.0 % Non diabetic: < 6.0 % Goal: < 7.0 %Additional Action Suggested: > 8.0 %Note: Hemoglobin A1c results are invalid for patients with abnormal amounts of HbF. Blood transfusions may impact the HbA1c concentration in the patient sample. Estimated Average Glucose 128 mg/dL [facility] Comment:eAG = Estimated ave rage glucose which is %A1C expressed asaverage glucose, using the formula of the O6A-WkdwzisRrsygia Glucose study (ADAG), Diabetes Care, Vol.31,#8,Oct. 2007 Blood Venous blood specimen / Unknown 07/31/2024 1:55 PM EDT 07/31/2024 1:55 PM EDT [facility] CLINICAL NURSE MANAGER LAB BLOOD ORDERABLES Final Re sult Performing Organization Address City/[facility]/ZIP Co de Phone Number [facility] [address] [place] [address] [phone] * (ABNORMAL) Lipid Panel, Standard (07/31/2024 1:55 PM EDT) Triglycerides 176(H) <150 mg/dL [facility] Comment:Desirable Triglyceri de: less than 150 mg/dLBorderline High Triglyceride 150-199 mg/dLHigh Triglyceride: 200-499 mg/dLVery High Triglyceride: greater than or equal to 5OO mg/dL Cholesterol 242(H) <200 mg/dL [facility] Comment:Desirable Cholestero l: less than 200 mg/dLBorderline High Cholesterol: 200-239 mg/dLHigh Cholesterol: greater than 239 mg/dL LDL Cholesterol Calculated 167(H) <100 mg/dL [facility] Comment:Desirable LDL: less than 100 mg/dLNear Optimal/Above Optimal LDL: 110- 129 mg/dLBorderline High LDL: 130-159 mg/dLHigh LDL: 160-189 mg/dLVery High LDL: greater than or equal to 190 mg/dL HDL Cholesterol 40(L) >40 mg/dL [facility] Comment:Desirable HDL: great er than 40 mg/dL Note: This HDL assay may give artificially low results in patients with liver disease. Blood Venous blood specimen / Unknown 07/31/2024 1:55 PM EDT 07/31/2024 1:55 PM EDT [facility] CLINICAL NURSE MANAGER LAB BLOOD ORDERABLES Final Re sult [facility] [address] [place] [address] [phone] * ThinPrep Imaging Pap and HPV mRNA E6/E7 (09/30/2023 2:12 PM EDT) HPV nRNA E6/E7 Not Detected Not Detected [facility] Comment:Methodology: Transcr iption-Mediated AmplificationThis assay detects E6/E7 viral messenger RNA (mRNA) from 14high-risk HPV types (16,18,31,33,35,39,45,51,52,56,58,59,66,68).Cervical sources are required for HPV testing.If a vaginal source from a patient who has had atotal hysterectomy with removal of cervix wassubmitted, please contact the testing laboratoryfor alternative testing options.For additional information, please refer tohttp://education.[employer]/faq/FOO271v5(This link if provided for information/educational purposes only.)THIS TEST WAS PERFORMED AT:[facility] [address] [phone] LORA MD SOURCE: SEE NOTE [facility] Comment:None given Report Status: [facility] Clinical Information: SEE NOTE [facility] Comment:None given LMP: SEE NOTE [facility] Comment:NONE GIVEN Prev. PAP: SEE NOTE [facility] Comment:NONE GIVEN Prev. BX: SEE NOTE [facility] Comment:NONE GIVEN Statement Of Adequacy: SEE NOTE [facility] Comment:Satisfactory for terry luation.Endocervical/transformation zone componentpresent. General Categorization: [facility] Interpretation/Result: SEE NOTE [facility] Comment:Cytology Results: Ne gative for intraepitheliallesion or malignancy. Cytology Comment SEE NOTE [facility] Comment:This Pap test has be en evaluated with computerassisted technology. River Expedition Guide: SEE NOTE [facility] Comment:CMG, CT(ASCP)CT scre ening location: [address] [address] Review River Expedition Guide: [facility] Pathologist [facility] PAP Infection [facility] See Note SEE [facility] Comment:EXPLANATORY NOTE:The Pap is a [...] EDT 09/30/2023 7:32 PM EDT Narrative [facility] - 10/04/2023 12:37 PM EDT SEE SCANNED RESULTS IN EMR us Edith CASTRO LAB PATHOLOGY ORDERABLES Final Result [facility] [address] [place] [address] [phone] from Last 3 Months or Most Recently Relevant to Health Maintenance Insurance [facility] [address] [facility] Care Teams Top Dyeing Machine Loader Relationship Specialty Start Date End Date Mary Lou Doan FNP [address] [place] [phone] PCP - General Family Medicine 11/03/21
--- OUTSIDE RECORDS SUMMARY | 2025-02-02 17:18 | XMS_ITS | Encounter Summary ---
Author Organization [employer] Address [address] [place] [address] Care Team Providers Care Tourist Home Keeper Name Role Phone [facility] Primary Care Provider [phone] Reason for Visit * Reason Comments Med Refill Encounter Details Date Type Department Care Team ([facility] st Contact Info) Description 01/11/2024 Telephone [facility] [address] [place], [place] [phone] [place]viewMary Lou [facility] [address] [place] [address] Med Refill Social History Tobacco Use Types [...] documented as of this encounter Care Teams Tourist Home Keeper Relationship Specialty Start Date End Date Mary Lou Doan FNP [address] [place] [address] PCP - General Family Medicine 11/03/21 documented as of this encounter
--- OUTSIDE RECORDS SUMMARY | 2025-02-02 17:18 | XMS_ITS | Encounter Summary ---
Author Organization [employer] Address [address] [place] [address] Care Team Providers Care Loom Tuner Name Role Phone [place] [facility] Primary Care Provider [phone] Reason for Visit * Reason Onset Date Comments Appointment 08/28/2022 Encounter Details Date Type Department Care Team ([facility] st Contact Info) Description 08/28/2022 Telephone [facility] [address] [place], [place] [phone] FlaviaCoryRosalie [address] [place] [address] Appointment Social History Tobacco Use Types Packs/Day [...] on filedocumented in this encounter Care Teams Loom Tuner Relationship Specialty Start Date End Date Mary Lou Doan FNP [address] [place] [phone] PCP - General Family Medicine 11/03/21 documented as of this encounter
--- OUTSIDE RECORDS SUMMARY | 2025-02-02 17:18 | XMS_ITS | Encounter Summary ---
Author Organization [employer] Address [address] [place] [address] Care Team Providers Care Flooring Machine Feeder Name Role Phone [place] [facility] Primary Care Provider [phone] Reason for Visit * Reason Onset Date Comments Med Refill 11/01/2023 Encounter Details Date Type Department Care Team ([facility] st Contact Info) Description 11/01/2023 Refill [facility] [address] [place] [address] Jenifer Laboy MD [address] [place] [address] Social History Tobacco Use Types Packs/Day Years [...] documented as of this encounter Care Teams Flooring Machine Feeder Relationship Specialty Start Date End Date Mary Lou Doan FNP [address] [place] [address] PCP - General Family Medicine 11/03/21 documented as of this encounter
--- OUTSIDE RECORDS SUMMARY | 2025-02-02 17:18 | XMS_ITS | Encounter Summary ---
Author Organization [facility] Address [address] [facility] 7t [place] [address] Care Team Providers Care Retirement Actuary Name Role Phone Mary Lou Doan [facility] Primary Care Provider [phone] Encounter Details Date Type Department Care Team (Late st Contact Info) Description 03/16/2022 Abstract [facility] ADULT D[facility]AL [address] [place], [place] [phone] Be Medina DDS [address] [place], [place] [phone] Social History Tobacco Use Types Packs/Day Years [...] on filedocumented in this encounter Care Teams Retirement Actuary Relationship Specialty Start Date End Date Mary Lou Doan [facility] [address] [place], [place] [phone] PCP - General Family Medicine 11/03/21 documented as of this encounter
--- OUTSIDE RECORDS SUMMARY | 2025-02-02 17:19 | XMS_ITS | Encounter Summary ---
Author Organization [employer] Address [address] [place] [address] Care Team Providers Care Research Greenhouse Supervisor Name Role Phone [place] [facility] Primary Care Provider [phone] Reason for Visit * Reason Comments Med Refill Encounter Details Date Type Department Care Team ([facility] st Contact Info) Description 04/04/2023 Refill [facility] [address] [place], [place] [phone] Jenifer Laboy MD [address] [place] [address] Anxiety Social History Tobacco Use Types Packs/Day [...] documented as of this encounter Care Teams Research Greenhouse Supervisor Relationship Specialty Start Date End Date Mary Lou Doan FNP [address] [place] [address] PCP - General Family Medicine 11/03/21 documented as of this encounter
--- OUTSIDE RECORDS SUMMARY | 2025-02-02 17:19 | XMS_ITS | Encounter Summary ---
Author Organization [employer] Address [address] [facility] [address] [place] [address] Care Team Providers Care Intermodal Truck Driver Name Role Phone [place] [facility] Primary Care Provider [phone] Reason for Visit * Reason Onset Date Comments Med Refill 08/06/2024 Encounter Details Date Type Department Care Team ([facility] st Contact Info) Description 08/06/2024 Refill [facility] MED[facility]INE [address] [place] [address] [facility] [address] [place] [address] Cervical radiculopathy Social History Tobacco Use Types [...] documented as of this encounter Care Teams Intermodal Truck Driver Relationship Specialty Start Date End Date Mary Lou Doan FNP [address] [place] [phone] PCP - General Family Medicine 11/03/21 documented as of this encounter
--- OUTSIDE RECORDS SUMMARY | 2025-02-02 17:19 | XMS_ITS | Encounter Summary ---
Author Organization [employer] Address [address] [place] [address] Care Team Providers Care Tank Truck Operator Name Role Phone [facility] Primary Care Provider [phone] Reason for Visit * Reason Onset Date Comments Med Refill Received Percocet from Surgeon 03/18/2023 Encounter Details Date Type Department Care Team (Late st Contact Info) Description 03/18/2023 Refill [facility] [address] [place], [place] [phone] [facility] [address] [place] [address] Chronic pain of left knee (Primary Dx); [...] Laboy MD - 03/18/2023 4:26 PM EST PAPER SLITTER nurse note reviewed, patient was apparently taking [...] use of new controlled substances without notifying PCP/PAPER SLITTER nurse. Contract may or not be terminated if not compliant with it. Please fu with PCP. -Please remind patient to be compliant with PAPER SLITTER appts, pill count and urine tox, FU [...] pt calling in regards to encounter with PAPER SLITTER nurse. Pt would like to speak with nurse/PCP. Pt seems upset and stating she is stressed. Please contact pt at [phone] (emergency medical technician needed) * Telephone Encounter - Khadijah Root RN - 03/18/2023 3:30 PM EST 02/13/23 Pt had left knee partial medial menisectomy and chondroplasty by Dr. Gardner. 02/13/23 Pt received Tramaol 50mg #150 for 25 days from PCP. 02/13/23 Pt received Percocet 5mg #42 for 7 days from A [address], [facility]. 03/12/23 Pt Received Percocet 5mg #28 for 7 days from A [address], [facility]. TC to pt, pt inquiring about [...] as her Percocet. Pt upset about this quality analyst/technical writer inquiring about her Tramadol refill. Pt and her were both talking stating that it shouldn't be anissue if she takes her Tramadol with her Percocet at the same time. Attempted to review the PAPER SLITTER Agreement with them. Explained to them that [...] documented as of this encounter Care Teams Tank Truck Operator Relationship Specialty Start Date End Date Mary Lou Doan FNP [address] [place] [address] PCP - General Family Medicine 11/03/21 documented as of this encounter
--- OUTSIDE RECORDS SUMMARY | 2025-02-02 17:19 | XMS_ITS | Encounter Summary ---
Author Organization [employer] Address [address] [place] [address] Care Team Providers Care Carrier Associate Name Role Phone [facility] Primary Care Provider [phone] Reason for Visit * Reason Onset Date Comments Cancled appts 05/13/2023 Encounter Details Date Type Department Care Team ([facility] st Contact Info) Description 05/13/2023 Telephone [facility] [address] [place] [address] [facility] [address] [place] [address] Cancled appts Social History Tobacco Use Types [...] documented as of this encounter Care Teams Carrier Associate Relationship Specialty Start Date End Date Mary Lou Doan FNP [address] [place] [address] PCP - General Family Medicine 11/03/21 documented as of this encounter
--- OUTSIDE RECORDS SUMMARY | 2025-02-02 17:19 | XMS_ITS | Encounter Summary ---
Author Organization [employer] [facility] Address [address] [place] [address] Care Team Providers Care Echocardiograph Tech Name Role Phone [place], [facility] Primary Care Provider [phone] Reason for Visit * Reason Onset Date Comments Nurse Triage 04/25/2023 Encounter Details Date Type Department Care Team ([facility] st Contact Info) Description 04/25/2023 Telephone [facility] MED[facility] [address] [place] [address] [place] [facility] [address] [place] [address] Nurse Triage Social History Tobacco Use Types [...] t he electric, gas, oil or water [employer] threatened to shut off services in your [...] is looking for respite care. Call to [facility], spoke with Margie who advised to have pt call [facility] at [phone]. Pt advised to call back if any [...] is looking for respite care. Call to [facility], spoke with Margie who advised to have pt call [facility] at [phone]. Pt advised to call back if any [...] documented as of this encounter Care Teams Echocardiograph Tech Relationship Specialty Start Date End Date Mary Lou Doan FNP [address] [place] [address] PCP - General Family Medicine 11/03/21 documented as of this encounter
--- OUTSIDE RECORDS SUMMARY | 2025-02-02 17:19 | XMS_ITS | Encounter Summary ---
Author Organization [employer] Address [address] [place] [address] Care Team Providers Care Hot Metal Car Operator Name Role Phone [place] Primary Care Provider [phone] Reason for Visit * Reason Onset Date Comments Med Refill 08/10/2024 Encounter Details Date Type Department Care Team ([facility] st Contact Info) Description 08/10/2024 Telephone [facility] [address] [place], [place] [phone] [place] [facility] [address] [place] [address] Med Refill Social History Tobacco Use Types [...] one. Pt is advised to come to [facility] today open till 8pm . Pt agrees [...] documented as of this encounter Care Teams Hot Metal Car Operator Relationship Specialty Start Date End Date Mary Lou Doan FNP [address] [place] [address] PCP - General Family Medicine 11/03/21 documented as of this encounter
--- OUTSIDE RECORDS SUMMARY | 2025-02-02 17:19 | XMS_ITS | Encounter Summary ---
Author Organization [employer] Address [address] [place] [address] Care Team Providers Care Security Strategist Name Role Phone [place] [facility] Primary Care Provider [phone] Reason for Visit * Reason Onset Date Comments Call Back Request 05/14/2023 Encounter Details Date Type Department Care Team ([facility] st Contact Info) Description 05/14/2023 Telephone [facility] MED[facility] [address] [place], [place] [phone] [place] [facility] [address] [place] [address] Call Back Request Social History Tobacco Use [...] Tc from pt requesting to speak with Director Public Policy in regards to MINGLER OPERATOR Complaiments Management. Pt states that that she feels that her privacy is being invade by the level of questions. Please contact pt @ [phone] documented in this encounter Plan of Treatment Not on file documented as of this encounter Visit Diagnoses Not on filedocumented in this encounter Additional Health Concerns Assessment Noted Time PHQ-9 Depression Total Score: 16 023 2:01 PM EDT documented as of this encounter Care Teams Security Strategist Relationship Specialty Start Date End Date Mary Lou Doan FNP [address] [place] [address] PCP - General Family Medicine 11/03/21 documented as of this encounter
--- OUTSIDE RECORDS SUMMARY | 2025-02-02 17:19 | XMS_ITS | Encounter Summary ---
Author Organization [employer] Address [address] [place] [address] Care Team Providers Care Senior Sales Manager Name Role Phone [facility] Primary Care Provider [phone] Reason for Visit * Reason Comments Med Refill Encounter Details Date Type Department Care Team ([facility] st Contact Info) Description 08/08/2024 Refill [facility] MED[facility] [address] [place], [place] [phone] [place] [facility] [address] [place], [place] [phone] Cervical radiculopathy Social History Tobacco Use Types [...] documented as of this encounter Care Teams Senior Sales Manager Relationship Specialty Start Date End Date Mary Lou Doan FNP [address] [place] [address] PCP - General Family Medicine 11/03/21 documented as of this encounter
== END 2025-02-02 14:07 | disposition home or self-care (01) ==
LOC: HO.HWS 13:25
PROVIDERS: PCP Registered Nurse; Visit Provider Obstetrics & Gynecology
DX: N84.0 Polyp of corpus uteri (principal); D25.9 Leiomyoma of uterus, unspecified
CPT/HCPCS: 99213

== ENCOUNTER 2025-02-15 13:01 | Outpatient (AMB) | payer OTHER, SELFPAY ==
--- NOTE | 2025-02-15 13:04 | MHC.OFFVIS ---
Vital Signs 02/15/25 13:06 Weight 184 lb BP 124/80 Intake Visit Reasons: post op Internal Audit Consultant Required: Yes Internal Audit Consultant Language: Manager Packaging Services: Internal Audit Consultant Present (in person) Internal Audit Consultant Name: OLGA Hernandez Information Interpreted: non-clinical & clinical Allergies No Known Allergies (No Known Allergies*) Allergy (Verified 02/02/25 13:27) HPI Comments Details: The patient is presenting post hysteroscopy D&C no complaints minimal vaginal bleeding no feverishness chills or abdominal pain. The pathology showed the following: A. Endometrial polyp, resection: Fragments of benign endometrial polyp; no atypia or carcinoma. B. Endometrium, curettage: Fragments of benign inactive endometrium, abundant mucus, and benign endocervical glandular epithelium; no atypia or carcinoma PFSH Medical History Frequency of urination Urge incontinence Renal stones Anxiety Overactive bladder Hyperlipemia Depression Obesity Glaucoma Osteoarthritis IBS (irritable bowel syndrome) Lumbar spondylitis Renal stones Anemia GERD (gastroesophageal reflux disease) Plantar fasciitis Fibromyalgia Surgical History History of arthroscopy of left knee History of arthroscopy of right knee (~03/2020) H/O nasal septoplasty Hx of lithotripsy Hx of tubal ligation Family History Mother Diabetes Fibromyalgia Arthritis Osteoporosis Daughter Breast cancer Social History Household Members: Family Housing: House Are you a primary gericare aide to a significant other at home: No Do you presently have visiting nurse or other home services: No Alcohol intake: never Comment: uses a cane sometimes Patient Tobacco Use Status: Never used Tobacco Second Hand Smoke Exposure: No Current occupational status: disabled Current occupation: Right Handed Review of Systems Const All systems reviewed & are unremarkable except as noted in HPI and below Reports as per HPI and Reports no additional complaints GI Reports no additional complaints Reports no additional complaints Assessment & Plan Assessment & Plan (1) Endometrial polyp: Comment: Status post polypectomy Code(s): N84.0 - Polyp of corpus uteri Category: Medical Plan: Discussed with the patient the intraoperative finding, the results the pathology, it sensitivity, specificity, false-positive false-negative rate. Recommended the patient to call in case of vaginal bleeding will proceed with further endometrial sampling to rule out endometrial pathology including hyperplasia and/or malignancy. All questions answered, the patient verbalized understanding. Coding Level of Care Code Est Pt Level 3 (45059) Diagnoses Endometrial polyp N84.0
[2025-02-15 13:06] VITALS: BP 124/80
== END 2025-02-15 13:24 | disposition home or self-care (01) ==
LOC: HO.HWS 13:01
PROVIDERS: PCP Registered Nurse; Visit Provider Obstetrics & Gynecology
DX: N84.0 Polyp of corpus uteri (principal)
CPT/HCPCS: 99213

== ENCOUNTER → 2025-02-15 13:01 | Outpatient (BNVA) | payer OTHER, SELFPAY | PROVIDERS: PCP Registered Nurse; Visit Provider Obstetrics & Gynecology | DX: N84.0 Polyp of corpus uteri (principal); Z98.890 Other specified postprocedural states | CPT/HCPCS: 99212 ==